=== PATIENT | female | born 1965 | race Caucasian/White ===

== ENCOUNTER → 2017-08-31 12:07 | Outpatient (CLI) | payer MEDICARE, SELFPAY ==
--- NOTE | 2017-08-31 12:10 | HPBI_ITS ---
MAMMOGRAPHY - BILATERAL SCREENING REASON FOR EXAM: Female, 51 years old. Routine annual screening examination. PERTINENT HISTORY: Non-contributory. TECHNIQUE: Digital bilateral breast jean (3D mammographic acquisition) in the CC and MLO projections. 2-D mediolateral oblique (MLO) and craniocaudad (CC) views of both breasts were obtained. CAD: Full Field Digital Mammography with Computer Added Detection was performed. COMPARISON: Comparison is made with prior outside examination dated April 14, 2012. FINDINGS: Breast Composition: There are scattered areas of fibroglandular density. There are no dominant masses or suspicious calcifications. Stable bilateral benign appearing axillary lymph nodes. No other significant abnormalities are identified. There has been no significant change since the prior study. HPBI/SCREENING MAMM (CAD), BILAT IMPRESSION: Stable bilateral screening mammogram. Yearly follow-up mammogram recommended. (A) ASSESSMENT CATEGORY: BIRADS Category 2: Benign. A letter regarding these results will be sent to the patient by the facility within 30 days. Approximately 10% of breast cancers are not detected by mammography. A normal mammogram should not delay biopsy of a clinically suspicious abnormality. [id number] Electronically Signed: Reinaldo Gaspar MD at 8:24 EST Tel [phone], Service support ,
== END ==
DX: Z12.31 Encounter for screening mammogram for malignant neoplasm of breast (principal)
CPT/HCPCS: 77063; 77067

== ENCOUNTER 2018-04-25 14:26 | Emergency (ER) | payer MEDICARE, SELFPAY ==
[2018-04-25 14:29] VITALS: BP 144/88; PULSE 73; RESP 16; TEMP 36.9; O2SAT 97; BMI 36.1
[2018-04-25 16:11] LABS: Bedside Glucose 100 mg/dL (70-110)
--- NOTE | 2018-04-25 16:22 | ED.VISSUMM ---
- ER Visit Summary Date of Service: 04/25/18 Chief Complaint: [Abscess to upper abdomen and right forearm] History of Present Illness: The patient is a 52 F [presents the emergency department complaint of a soft tissue swelling on her left upper abdomen that started about 10 days ago. Patient also has soft tissue swelling and redness to the right forearm that started 3 days ago. Patient believes that these have been triggered by her cat who scratches her accidentally. Patient denies any fevers at home. She denies recent illness. She denies any IV drug use.] Physical Examination: [HEENT-PERRLA, EOMI. Cranial nerves II through XII grossly intact. TMs clear. Mucous membranes moist. No adenopathy. Cardiovascular-regular rate and rhythm without murmur or ectopy Lungs-clear to auscultation, chest wall stable without crepitus or subcu emphysema Abdomen-normoactive bowel sounds, soft. Patient has a soft tissue swelling to the left upper abdomen with the central portion of which is been excoriated and scabbed over. The area of soft tissue swelling measures approximately 4 cm in diameter and is tender to palpation. Some mild fluctuance centrally. Extremities-intact ?4, normal range of motion, normal pulses, atraumatic.] Right forearm-patient has some superficial abrasions noted and she has diffuse erythema about the forearm. There is warmth. Findings consistent with cellulitis. No discrete abscess noted on the forearm. Test Results: [CBC with differential showed a white blood cell count 11.5, hemoglobin 15.7, hematocrit 45, platelets 282. Chemistries were unremarkable.] Emergency Department Course and Treatment: [Patient was offered incision and drainage of her abscess on her upper abdomen and to which she agreed. The incision and drainage was performed by Dr. Herminio Kebede. Patient received Unasyn 3 g IV.] Treatment Plan: [Patient was started on Keflex and Bactrim. I did outline the area of cellulitis on the right forearm with permanent marker. Patient advised to return if the redness should extend more than a centimeter outside of the line of demarcation or she should have lymphogenic streaking or fever.] Wound culture was sent from the I&D site. Disposition: [Discharged home in stable condition] Impression: [Abscess abdomen with incision and drainage Cellulitis right forearm] This note was generated with [employer] software. It may contain incorrect words, spelling, and punctuation that were not noted in review of the chart prior to signing ED Disposition - Plan for ED Patient: Chief Complaint: Abscess Referrals: Luis Felipe Crews,[facility] [Primary Care Provider] -
[2018-04-25 16:51] LABS: Absolute Lymphocyte Count 2.56 X10^3/ul (0.83-4.51); Absolute Neutrophil Count 7.8 X10^3/uL (2.0-7.7); Basophil# 0.02 X10^3/uL; Basophil% 0.2 % (0-1); Eosinophils% 1.7 % (0-5); Hematocrit 45.3 % (37-47); Hemoglobin 15.7 g/dl (12.0-15.0); Lymphocyte # 2.56 X10^3/ul (4.0); Lymphocyte % 22.3 % (19-41); Mean Corp Hgb Conc 34.7 g/gl (32-36); Mean Corpuscular Hgb 30.8 pg (27.0-32.0); Mean Corpuscular Volume 88.8 fL (81-99); Mean Platelet Vol. 8.2 fl (6.2-12.0); Monocyte# 0.88 X10^3/uL; Monocyte% 7.7 % (0-10); Neutrophil % 67.9 % (47-70); POSITIVE COUNT NO; POSITIVE DIFFERENTIAL NO; POSITIVE MORPHOLOGY NO; Platelet Count 282 K/mm3 (150-450); RBC Distribution Width SD 41.9 fl (35.1-43.9); White Blood Count 11.5 K/mm3 (4.4-11.0)
[2018-04-25 17:05] LABS: Anion Gap 7 (5-15); BUN 14 mg/dL (7-18); BUN/Creat Ratio 18.1 RATIO (10-20); Chloride 97 mmol/L (98-107); Creatinine, Serum 0.78 mg/dL (0.55-1.02); EST Glomerular Filtration Rate 83 mL/min (>60); Est Glom Filt Rate - Afr Amer 100 mL/min (>60); Estimated Creatinine Clearance 59.91 ml/min; Glucose 95 mg/dL (74-106); Potassium 3.8 mmol/L (3.5-5.1); Sodium Level 133 mmol/L (136-145)
--- NOTE | 2018-04-25 18:00 | ED.DEP ---
ED Disposition - Plan for ED Patient: Chief Complaint: Abscess Instructions: ED Abscess IandD, ED Infec Skin Cellulitis Prescriptions: Cephalexin [Keflex] 500 mg PO Q6 #40 cap Smz/Tmp Ds [Bactrim Ds] 1 tab PO BID #20 tab Referrals: [facility] [Primary Care Provider] - 3-5 Days
[2018-04-25 18:18] VITALS: BP 138/72; PULSE 74; RESP 18; O2SAT 96
== END 2018-04-25 18:22 | disposition home or self-care (01) ==
LOC: ED 16:44
PROVIDERS: Emergency Provider Emergency Medicine
DX: L03.113 Cellulitis of right upper limb (principal); L02.211 Cutaneous abscess of abdominal wall; E11.9 Type 2 diabetes mellitus without complications; I10 Essential (primary) hypertension; E78.00 Pure hypercholesterolemia, unspecified; E03.9 Hypothyroidism, unspecified; Z72.0 Tobacco use; F32.9 Major depressive disorder, single episode, unspecified; F41.9 Anxiety disorder, unspecified
CPT/HCPCS: 80048; 82962; 85025; 87070; 87077; 87186; 87205; 96365; 99283; J7030; A4216; J0295

== ENCOUNTER 2018-04-26 17:31 | Inpatient (IN) | payer MEDICARE, MEDICAID, SELFPAY ==
[2018-04-26 17:32] VITALS: BP 126/79; PULSE 72; RESP 16; TEMP 36.7; O2SAT 95; BMI 36.1
--- NOTE | 2018-04-26 19:19 | HP.PCM_ITS ---
Problem List (1) Pain and swelling of left upper extremity Status: Acute History of Present Illness Date of Admission: 04/26/18 Chief Complaint: pain and swelling of LUE The patient is a 52 year old Fwith a PMH of diabetes, HTN and nicotine dependence. She presents with a complaint of RUE worsening swelling, pain and redness for the past 3 days. Symptoms started after she was scratched by her cat. She was seen in the ED yesterday and had I&D of a smaller abscess on her abdomen, and the area of cellulitis of her RUE was demarcated, and she was discharged home with Bactrim. However, today area of redness extended past the demarcated area and so she decided to come into the ED. She denied any fever or chills, any chest pain, shortness of breath, abdominal pain, any diarrhea vomiting. 12 point review of systems is otherwise negative. She has been admitted to be managed for cellulitis of the right upper extremity and abdomen. [] Past Medical History Allergies No Known Allergies Allergy (Verified 01/20/17 15:36) Home Medications: Ambulatory Orders Medication Instructions Recorded Levothyroxine [Synthroid] 125 mcg PO DAILY 05/31/13 Amlodipine [Norvasc] 10 mg PO DAILY 01/20/17 Losartan Potassium 50 mg PO DAILY 01/20/17 Meloxicam 15 mg PO DAILY 01/20/17 Pravastatin [Pravachol] 20 mg PO QHS 01/20/17 busPIRone [Buspar] 15 mg PO DAILY 01/20/17 Cephalexin [Keflex] 500 mg PO Q6 #40 cap 04/25/18 Oxcarbazepine [Trileptal] 450 mg PO DAILY 04/25/18 Smz/Tmp Ds [Bactrim Ds] 1 tab PO BID #20 tab 04/25/18 Bupropion HCl [Wellbutrin Xl] 150 mg PO DAILY 04/26/18 Citalopram [Celexa] 40 mg PO QHS 04/26/18 Hydrochlorothiazide [Hctz] 25 mg PO DAILY 04/26/18 Melatonin 20 mg PO QHS 04/26/18 Metformin HCl [Glucophage] 500 mg PO BID 04/26/18 traZODone [Desyrel] 100 - 200 mg PO QHS 04/26/18 Surgical History: no surgical history Psychiatric History: Depression 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 Denies: Shortness of breath at rest, Sputum production Gastrointestinal: Denies: Abdominal Pain, Nausea, Vomiting Genitourinary: Denies: Dysuria Musculoskeletal: Reports: Arm Pain, Joint Pain. Denies: Joint Tenderness, Muscle pain Skin: Denies: Rash, Wounds Neurological: Denies: Numbness, Tingling, Focal weakness Psychiatric: Denies: Anxiety, Depression, Homicidal Ideations, Suicidal Ideations Hematologic/ Lymphatic: Denies: Easy Bruising, Easy Bleeding VTE Information - Inpt Only VTE Present on Admission: No VTE Mechan Device Prophylaxis: None VTE Pharm Prophylaxis ordered?: Yes Patient Problems: Active and Suspected Problems Pain and swelling of left upper extremity (Acute) - Physical Exam General: Alert, Oriented x3, Cooperative, No apparent distress HEENT: Atraumatic, PERRLA, EOMI, Normocephalic Oral: Moist Mucosa Neck: Supple, No JVD, Negative Carotid Bruits Lungs: Clear to auscultation, Normal air movement, No rhonchi, No wheeze, No r ales Cardiovascular: Regular rate, Regular Rhythm, Normal S1, Normal S2, No murmurs Abdomen: Bowel Sounds Present, Soft, Non Tender, Non-Distended, No Hepato- splenomegaly, - - ~ 1x1cm erythematous, ulcerated area with areas of pus, and surrounding erythema Extremities: No clubbing, No cyanosis, No edema Skin: - - redness and swelling and tenderness of RUE elbow area, extending down the back of the forearm. ~ [id number] area of redness tenderness, with ~ [id number] indurated area, with a punctate area. Musculoskeletal: No Tenderness to Palpation of Joints or Extremities, Tenderness Lymphatic: No Cervical, Supraclavicular, or Inguinal Adenopathy Neurological: Cranial nerves II-XII grossly intact Psych/Mental Status: Normal Affect, Appropriate, Alert and oriented to time, place, person, mood and affect Vital Signs Temp Pulse Resp BP Pulse Ox 98.1 F 72 16 126/79 H 95 04/26/18 17:32 04/26/18 17:32 04/26/18 17:32 04/26/18 17:32 04/26/18 17:32 Oxygen Delivery Method Room Air Weight: 185 lb Body Mass Index (BMI) 36.1 Finger Stick Blood Glucose 100 Assessment/Plan All Active Problems Pain and swelling of left upper extremity (Acute) 52-year-old female presenting with cellulitis of the right upper extremity and abdomen. 1. Cellulitis of right upper extremity and abdomen due to cat scratch * Failed outpatient therapy, though she was on Bactrim for only one day. * s/p post I&D of abdominal cellulitis. * Check CBC and BMP. * Admit to MedSurg. * Check A1c. Start IV vancomycin * counselled to be careful with cat to avoid scratches * 2. Nicotine dependence: smokes 11 cigarettes daily. Encouraged to quit. Nicotine patch 14gram daily. INpatient smoking cessation consult 3. Diabetes mellitus: Check A1c. On metformin. Insulin sliding scale. 4. Hyponatremia: Na is 130; this is chronic. Will monitor 5. Depression: On Celexa and wellbutrin 6. Hypothyroidism: on synthroid 125mcg daily 7. Hypertension: on amlodipine and losartan. 5. DVT prophylaxis: Lovenox CODE STATUS: Full code. * Patient counseled about different types of CODE STATUS including DNR CCA, full code and DNR CCA. Patient elects to be full code. Total [id number] time 17 minutes. Code Visit Inpatient E&M: 79645 Init Hosp L3 Procedures: 90443 Advncd Care Plan 30 Min
--- NOTE | 2018-04-26 19:39 | ED.DCSUM_ITS ---
- ER Visit Summary Date of Service: 04/26/18 Chief Complaint: [Redness and swelling to right forearm] History of Present Illness: The patient is a 52 F presents the emergency department with complaint of redness and swelling to the right forearm that initially started about 4 days ago. Patient states that she frequently is scratched by her cat on the forearm and also on her abdomen. Patient was seen in the emergency department yesterday by myself and she had some blood work that showed a slightly elevated white count of 11.5 and patient received Unasyn IV. Patient had a soft tissue abscess on her upper abdomen that was incised and drained yesterday as well. Patient had a cellulitis of the right forearm yesterday. We discussed admitting her yesterday versus outpatient treatment and she chose to attempt outpatient treatment and patient was started on Keflex and Bactrim. Patient comes back today because the erythema has increased beyond the markings that we made yesterday. She denies any fever. She denies chills or sweats.] Physical Examination: [HEENT-PERRLA, EOMI. Cranial nerves II through XII grossly intact. TMs clear. Mucous membranes moist. No adenopathy. Cardiovascular-regular rate and rhythm without murmur or ectopy Lungs-clear to auscultation, chest wall stable without crepitus or subcu emphysema Abdomen-normoactive bowel sounds, soft, nontender, no rebound or rigidity, no peritoneal signs. Extremities-intact ?4, normal range of motion, normal pulses, atraumatic]. Right forearm-there is cellulitis diffusely over the posterior aspect of the forearm no discrete abscess is noted. There is no fluctuance. She is neurovascular intact. Test Results: [CBC with differential and basic metabolic profile were ordered.] Emergency Department Course and Treatment: [Patient was started on Unasyn 1 g IV. A blood culture obtained yesterday did grow out staph from the abdominal wall abscess.] Treatment Plan: [Patient will be admitted for IV antibiotics] Disposition: [Admit] Impression: [Cellulitis right forearm-failed outpatient therapy] This note was generated with [employer] dictation software. It may contain incorrect words, spelling, and punctuation that were not noted in review of the chart prior to signing ED Disposition - Plan for ED Patient: Chief Complaint: Wound Referrals: Katarina Childers [Primary Care Provider] -
[2018-04-26 20:03] VITALS: BMI 36.1
[2018-04-26 20:16] LABS: Absolute Lymphocyte Count 3.32 X10^3/ul (0.83-4.51); Absolute Neutrophil Count 9.5 X10^3/uL (2.0-7.7); Basophil# 0.04 X10^3/uL; Basophil% 0.3 % (0-1); Eosinophil# 0.08 X10^3/uL; Eosinophils% 0.6 % (0-5); Hematocrit 43.7 % (37-47); Hemoglobin 15.4 g/dl (12.0-15.0); Lymphocyte # 3.32 X10^3/ul (4.0); Lymphocyte % 23.9 % (19-41); Mean Corp Hgb Conc 35.2 g/gl (32-36); Mean Corpuscular Hgb 30.6 pg (27.0-32.0); Mean Corpuscular Volume 86.7 fL (81-99); Mean Platelet Vol. 8.4 fl (6.2-12.0); Monocyte# 0.84 X10^3/uL; Monocyte% 6.1 % (0-10); Neutrophil # 9.54 X10^3/uL (2.7-7.7); Neutrophil % 68.7 % (47-70); POSITIVE COUNT NO; POSITIVE DIFFERENTIAL NO; POSITIVE MORPHOLOGY YES; Platelet Count 340 K/mm3 (150-450); RBC Distribution Width CV 12.8 % (11.6-14.6); RBC Distribution Width SD 40.2 fl (35.1-43.9); Red Blood Count 5.04 M/mm3 (4.2-5.4); White Blood Count 13.9 K/mm3 (4.4-11.0)
[2018-04-26 20:17] LABS: Differential Indicated SCAN CRITERIA MET
[2018-04-26 20:25] VITALS: BMI 36.6
[2018-04-26 20:38] LABS: Differential Comment SCANNED
--- NOTE | 2018-04-26 20:45 | PCM.RX.CS ---
Consult Pharmacy has been consulted to manage selected antiobiotic: Vancomycin Type of Consult: New start Suspected Infection: Skin/Soft tissue Labs: Sodium Cancelled 04/26/18 20:02 Potassium Cancelled 04/26/18 20:02 Chloride Cancelled 04/26/18 20:02 Carbon Dioxide Cancelled 04/26/18 20:02 Anion Gap Cancelled 04/26/18 20:02 BUN Cancelled 04/26/18 20:02 Creatinine Cancelled 04/26/18 20:02 Est GFR (MDRD) Af Amer Cancelled 04/26/18 20:02 Est GFR (MDRD) Non-Af Cancelled 04/26/18 20:02 BUN/Creatinine Ratio Cancelled 04/26/18 20:02 Glucose Cancelled 04/26/18 20:02 Weight used for dosin kg Estimated Creatinine Clearance: 60 mL/min Goal Trough: 10-15 mcg/mL Pharmacy Plan for Drug Dosing: Recommend 1250mg IV x1 followed by 750mg IV q12h per nomogram with trough prior to 4th dose. Pharmacy Service will continue to monitor and adjust dosing as required. Follow-Up Labs: Trough Vancomycin - 04/28 @ 0830
[2018-04-26 20:50] VITALS: BP 141/77; PULSE 61; RESP 18; TEMP 37.7; O2SAT 95
[2018-04-26 20:51] LABS: Bedside Glucose 89 mg/dL (70-110)
[2018-04-26 21:18] LABS: Anion Gap 7 (5-15); BUN 10 mg/dL (7-18); BUN/Creat Ratio 14.4 RATIO (10-20); Calcium,Total 8.8 mg/dL (8.5-10.1); Chloride 98 mmol/L (98-107); Creatinine, Serum 0.69 mg/dL (0.55-1.02); EST Glomerular Filtration Rate 94 mL/min (>60); Est Glom Filt Rate - Afr Amer 114 mL/min (>60); Estimated Creatinine Clearance 126.08 ml/min; Glucose 80 mg/dL (74-106); Potassium 3.6 mmol/L (3.5-5.1); Sodium Level 130 mmol/L (136-145)
[2018-04-26 21:35] LABS: Bedside Glucose 134 mg/dL (70-110)
[2018-04-26] MEDS: MELATONIN 10 MG TABLET 20 MG PO (22:15)
[2018-04-26] MEDS: traZODone 100 MG Tablet PO (22:15)
[2018-04-26] MEDS: Citalopram 40 MG TABLET PO (22:15)
[2018-04-26] MEDS: Pravastatin 20 MG Tablet PO (22:16)
[2018-04-26] MEDS: OXcarbazepine 150 MG Tablet 450 MG PO (22:20)
[2018-04-26] MEDS: Nicotine Polacrilex 2 MG GUM PO (23:23)
[2018-04-27 02:50] VITALS: BP 144/98; PULSE 69; RESP 18; TEMP 36.7; O2SAT 97
[2018-04-27] MEDS: Levothyroxine 125 MCG Tablet PO (06:30)
[2018-04-27 07:03] LABS: Absolute Lymphocyte Count 2.65 X10^3/ul (0.83-4.51); Basophil# 0.02 X10^3/uL; Basophil% 0.3 % (0-1); Eosinophil# 0.22 X10^3/uL; Eosinophils% 2.9 % (0-5); Hematocrit 45.3 % (37-47); Hemoglobin 15.7 g/dl (12.0-15.0); Lymphocyte # 2.65 X10^3/ul (4.0); Lymphocyte % 34.5 % (19-41); Mean Corp Hgb Conc 34.7 g/gl (32-36); Mean Corpuscular Hgb 30.6 pg (27.0-32.0); Mean Corpuscular Volume 88.3 fL (81-99); Mean Platelet Vol. 8.2 fl (6.2-12.0); Monocyte# 0.77 X10^3/uL; Neutrophil # 4.01 X10^3/uL (2.7-7.7); Platelet Count 305 K/mm3 (150-450); RBC Distribution Width CV 13.1 % (11.6-14.6); RBC Distribution Width SD 42.4 fl (35.1-43.9); Red Blood Count 5.13 M/mm3 (4.2-5.4); White Blood Count 7.7 K/mm3 (4.4-11.0)
[2018-04-27 07:05] LABS: POSITIVE COUNT NO; POSITIVE DIFFERENTIAL NO
[2018-04-27 07:06] LABS: POSITIVE MORPHOLOGY NO
[2018-04-27 07:26] LABS: Anion Gap 7 (5-15); BUN 12 mg/dL (7-18); BUN/Creat Ratio 15.6 RATIO (10-20); Calcium,Total 8.7 mg/dL (8.5-10.1); Chloride 101 mmol/L (98-107); Creatinine, Serum 0.77 mg/dL (0.55-1.02); EST Glomerular Filtration Rate 84 mL/min (>60); Est Glom Filt Rate - Afr Amer 101 mL/min (>60); Estimated Creatinine Clearance 112.98 ml/min; Glucose 102 mg/dL (74-106); Potassium 4.1 mmol/L (3.5-5.1); Sodium Level 134 mmol/L (136-145)
[2018-04-27] MEDS: Meloxicam 15 MG Tablet PO (08:03)
[2018-04-27 08:18] VITALS: BP 131/83; PULSE 66; RESP 18; TEMP 36.9; O2SAT 98
[2018-04-27 08:26] LABS: Bedside Glucose 216 mg/dL (70-110)
--- NOTE | 2018-04-27 09:22 | CASEMGMT ---
SLIM GARCIA Assessment Intro role of CM to patient in room. PCP: Radha Perez NP @ [facility] Pharmacy: [facility] Prescription coverage: Provisional RUMA coverage which assists with medications. Pt states her meds are all <$5.00 Living Arrangements: Self, in apartment. Stairs into apartment, but pt states no difficulty. DME: none Transportation: drives, however gas for car can be cost prohibitive. Social Work Consult: Pt states she goes to counseling center, and has Trauma Counselor. SLIM GARCIA let pt know we have Track Layer available if pt feels she could use to speak with her. Pt stated she definitely would like to speak with RENA. Referral made to RENA [facility] DC PLAN: Home on dc
[2018-04-27] MEDS: Losartan Potassium 50 MG Tablet PO (10:05)
[2018-04-27] MEDS: hydroCHLOROthiazide 25 MG Tablet PO (10:05)
[2018-04-27] MEDS: amLODIPine 10 MG Tablet PO (10:06)
[2018-04-27] MEDS: buPROPion (XL) 150 MG TABLET.XL PO (10:09)
[2018-04-27] MEDS: busPIRone 15 MG TABLET PO (10:09)
--- NOTE | 2018-04-27 10:57 | NURSING ---
wound photo: left abdomen
[2018-04-27 11:45] LABS: Bedside Glucose 85 mg/dL (70-110)
--- NOTE | 2018-04-27 12:58 | CHAPLAIN ---
Type of Pastoral Visit _x__ Initial Visit ___ Follow-up Visit ___ On-call Visit ___ General Patient Visit ___ Spiritual Assessment ___ Family Conference ___ Bereavement ___ Rapid Response ___ Code Blue ___ Other (describe below) Pastoral Care Referral From _x__ Patient ___ Family _x__ Nurse ___ Physician ___ Stem Cutter ___ Certified Nursing Assistant Instructor ___ Other (describe below) Sacrament/Intervention _x__ Active listening ___ Anointing ___ Confucianism ___ Bereavement ___ Communion _x__ Sabina exploration ___ ___ Life review _x__ Prayer ___ Reconciliation ___ Sacrament of Sick _x__ Supportive presence ___ Wedding ___ Other (describe below) Pastoral Comments patient had some questions and concerns about her personal prayers; pt expresses feelings of overwhelm as she has just moved; pt has a sabina and desires for that to become a better source of ongoing help in her life
--- NOTE | 2018-04-27 14:18 | CASEMGMT ---
SW received referral from that pt would like to speak w/SW. SW met w/pt in room. Pt confirms goes to [facility], sees counselor and has a trauma counselor as well. Pt states her trauma counselor is wonderful. Pt explains that she just moved to [place] and is still trying to unpack, and finds this stressful. Pt explains she would love help but does not have many people she can ask. Pt reports to have some friends and support, but not too many people she can ask to help. She states she does have a boyfriend who helped her rearrange her room, but he is 65, works still, and can't drive at night. SW suggested she pick him up as it sounds like he would be willing to help her. Pt talked about the last time she moved, and she had just been through a trauma so that move was difficult. She states this move was easier. SW offered supportive listening to pt. SW spoke w/pt about the [facility], pt does not think this program would be beneficial to her at this time. SW asked her about case management at [facility]. Pt explains that she has had multiple returned case inspector, they keep quitting. She states she is looking into other options for case management. SW asked pt about her ability to complete ADL'S(as perhaps a waiver application would be appropriate). Pt states that she can complete ADL's, she does not have any physical limitations, they are more mental. Pt states at times getting meals has been difficult, though now where she lives they offer hot lunches every day and she has been going to these hot lunches. We talked about the possibility of pt meeting people at these lunches. Pt states she is wary to let her guard down. Again, support offered to pt. At this time, pt just looking to speak w/SW about nothing specific it seems, just more for support and someone to talk to. SW let pt know that SW remains available today and tomorrow to speak again w/pt if she would find it helpful. Otherwise, no further needs anticipated. HARPAL Madison, UROLOGIC NURSE
[2018-04-27] MEDS: Nicotine Polacrilex 2 MG GUM PO ×3 (14:38→21:21)
--- NOTE | 2018-04-27 14:52 | NURSING ---
resting in bed, hand sanitizing cloths given per pt request. pt discussion regarding leaving to go home and take care of her cat which is indoors. pt educated on risks/ramifications/health promotion/safety and rights regarding AMA. pt states she will keep trying to get a hold of someone to see if someone can feed my cat. cooperative and agrees to inform nursing if she decides to leave AMA as she understands that her iv will need to be removed prior to leaving.
--- NOTE | 2018-04-27 15:53 | PN_ITS ---
Patient Problems: Active and Suspected Problems Pain and swelling of left upper extremity (Acute) Subjective: She was seen and examined today, I also talked with the wound care nurse today as she was in the room examining the patient's wounds, the patient's right forearm wound is not draining any material and has a small eschar over the area, it appears that the delineated reddened area has regressed since when it was marked when the patient was admitted. Patient has a small wound on her left lower abdomen, this is not draining any material and looks reddened. Culture from this abdominal wound area grew out MRSA which was susceptible to many oral antibiotics including Bactrim. - Physical Exam General: Alert, Oriented x3, Cooperative, No apparent distress, Well developed, Well nourished HEENT: Atraumatic, PERRLA, EOMI, Normocephalic Oral: Moist Mucosa Neck: Supple, No Nuchal Rigidity, Trachea Midline, Thyroid Normal Size and Texture Lungs: Clear to auscultation, Normal air movement, No rhonchi, No wheeze, No rales Cardiovascular: Regular rate, Regular Rhythm, Normal S1, Normal S2, No murmurs, No Ectopic Activity, PMI Normal, No rub noted, No Gallop Abdomen: Bowel Sounds Present, Soft, Non Tender, Non-Distended, No hernias noted, - - There is a small wound over the left lower abdomen approximately 3 cm in length with Steri-Strips applied to the area, the area is reddened and slightly tender Extremities: Capillary Refill Less than 3 Seconds, Edema - There is edema noted over the patient's right forearm on the medial aspect of the forearm, there is also a reddened area with a small eschar over it in the center of the area Skin: Rash Present - The right forearm is reddened over its medial aspect with edema noted, there is an eschar over the central area of this redness Neurological: Cranial nerves II-XII grossly intact, Neuro grossly intact, Sensory exam intact to light touch and pain, Coordination normal Psych/Mental Status: Normal Affect, Appropriate, Alert and oriented to time, place, person, mood and affect Vital Signs Temp Pulse Resp BP Pulse Ox 98.4 F 66 18 131/83 H 98 04/27/18 08:18 04/27/18 08:18 04/27/18 08:18 04/27/18 08:18 04/27/18 08:18 Oxygen Delivery Method Room Air Weight: 84.7 kg Body Mass Index (BMI) 36.6 Finger Stick Blood Glucose 100 Intake and Output for Last 24 Hours 04/25/18 04/26/18 04/27/18 23:59 23:59 23:59 Intake Total 387 / 387 1532 / 1532 Balance 387 / 387 1532 / 1532 Laboratory Tests Past 24 Hrs 04/26/18 04/26/18 04/26/18 20:02 20:02 20:50 WBC 13.9 H RBC 5.04 Hgb 15.4 H Hct 43.7 MCV 86.7 MCH 30.6 MCHC 35.2 RDW 12.8 RDW Differential 40.2 Plt Count 340 MPV 8.4 Immature Gran % (Auto) 0.400 Neut % (Auto) 68.7 Lymph % (Auto) 23.9 [place] % (Auto) 6.1 Eos % (Auto) 0.6 Baso % (Auto) 0.3 Absolute Neuts (auto) 9.5 H Absolute Lymphs (auto) 3.32 Total Counted Not Reportable Differential Comment SCANNED Sodium Cancelled 130 L Potassium Cancelled 3.6 Chloride Cancelled 98 Carbon Dioxide Cancelled 25.0 Anion Gap Cancelled 7 BUN Cancelled 10 Creatinine Cancelled 0.69 Estim Creat Clear Calc Cancelled 126.08 Est GFR (MDRD) Af Amer Cancelled 114 Est GFR (MDRD) Non-Af Cancelled 94 BUN/Creatinine Ratio Cancelled 14.4 Glucose Cancelled 80 Calcium Cancelled 8.8 04/27/18 04/27/18 06:55 06:55 WBC 7.7 RBC 5.13 Hgb 15.7 H Hct 45.3 MCV 88.3 MCH 30.6 MCHC 34.7 RDW 13.1 RDW Differential 42.4 Plt Count 305 MPV 8.2 Immature Gran % (Auto) 0.300 Neut % (Auto) 52.0 Lymph % (Auto) 34.5 [place] % (Auto) 10.0 Eos % (Auto) 2.9 Baso % (Auto) 0.3 Absolute Neuts (auto) 4.0 Absolute Lymphs (auto) 2.65 Total Counted Not Reportable Differential Comment Sodium 134 L Potassium 4.1 Chloride 101 Carbon Dioxide 26.0 Anion Gap 7 BUN 12 Creatinine 0.77 Estim Creat Clear Calc 112.98 Est GFR (MDRD) Af Amer 101 Est GFR (MDRD) Non-Af 84 BUN/Creatinine Ratio 15.6 Glucose 102 Calcium 8.7 POC Glucose 04/27/18 04/27/18 04/26/18 11:43 07:52 21:31 POC Glucose 85 216 H 134 H 04/26/18 20:41 POC Glucose 89 Medical Necessity - Tobacco Use Smoking Status: Current every day smoker Tobacco Use: Cigarettes Assessment/Plan All Active Problems Pain and swelling of left upper extremity (Acute) #1 cellulitis of the right forearm and left lower abdomen with MRSA-continue IV vancomycin for now, patient will be reevaluated tomorrow #2 hypertension-continue present medication #3 hyperlipidemia-continue present medication #4 depression-continue present medication #5 type 2 diabetes-continue metformin Code Visit Inpatient E&M: 87320 Subs Hosp L2
[2018-04-27 16:15] LABS: Bedside Glucose 88 mg/dL (70-110)
[2018-04-27 16:16] VITALS: BP 124/84; PULSE 59; RESP 18; TEMP 37.1; O2SAT 98
[2018-04-27 20:36] VITALS: BP 139/85; PULSE 60; RESP 16; TEMP 36.6; O2SAT 96
[2018-04-27] MEDS: MELATONIN 10 MG TABLET 20 MG PO (20:42)
[2018-04-27] MEDS: Pravastatin 20 MG Tablet PO (20:43)
[2018-04-27] MEDS: traZODone 100 MG Tablet PO (20:43)
[2018-04-27 20:56] LABS: Bedside Glucose 94 mg/dL (70-110)
[2018-04-27] MEDS: Citalopram 40 MG TABLET PO (21:19)
[2018-04-27] MEDS: OXcarbazepine 150 MG Tablet 450 MG PO (21:19)
[2018-04-28 02:32] VITALS: BP 150/84; PULSE 60; RESP 16; TEMP 36.6; O2SAT 98
[2018-04-28] MEDS: Levothyroxine 125 MCG Tablet PO (06:39)
[2018-04-28 06:46] LABS: Bedside Glucose 99 mg/dL (70-110)
[2018-04-28 07:29] VITALS: BP 137/85; PULSE 72; RESP 16; TEMP 36.9; O2SAT 97
--- NOTE | 2018-04-28 08:52 | DCINST_ITS ---
- Discharge Diagnoses Current Active Problems: Current Active and Chronic Problems Pain and swelling of left upper extremity (Acute) You will use the following diet at home:: Calorie/Carbohydrate Controlled (specify 1200, 1400, etc) - 1800 EMIL Your food should be the consistency of: Regular Your liquids should be the consistency of: Regular/Thin Discharge Activity: Return to Normal Activity Weight Bearing Status: Full weight bearing Allergies/Adverse Reactions: Allergies No Known Allergies Allergy (Verified 01/20/17 15:36) Medications to take at Discharge Levothyroxine [Synthroid] 125 mcg PO DAILY 05/31/13 Amlodipine [Norvasc] 10 mg PO DAILY 01/20/17 Losartan Potassium 50 mg PO DAILY 01/20/17 Meloxicam 15 mg PO DAILY 01/20/17 Pravastatin [Pravachol] 20 mg PO QHS 01/20/17 busPIRone [Buspar] 15 mg PO DAILY 01/20/17 Oxcarbazepine [Trileptal] 450 mg PO DAILY 04/25/18 Smz/Tmp Ds [Bactrim Ds] 1 tab PO BID #20 tab 04/25/18 Bupropion HCl [Wellbutrin Xl] 150 mg PO DAILY 04/26/18 Citalopram [Celexa] 40 mg PO QHS 04/26/18 Hydrochlorothiazide [Hctz] 25 mg PO DAILY 04/26/18 Melatonin 20 mg PO QHS 04/26/18 Metformin HCl [Glucophage] 500 mg PO BID 04/26/18 traZODone [Desyrel] 100 - 200 mg PO QHS 04/26/18 Levofloxacin [Levaquin] 500 mg PO DAILY #7 tablet 04/28/18 The following prescriptions were given: Levofloxacin [Levaquin] 500 mg PO DAILY #7 tablet Primary Care Physician: [facility] [Primary Care Provider] - Please follow up with your Primary Care Physician in: NEXT WEEK Test Results: Test results from this visit will be discussed in further detail at your follow- up appointment, if applicable.
[2018-04-28] MEDS: Meloxicam 15 MG Tablet PO (08:57)
[2018-04-28] MEDS: Losartan Potassium 50 MG Tablet PO (08:58)
[2018-04-28] MEDS: buPROPion (XL) 150 MG TABLET.XL PO (08:58)
[2018-04-28] MEDS: hydroCHLOROthiazide 25 MG Tablet PO (08:58)
[2018-04-28] MEDS: busPIRone 15 MG TABLET PO (08:58)
[2018-04-28] MEDS: amLODIPine 10 MG Tablet PO (08:58)
[2018-04-28] MEDS: Nicotine Polacrilex 2 MG GUM PO (09:15)
[2018-04-28 09:30] LABS: Vancomycin, Trough Level 4.6 ug/mL (5.0-15.0)
--- NOTE | 2018-04-28 11:12 | PCM.DC.SUM ---
Discharge Date and Diagnosis - Problem List Patient Problems: Active and Suspected Problems Pain and swelling of left upper extremity (Acute) Date of Admission: 04/26/18 Date of Discharge: 04/28/18 - Primary Discharge Diagnosis Active and Suspected Problems #1 cellulitis of the right forearm-secondary to methicillin-resistant staph aureus, failed outpatient antibiotic treatment #2 cellulitis of the left lower abdominal wall secondary to methicillin-resistant staph aureus, failed outpatient treatment #3 bipolar disorder #4 hypertension #5 type 2 diabetes #6 hyperlipidemia Hospital Course and Treatment Consultations 04/27/18 06:31 Consult: Onc/Wound/network operations lead Routine Comment: Reason for Consult:: OPEN WOUND ON ABDOMEN Operations: None Procedures: None Summary of Care Provided: The patient is a 52 year old F who was seen in the emergency room at [facility] with chief complaint of continued redness and swelling in her right forearm as well as an area of redness over her left lower abdominal wall. Patient been seen in the emergency room 24 hours previously and had been placed on antibiotics after being given an IV dose of antibiotics. The reddened area over her left lower abdominal wall was incised at that time and cultures were obtained which were not available to the emergency room physician at her visit. She was sent home at that time on Keflex and Bactrim. Patient related that the areas on her right forearm had continued to cause discomfort and were swollen and reddened. Evaluation in the ER included a CBC revealed an elevated white blood cell count of 13.9, sodium was slightly low at 130. Patient's wound culture had resulted with staph but sensitivities were not available to the emergency room physician and patient was given IV Unasyn and admitted to [place] [id number]. She was placed on IV vancomycin on admission and repeat labs were obtained in the next day which showed a normal white blood cell count and an improved sodium at 134. Sensitivities came back that day and were reviewed by myself, she had methicillin-resistant staph aureus from her abdominal wound and this was felt to also be present in her right forearm although no culture could be obtained from the area. This MRSA was sensitive to multiple oral antibiotics, patient was reevaluated on 04/28/18 and the area of redness and induration of the right forearm was improved at that time and she was felt stable for discharge home. Vital signs: Temp 98.5 oral, pulse 72, blood pressure 137/85, respiratory rate 16, pulse ox on room air 97% Physical Exam General: Alert, Oriented x3, Cooperative, No apparent distress, Well developed, Well nourished HEENT: Atraumatic, PERRLA, EOMI, Normocephalic Oral: Moist Mucosa Neck: Supple, No Nuchal Rigidity, Trachea Midline, Thyroid Normal Size and Texture Lungs: Clear to auscultation, Normal air movement, No rhonchi, No wheeze, No rales Cardiovascular: Regular rate, Regular Rhythm, Normal S1, Normal S2, No murmurs, No Ectopic Activity, PMI Normal, No rub noted, No Gallop Abdomen: Bowel Sounds Present, Soft, Non Tender, Non-Distended, No hernias noted, - - There is a small wound over the left lower abdomen approximately 3 cm in length with Steri-Strips applied to the area, the area is reddened and slightly tender Extremities: Capillary Refill Less than 3 Seconds, Edema - There is edema noted over the patient's right forearm on the medial aspect of the forearm, there is also a reddened area with a small eschar over it in the center of the area Skin: Rash Present - The right forearm is reddened over its medial aspect with edema noted which is improved over my last examination, there is an eschar over the central area of this redness. There is a reddened area over the left lower abdominal wall which is probably 3 cm in diameter, no drainage is noted from the area, it remains slightly tender Neurological: Cranial nerves II-XII grossly intact, Neuro grossly intact, Sensory exam intact to light touch and pain, Coordination normal Psych/Mental Status: Normal Affect, Appropriate, Alert and oriented to time, place, person, mood and affect Patient Problems: Active and Suspected Problems Pain and swelling of left upper extremity (Acute) - Physical Exam Vital Signs Temp Pulse Resp BP Pulse Ox 98.5 F 72 16 137/85 H 97 04/28/18 07:29 04/28/18 07:29 04/28/18 07:29 04/28/18 07:29 04/28/18 07:29 Oxygen Delivery Method Room Air Weight: 84.7 kg Body Mass Index (BMI) 36.6 Finger Stick Blood Glucose 100 Intake and Output for Last 24 Hours 04/26/18 04/27/18 04/28/18 23:59 23:59 23:59 Intake Total 387 / 387 2620 / 2620 906 / 906 Balance 387 / 387 2620 / 2620 906 / 906 Laboratory Tests Past 24 Hrs 04/28/18 08:30 Vancomycin Trough 4.6 L POC Glucose 04/28/18 04/27/18 04/27/18 06:39 20:38 16:07 POC Glucose 99 94 88 04/27/18 11:43 POC Glucose 85 Discharge Activity: Return to Normal Activity Weight Bearing Status: Full weight bearing Home Medications: Medications to take at Discharge Levothyroxine [Synthroid] 125 mcg PO DAILY 05/31/13 Amlodipine [Norvasc] 10 mg PO DAILY 01/20/17 Losartan Potassium 50 mg PO DAILY 01/20/17 Meloxicam 15 mg PO DAILY 01/20/17 Pravastatin [Pravachol] 20 mg PO QHS 01/20/17 busPIRone [Buspar] 15 mg PO DAILY 01/20/17 Oxcarbazepine [Trileptal] 450 mg PO DAILY 04/25/18 Smz/Tmp Ds [Bactrim Ds] 1 tab PO BID #20 tab 04/25/18 Bupropion HCl [Wellbutrin Xl] 150 mg PO DAILY 04/26/18 Citalopram [Celexa] 40 mg PO QHS 04/26/18 Hydrochlorothiazide [Hctz] 25 mg PO DAILY 04/26/18 Melatonin 20 mg PO QHS 04/26/18 Metformin HCl [Glucophage] 500 mg PO BID 04/26/18 traZODone [Desyrel] 100 - 200 mg PO QHS 04/26/18 Levofloxacin [Levaquin] 500 mg PO DAILY #7 tablet 04/28/18 Following Prescrptions Were Given to Patient: Levofloxacin [Levaquin] 500 mg PO DAILY #7 tablet Primary Care Physician: Katarina Childers [Primary Care Provider] - Please follow up with your Primary Care Physician in: NEXT WEEK Disposition: Home Minutes spent on discharge:: 32 Patient Condition:: Stable Medical Necessity - Tobacco Use Smoking Status: Current every day smoker Tobacco Use: Cigarettes Meaningful Use Info Meaningful Use Diagnoses (Choose all that apply): None applicable Code Visit Inpatient E&M: 17986 Disch Hosp
== END 2018-04-28 12:20 | disposition home or self-care (01) | DRG 603 ==
LOC: ED 19:10 → MS2 19:42
PROVIDERS: Admitting Provider Student in an Organized Health Care Education/Training Program; Emergency Provider Emergency Medicine; Visit Provider Internal Medicine
DX: L03.113 Cellulitis of right upper limb (principal); E87.1 Hypo-osmolality and hyponatremia; L03.311 Cellulitis of abdominal wall; A49.02 Methicillin resistant Staphylococcus aureus infection, unspecified site; F17.210 Nicotine dependence, cigarettes, uncomplicated; E11.9 Type 2 diabetes mellitus without complications; E03.9 Hypothyroidism, unspecified; I10 Essential (primary) hypertension; Z66 Do not resuscitate; F31.9 Bipolar disorder, unspecified; E78.5 Hyperlipidemia, unspecified
CPT/HCPCS: 36415; 80048; 80202; 82962; 85025; 87070; 87077; 87186; 87205; 96365; 99283; 99406; J7030; J7050; A4216; J0295

== ENCOUNTER → 2018-05-19 20:03 | Outpatient (CLI) | payer MEDICARE, MEDICAID, SELFPAY | DX: G47.9 Sleep disorder, unspecified (principal) | CPT/HCPCS: 95810 ==

== ENCOUNTER 2018-05-29 15:17 | Emergency (ER) | payer MEDICARE, MEDICAID, SELFPAY ==
[2018-05-29 15:19] VITALS: BP 111/78; PULSE 73; RESP 16; TEMP 36.4; O2SAT 93; BMI 36.1
--- NOTE | 2018-05-29 15:39 | ED.VISSUMM ---
- ER Visit Summary Date of Service: 05/29/18 Chief Complaint: Anxiety History of Present Illness: The patient is a 52 F sent in by crisis along with nursing covering for psychiatrist for evaluation. Has been dealing with anxiety for months. She is following closely as an outpatient. Patient states she feels a nerves inside her body jittering. Today her brain felt dull. States she felt days to date out of control. Last seen was her therapist 5 days ago. She has appointments this week. Does admit to tobacco occasional alcohol and THC use. Last alcohol was last night, last THC was this morning. History of bipolar, anxiety, depression. She is a diabetic. She is on medications with no obvious doses. Denies any suicidal thoughts or plans. No homicidal thoughts. Last admission for psychiatric issues as 2011. Complains increasing nausea with her symptoms. Physical Examination: General: Alert and oriented ?3, no acute distress HEENT: Normocephalic, atraumatic. Moist mucosa membranes Neck: supple, nontender. Cardiovascular: Regular rate and rhythm, no murmurs Respiratory: Normal breath sounds, symmetric, no distress Abdomen: Soft, nontender, nondistended Extremities: Nontender, no edema, pulses intact ?4 Neuro: no focal neurological deficits. Psychiatric: No suicidal homicidal ideations. Flat affect. Test Results: Hemoglobin 15.6. Potassium 3.2. Alcohol negative tox screen positive for THC. Emergency Department Course and Treatment: Patient flat affect. She is requesting help. History of depression and bipolar. Denied any specific suicidal homicidal ideations. She is medically cleared with labs. Potassium slightly low was given oral replacement. Zofran given for nausea however she declined. Able to eat in the ED. Evaluated by [facility], unclear on specifics with patient. She denied any suicidal specific ideations or plan. However she did insinuate if she were not living that it would not matter. With patient volunteering wanting help, admits she was working on placement for the patient. In the interim, patient decided to leave the department. She was not pink slipped. She does have follow-up as an outpatient with her therapist and psychiatrist. Patient eloped the department. Treatment Plan: [] Disposition: Eloped Impression: 1. Depression 2. Bipolar 3. Hypokalemia This note was generated with Packet Designation software. It may contain incorrect words, spelling, and punctuation that were not noted in review of the chart prior to signing ED Disposition - Plan for ED Patient: Disposition: Against Medical Advice Chief Complaint: Anxiety Diagnosis: Depression, Bipolar 1 disorder, depressed, Hypokalemia Referrals: Katarina Childers [Primary Care Provider] -
[2018-05-29 15:58] LABS: Absolute Lymphocyte Count 3.16 X10^3/ul (0.83-4.51); Absolute Neutrophil Count 5.7 X10^3/uL (2.0-7.7); Basophil# 0.02 X10^3/uL; Basophil% 0.2 % (0-1); Eosinophil# 0.14 X10^3/uL; Eosinophils% 1.4 % (0-5); Hematocrit 45.2 % (37-47); Hemoglobin 15.6 g/dl (12.0-15.0); Lymphocyte # 3.16 X10^3/ul (4.0); Lymphocyte % 32.7 % (19-41); Mean Corp Hgb Conc 34.5 g/gl (32-36); Mean Corpuscular Hgb 30.6 pg (27.0-32.0); Mean Corpuscular Volume 88.8 fL (81-99); Mean Platelet Vol. 8.5 fl (6.2-12.0); Monocyte# 0.59 X10^3/uL; Monocyte% 6.1 % (0-10); Neutrophil # 5.74 X10^3/uL (2.7-7.7); Neutrophil % 59.5 % (47-70); Platelet Count 271 K/mm3 (150-450); RBC Distribution Width CV 13.6 % (11.6-14.6); RBC Distribution Width SD 44.3 fl (35.1-43.9); Red Blood Count 5.09 M/mm3 (4.2-5.4); White Blood Count 9.7 K/mm3 (4.4-11.0)
[2018-05-29 15:59] LABS: POSITIVE COUNT NO; POSITIVE DIFFERENTIAL NO; POSITIVE MORPHOLOGY NO
[2018-05-29 16:09] LABS: Anion Gap 9 (5-15); BUN 10 mg/dL (7-18); BUN/Creat Ratio 13.9 RATIO (10-20); Calcium,Total 8.7 mg/dL (8.5-10.1); Chloride 98 mmol/L (98-107); Creatinine, Serum 0.72 mg/dL (0.55-1.02); EST Glomerular Filtration Rate 90 mL/min (>60); Est Glom Filt Rate - Afr Amer 108 mL/min (>60); Estimated Creatinine Clearance 64.91 ml/min; Glucose 85 mg/dL (74-106); Potassium 3.2 mmol/L (3.5-5.1); Sodium Level 134 mmol/L (136-145)
[2018-05-29 16:29] LABS: Amphetamine Urine VISTA NEGATIVE (<1000 ng/mL); Barbiturate Urine VISTA NEGATIVE (< 200 ng/mL); Benzodiazepine Urine VISTA NEGATIVE (< 200 ng/mL); Cocaine Urine VISTA NEGATIVE (< 300 ng/mL); Ecstacy Urine VISTA NEGATIVE (< 500 ng/mL); Methadone Urine VISTA NEGATIVE (< 300 ng/mL); PCP Urine VISTA NEGATIVE (< 25 ng/mL); THC Urine VISTA POSITIVE (< 50 ng/mL); Vista UDS pH Range 7
--- NOTE | 2018-05-29 16:48 | NURSING ---
CALLED CRISIS. TALKED TO CHRISTIE.
[2018-05-29 16:54] LABS: Alcohol, Blood (Medical)-Serum < 3.0 mg/dL
--- NOTE | 2018-05-29 18:18 | NURSING ---
CHRISTIE, CRISIS, HAS CHART
--- NOTE | 2018-05-29 19:25 | ED.RN ---
Addendum entered by Priti Tao 05/29/18 19:33: STAFF REPORTER NOTED OF PATIENT LEAVING ER. STATES THAT HE WAS NOT GOING TO PINK SLIP THE PATIENT. PATIENT REFUSED TO STAY FOR MORE CARE. ELOPEMENT AT 1913. Original Note: PATIENT WALKED OUT OF THE ER AT 1913. DENIES WAITING FOR DISCHARGE. NOTIFIED.
== END 2018-05-29 19:14 | disposition left against medical advice (07) ==
PROVIDERS: Emergency Provider Emergency Medicine
DX: F31.9 Bipolar disorder, unspecified (principal); E87.6 Hypokalemia; E11.9 Type 2 diabetes mellitus without complications; I10 Essential (primary) hypertension; E78.00 Pure hypercholesterolemia, unspecified; Z86.73 Personal history of transient ischemic attack (TIA), and cerebral infarction without residual deficits; Z72.0 Tobacco use; F12.90 Cannabis use, unspecified, uncomplicated; Z79.899 Other long term (current) drug therapy
CPT/HCPCS: 80048; 80307; 80320; 85025; 99281; G0480

== ENCOUNTER 2018-05-31 20:18 | Emergency (ER) | payer MEDICARE, MEDICAID, SELFPAY ==
[2018-05-31 20:21] VITALS: BP 112/77; PULSE 61; RESP 18; TEMP 36.6; O2SAT 95; BMI 30.2
--- NOTE | 2018-05-31 20:31 | ED.RN ---
SUICIDE PRECAUTIONS INITIATED UPON ARRIVAL, THIS RN WITH PT UNTIL 1:1 SITTER IN ROOM. PT REMAINS COOPERATIVE AT THIS TIME, STATES I WANT TO CHECK IN SOME PLACE TO GET HELP.
--- NOTE | 2018-05-31 20:40 | EKG12_ITS ---
Test Reason : MENTAL HEALTH Blood Pressure : / mmHG Vent. Rate : 060 BPM Atrial Rate : 060 BPM P-R Int : 186 ms QRS Dur : 104 ms QT Int : 476 ms P-R-T Axes : 056 -20 -53 degrees QTc Int : 476 ms Normal sinus rhythm T wave abnormality, consider inferior ischemia T wave abnormality, consider anterolateral ischemia Prolonged QT Abnormal ECG Confirmed by DM HERRON, TERRY ([id number]), staff editor ARNULFO SCHROEDER ([id number]) on 06/02/2018 3:44:45 PM Referred By: DR PHELAN Confirmed By:TERRY CHAIDEZ MD
[2018-05-31 21:06] LABS: Bacteria 0 SEEN /hpf (None Seen); Red Blood Cells-Urine 0 SEEN /hpf (0-5); White Blood Cells 0 SEEN /hpf (0-5)
[2018-05-31 21:07] LABS: Absolute Lymphocyte Count 3.78 X10^3/ul (0.83-4.51); Absolute Neutrophil Count 4.4 X10^3/uL (2.0-7.7); Basophil# 0.04 X10^3/uL; Basophil% 0.4 % (0-1); Eosinophil# 0.16 X10^3/uL; Eosinophils% 1.8 % (0-5); Hematocrit 45.3 % (37-47); Hemoglobin 15.7 g/dl (12.0-15.0); Lymphocyte # 3.78 X10^3/ul (4.0); Lymphocyte % 42.3 % (19-41); Mean Corp Hgb Conc 34.7 g/gl (32-36); Mean Corpuscular Hgb 30.4 pg (27.0-32.0); Mean Corpuscular Volume 87.8 fL (81-99); Mean Platelet Vol. 8.6 fl (6.2-12.0); Monocyte% 5.6 % (0-10); Neutrophil # 4.42 X10^3/uL (2.7-7.7); Neutrophil % 49.6 % (47-70); Platelet Count 329 K/mm3 (150-450); RBC Distribution Width CV 13.8 % (11.6-14.6); Red Blood Count 5.16 M/mm3 (4.2-5.4); White Blood Count 8.9 K/mm3 (4.4-11.0)
[2018-05-31 21:08] LABS: POSITIVE COUNT NO; POSITIVE DIFFERENTIAL NO; POSITIVE MORPHOLOGY NO
[2018-05-31 21:25] LABS: Color, Urine Yellow (Yellow); Glucose, Dipstick Normal (Normal); Ketone-Dipstick Negative (Negative); Leukocyte Esterase-Dipstick 25 /ul (Negative); Nitrite-Dipstick Negative (Negative); Occult Blood-Urine 10 /ul (Negative); Protein-Dipstick Negative (Negative); Urine Bilirubin Dipstick Negative (Negative); Urine Clarity Clear (Clear); Urine Urobilinogen 1 mg/dl (Normal)
[2018-05-31 21:25] LABS: Pregnancy, Serum, hCG Quali. NEGATIVE Negative (0-9 Nonpreg)
[2018-05-31 21:32] LABS: AST(SGOT) 12 U/L (15-37); Alanine Aminotransfer ALT/SGPT 28 U/L (13-56); Albumin, Serum 3.8 g/dL (3.2-5.0); Alkaline Phosphatase 69 U/L (45-117); Anion Gap 12 (5-15); BUN 10 mg/dL (7-18); BUN/Creat Ratio 14.1 RATIO (10-20); Calcium,Total 8.6 mg/dL (8.5-10.1); Chloride 103 mmol/L (98-107); Creatinine, Serum 0.71 mg/dL (0.55-1.02); EST Glomerular Filtration Rate 92 mL/min (>60); Est Glom Filt Rate - Afr Amer 111 mL/min (>60); Estimated Creatinine Clearance 98.42 ml/min; Globulin 3.7 g/dL (2.2-4.2); Glucose 83 mg/dL (74-106); Protein, Total 7.5 g/dL (6.4-8.2); Sodium Level 139 mmol/L (136-145); Thyroid Stim Hormone (TSH) 7.15 uIU/mL (0.358-3.74)
[2018-05-31 21:33] LABS: Mucous, Urine RARE /hpf (<or=2+); Squamous Epithelial Cells - UA 0-5 SEEN /hpf (5-10)
[2018-05-31 21:34] LABS: Amphetamine Urine VISTA NEGATIVE (<1000 ng/mL); Barbiturate Urine VISTA NEGATIVE (< 200 ng/mL); Benzodiazepine Urine VISTA NEGATIVE (< 200 ng/mL); Cocaine Urine VISTA NEGATIVE (< 300 ng/mL); Ecstacy Urine VISTA POSITIVE (< 500 ng/mL); Methadone Urine VISTA NEGATIVE (< 300 ng/mL); PCP Urine VISTA NEGATIVE (< 25 ng/mL); THC Urine VISTA POSITIVE (< 50 ng/mL); Vista UDS pH Range 5
[2018-05-31 22:00] VITALS: RESP 16
--- NOTE | 2018-05-31 22:22 | ED.RN ---
all lab work has resulted and we called crisis to see ptCheryl Fernando from crisis is on her way.
--- NOTE | 2018-05-31 22:28 | ED.RN ---
RENETTA FROM CRISIS CALLED AND STATED SHE WILL BE HERE SOON.
--- NOTE | 2018-05-31 22:48 | ED.RN ---
RENETTA FROM CRISIS IS HERE TO SEE PT.
[2018-05-31 23:00] VITALS: PULSE 61; RESP 18; O2SAT 99
--- NOTE | 2018-06-01 00:37 | ED.VISSUMM ---
- ER Visit Summary Date of Service: 06/01/18 Chief Complaint: Suicidal ideation History of Present Illness: The patient is a 52 F presenting secondary to suicidal ideation patient states that she is having issues with her anxiety and she is angry at the counseling center for not helping her with her anxieties and now she plans to stab herself with her knives at home because she does not have enough pills to kill herself. She also endorses some auditory hallucinations associated with this. Physical Examination: Vital signs are within normal limits, patient is afebrile. General: Patient is well-nourished well-developed and in no acute distress. Head: Normocephalic, atraumatic Eyes: Pupils equal round and reactive bilaterally, extra occular motion intact bialterally ENT: Moist mucous membranes Neck: Supple, no lymphadenopathy, no JVD, no meningismus CVS: Heart regular rate and rhythm, no murmurs, rubs or gallops, radial pulses 2+ bilaterally Resp: Respirations nondistressed, lung sounds clear bilaterally Abdomen: Soft, nontender, nondistended, no palpable masses, normal bowel sounds Back: Nontender Extremities: Nontender, atraumatic, active full range of motion, no peripheral edema Skin: warm, no rashes, no petechia Neuro: Alert and oriented x 4, CN 2-12 intact, no lateralizing neurological defecits Psyc: Blunted affect with endorsement of suicidal ideation and hallucinations Test Results: EKG shows nonspecific T wave changes. CBC chemistry troponin toxicology ethanol screen were essentially unremarkable. Emergency Department Course and Treatment: Patient presented with suicidal ideation. She does seem like she potentially would benefit from psychiatric stabilization and crisis is in agreement. Patient will be placed at our earliest availability. Disposition: Transfer Impression: 1. Suicidal ideation This note was generated with Chargeback dictation software. It may contain incorrect words, spelling, and punctuation that were not noted in review of the chart prior to signing ED Disposition - Plan for ED Patient: Chief Complaint: Suicidal Referrals: Katarina Childers [Primary Care Provider] -
[2018-06-01 03:35] VITALS: BP 132/97; PULSE 75; RESP 12; O2SAT 96
--- NOTE | 2018-06-01 05:38 | ED.RN ---
called report to Karen SMALLS at [facility]. K+ 3.0, notified and will order replacement in ED.
[2018-06-01 06:48] VITALS: BP 130/87; PULSE 62; RESP 16; TEMP 36.6; O2SAT 96
== END 2018-06-01 08:31 ==
LOC: ED 21:10
PROVIDERS: Emergency Provider Emergency Medicine
DX: R45.851 Suicidal ideations (principal); F41.9 Anxiety disorder, unspecified; F32.9 Major depressive disorder, single episode, unspecified
CPT/HCPCS: 80053; 80307; 80320; 81001; 84443; 84484; 84703; 85025; 93005; 99285; G0480

== ENCOUNTER 2018-06-17 12:51 | Emergency (ER) | payer MEDICARE, MEDICAID, SELFPAY ==
[2018-06-17] VITALS (9 sets, daily range): BP systolic 118–127; BP diastolic 84–98; PULSE 75–76; RESP 14–18; TEMP 35.9; O2SAT 96–98; BMI 37.8
[2018-06-17 13:24] LABS: Absolute Lymphocyte Count 2.76 X10^3/ul (0.83-4.51); Absolute Neutrophil Count 5.5 X10^3/uL (2.0-7.7); Basophil# 0.03 X10^3/uL; Basophil% 0.3 % (0-1); Eosinophil# 0.16 X10^3/uL; Eosinophils% 1.8 % (0-5); Hematocrit 44.4 % (37-47); Hemoglobin 15.3 g/dl (12.0-15.0); Lymphocyte # 2.76 X10^3/ul (4.0); Lymphocyte % 30.5 % (19-41); Mean Corp Hgb Conc 34.5 g/gl (32-36); Mean Corpuscular Hgb 30.5 pg (27.0-32.0); Mean Corpuscular Volume 88.6 fL (81-99); Mean Platelet Vol. 8.7 fl (6.2-12.0); Monocyte# 0.54 X10^3/uL; Neutrophil # 5.53 X10^3/uL (2.7-7.7); Neutrophil % 61.2 % (47-70); POSITIVE COUNT NO; POSITIVE DIFFERENTIAL NO; POSITIVE MORPHOLOGY NO; Platelet Count 326 K/mm3 (150-450); RBC Distribution Width CV 13.4 % (11.6-14.6); RBC Distribution Width SD 43.6 fl (35.1-43.9); Red Blood Count 5.01 M/mm3 (4.2-5.4)
[2018-06-17 13:33] LABS: Anion Gap 8 (5-15); BUN 10 mg/dL (7-18); BUN/Creat Ratio 13.4 RATIO (10-20); Chloride 104 mmol/L (98-107); Creatinine, Serum 0.74 mg/dL (0.55-1.02); EST Glomerular Filtration Rate 87 mL/min (>60); Est Glom Filt Rate - Afr Amer 105 mL/min (>60); Estimated Creatinine Clearance 63.15 ml/min; Glucose 94 mg/dL (74-106); Potassium 3.8 mmol/L (3.5-5.1); Sodium Level 137 mmol/L (136-145)
--- NOTE | 2018-06-17 13:38 | ED.DCSUM_ITS ---
- ER Visit Summary Date of Service: 06/17/18 Chief Complaint: Suicidal thoughts History of Present Illness: The patient is a 52 F with suicidal thoughts. She has had long-standing anxiety which has been bad for several months and then it became worse over the past 3 weeks. She feels overwhelmed. Nothing seemed to bring this on or make it worse. Today she is feeling that she wants to stab herself. Patient has a history of depression, anxiety, and bipolar disorder. She does use alcohol, tobacco, and marijuana. Physical Examination: Afebrile and vital signs unremarkable. Alert and oriented. Depressed mood and flat affect. HEENT exam unremarkable. Heart regular. Lungs clear. Extremities nontender with no edema. Skin appears normal. Cranial nerves grossly intact. Normal strength sensation, symmetrical. Test Results: Laboratory studies, drug screen, and alcohol testing pending. Emergency Department Course and Treatment: Patient had suicide precautions and a sitter. Hgb 15.3 and labs otherwise unremarkable. Tox screen positive for THC. Crisis was paged for evaluation. Treatment Plan: As above Disposition: Transfer pending crisis evaluation Impression: 1. Suicidal ideation This note was generated with [employer]ent dictation software. It may contain incorrect words, spelling, and punctuation that were not noted in review of the chart prior to signing ED Disposition - Plan for ED Patient: Chief Complaint: Suicidal Referrals: Katarina Childers [NON-STAFF] -
[2018-06-17 13:46] LABS: Amphetamine Urine VISTA NEGATIVE (<1000 ng/mL); Barbiturate Urine VISTA NEGATIVE (< 200 ng/mL); Benzodiazepine Urine VISTA NEGATIVE (< 200 ng/mL); Cocaine Urine VISTA NEGATIVE (< 300 ng/mL); Ecstacy Urine VISTA NEGATIVE (< 500 ng/mL); Methadone Urine VISTA NEGATIVE (< 300 ng/mL); PCP Urine VISTA NEGATIVE (< 25 ng/mL); THC Urine VISTA POSITIVE (< 50 ng/mL); Vista UDS pH Range 6
[2018-06-17 13:50] LABS: Pregnancy, Serum, hCG Quali. NEGATIVE Negative (0-9 Nonpreg)
--- NOTE | 2018-06-17 14:33 | ED.RN ---
CRISIS NOTIFIED; SPOKE WITH SONIA; IS AT [facility] RIGHT NOW; PABLO WILL COME IN AFTER 430 TO SEE PT
[2018-06-17] MEDS: Gabapentin 600 MG Tablet 300 MG PO (19:13)
--- NOTE | 2018-06-17 19:57 | EKG12_ITS ---
Test Reason : [facility] Blood Pressure : / mmHG Vent. Rate : 058 BPM Atrial Rate : 058 BPM P-R Int : 192 ms QRS Dur : 100 ms QT Int : 452 ms P-R-T Axes : 051 -09 -11 degrees QTc Int : 443 ms Sinus bradycardia Otherwise normal ECG Confirmed by PARMJIT HERRON, ASHLEY ([id number]), fan mail editor ARNULFO SCHROEDER ([id number]) on 06/20/2018 2:53:18 PM Referred By: ROSELINE Confirmed By:ASHLEY PARNELL MD
[2018-06-17 20:11] LABS: Bacteria 0 SEEN /hpf (None Seen); Mucous, Urine 0 SEEN /hpf (<or=2+); Red Blood Cells-Urine 0 SEEN /hpf (0-5); Squamous Epithelial Cells - UA 0 SEEN /hpf (5-10); White Blood Cells 0 SEEN /hpf (0-5)
[2018-06-17 20:18] LABS: Color, Urine Straw (Yellow); Glucose, Dipstick Normal (Normal); Ketone-Dipstick Negative (Negative); Leukocyte Esterase-Dipstick Negative /ul (Negative); Nitrite-Dipstick Negative (Negative); Occult Blood-Urine Negative /ul (Negative); Protein-Dipstick Negative (Negative); Urine Bilirubin Dipstick Negative (Negative); Urine Clarity Clear (Clear); Urine Urobilinogen Normal (Normal); Urine pH 6.5 (5.0 - 8.0)
--- NOTE | 2018-06-17 20:40 | NURSING ---
ACCEPTED AT [place] [id number] REPORT
--- NOTE | 2018-06-17 20:48 | ED.RN ---
pt took nicorette gum from home with verbal permission of dr. valencia. 2mg nicorette gum taken orally. see mar.
--- OUTSIDE RECORDS SUMMARY | 2018-08-11 20:11 | XMS RPT_ITS ---
:1965 Author Organization OHIP Support Name Relationship Address Phone D Unavailable Unavailable Unavailable KAYLEEN CASTANEDA Unavailable Unavailable + [place] [address] D Unavailable Unavailable Unavailable MARTHA CASTANEDAI Unavailable Unavailable + [place] [address] D Unavailable Unavailable Unavailable KAYLEEN CASTANEDA Unavailable Unavailable + [place] [address] MARTHA CASTANEDAI Unavailable Unavailable + [place] [address] UE Unavailable Unavailable Unavailable KAYLEEN CASTANEDA Unavailable Unavailable + [place] [address] UE Unavailable Unavailable Unavailable D Unavailable Unavailable Unavailable KAYLEEN CASTANEDA Unavailable Unavailable + [place] [address] D Unavailable Unavailable Unavailable KAYLEEN CASTANEDA Unavailable Unavailable + [place] [address] D Unavailable Unavailable Unavailable MARTHA CASTANEDAI Unavailable Unavailable + [place] [address] MARTHA CASTANEDAI Unavailable Unavailable + [place] [address] UE Unavailable Unavailable Unavailable KARRIE SMALLWOOD Unavailable . + [place] [address] UE Unavailable Unavailable Unavailable Care Team Providers Name Role Phone POLLY, SALLY KNAPP Attending Unavailable Shayna Ramsey Attending Unavailable XANDER CRAWFORD Primary Care Unavailable Koram, Gayle Odette Admitting Unavailable Matt Torres Attending Unavailable SALLY MATIAS Primary Care Unavailable Koram, Gayle Odette Admitting Unavailable Koram, Gayle Odette Attending Unavailable Yancy Steele Primary Care Unavailable Koram, Gayle Odette Consulting Unavailable Koram, Gayle Odette Admitting Unavailable Tereletsky, Matt Attending Unavailable [facility] Unavailable Tereletsky, Matt Consulting Unavailable Koram, Gayle Odette Admitting Unavailable Tereletsky, Matt Attending Unavailable [facility] Primary Care Unavailable Tereletsky, Matt Consulting Unavailable [facility] Attending Unavailable [facility] Primary Care Unavailable [facility] Primary Care Unavailable Jayson Brown Attending Unavailable [facility] Primary Care Unavailable Karrie Garcia Attending Unavailable Adriana, Andrew Attending Unavailable Yancy Steele Primary Care Unavailable PROBLEMS PROBLEMS DATE TYPE CONDITION / CODE ATTENDING STATUS SOURCE 05/22/2018 Unknown G47.33 - [facility] Active Angela Obstructive sleep [facility] ap[facility] (adult) [facility] (pediatric) / Repository G47.33(ICD-10) 05/08/2018 Unknown M79.89 - Other Tereletsky, Active Alexander specified soft [facility] tissue disorders [facility] / M79.89(ICD-10) Repository PROCEDURES PROCEDURES No Procedure Records FoundRESULTS RESULTS 12 LEAD ELECTROCARDIOGRAM Observed: 06/20/2018 Status: F Source: [place] 2:53 PM [facility] REPOSITORY [facility] Cardiovascular Services [address] [place] [address] 12 Lead EKG 06/17/182005 MR#: [id number] Acct: [id number] Name: BHARATI SMALLWOOD Rep #: [id number] : 1965 52 From: Hermniio Parnell MD Attending Dr: Status: DEP ER Ordering Dr: Ann Marie Tracy MD Date: 06/17/18 Location: ED Sex: F C Admitted: Test Reason : MHC Blood Pressure : / mmHG Vent. Rate : 058 BPM Atrial Rate : 058 BPM P-R Int : 192 ms QRS Dur : 100 ms QT Int : 452 ms P-R-T Axes : 051 -09 -11 degrees QTc Int : 443 ms Sinus bradycardia Otherwise normal ECG Confirmed by PARMJIT HERRON, HERMINIO ([id number]), news videotape editor ARNULFO SCHROEDER ([id number]) on 06/20/2018 2:53:18 PM Referred By: ROSELINE Confirmed By:HERMINIO PARNELL MD 06/20/18 0475 Date Herminio Parnell MD CC: Andrew Wright MD; Ann Marie Tracy MD; Yancy WILKINS Signed EMERGENCY DEPARTMENT Observed: 06/17/2018 Status: C Source: [place] SUMMARY 8:50 PM [facility] REPOSITORY [facility] Medical Records Department [address] [place] [address] Emergency Department Summary 06/17/18 1336 MR#: [id number] Acct: [id number] Name: BHARATI SMALLWOOD Rep #: [id number] : 1965 52 From: Andrew Wright MD PCP: Yancy Steele Status: REG ER ADDENDUM by AnnM arie Tracy MD on 06/17/18 at 2050 Patient was signed out to ia pending evaluation by crisis. Patient will require transfer and has been accepted at [facility]. Date Ann Marie Tracy MD cc: Yancy WILKINS * Addendum - ER Visit Summary Date of Service: 06/17/18 Chief Complaint: Suicidal thoughts History of Present Illness: The patient is a 52 F with suicidal thoughts. She has had long-standing anxiety which has been bad for several months and then it became worse over the past 3 weeks. She feels overwhelmed. Nothing seemed to bring this on or make it worse. Today she is feeling that she wants to stab herself. Patient has a history of depression, anxiety, and bipolar disorder. She does use alcohol, tobacco, and marijuana. Physical Examination: Afebrile and vital signs unremarkable. Alert and oriented. Depressed mood and flat affect. HEENT exam unremarkable. Heart regular. Lungs clear. Extremities nontender with no edema. Skin appears normal. Cranial nerves grossly intact. Normal strength sensation, symmetrical. Test Results: Laboratory studies, drug screen, and alcohol testing pending. Emergency Department Course and Treatment: Patient had suicide precautions and a sitter. Hgb 15.3 and labs otherwise unremarkable. Tox screen positive for THC. Crisis was paged for evaluation. Treatment Plan: As above Disposition: Transfer pending crisis evaluation Impression: 1. Suicidal ideation This note was generated with SmartHub dictation software. It may contain incorrect words, spelling, and punctuation that were not noted in review of the chart prior to signing ED Disposition - Plan for ED Patient: Chief Complaint: Suicidal Referrals: Luis Felipe Matias,Sally Banuelos [NON-STAFF] - What to do if you have Problems For any increased pain, shortness of breath, bleeding, nausea or vomiting, chest pain, or any unexpected problems, contact your Primary Care Provider. Call [facility] ([phone]) or report to the closest Emergency Room. Call 911 if necessary. 06/17/18 1615 <Electronically signed by Andrew Wright MD> Date Andrew Wright MD Cosigner Signature (If Indicated): Date CC: Yancy WILKINS CBC W/DIFF, AUTOMATED Collected: 06/17/2018 Status: F Source: [place] 1:11 PM [facility] REPOSITORY TYPE CODE TESTS RESULT OUT OF RANGE REFERENCE UNITS LAB L100.1000 4.4-11.0 K/mm3 Normal WBC 9.0 LAB L100.1200 4.2-5.4 M/mm3 Normal RBC 5.01 LAB L100.1300 12.0-15.0 g/dl High HGB 15.3 LAB L100.1400 37-47 % Normal HCT 44.4 LAB L100.1500 81-99 fL Normal MCV 88.6 LAB L100.1600 27.0-32.0 pg Normal MCH 30.5 LAB L100.1700 32-36 g/gl Normal MCHC 34.5 LAB L100.1810 11.6-14.6 % Normal RDW CV 13.4 LAB L100.1820 35.1-43.9 fl Normal RDW SD 43.6 LAB L100.1900 150-450 K/mm3 Normal PLT 326 LAB L100.2000 6.2-12.0 fl Normal MPV 8.7 LAB L100.2100 47-70 % Normal NEUT% 61.2 LAB L100.2200 19-41 % Normal LY% 30.5 LAB L100.2300 0-10 % Normal MONO% 6.0 LAB L100.2400 0-5 % Normal EO% 1.8 LAB L100.2500 0-1 % Normal BASO% 0.3 LAB L100.2550 0.0-0.9 % Normal IM GRAN % 0.200 Result Comment: IG% - Immature Granulocytes (promyelocytes, myelocytes and metamyelocytes) > 1% indicates that a LEFT SHIFT is Present. LAB L100.2620 2.0-7.7 X10 3/uL Normal Absolute Neut 5.5 LAB L100.2720 0.83-4.51 X10 3/ul Normal Absolute Lymph 2.76 Performed By: #### L100.0100 #### [facility] [address] [place], [address] BASIC METABOLIC Collected: 06/17/2018 Status: F Source: [place] PROFILE ([facility]) 1:11 PM [facility] REPOSITORY TYPE CODE TESTS RESULT OUT OF RANGE REFERENCE UNITS LAB L501.0100 74-106 mg/dL Normal GLU 94 Result Comment: Please note revised GLUCOSE reference range effective 2017. LAB L501.1000 7-18 mg/dL Normal BUN 10 LAB L501.1100 0.55-1.02 mg/dL Normal CREAT,SERUM 0.74 Result Comment: The validity of the calculated GFR AND GFRAA in patients over 70 years has not been determined. Clinical correlation is essential. LAB L501.1110 >60 mL/min Normal EST GFR 87 Result Comment: Non- GFR Calc LAB L501.1115 >60 mL/min Normal EST GFR - AA 105 Result Comment: GFR Calc LAB L501.1255 ml/min Normal Estimated CRCL 63.15 LAB L501.1300 10-20 RATIO Normal BUN/CRE 13.4 LAB L501.2200 8.5-10 mg/dL Normal .1 CA 9.0 LAB L501.5300 136-14 mmol/L Normal 5 NA 137 LAB L501.5600 3.5-5. mmol/L Normal 1 K 3.8 LAB L501.5900 98-107 mmol/L Normal CL 104 LAB L501.6100 21.0-3 mmol/L Normal 2.0 CO2 25.0 LAB L501.6200 5-15 Normal GAP 8 Performed By: #### L500.2500 #### [facility] [address] [facility] [address] [address] [place], [place], [address] ,SERUM,HCG QUALI. Collected: Status: F Source: [place] 06/17/2018 1:11 PM [facility] REPOSITORY TYPE CODE TESTS RESULT OUT OF REFERENCE UNITS RANGE LAB L700.7000 0-9 Nonpreg Negative Normal HCGSQUAL NEGATIVE LAB L700.6700 =>Qualitative mIU/mL Normal HCG Qual 2 triggr Performed By: #### L700.6800 #### [facility] [address] [facility] [address] [place], [place], [address] ALCOHOL, BLOOD Collected: 06/17/2018 Status: F Source: [place] (MEDICAL)-SERUM 1:11 PM [facility] REPOSITORY TYPE CODE TESTS RESULT OUT OF RANGE REFERENCE UNITS LAB L501.9100 mg/dL Normal SERUM 4.0 ETOH Result Comment: The serum:whole blood ethanol ratio is approximately 1.14 and varies slightly with hematocrit. Medical Alcohol reference interval and critical value in non-tolerant individuals; 50 - 100 Impairment 100 Intoxication 100 - 250 Severe Poisoning 250 - 400 Deep/possible fatal coma Performed By: #### L501.9100 #### [facility] [address] [facility] [address] [place], [place], [address] URINE DRUG SCREEN Collected: 06/17/2018 Status: F Source: [place] (VISTA) 1:05 PM [facility] REPOSITORY TYPE CODE TESTS RESULT OUT OF RANGE REFERENCE UNITS LAB L505.0075 TO BE Normal CONFIRMED Result Comment: CONFIRMATORY TESTING FOR ALL POSITIVE URINE DRUG SCREEN RESULTS WILL ONLY BE SENT OUT UPON PHYSICIAN ORDER. VISTA Urine Drug Screen methods provide only preliminary analytical test results. A more specific alternate chemical method must be used in order to obtain a confirmed analytical result. Gas chromatography/mass spectrometery (GC/MS) is the preferred confirmatory method. Clinical consideration and professional judgement should be applied to any drug of abuse test result, particularly when preliminary positive results are used. URINE TCA TESTING MUST BE ORDERED SEPARATELY. USE TEST MNEMONIC: [facility] LAB L505.5005 VISTA UDS PH 6 Normal LAB L505.5015 <1000 ng/mL AMPHETAMINES Normal NEGATIVE LAB L505.5025 < 200 ng/mL BARBITIURATES Normal NEGATIVE LAB L505.5035 < 200 ng/mL BENZODIAZIPINE Normal NEGATIVE LAB L505.5045 < 300 ng/mL COCAINE Normal NEGATIVE LAB L505.5055 < 500 ng/mL ECSTACY Normal NEGATIVE LAB L505.5065 < 300 ng/mL METHADONE Normal NEGATIVE LAB L505.5075 < 300 ng/mL OPIATES Normal NEGATIVE LAB L505.5085 < 25 ng/mL PCP Normal NEGATIVE LAB L505.5095 < 50 High ng/mL THC POSITIVE Performed By: #### L505.5000 #### [facility] [address] [place], [address] URINALYSIS, COMPLETE Collected: 06/17/2018 Status: F Source: [place] 1:05 PM [facility] REPOSITORY Order Comment: Order Date: 06/17/18 How was Urine Obtained? DIRECTOR QUALITY ASSURANCE TO SPECIFY TYPE CODE TESTS RESULT OUT OF RANGE REFERENCE UNITS LAB L400.3000 Yellow COLOR Normal Straw LAB L400.3050 Clear Normal CLARITY Clear LAB L400.3200 Normal mg/dl Normal GLUCOSE, UR Normal LAB L400.3300 Negative mg/dL Normal BILIRUBIN URINE Negative LAB L400.3400 Negative mg/dl Normal KETONE UR Negative LAB L400.3465 1.002-1.030 Normal SP.GR. DIPSTX 1.010 LAB L400.3550 5.0 - 8.0 pH UR Normal 6.5 LAB L400.3600 Negative mg/dl PROT Normal DIPSTX Negative LAB L400.3700 Normal mg/dl Normal UROBILI Normal LAB L400.3750 Negative Normal NITRITE UR Negative LAB L400.3780 Negative /ul Normal OCCULT BLOOD-UR Negative LAB L400.3800 Negative /ul LEUK Normal ESTERASE Negative LAB L400.4050 0-5 /hpf WBC 0 Normal SEEN LAB L400.4100 0-5 /hpf 0 Normal RBC-UA SEEN LAB L400.4150 5-10 /hpf SQUAM 0 Normal EPI SEEN LAB L400.4300 None Seen /hpf 0 Normal BACTERIA SEEN LAB L400.4350 <or=2+ /hpf 0 Normal MUCUS, URINE SEEN Performed By: #### L400.0001 #### [facility] [address] [place], [address] 12 LEAD ELECTROCARDIOGRAM Observed: 06/16/2018 Status: F Source: [place] 9:08 AM [facility] REPOSITORY [facility] Cardiovascular Services [address] [place] [address] 12 Lead EKG 05/31/182058 MR#: [id number] Acct: [id number] Name: BHARATI SMALLWOOD Rep #: [id number] : 1965 52 From: Hemant Armendariz MD Attending Dr: Status: DEP ER Ordering Dr: Karrie Garcia MD Date: 05/31/18 Location: ED Sex: F C Admitted: Test Reason : MENTAL HEALTH Blood Pressure : / mmHG Vent. Rate : 060 BPM Atrial Rate : 060 BPM P-R Int : 186 ms QRS Dur : 104 ms QT Int : 476 ms P-R-T Axes : 056 -20 -53 degrees QTc Int : 476 ms Normal sinus rhythm T wave abnormality, consider inferior ischemia T wave abnormality, consider anterolateral ischemia Prolonged QT Abnormal ECG Confirmed by HEMANT ARMENDARIZ MD ([id number]), news videotape editor ARNULFO SCHROEDER (56) on 06/02/2018 3:44:45 PM Referred By: DR GARCIA Confirmed By:HEMANT ARMENDARIZ MD 06/02/18 1544 Date Hemant Armendariz MD CC: Karrie Garcia; SALLY BANUELOS [facility] Signed BASIC METABOLIC PANEL Collected: 06/02/2018 Status: F Source: [facility] 5:30 AM [facility] REPOSITORY TYPE CODE TESTS RESULT OUT OF REFERENCE UNITS RANGE LAB NA 132-144 mEq/L Sodium High alert 145 LAB K 3.5-5.1 mEq/L Potassium 4.7 LAB CL 98-107 mEq/L Chloride 107 LAB CO2 22-29 mEq/L CO2 28 LAB AGAP 7-13 mEq/L Anion Gap 10 LAB GLU 74-109 mg/dL Glucose 90 LAB BUN 6-20 mg/dL BUN 14 LAB CREA 0.50-0.90 mg/dL Creatinine 0.74 LAB GFR >60 GFR >60.0 Result Comment: >60 mL/min/1.73m2 EGFR, calc. for ages 18 and older using the MDRD formula (not corrected for weight), is valid for stable renal function. LAB GFRAA >60 eGFR >60.0 Result Comment: >60 mL/min/1.73m2 EGFR, calc. for ages 18 and older using the MDRD formula (not corrected for weight), is valid for stable renal function. LAB CA 8.6-10.2 mg/dL Calcium 9.7 LIPID PANEL Collected: 06/02/2018 Status: F Source: [facility] 5:30 AM [facility] REPOSITORY TYPE CODE TESTS RESULT OUT OF REFERENCE UNITS RANGE LAB CHOL 0-199 mg/dL Cholesterol High alert 203 Result Comment: ATP III Cholesterol Classification is Borderline High. LAB TRIG 0-200 mg/dL High Triglycerides alert 266 Result Comment: ATP III Triglycerides Classification is High. LAB HDL 40-59 mg/dL HDL Cholesterol 59 Result Comment: ATP III HDL Cholesterol Classification is Desirable. Expected Values: Males: >55 = No Risk 35-55 = Moderate Risk <35 = High Risk Females: >65 = No Risk 45-65 = Moderate Risk <45 = High Risk NCEP Guidelines: Third Report November 2000 >59 = negative risk factor for CHD <40 = major risk factor for CHD LAB LDLC 0-129 mg/dL LDL Cholesterol (Calculated) 91 Result Comment: ATP III LDL Classification is Optimal. TSH W/OUT REFLEX Collected: 06/02/2018 Status: F Source: [facility] 5:30 AM [facility] REPOSITORY TYPE CODE TESTS RESULT OUT OF REFERENCE UNITS RANGE LAB TSH 0.270-4.20 uIU/mL High alert TSH w/out 5.820 Reflex VITAMIN D Collected: 06/02/2018 Status: F Source: [facility] 5:30 AM [facility] REPOSITORY TYPE CODE TESTS RESULT OUT OF REFERENCE UNITS RANGE LAB VITD 30.0-100.0 ng/mL VITAMIN D 32.0 Result Comment: (30-100 ng/mL) Optimum Level This assay accurately quantifies the sum of vitamin D3, 25- Hydroxy and vitamin D2, 25-Hyroxy. HEMOGLOBIN A1C Collected: 06/02/2018 Status: F Source: [facility] 5:30 AM [facility] REPOSITORY TYPE CODE TESTS RESULT OUT OF REFERENCE UNITS RANGE LAB HA1C 4.8-5.9 % Hemoglobin A1C 5.7 EMERGENCY DEPARTMENT Observed: 06/01/2018 Status: F Source: [place] SUMMARY 12:43 AM [facility] REPOSITORY [facility] Medical Records Department [address] [place] [address] Emergency Department Summary 06/01/18 0037 MR#: [id number] Acct: [id number] Name: BHARATI SMALLWOOD Rep #: [id number] : 1965 52 From: Karrie Garcia MD PCP: SALLY BANUELOS [facility] Status: REG ER - ER Visit Summary Date of Service: 06/01/18 Chief Complaint: Suicidal ideation History of Present Illness: The patient is a 52 F presenting secondary to suicidal ideation patient states that she is having issues with her anxiety and she is angry at the counseling center for not helping her with her anxieties and now she plans to stab herself with her knives at home because she does not have enough pills to kill herself. She also endorses some auditory hallucinations associated with this. Physical Examination: Vital signs are within normal limits, patient is afebrile. General: Patient is well-nourished well-developed and in no acute distress. Head: Normocephalic, atraumatic Eyes: Pupils equal round and reactive bilaterally, extra occular motion intact bialterally ENT: Moist mucous membranes Neck: Supple, no lymphadenopathy, no JVD, no meningismus CVS: Heart regular rate and rhythm, no murmurs, rubs or gallops, radial pulses 2+ bilaterally Resp: Respirations nondistressed, lung sounds clear bilaterally Abdomen: Soft, nontender, nondistended, no palpable masses, normal bowel sounds Back: Nontender Extremities: Nontender, atraumatic, active full range of motion, no peripheral edema Skin: warm, no rashes, no petechia Neuro: Alert and oriented x 4, CN 2-12 intact, no lateralizing neurological defecits Psyc: Blunted affect with endorsement of suicidal ideation and hallucinations Test Results: EKG shows nonspecific T wave changes. CBC chemistry troponin toxicology ethanol screen were essentially unremarkable. Emergency Department Course and Treatment: Patient presented with suicidal ideation. She does seem like she potentially would benefit from psychiatric stabilization and crisis is in agreement. Patient will be placed at our earliest availability. Disposition: Transfer Impression: 1. Suicidal ideation This note was generated with SmartHub dictation software. It may contain incorrect words, spelling, and punctuation that were not noted in review of the chart prior to signing ED Disposition - Plan for ED Patient: Chief Complaint: Suicidal Referrals: [facility] Polly,Sally Banuelos [Primary Care Provider] - What to do if you have Problems For any increased pain, shortness of breath, bleeding, nausea or vomiting, chest pain, or any unexpected problems, contact your Primary Care Provider. Call [facility] ([phone]) or report to the closest Emergency Room. Call 911 if necessary. 06/01/18 0043 <Electronically signed by Karrie Garcia MD> Date Karrie Garcia MD Cosigner Signature (If Indicated): Date CC: SALLY BANUELOS [facility] URINE DRUG SCREEN Collected: 05/31/2018 Status: F Source: [place] ([place]) 8:55 PM [facility] REPOSITORY TYPE CODE TESTS RESULT OUT OF RANGE REFERENCE UNITS LAB L505.0075 TO BE Normal CONFIRMED Result Comment: CONFIRMATORY TESTING FOR ALL POSITIVE URINE DRUG SCREEN RESULTS WILL ONLY BE SENT OUT UPON PHYSICIAN ORDER. VISTA Urine Drug Screen methods provide only preliminary analytical test results. A more specific alternate chemical method must be used in order to obtain a confirmed analytical result. Gas chromatography/mass spectrometery (GC/MS) is the preferred confirmatory method. Clinical consideration and professional judgement should be applied to any drug of abuse test result, particularly when preliminary positive results are used. URINE TCA TESTING MUST BE ORDERED SEPARATELY. USE TEST MNEMONIC: [facility] LAB L505.5005 VISTA UDS PH 5 Normal LAB L505.5015 <1000 ng/mL AMPHETAMINES Normal NEGATIVE LAB L505.5025 < 200 ng/mL BARBITIURATES Normal NEGATIVE LAB L505.5035 < 200 ng/mL BENZODIAZIPINE Normal NEGATIVE LAB L505.5045 < 300 ng/mL COCAINE Normal NEGATIVE LAB L505.5055 < 500 High ng/mL ECSTACY POSITIVE LAB L505.5065 < 300 ng/mL METHADONE Normal NEGATIVE LAB L505.5075 < 300 ng/mL OPIATES Normal NEGATIVE LAB L505.5085 < 25 ng/mL PCP Normal NEGATIVE LAB L505.5095 < 50 High ng/mL THC POSITIVE Performed By: #### L505.5000 #### [facility] [address] [place], [place], [address] URINALYSIS, COMPLETE Collected: 05/31/2018 Status: F Source: [place] 8:55 PM [facility] REPOSITORY Order Comment: How was Urine Obtained? CLEAN CATCH TYPE CODE TESTS RESULT OUT OF RANGE REFERENCE UNITS LAB L400.3000 Yellow COLOR Normal Yellow LAB L400.3050 Clear Normal CLARITY Clear LAB L400.3200 Normal mg/dl Normal GLUCOSE, UR Normal LAB L400.3300 Negative mg/dL Normal BILIRUBIN URINE Negative LAB L400.3400 Negative mg/dl Normal KETONE UR Negative LAB L400.3465 1.002-1.030 Normal SP.GR. DIPSTX 1.020 LAB L400.3550 5.0 - 8.0 pH UR Normal 6.0 LAB L400.3600 Negative mg/dl PROT Normal DIPSTX Negative LAB L400.3700 Normal mg/dl High 1 UROBILI LAB L400.3750 Negative Normal NITRITE UR Negative LAB L400.3780 Negative /ul High 10 OCCULT BLOOD-UR LAB L400.3800 Negative /ul High LEUK 25 ESTERASE LAB L400.4050 0-5 /hpf WBC 0 Normal SEEN LAB L400.4100 0-5 /hpf 0 Normal RBC-UA SEEN LAB L400.4150 5-10 /hpf SQUAM Normal EPI 0-5 SEEN LAB L400.4300 None Seen /hpf 0 Normal BACTERIA SEEN LAB L400.4350 <or=2+ /hpf Normal MUCUS, URINE RARE Performed By: #### L400.0001 #### [facility] [address] [facility] [address] [place], [place], [address] CBC W/DIFF, AUTOMATED Collected: 05/31/2018 Status: F Source: [place] 8:28 PM [facility] REPOSITORY TYPE CODE TESTS RESULT OUT OF RANGE REFERENCE UNITS LAB L100.1000 4.4-11.0 K/mm3 Normal WBC 8.9 LAB L100.1200 4.2-5.4 M/mm3 Normal RBC 5.16 LAB L100.1300 12.0-15.0 g/dl High HGB 15.7 LAB L100.1400 37-47 % Normal HCT 45.3 LAB L100.1500 81-99 fL Normal MCV 87.8 LAB L100.1600 27.0-32.0 pg Normal MCH 30.4 LAB L100.1700 32-36 g/gl Normal MCHC 34.7 LAB L100.1810 11.6-14.6 % Normal RDW CV 13.8 LAB L100.1820 35.1-43.9 fl High RDW SD 44.0 LAB L100.1900 150-450 K/mm3 Normal PLT 329 LAB L100.2000 6.2-12.0 fl Normal MPV 8.6 LAB L100.2100 47-70 % Normal NEUT% 49.6 LAB L100.2200 19-41 % High LY% 42.3 LAB L100.2300 0-10 % Normal MONO% 5.6 LAB L100.2400 0-5 % Normal EO% 1.8 LAB L100.2500 0-1 % Normal BASO% 0.4 LAB L100.2550 0.0-0.9 % Normal IM GRAN % 0.300 Result Comment: IG% - Immature Granulocytes (promyelocytes, myelocytes and metamyelocytes) > 1% indicates that a LEFT SHIFT is Present. LAB L100.2620 2.0-7.7 X10 3/uL Normal Absolute Neut 4.4 LAB L100.2720 0.83-4.51 X10 3/ul Normal Absolute Lymph 3.78 Performed By: #### L100.0100 #### [facility] [address] [facility] [place], [address] ALCOHOL, BLOOD Collected: 05/31/2018 Status: F Source: [place] (MEDICAL)-SERUM 8:28 PM [facility] REPOSITORY TYPE CODE TESTS RESULT OUT OF RANGE REFERENCE UNITS LAB L501.9100 mg/dL Normal SERUM 27.0 ETOH Result Comment: The serum:whole blood ethanol ratio is approximately 1.14 and varies slightly with hematocrit. Medical Alcohol reference interval and critical value in non-tolerant individuals; 50 - 100 Impairment 100 Intoxication 100 - 250 Severe Poisoning 250 - 400 Deep/possible fatal coma Performed By: #### L501.9100 #### [facility] [address] [facility] [place], [address] ,SERUM,HCG QUALI. Collected: Status: F Source: ANGELA 05/31/2018 8:28 PM [facility] REPOSITORY TYPE CODE TESTS RESULT OUT OF REFERENCE UNITS RANGE LAB L700.7000 0-9 Nonpreg Negative Normal HCGSQUAL NEGATIVE LAB L700.6700 =>Qualitative mIU/mL Normal HCG Qual 3 triggr Performed By: #### L700.6800 #### [facility] [address] [facility]. [place], [place], [address] COMPREHENSIVE METABOLIC Collected: 05/31/2018 Status: F Source: ANGELA PROFIL 8:28 PM [facility] REPOSITORY TYPE CODE TESTS RESULT OUT OF RANGE REFERENCE UNITS LAB L501.0100 74-106 mg/dL Normal GLU 83 Result Comment: Please note revised GLUCOSE reference range effective 2017. LAB L501.1000 7-18 mg/dL Normal BUN 10 LAB L501.1100 0.55-1.02 mg/dL Normal CREAT,SERUM 0.71 Result Comment: The validity of the calculated GFR AND GFRAA in patients over 70 years has not been determined. Clinical correlation is essential. LAB L501.1110 >60 mL/min Normal EST GFR 92 Result Comment: Non- GFR Calc LAB L501.1115 >60 mL/min Normal EST GFR - AA 111 Result Comment: GFR Calc LAB L501.1255 ml/min Normal Estimated CRCL 98.42 LAB L501.1300 10-20 RATIO Normal BUN/CRE 14.1 LAB L501.1500 6.4-8. g/dL Normal 2 T PROT 7.5 LAB L501.1800 3.2-5. g/dL Normal 0 ALB 3.8 LAB L501.1950 2.2-4. g/dL Normal 2 GLOB 3.7 LAB L501.2000 0.9-2. RATIO Normal 4 A/G 1.0 LAB L501.2200 8.5-10 mg/dL Normal .1 CA 8.6 LAB L501.4100 15-37 U/L Low AST 12 LAB L501.4305 45-117 U/L Normal ALK P 69 LAB L501.4405 13-56 U/L Normal ALT 28 LAB L501.4600 0.20-1 mg/dL Normal .00 T BILI 0.30 LAB L501.5300 136-14 mmol/L Normal 5 NA 139 LAB L501.5600 3.5-5. mmol/L Low 1 K 3.0 LAB L501.5900 98-107 mmol/L Normal CL 103 LAB L501.6100 21.0-3 mmol/L Normal 2.0 CO2 24.0 LAB L501.6200 5-15 Normal GAP 12 Performed By: #### L500.4050, L501.9520 #### [facility] [address] [place], [place], [id number] THYROID STIM HORMONE Collected: 05/31/2018 Status: F Source: TUR[place] (TSH) 8:28 PM [facility] REPOSITORY TYPE CODE TESTS RESULT OUT OF RANGE REFERENCE UNITS LAB L501.9520 0.358-3.74 uIU/mL High TSH 7.15 Performed By: #### L500.4050, L501.9520 #### [facility] [address] [place], [place], [address] TROPONIN-I Collected: 05/31/2018 Status: F Source: [place] 8:28 PM [facility] REPOSITORY TYPE CODE TESTS RESULT OUT OF RANGE REFERENCE UNITS LAB L501.4010 <0.045 ng/mL Normal < 0.015 TROPONIN-I Result Comment: TROPONIN-I EXPECTED VALUES <0.045 Negative 0.045 - 0.590 Consistent with Cardiac Damage > OR = 0.600 Critical Value Not every elevated troponin is indicative of DE. These values should be used with clinical judgement in examining the patient's clinical picture for diagnosis. To establish a diagnosis of DE versus myocardial injury, there must be a demonstrated rise and/or fall in the troponin values, in addition to ischemic symptoms, EKG changes, new regional wall motion abnormality, and/or angiographical evidence. PLEASE NOTE: REFERENCE RANGES EDITED 17 Performed By: #### L501.4010 #### [facility] [address] [place], [address] EMERGENCY DEPARTMENT Observed: 05/29/2018 Status: F Source: [place] SUMMARY 7:43 PM [facility] REPOSITORY [facility] Medical Records Department [address] [place] [address] Emergency Department Summary 05/29/18 1539 MR#: [id number] Acct: [id number] Name: BHARATI SMALLWOOD Rep #: [id number] : 1965 52 From: Jayson Soler PCP: S[facility] Status: DEP ER - ER Visit Summary Date of Service: 05/29/18 Chief Complaint: Anxiety History of Present Illness: The patient is a 52 F sent in by crisis along with nursing covering for psychiatrist for evaluation. Has been dealing with anxiety for months. She is following closely as an outpatient. Patient states she feels a nerves inside her body jittering. Today her brain felt dull. States she felt days to date out of control. Last seen was her therapist 5 days ago. She has appointments this week. Does admit to tobacco occasional alcohol and THC use. Last alcohol was last night, last THC was this morning. History of bipolar, anxiety, depression. She is a diabetic. She is on medications with no obvious doses. Denies any suicidal thoughts or plans. No homicidal thoughts. Last admission for psychiatric issues as 2011. Complains increasing nausea with her symptoms. Physical Examination: General: Alert and oriented 3, no acute distress HEENT: Normocephalic, atraumatic. Moist mucosa membranes Neck: supple, nontender. Cardiovascular: Regular rate and rhythm, no murmurs Respiratory: Normal breath sounds, symmetric, no distress Abdomen: Soft, nontender, nondistended Extremities: Nontender, no edema, pulses intact 4 Neuro: no focal neurological deficits. Psychiatric: No suicidal homicidal ideations. Flat affect. Test Results: Hemoglobin 15.6. Potassium 3.2. Alcohol negative tox screen positive for THC. Emergency Department Course and Treatment: Patient flat affect. She is requesting help. History of depression and bipolar. Denied any specific suicidal homicidal ideations. She is medically cleared with labs. Potassium slightly low was given oral replacement. Zofran given for nausea however she declined. Able to eat in the ED. Evaluated by [facility], unclear on specifics with patient. She denied any suicidal specific ideations or plan. However she did insinuate if she were not living that it would not matter. With patient volunteering wanting help, admits she was working on placement for the patient. In the interim, patient decided to leave the department. She was not pink slipped. She does have follow-up as an outpatient with her therapist and psychiatrist. Patient eloped the department. Treatment Plan: [] Disposition: Eloped Impression: 1. Depression 2. Bipolar 3. Hypokalemia This note was generated with SmartHub dictation software. It may contain incorrect words, spelling, and punctuation that were not noted in review of the chart prior to signing ED Disposition - Plan for ED Patient: Disposition: Against Medical Advice Chief Complaint: Anxiety Diagnosis: Depression, Bipolar 1 disorder, depressed, Hypokalemia Referrals: Luis Felipe Matias,Sally Banuelos [Primary Care Provider] - What to do if you have Problems For any increased pain, shortness of breath, bleeding, nausea or vomiting, chest pain, or any unexpected problems, contact your Primary Care Provider. Call [facility] ([phone]) or report to the closest Emergency Room. Call 911 if necessary. 05/29/181942 <Electronically signed by Jayson Soler> Date Jayson Soler Cosigner Signature (If Indicated): Date CC: SALLY BANUELOS [facility] URINE DRUG SCREEN Collected: 05/29/2018 Status: F Source: ANGELA BARR) 3:55 PM [facility] REPOSITORY TYPE CODE TESTS RESULT OUT OF RANGE REFERENCE UNITS LAB L505.0075 TO BE Normal CONFIRMED Result Comment: CONFIRMATORY TESTING FOR ALL POSITIVE URINE DRUG SCREEN RESULTS WILL ONLY BE SENT OUT UPON PHYSICIAN ORDER. VISTA Urine Drug Screen methods provide only preliminary analytical test results. A more specific alternate chemical method must be used in order to obtain a confirmed analytical result. Gas chromatography/mass spectrometery (GC/MS) is the preferred confirmatory method. Clinical consideration and professional judgement should be applied to any drug of abuse test result, particularly when preliminary positive results are used. URINE TCA TESTING MUST BE ORDERED SEPARATELY. USE TEST MNEMONIC: [facility] LAB L505.5005 VISTA UDS PH 7 Normal LAB L505.5015 <1000 ng/mL AMPHETAMINES Normal NEGATIVE LAB L505.5025 < 200 ng/mL BARBITIURATES Normal NEGATIVE LAB L505.5035 < 200 ng/mL BENZODIAZIPINE Normal NEGATIVE LAB L505.5045 < 300 ng/mL COCAINE Normal NEGATIVE LAB L505.5055 < 500 ng/mL ECSTACY Normal NEGATIVE LAB L505.5065 < 300 ng/mL METHADONE Normal NEGATIVE LAB L505.5075 < 300 ng/mL OPIATES Normal NEGATIVE LAB L505.5085 < 25 ng/mL PCP Normal NEGATIVE LAB L505.5095 < 50 High ng/mL THC POSITIVE Performed By: #### L505.5000 #### [facility] [address] [place], [address] CBC W/DIFF, AUTOMATED Collected: 05/29/2018 Status: F Source: [place] 3:50 PM [facility] REPOSITORY TYPE CODE TESTS RESULT OUT OF RANGE REFERENCE UNITS LAB L100.1000 4.4-11.0 K/mm3 Normal WBC 9.7 LAB L100.1200 4.2-5.4 M/mm3 Normal RBC 5.09 LAB L100.1300 12.0-15.0 g/dl High HGB 15.6 LAB L100.1400 37-47 % Normal HCT 45.2 LAB L100.1500 81-99 fL Normal MCV 88.8 LAB L100.1600 27.0-32.0 pg Normal MCH 30.6 LAB L100.1700 32-36 g/gl Normal MCHC 34.5 LAB L100.1810 11.6-14.6 % Normal RDW CV 13.6 LAB L100.1820 35.1-43.9 fl High RDW SD 44.3 LAB L100.1900 150-450 K/mm3 Normal PLT 271 LAB L100.2000 6.2-12.0 fl Normal MPV 8.5 LAB L100.2100 47-70 % Normal NEUT% 59.5 LAB L100.2200 19-41 % Normal LY% 32.7 LAB L100.2300 0-10 % Normal MONO% 6.1 LAB L100.2400 0-5 % Normal EO% 1.4 LAB L100.2500 0-1 % Normal BASO% 0.2 LAB L100.2550 0.0-0.9 % Normal IM GRAN % 0.100 Result Comment: IG% - Immature Granulocytes (promyelocytes, myelocytes and metamyelocytes) > 1% indicates that a LEFT SHIFT is Present. LAB L100.2620 2.0-7.7 X10 3/uL Normal Absolute Neut 5.7 LAB L100.2720 0.83-4.51 X10 3/ul Normal Absolute Lymph 3.16 Performed By: #### L100.0100 #### [facility] [address] [place], [address] BASIC METABOLIC Collected: 05/29/2018 Status: F Source: [place] PROFILE ([facility]) 3:50 PM [facility] REPOSITORY TYPE CODE TESTS RESULT OUT OF RANGE REFERENCE UNITS LAB L501.0100 74-106 mg/dL Normal GLU 85 Result Comment: Please note revised GLUCOSE reference range effective 2017. LAB L501.1000 7-18 mg/dL Normal BUN 10 LAB L501.1100 0.55-1.02 mg/dL Normal CREAT,SERUM 0.72 Result Comment: The validity of the calculated GFR AND GFRAA in patients over 70 years has not been determined. Clinical correlation is essential. LAB L501.1110 >60 mL/min Normal EST GFR 90 Result Comment: Non- GFR Calc LAB L501.1115 >60 mL/min Normal EST GFR - AA 108 Result Comment: GFR Calc LAB L501.1255 ml/min Normal Estimated CRCL 64.91 LAB L501.1300 10-20 RATIO Normal BUN/CRE 13.9 LAB L501.2200 8.5-10 mg/dL Normal .1 CA 8.7 LAB L501.5300 136-14 mmol/L Low 5 NA 134 LAB L501.5600 3.5-5. mmol/L Low 1 K 3.2 LAB L501.5900 98-107 mmol/L Normal CL 98 LAB L501.6100 21.0-3 mmol/L Normal 2.0 CO2 27.0 LAB L501.6200 5-15 Normal GAP 9 Performed By: #### L500.2500 #### [facility] [address] [place], [address] ALCOHOL, BLOOD Collected: 05/29/2018 Status: F Source: [place] (MEDICAL)-SERUM 3:50 PM [facility] REPOSITORY TYPE CODE TESTS RESULT OUT OF RANGE REFERENCE UNITS LAB L501.9100 mg/dL Normal SERUM < 3.0 ETOH Result Comment: The serum:whole blood ethanol ratio is approximately 1.14 and varies slightly with hematocrit. Medical Alcohol reference interval and critical value in non-tolerant individuals; 50 - 100 Impairment 100 Intoxication 100 - 250 Severe Poisoning 250 - 400 Deep/possible fatal coma Performed By: #### L501.9100 #### [facility] [address] [facility] [address] [place], [place], [address] DISCHARGE SUMMARY Observed: 04/28/2018 Status: F Source: ANGELA 11:23 AM [facility] REPOSITORY [facility] Medical Records Department [address] [place] [address] Discharge Summary 04/28/18 1112 MR#: [id number] Acct: [id number] Name: BHARATI SMALLWOOD Rep #: [id number] : 1965 52 From: Matt Torres DO PCP: SALLY BANUELOS [facility] Status: ADM IN Y Location: MS2 TW498-3 ADDENDUM by Matt Torres DO on 04/28/18 at 1123 Code Visit Additional primary diagnosis: #7 hyponatremia 04/28/18 1123 <Electronically signed by Matt Torres DO> Date Matt Torres DO cc: Matt Torres DO; SALLY [facility] * Signed Discharge Date and Diagnosis - Problem List Patient Problems: Active and Suspected Problems Pain and swelling of left upper extremity (Acute) Date of Admission: 04/26/18 Date of Discharge: 04/28/18 - Primary Discharge Diagnosis Active and Suspected Problems #1 cellulitis of the right forearm-secondary to methicillin- resistant staph aureus, failed outpatient antibiotic treatment #2 cellulitis of the left lower abdominal wall secondary to methicillin-resistant staph aureus, failed outpatient treatment #3 bipolar disorder #4 hypertension #5 type 2 diabetes #6 hyperlipidemia Hospital Course and Treatment Consultations 04/27/18 06:31 Consult: Onc/Wound/marketing operations manager Routine Comment: Reason for Consult:: OPEN WOUND ON ABDOMEN Operations: None Procedures: None Summary of Care Provided: The patient is a 52 year old F who was seen in the emergency room at [facility] with chief complaint of continued redness and swelling in her right forearm as well as an area of redness over her left lower abdominal wall. Patient been seen in the emergency room 24 hours previously and had been placed on antibiotics after being given an IV dose of antibiotics. The reddened area over her left lower abdominal wall was incised at that time and cultures were obtained which were not available to the emergency room physician at her visit. She was sent home at that time on Keflex and Bactrim. Patient related that the areas on her right forearm had continued to cause discomfort and were swollen and reddened. Evaluation in the ER included a CBC revealed an elevated white blood cell count of 13.9, sodium was slightly low at 130. Patient's wound culture had resulted with staph but sensitivities were not available to the emergency room physician and patient was given IV Unasyn and admitted to [place] [address]. She was placed on IV vancomycin on admission and repeat labs were obtained in the next day which showed a normal white blood cell count and an improved sodium at 134. Sensitivities came back that day and were reviewed by myself, she had methicillin-resistant staph aureus from her abdominal wound and this was felt to also be present in her right forearm although no culture could be obtained from the area. This MRSA was sensitive to multiple oral antibiotics, patient was reevaluated on 04/28/18 and the area of redness and induration of the right forearm was improved at that time and she was felt stable for discharge home. Vital signs: Temp 98.5 oral, pulse 72, blood pressure 137/85, respiratory rate 16, pulse ox on room air 97% Physical Exam General: Alert, Oriented x3, Cooperative, No apparent distress, Well developed, Well nourished HEENT: Atraumatic, PERRLA, EOMI, Normocephalic Oral: Moist Mucosa Neck: Supple, No Nuchal Rigidity, Trachea Midline, Thyroid Normal Size and Texture Lungs: Clear to auscultation, Normal air movement, No rhonchi, No wheeze, No rales Cardiovascular: Regular rate, Regular Rhythm, Normal S1, Normal S2, No murmurs, No Ectopic Activity, PMI Normal, No rub noted, No Gallop Abdomen: Bowel Sounds Present, Soft, Non Tender, Non-Distended, No hernias noted, - - There is a small wound over the left lower abdomen approximately 3 cm in length with Steri-Strips applied to the area, the area is reddened and slightly tender Extremities: Capillary Refill Less than 3 Seconds, Edema - There is edema noted over the patient's right forearm on the medial aspect of the forearm, there is also a reddened area with a small eschar over it in the center of the area Skin: Rash Present - The right forearm is reddened over its medial aspect with edema noted which is improved over my last examination, there is an eschar over the central area of this redness. There is a reddened area over the left lower abdominal wall which is probably 3 cm in diameter, no drainage is noted from the area, it remains slightly tender Neurological: Cranial nerves II-XII grossly intact, Neuro grossly intact, Sensory exam intact to light touch and pain, Coordination normal Psych/Mental Status: Normal Affect, Appropriate, Alert and oriented to time, place, person, mood and affect Patient Problems: Active and Suspected Problems Pain and swelling of left upper extremity (Acute) - Physical Exam Vital Signs Temp Pulse Resp BP Pulse Ox 98.5 F 72 16 137/85 H 97 18 07:29 1018 07:29 04/28/18 07:29 04/28/18 07:29 04/28/18 07:29 Oxygen Delivery Method Room Air Weight: 84.7 kg Body Mass Index (BMI) 36.6 Finger Stick Blood Glucose 100 Intake and Output for Last 24 Hours Intake Total 387 / 387 2620 / 2620 906 / 906 Balance 387 / 387 2620 / 2620 906 / 906 Laboratory Tests Past 24 Hrs Vancomycin Trough 4.6 L POC Glucose POC Glucose 99 94 88 POC Glucose 85 Discharge Activity: Return to Normal Activity Weight Bearing Status: Full weight bearing Home Medications: Medications to take at Discharge Levothyroxine [Synthroid] 125 mcg PO DAILY 05/31/13 Amlodipine [Norvasc] 10 mg PO DAILY 01/20/17 Losartan Potassium 50 mg PO DAILY 01/20/17 Meloxicam 15 mg PO DAILY 01/20/17 Pravastatin [Pravachol] 20 mg PO QHS 01/20/17 busPIRone [Buspar] 15 mg PO DAILY 01/20/17 Oxcarbazepine [Trileptal] 450 mg PO DAILY 04/25/18 Smz/Tmp Ds [Bactrim Ds] 1 tab PO BID #20 tab 04/25/18 Bupropion HCl [Wellbutrin Xl] 150 mg PO DAILY 04/26/18 Citalopram [Celexa] 40 mg PO QHS 04/26/18 Hydrochlorothiazide [Hctz] 25 mg PO DAILY 04/26/18 Melatonin 20 mg PO QHS 04/26/18 Metformin HCl [Glucophage] 500 mg PO BID 04/26/18 traZODone [Desyrel] 100 - 200 mg PO QHS 04/26/18 Levofloxacin [Levaquin] 500 mg PO DAILY #7 tablet 04/28/18 Following Prescrptions Were Given to Patient: Levofloxacin [Levaquin] 500 mg PO DAILY #7 tablet Primary Care Physician: Sally Childers [Primary Care Provider] - Please follow up with your Primary Care Physician in: NEXT WEEK Disposition: Home Minutes spent on discharge:: 32 Patient Condition:: Stable Medical Necessity - Tobacco Use Smoking Status: Current every day smoker Tobacco Use: Cigarettes Meaningful Use Info Meaningful Use Diagnoses (Choose all that apply): None applicable Code Visit Inpatient E AND M: 22386 Disch Hosp 04/28/18 1122 <Electronically signed by Matt Torres DO> Date Matt Torres DO Cosigner Signature (if applicable): Date CC: Matt Torres DO; SALLY KNAPP [facility] Signed DISCHARGE INSTRUCTION Observed: 04/28/2018 Status: F Source: [place] 8:52 AM [facility] REPOSITORY [facility] Medical Records Department [address] [place] [address] Instructions for Home/Discharge Instructions 04/28/18 0850 MR#: [id number] Acct: [id number] Name: BHARATI SMALLWOOD Mariel Rep #: [id number] : 1965 52 From: Matt Torres DO PCP: SALLY BANUELOS [facility] Status: ADM IN - Discharge Diagnoses Current Active Problems: Current Active and Chronic Problems Pain and swelling of left upper extremity (Acute) You will use the following diet at home:: Calorie/Carbohydrate Controlled (specify 1200, 1400, etc) - 1800 EMIL Your food should be the consistency of: Regular Your liquids should be the consistency of: Regular/Thin Discharge Activity: Return to Normal Activity Weight Bearing Status: Full weight bearing Allergies/Adverse Reactions: Allergies No Known Allergies Allergy (Verified 01/20/17 15:36) Medications to take at Discharge Levothyroxine [Synthroid] 125 mcg PO DAILY 05/31/13 Amlodipine [Norvasc] 10 mg PO DAILY 01/20/17 Losartan Potassium 50 mg PO DAILY 01/20/17 Meloxicam 15 mg PO DAILY 01/20/17 Pravastatin [Pravachol] 20 mg PO QHS 01/20/17 busPIRone [Buspar] 15 mg PO DAILY 01/20/17 Oxcarbazepine [Trileptal] 450 mg PO DAILY 04/25/18 Smz/Tmp Ds [Bactrim Ds] 1 tab PO BID #20 tab 04/25/18 Bupropion HCl [Wellbutrin Xl] 150 mg PO DAILY 04/26/18 Citalopram [Celexa] 40 mg PO QHS 04/26/18 Hydrochlorothiazide [Hctz] 25 mg PO DAILY 04/26/18 Melatonin 20 mg PO QHS 04/26/18 Metformin HCl [Glucophage] 500 mg PO BID 04/26/18 traZODone [Desyrel] 100 - 200 mg PO QHS 04/26/18 Levofloxacin [Levaquin] 500 mg PO DAILY #7 tablet 04/28/18 The following prescriptions were given: Levofloxacin [Levaquin] 500 mg PO DAILY #7 tablet Primary Care Physician: [facility] Polly,Sally Banuelos [Primary Care Provider] - Please follow up with your Primary Care Physician in: NEXT WEEK Test Results: Test results from this visit will be discussed in further detail at your follow-up appointment, if applicable. 04/28/18 0852 <Electronically signed by Matt Torres DO> Date Matt Torres DO CC: SALLY BANUELOS [facility] VANCOMYCIN, TROUGH Collected: 04/28/2018 Status: F Source: ANGELA LEVEL 8:30 AM [facility] REPOSITORY Order Comment: Comments: Please draw 04/28 @ 0830 Time Medication is to be Given? 0900 TYPE CODE TESTS RESULT OUT OF REFERENCE UNITS RANGE LAB L501.8820 5.0-15.0 ug/mL Low VANCO, TROUGH 4.6 Result Comment: VANCOMYCIN STANDARED DRUG THERAPY TROUGH LEVEL: 5.0 - 15.0 mg/L VANCOMYCIN HIGH INTENSITY THERAPY TROUGH LEVEL: 15.0 - 20.0 mg/L High Intensity therapy recommended for serious life threatening infections include: - Meningitis -Endocarditis -Pneumonia (Ventilator/Healtcare Associated) -Sepsis PLEASE CONTACT PHARMACY SERVICES (#[id number]) FOR INTERPRETATION OF RESULTS. Performed By: #### L501.8820 #### [facility] [address] [place], [address] BEDSIDE GLUCOSE Collected: 04/28/2018 Status: F Source: ANGELA 6:39 AM [facility] REPOSITORY TYPE CODE TESTS RESULT OUT OF RANGE REFERENCE UNITS LAB L501.080 70-110 mg/dL Normal BEDSIDE GLU 99 Result Comment: MANAGEMENT OF PATIENT CARE PER NURSING PROTOCOL Performed By: #### L501.080 #### [facility] Point of Care [address] [place] [address] BEDSIDE GLUCOSE Collected: 04/27/2018 Status: F Source: ANGELA 8:38 PM [facility] REPOSITORY TYPE CODE TESTS RESULT OUT OF RANGE REFERENCE UNITS LAB L501.080 70-110 mg/dL Normal BEDSIDE GLU 94 Result Comment: MANAGEMENT OF PATIENT CARE PER NURSING PROTOCOL Performed By: #### L501.080 #### [facility] Point of Care [address] [place] [address] BEDSIDE GLUCOSE Collected: 04/27/2018 Status: F Source: ANGELA 4:07 PM [facility] REPOSITORY TYPE CODE TESTS RESULT OUT OF RANGE REFERENCE UNITS LAB L501.080 70-110 mg/dL Normal BEDSIDE GLU 88 Result Comment: MANAGEMENT OF PATIENT CARE PER NURSING PROTOCOL Performed By: #### L501.080 #### [facility] Point of Care [address] [place] [address] BEDSIDE GLUCOSE Collected: 04/27/2018 Status: F Source: ANGELA 11:43 AM [facility] REPOSITORY TYPE CODE TESTS RESULT OUT OF RANGE REFERENCE UNITS LAB L501.080 70-110 mg/dL Normal BEDSIDE GLU 85 Result Comment: MANAGEMENT OF PATIENT CARE PER NURSING PROTOCOL Performed By: #### L501.080 #### [facility] Point of Care [address] [place] [address] BEDSIDE GLUCOSE Collected: 04/27/2018 Status: F Source: ANGELA 7:52 AM [facility] REPOSITORY TYPE CODE TESTS RESULT OUT OF REFERENCE UNITS RANGE LAB L501.080 70-110 mg/dL High BEDSIDE GLU 216 Result Comment: MANAGEMENT OF PATIENT CARE PER NURSING PROTOCOL Performed By: #### L501.080 #### [facility] Point of Care [address] [place] [address] CBC W/DIFF, AUTOMATED Collected: 04/27/2018 Status: F Source: ANGELA 6:55 AM [facility] REPOSITORY TYPE CODE TESTS RESULT OUT OF RANGE REFERENCE UNITS LAB L100.1000 4.4-11.0 K/mm3 Normal WBC 7.7 LAB L100.1200 4.2-5.4 M/mm3 Normal RBC 5.13 LAB L100.1300 12.0-15.0 g/dl High HGB 15.7 LAB L100.1400 37-47 % Normal HCT 45.3 LAB L100.1500 81-99 fL Normal MCV 88.3 LAB L100.1600 27.0-32.0 pg Normal MCH 30.6 LAB L100.1700 32-36 g/gl Normal MCHC 34.7 LAB L100.1810 11.6-14.6 % Normal RDW CV 13.1 LAB L100.1820 35.1-43.9 fl Normal RDW SD 42.4 LAB L100.1900 150-450 K/mm3 Normal PLT 305 LAB L100.2000 6.2-12.0 fl Normal MPV 8.2 LAB L100.2100 47-70 % Normal NEUT% 52.0 LAB L100.2200 19-41 % Normal LY% 34.5 LAB L100.2300 0-10 % Normal MONO% 10.0 LAB L100.2400 0-5 % Normal EO% 2.9 LAB L100.2500 0-1 % Normal BASO% 0.3 LAB L100.2550 0.0-0.9 % Normal IM GRAN % 0.300 Result Comment: IG% - Immature Granulocytes (promyelocytes, myelocytes and metamyelocytes) > 1% indicates that a LEFT SHIFT is Present. LAB L100.2620 2.0-7.7 X10 3/uL Normal Absolute Neut 4.0 LAB L100.2720 0.83-4.51 X10 3/ul Normal Absolute Lymph 2.65 Performed By: #### L100.0100 #### [facility] [address] [place], [address] BASIC METABOLIC Collected: 04/27/2018 Status: F Source: [place] PROFILE ([facility]) 6:55 AM [facility] REPOSITORY TYPE CODE TESTS RESULT OUT OF RANGE REFERENCE UNITS LAB L501.0100 74-106 mg/dL Normal GLU 102 Result Comment: Fasting Glucose result from 100 to 125 mg/dL suggests IMPAIRED HOMEOSTASIS per A.D.A. criteria. Please note revised GLUCOSE reference range effective 2017. LAB L501.1000 7-18 mg/dL Normal BUN 12 LAB L501.1100 0.55-1.02 mg/dL Normal CREAT,SERUM 0.77 Result Comment: The validity of the calculated GFR AND GFRAA in patients over 70 years has not been determined. Clinical correlation is essential. LAB L501.1110 >60 mL/min Normal EST GFR 84 Result Comment: Non- GFR Calc LAB L501.1115 >60 mL/min Normal EST GFR - AA 101 Result Comment: GFR Calc LAB L501.1255 ml/min Normal Estimated CRCL 112.98 LAB L501.1300 10-20 RATIO BUN/CRE Normal 15.6 LAB L501.2200 8.5-10 mg/dL .1 CA Normal 8.7 LAB L501.5300 136-14 mmol/L Low 5 NA 134 LAB L501.5600 3.5-5. mmol/L 1 K Normal 4.1 LAB L501.5900 98-107 mmol/L CL Normal 101 LAB L501.6100 21.0-3 mmol/L 2.0 CO2 Normal 26.0 LAB L501.6200 5-15 GAP Normal 7 Performed By: #### L500.2500 #### [facility] [address] [facility] [place], [address] HISTORY AND PHYSICAL Observed: 04/27/2018 Status: F Source: TURKEY EXAM 3:31 AM [facility] REPOSITORY [facility] Medical Records Department [address] [place] [address] History and Physical 04/26/181918 MR#: [id number] Acct: [id number] Name: BHARATI SMALLWOOD Mariel Rep #: [id number] : 1965 52 From: Gayle Carlson MD PCP: SALLY BANUELOS [facility] Status: ADM IN Y Location: MS2 BU054-3 Problem List (1) Pain and swelling of left upper extremity Status: Acute History of Present Illness Date of Admission: 04/26/18 Chief Complaint: pain and swelling of LUE The patient is a 52 year old Fwith a PMH of diabetes, HTN and nicotine dependence. She presents with a complaint of RUE worsening swelling, pain and redness for the past 3 days. Symptoms started after she was scratched by her cat. She was seen in the ED yesterday and had I AND D of a smaller abscess on her abdomen, and the area of cellulitis of her RUE was demarcated, and she was discharged home with Bactrim. However, today area of redness extended past the demarcated area and so she decided to come into the ED. She denied any fever or chills, any chest pain, shortness of breath, abdominal pain, any diarrhea vomiting. 12 point review of systems is otherwise negative. She has been admitted to be managed for cellulitis of the right upper extremity and abdomen. [] Past Medical History Allergies No Known Allergies Allergy (Verified 01/20/17 15:36) Home Medications: Ambulatory Orders Medication Instructions Recorded Levothyroxine [Synthroid] 125 mcg PO DAILY 05/31/13 Amlodipine [Norvasc] 10 mg PO DAILY 01/20/17 Losartan Potassium 50 mg PO DAILY 01/20/17 Surgical History: no surgical history Psychiatric History: Depression INVISIBLE BRACES ORTHODONTIST History: No pertinent INVISIBLE BRACES ORTHODONTIST history Lives: Alone Smoking Status: Current every day smoker Tobacco Use: Cigarettes Alcohol: None - *Family History Maternal History Items: Heart Disease, Hypertension Review of Systems Constitutional: Denies: Chills, Fever, Malaise, Weight Change Eyes: Denies: Blurred vision HEENT: Denies: Head Aches, Sinus Congestion, Sinus Drainage Cardiovascular: Denies: Chest Pain, Chest Tightness, Heaviness, Palpitations Respiratory: Reports: Cough - dry chronic cough from smoking. Denies: Shortness of breath at rest, Sputum production Gastrointestinal: Denies: Abdominal Pain, Nausea, Vomiting Genitourinary: Denies: Dysuria Musculoskeletal: Reports: Arm Pain, Joint Pain. Denies: Joint Tenderness, Muscle pain Skin: Denies: Rash, Wounds Neurological: Denies: Numbness, Tingling, Focal weakness Psychiatric: Denies: Anxiety, Depression, Homicidal Ideations, Suicidal Ideations Hematologic/ Lymphatic: Denies: Easy Bruising, Easy Bleeding VTE Information - Inpt Only VTE Present on Admission: No VTE Mechan Device Prophylaxis: None VTE Pharm Prophylaxis ordered?: Yes Patient Problems: Active and Suspected Problems Pain and swelling of left upper extremity (Acute) - Physical Exam General: Alert, Oriented x3, Cooperative, No apparent distress HEENT: Atraumatic, PERRLA, EOMI, Normocephalic Oral: Moist Mucosa Neck: Supple, No JVD, Negative Carotid Bruits Lungs: Clear to auscultation, Normal air movement, No rhonchi, No wheeze, No rales Cardiovascular: Regular rate, Regular Rhythm, Normal S1, Normal S2, No murmurs Abdomen: Bowel Sounds Present, Soft, Non Tender, Non-Distended, No Hepato-splenomegaly, - - 1x1cm erythematous, ulcerated area with areas of pus, and surrounding erythema Extremities: No clubbing, No cyanosis, No edema Skin: - - redness and swelling and tenderness of RUE elbow area, extending down the back of the forearm. [id number] area of redness tenderness, with [id number] indurated area, with a punctate area. Musculoskeletal: No Tenderness to Palpation of Joints or Extremities, Tenderness Lymphatic: No Cervical, Supraclavicular, or Inguinal Adenopathy Neurological: Cranial nerves II-XII grossly intact Psych/Mental Status: Normal Affect, Appropriate, Alert and oriented to time, place, person, mood and affect Vital Signs Temp Pulse Resp BP Pulse Ox 98.1 F 72 16 126/79 H 95 04/26/18 17:32 04/26/18 17:32 04/26/18 17:32 04/26/18 17:32 04/26/18 17:32 Oxygen Delivery Method Room Air Weight: 185 lb Body Mass Index (BMI) 36.1 Finger Stick Blood Glucose 100 Assessment/Plan All Active Problems Pain and swelling of left upper extremity (Acute) 52-year-old female presenting with cellulitis of the right upper extremity and abdomen. 1. Cellulitis of right upper extremity and abdomen due to cat scratch * Failed outpatient therapy, though she was on Bactrim for only one day. * s/p post I AND D of abdominal cellulitis. * Check CBC and BMP. * Admit to MedSurg. * Check A1c. Start IV vancomycin * counselled to be careful with cat to avoid scratches * 2. Nicotine dependence: smokes 11 cigarettes daily. Encouraged to quit. Nicotine patch 14gram daily. INpatient smoking cessation consult 3. Diabetes mellitus: Check A1c. On metformin. Insulin sliding scale. 4. Hyponatremia: Na is 130; this is chronic. Will monitor 5. Depression: On Celexa and wellbutrin 6. Hypothyroidism: on synthroid 125mcg daily 7. Hypertension: on amlodipine and losartan. 5. DVT prophylaxis: Lovenox CODE STATUS: Full code. * Patient counseled about different types of CODE STATUS including DNR CCA, full code and DNR CCA. Patient elects to be full code. Total [id number] time 17 minutes. Code Visit Inpatient E AND M: 98641 Init Hosp L3 Procedures: 44668 Advncd Care Plan 30 Min 04/27/18 0331 <Electronically signed by Gayle Carlson MD> Date Gayle Carlson MD Cosigner Signature: Date (if applicable) CC: Yancy WILKINS; Gayle Carlson MD; SALLY BANUELOS [facility]; Sally Banuelos Signed BEDSIDE GLUCOSE Collected: 04/26/2018 Status: F Source: [place] 9:31 PM [facility] REPOSITORY TYPE CODE TESTS RESULT OUT OF REFERENCE UNITS RANGE LAB L501.080 70-110 mg/dL High BEDSIDE GLU 134 Result Comment: MANAGEMENT OF PATIENT CARE PER NURSING PROTOCOL Performed By: #### L501.080 #### [facility] Point of Care [facility] [place] [address] [place] [address] BASIC METABOLIC Collected: 04/26/2018 Status: F Source: [place] PROFILE ([facility]) 8:50 PM [facility] REPOSITORY Order Comment: PREVIOUS SPECIMEN HEMOLYZED, ER AND MS2 NOTIFIED TYPE CODE TESTS RESULT OUT OF RANGE REFERENCE UNITS LAB L501.0100 74-106 mg/dL Normal GLU 80 Result Comment: Please note revised GLUCOSE reference range effective 2017. LAB L501.1000 7-18 mg/dL Normal BUN 10 LAB L501.1100 0.55-1.02 mg/dL Normal CREAT,SERUM 0.69 Result Comment: The validity of the calculated GFR AND GFRAA in patients over 70 years has not been determined. Clinical correlation is essential. LAB L501.1110 >60 mL/min Normal EST GFR 94 Result Comment: Non- GFR Calc LAB L501.1115 >60 mL/min Normal EST GFR - AA 114 Result Comment: GFR Calc LAB L501.1255 ml/min Normal Estimated CRCL 126.08 LAB L501.1300 10-20 RATIO BUN/CRE Normal 14.4 LAB L501.2200 8.5-10 mg/dL .1 CA Normal 8.8 LAB L501.5300 136-14 mmol/L Low 5 NA 130 LAB L501.5600 3.5-5. mmol/L 1 K Normal 3.6 LAB L501.5900 98-107 mmol/L CL Normal 98 LAB L501.6100 21.0-3 mmol/L 2.0 CO2 Normal 25.0 LAB L501.6200 5-15 GAP Normal 7 Performed By: #### L500.2500 #### [facility] [address] [place], [place], [address] BEDSIDE GLUCOSE Collected: 04/26/2018 Status: F Source: [place] 8:41 PM [facility] REPOSITORY TYPE CODE TESTS RESULT OUT OF RANGE REFERENCE UNITS LAB L501.080 70-110 mg/dL Normal BEDSIDE GLU 89 Result Comment: MANAGEMENT OF PATIENT CARE PER NURSING PROTOCOL Performed By: #### L501.080 #### [facility] Point of Care [address] [place], [place] [address] CBC W/DIFF, AUTOMATED Collected: 04/26/2018 Status: F Source: [place] 8:02 PM [facility] REPOSITORY TYPE CODE TESTS RESULT OUT OF RANGE REFERENCE UNITS LAB L100.1000 4.4-11.0 K/mm3 High WBC 13.9 LAB L100.1200 4.2-5.4 M/mm3 Normal RBC 5.04 LAB L100.1300 12.0-15.0 g/dl High HGB 15.4 LAB L100.1400 37-47 % Normal HCT 43.7 LAB L100.1500 81-99 fL Normal MCV 86.7 LAB L100.1600 27.0-32.0 pg Normal MCH 30.6 LAB L100.1700 32-36 g/gl Normal MCHC 35.2 LAB L100.1810 11.6-14.6 % Normal RDW CV 12.8 LAB L100.1820 35.1-43.9 fl Normal RDW SD 40.2 LAB L100.1900 150-450 K/mm3 Normal PLT 340 LAB L100.2000 6.2-12.0 fl Normal MPV 8.4 LAB L100.2100 47-70 % Normal NEUT% 68.7 LAB L100.2200 19-41 % Normal LY% 23.9 LAB L100.2300 0-10 % Normal MONO% 6.1 LAB L100.2400 0-5 % Normal EO% 0.6 LAB L100.2500 0-1 % Normal BASO% 0.3 LAB L100.2550 0.0-0.9 % Normal IM GRAN % 0.400 Result Comment: IG% - Immature Granulocytes (promyelocytes, myelocytes and metamyelocytes) > 1% indicates that a LEFT SHIFT is Present. LAB L100.2620 2.0-7.7 X10 3/uL High Absolute Neut 9.5 LAB L100.2720 0.83-4.51 X10 3/ul Normal Absolute Lymph 3.32 LAB L100.4500 Normal SMEAR COMMENT SCANNED Performed By: #### L100.0100 #### [facility] [address] [facility] [place], [address] EMERGENCY DEPARTMENT Observed: 04/26/2018 Status: F Source: [place] SUMMARY 7:39 PM [facility] REPOSITORY [facility] Medical Records Department [address] [place] [address] Emergency Department Summary 04/26/18 1937 MR#: [id number] Acct: [id number] Name: BHARATI SMALLWOOD Rep #: [id number] : 1965 52 From: Shayna Ramsey DO PCP: SALLY BANUELOS [facility] Status: REG ER - ER Visit Summary Date of Service: 04/26/18 Chief Complaint: [Redness and swelling to right forearm] History of Present Illness: The patient is a 52 F presents the emergency department with complaint of redness and swelling to the right forearm that initially started about 4 days ago. Patient states that she frequently is scratched by her cat on the forearm and also on her abdomen. Patient was seen in the emergency department yesterday by myself and she had some blood work that showed a slightly elevated white count of 11.5 and patient received Unasyn IV. Patient had a soft tissue abscess on her upper abdomen that was incised and drained yesterday as well. Patient had a cellulitis of the right forearm yesterday. We discussed admitting her yesterday versus outpatient treatment and she chose to attempt outpatient treatment and patient was started on Keflex and Bactrim. Patient comes back today because the erythema has increased beyond the markings that we made yesterday. She denies any fever. She denies chills or sweats.] Physical Examination: [HEENT-PERRLA, EOMI. Cranial nerves II through XII grossly intact. TMs clear. Mucous membranes moist. No adenopathy. Cardiovascular-regular rate and rhythm without murmur or ectopy Lungs-clear to auscultation, chest wall stable without crepitus or subcu emphysema Abdomen-normoactive bowel sounds, soft, nontender, no rebound or rigidity, no peritoneal signs. Extremities-intact 4, normal range of motion, normal pulses, atraumatic]. Right forearm-there is cellulitis diffusely over the posterior aspect of the forearm no discrete abscess is noted. There is no fluctuance. She is neurovascular intact. Test Results: [CBC with differential and basic metabolic profile were ordered.] Emergency Department Course and Treatment: [Patient was started on Unasyn 1 g IV. A blood culture obtained yesterday did grow out staph from the abdominal wall abscess.] Treatment Plan: [Patient will be admitted for IV antibiotics] Disposition: [Admit] Impression: [Cellulitis right forearm-failed outpatient therapy] This note was generated with SmartHub dictation software. It may contain incorrect words, spelling, and punctuation that were not noted in review of the chart prior to signing ED Disposition - Plan for ED Patient: Chief Complaint: Wound Referrals: Luis Felipe Matias,Sally Banuelos [Primary Care Provider] - What to do if you have Problems For any increased pain, shortness of breath, bleeding, nausea or vomiting, chest pain, or any unexpected problems, contact your Primary Care Provider. Call [facility] ([phone]) or report to the closest Emergency Room. Call 911 if necessary. 04/26/181938 <Electronically signed by Shayna Ramsey DO> Date Shayna Fuller Signature (If Indicated): Date CC: OUT OF TOWN DOCTOR; SALLY MATIAS EMERGENCY DEPARTMENT Observed: 04/26/2018 Status: F Source: [place] SUMMARY 12:27 AM [facility] REPOSITORY [facility] Medical Records Department [address] [place] [address] Emergency Department Summary 04/25/18 1622 MR#: [id number] Acct: [id number] Name: BHARATI SMALLWOOD Rep #: [id number] : 1965 52 From: Shayna Ramsey DO PCP: SALLY MATIAS Status: DEP ER - ER Visit Summary Date of Service: 04/25/18 Chief Complaint: [Abscess to upper abdomen and right forearm] History of Present Illness: The patient is a 52 F [presents the emergency department complaint of a soft tissue swelling on her left upper abdomen that started about 10 days ago. Patient also has soft tissue swelling and redness to the right forearm that started 3 days ago. Patient believes that these have been triggered by her cat who scratches her accidentally. Patient denies any fevers at home. She denies recent illness. She denies any IV drug use.] Physical Examination: [HEENT-PERRLA, EOMI. Cranial nerves II through XII grossly intact. TMs clear. Mucous membranes moist. No adenopathy. Cardiovascular-regular rate and rhythm without murmur or ectopy Lungs-clear to auscultation, chest wall stable without crepitus or subcu emphysema Abdomen-normoactive bowel sounds, soft. Patient has a soft tissue swelling to the left upper abdomen with the central portion of which is been excoriated and scabbed over. The area of soft tissue swelling measures approximately 4 cm in diameter and is tender to palpation. Some mild fluctuance centrally. Extremities-intact 4, normal range of motion, normal pulses, atraumatic.] Right forearm-patient has some superficial abrasions noted and she has diffuse erythema about the forearm. There is warmth. Findings consistent with cellulitis. No discrete abscess noted on the forearm. Test Results: [CBC with differential showed a white blood cell count 11.5, hemoglobin 15.7, hematocrit 45, platelets 282. Chemistries were unremarkable.] Emergency Department Course and Treatment: [Patient was offered incision and drainage of her abscess on her upper abdomen and to which she agreed. The incision and drainage was performed by Dr. Herminio Kebede. Patient received Unasyn 3 g IV.] Treatment Plan: [Patient was started on Keflex and Bactrim. I did outline the area of cellulitis on the right forearm with permanent marker. Patient advised to return if the redness should extend more than a centimeter outside of the line of demarcation or she should have lymphogenic streaking or fever.] Wound culture was sent from the I AND D site. Disposition: [Discharged home in stable condition] Impression: [Abscess abdomen with incision and drainage Cellulitis right forearm] This note was generated with SmartHub dictation software. It may contain incorrect words, spelling, and punctuation that were not noted in review of the chart prior to signing ED Disposition - Plan for ED Patient: Chief Complaint: Abscess Referrals: Luis Felipe Matias,Sally Banuelos [Primary Care Provider] - What to do if you have Problems For any increased pain, shortness of breath, bleeding, nausea or vomiting, chest pain, or any unexpected problems, contact your Primary Care Provider. Call [facility] ([phone]) or report to the closest Emergency Room. Call 911 if necessary. 04/26/18 0027 <Electronically signed by Shayna Ramsey DO> Date Shayna Ramsey DO Cosigner Signature (If Indicated): Date CC: OUT OF TOWN DOCTOR; SALLY BANUELOS [facility] Observed: 04/25/2018 Status: F Source: [place]A CULTURE, WOUND 6:13 PM [facility] REPOSITORY Has pt arrived? Y Gram Stain Gram Stain 4+ Red Blood Cells Rare White Blood Cells 1+ Gram positive cocci Wound Culture RESULTS CALLEDFAXED TO ED/MU 04/27/18 0803 Milagro Dexter. Copy of report sent to Infection Control Printer [id number] 04/27/18 08 ANNIKA. ORGANISM 1: Meth. resistant Staph. aureus Amount Growth 3+ Meth. resistant Staph. aureus: REACTION Benzylpenicillin NF >=0.5 R Cefoxitin *NF + Clindamycin $$ <=0.25 S Inducable Clindamycin Resistan - Erythromycin $ >=8 R Gentamicin $ <=0.5 S Levofloxacin $ 0.25 S Linezolid $$$$ 2 S Oxacillin NF >=4 R Tigecycline $$$$ <=0.12 S Rifampin $$ <=0.5 S Tetracycline NF <=1 S Trimethoprim/Sulfametho $ <=10 S Vancomycin $ 1 S (NF) indicates non-formulary drug at [facility]. Approval by Infectious Disease Specialist required before non-formulary drugs may be ordered and/or dispensed. * CLSI guidelines does not recommend testing of cephalosporins. This interpretation is deduced from Beta-lactam/penicillin results. Performed By: #### M100.1400 #### [facility] [address] [facility] [place], [address] DISCHARGE INSTRUCTION Observed: 04/25/2018 Status: F Source: [place] 6:01 PM [facility] REPOSITORY [facility] Medical Records Department [address] [place] [address] Discharge Instruction 04/25/18 1800 MR#: [id number] Acct: [id number] Name: BHARATI SMALLWOOD Mariel Rep #: [id number] : 1965 52 From: Shayna Ramsey DO PCP: SALLY MATIAS Status: REG ER ED Disposition - Plan for ED Patient: Chief Complaint: Abscess Instructions: ED Abscess IandD, ED Infec Skin Cellulitis Prescriptions: Cephalexin [Keflex] 500 mg PO Q6 #40 cap Smz/Tmp Ds [Bactrim Ds] 1 tab PO BID #20 tab Referrals: Sally Childers [Primary Care Provider] - 3-5 Days What to do if you have Problems For any increased pain, shortness of breath, bleeding, nausea or vomiting, chest pain, or any unexpected problems, contact your Primary Care Provider. Call [facility] ([phone]) or report to the closest Emergency Room. Call 911 if necessary. 04/25/18 1801 <Electronically signed by Shayna Ramsey DO> Date Remus Ramsey DO Cosigner Signature (If Indicated): Date CC: OUT OF TOWN DOCTOR; SALLY BANUELOS [facility] CBC W/DIFF, AUTOMATED Collected: 04/25/2018 Status: F Source: [place] 4:45 PM [facility] REPOSITORY TYPE CODE TESTS RESULT OUT OF RANGE REFERENCE UNITS LAB L100.1000 4.4-11.0 K/mm3 High WBC 11.5 LAB L100.1200 4.2-5.4 M/mm3 Normal RBC 5.10 LAB L100.1300 12.0-15.0 g/dl High HGB 15.7 LAB L100.1400 37-47 % Normal HCT 45.3 LAB L100.1500 81-99 fL Normal MCV 88.8 LAB L100.1600 27.0-32.0 pg Normal MCH 30.8 LAB L100.1700 32-36 g/gl Normal MCHC 34.7 LAB L100.1810 11.6-14.6 % Normal RDW CV 13.0 LAB L100.1820 35.1-43.9 fl Normal RDW SD 41.9 LAB L100.1900 150-450 K/mm3 Normal PLT 282 LAB L100.2000 6.2-12.0 fl Normal MPV 8.2 LAB L100.2100 47-70 % Normal NEUT% 67.9 LAB L100.2200 19-41 % Normal LY% 22.3 LAB L100.2300 0-10 % Normal MONO% 7.7 LAB L100.2400 0-5 % Normal EO% 1.7 LAB L100.2500 0-1 % Normal BASO% 0.2 LAB L100.2550 0.0-0.9 % Normal IM GRAN % 0.200 Result Comment: IG% - Immature Granulocytes (promyelocytes, myelocytes and metamyelocytes) > 1% indicates that a LEFT SHIFT is Present. LAB L100.2620 2.0-7.7 X10 3/uL High Absolute Neut 7.8 LAB L100.2720 0.83-4.51 X10 3/ul Normal Absolute Lymph 2.56 Performed By: #### L100.0100 #### [facility] [address] [place], [place], [address] BASIC METABOLIC Collected: 04/25/2018 Status: F Source: [place] PROFILE (BMP) 4:45 PM [facility] REPOSITORY TYPE CODE TESTS RESULT OUT OF RANGE REFERENCE UNITS LAB L501.0100 74-106 mg/dL Normal GLU 95 Result Comment: Please note revised GLUCOSE reference range effective 2017. LAB L501.1000 7-18 mg/dL Normal BUN 14 LAB L501.1100 0.55-1.02 mg/dL Normal CREAT,SERUM 0.78 Result Comment: The validity of the calculated GFR AND GFRAA in patients over 70 years has not been determined. Clinical correlation is essential. LAB L501.1110 >60 mL/min Normal EST GFR 83 Result Comment: Non- GFR Calc LAB L501.1115 >60 mL/min Normal EST GFR - AA 100 Result Comment: GFR Calc LAB L501.1255 ml/min Normal Estimated CRCL 59.91 LAB L501.1300 10-20 RATIO Normal BUN/CRE 18.1 LAB L501.2200 8.5-10 mg/dL Normal .1 CA 9.0 LAB L501.5300 136-14 mmol/L Low 5 NA 133 LAB L501.5600 3.5-5. mmol/L Normal 1 K 3.8 LAB L501.5900 98-107 mmol/L Low CL 97 LAB L501.6100 21.0-3 mmol/L Normal 2.0 CO2 29.0 LAB L501.6200 5-15 Normal GAP 7 Performed By: #### L500.2500 #### [facility] [address] [place], [place], [address] BEDSIDE GLUCOSE Collected: 04/25/2018 Status: F Source: [place] 4:06 PM [facility] REPOSITORY TYPE CODE TESTS RESULT OUT OF RANGE REFERENCE UNITS LAB L501.080 70-110 mg/dL Normal BEDSIDE GLU 100 Result Comment: MANAGEMENT OF PATIENT CARE PER NURSING PROTOCOL Performed By: #### L501.080 #### [facility] Point of Care [address] [place] [address] CBC AND DIFFERENTIAL Collected: 03/28/2018 Status: F Source: [place] 8:49 AM CLINIC REFERENCE REPOSITORY TYPE CODE TESTS RESULT OUT OF REFERENCE UNITS RANGE LAB WBC(LOINC) 3.70-11.00 k/uL WBC 7.56 LAB RBC(LOINC) 3.90-5.20 m/uL RBC 4.96 LAB HGB(LOINC) 11.5-15.5 g/dL Hemoglobin 14.8 LAB HCT(LOINC) 36.0-46.0 % Hematocrit 45.6 LAB MCV(LOINC) 80.0-100.0 fL MCV 91.9 LAB MCH(LOINC) 26.0-34.0 pG MCH 29.8 LAB MCHC(LOINC 30.5-36.0 g/dL ) MCHC 32.5 LAB RDWCV(LOIN 11.5-15.0 % C) RDW-CV 13.3 LAB PLTCT(LOIN 150-400 k/uL C) Platelet Count 338 LAB MPV(LOINC) 9.0-12.7 fL Low MPV 8.9 LAB ANEUT(LOIN % C) Neut% 45.0 LAB AANEUT(MARIA A 1.45-7.50 k/uL NC) Abs Neut 3.38 LAB ALYMP(LOIN % C) Lymph% 44.0 LAB AALYMP(MARIA A 1.00-4.00 k/uL NC) Abs Lymph 3.33 LAB AMONO(LOIN % C) [place]% 6.9 LAB AAMONO(MARIA A <0.87 k/uL NC) Abs [place] 0.52 LAB AEOS(LOINC % ) Eosin% 3.4 LAB AAEOS(LOIN <0.46 k/uL C) Abs Eosin 0.26 LAB ABASO(LOIN % C) Baso% 0.7 LAB AABASO(MARIA A <0.11 k/uL NC) Abs Baso 0.05 LAB AUNRBC(MARIA A 0 /100 WBC NC) NRBCs 0.0 LAB ABNRBC(MARIA A <0.01 k/uL NC) Absolute nRBC <0.01 LAB DTYP(LOINC ) DTYPE ADIFF COMP METABOLIC PANEL Collected: 03/28/2018 Status: F Source: [place] 8:49 AM CLINIC REFERENCE REPOSITORY TYPE CODE TESTS RESULT OUT OF REFERENCE UNITS RANGE LAB TP(LOINC) 6.3-8.0 g/dL Protein, Total 7.1 LAB ALB(LOINC) 3.9-4.9 g/dL Albumin 4.4 LAB CA(LOINC) 8.5-10.2 mg/dL Calcium, Total 8.9 LAB TBIL(LOINC 0.2-1.3 mg/dL ) Bilirubin, Total 0.4 LAB ALKP(LOINC 32-117 U/L ) Alkaline Phosphatase 50 LAB AST(LOINC) 13-35 U/L AST 16 LAB GLU(LOINC) 74-99 mg/dL Glucose 87 LAB BUN(LOINC) 7-21 mg/dL BUN 15 LAB CRET(LOINC 0.58-0.96 mg/dL ) Creatinine 0.83 LAB NA(LOINC) 136-144 mmol/L Low Sodium 132 LAB K(LOINC) 3.7-5.1 mmol/L Potassium 3.7 LAB CL(LOINC) 97-105 mmol/L Low Chloride 95 LAB CO2(LOINC) 22-30 mmol/L CO2 27 LAB AGAP(LOINC 9-18 mmol/L ) Anion Gap 10 LAB ALT(LOINC) 7-38 U/L ALT 21 LAB GFRAA(LOIN C) eGFR- >60 Amer. LAB GFRNAA(MARIA A . NC) eGFR-All Other Races >60 LIPID PANEL, BASIC Collected: 03/28/2018 Status: F Source: [place] 8:49 AM CLINIC REFERENCE REPOSITORY TYPE CODE TESTS RESULT OUT OF REFERENCE UNITS RANGE LAB CHOL(LOINC <200 mg/dL ) Cholesterol 173 LAB TRIGLY(MARIA A <150 mg/dL NC) Triglyceride High 235 LAB HDL(LOINC) >39 mg/dL HDL-Cholesterol 50 LAB LDL(LOINC) <100 mg/dL LDL-Cholesterol 76 LAB NONHDL(MARIA A <130 mg/dL NC) Non HDL Cholesterol 123 LAB FT(LOINC) hrs Fasting Time 12 LAB VLDL(LOINC <30 mg/dL ) VLDL High Cholesterol 47 LAB TCHDL(LOIN <5.10 C) TC:HDL Ratio 3.46 LAB LDLHDL(MARIA A <2.54 NC) LDL:HDL Ratio 1.52 TSH Collected: 03/28/2018 Status: F Source: [place] 8:49 AM CLINIC REFERENCE REPOSITORY TYPE CODE TESTS RESULT OUT OF RANGE REFERENCE UNITS LAB TSH(LOINC) 0.400-5.500 uU/mL TSH 1.490 FREE T4 Collected: 03/28/2018 Status: F Source: [place] 8:49 AM CLINIC REFERENCE REPOSITORY TYPE CODE TESTS RESULT OUT OF RANGE REFERENCE UNITS LAB FT4(LOINC) 0.9-1.7 ng/dL Free T4 1.3 HEMOGLOBIN A1C Collected: 03/28/2018 Status: F Source: [place] 8:49 AM CLINIC REFERENCE REPOSITORY TYPE CODE TESTS RESULT OUT OF REFERENCE UNITS RANGE LAB HGBA1C(MARIA A 4.3-5.6 % NC) Hemoglobin A1c 5.3 LAB HBA0(LOINC mg/dL ) Est. Average Glucose 105 VITAMIN D 25 HYDROXY Collected: 03/28/2018 Status: F Source: [place] 8:49 AM CLINIC REFERENCE REPOSITORY TYPE CODE TESTS RESULT OUT OF REFERENCE UNITS RANGE LAB VITD(LOINC) 31.0-80.0 ng/mL Vitamin D 25 35.6 Hydroxy GC/CHLAMYDIA AMPLIF Collected: 03/07/2018 Status: C Source: [place] 2:43 PM CLINIC REFERENCE REPOSITORY TYPE CODE TESTS RESULT OUT OF REFERENCE UNITS RANGE LAB GCCTSR(MARIA A NC) GC/Chlam Amp Source Cervix LAB GCAMPL(MARIA A NC) GC Amplification NGNEG LAB CLAMPL(MARIA A NC) Chlamydia Amplif CLNEG TRICH VAGINALIS AMPL Collected: 03/07/2018 Status: C Source: [place] 2:43 PM CLINIC REFERENCE REPOSITORY TYPE CODE TESTS RESULT OUT OF REFERENCE UNITS RANGE LAB TRVSRC(MARIA A NC) Trich vag Amp Source Cervix LAB TVAMPL(MARIA A NC) T vag Amplification TVNEG Observed: 03/07/2018 Status: F Source: [place] [facility] 2:07 PM CLINIC REFERENCE REPOSITORY ADDITIONAL PROCEDURES PRESENT Specimen #: [id number] Submitting Physician: CHADD SALINAS SPECIMEN SUBMITTED A: CERVICAL, SCREENING, FLUID FINAL DIAGNOSIS A. CERVICAL, SCREENING, FLUID Satisfactory for interpretation. No endocervical component. Negative for intraepithelial lesion or malignancy. This specimen has been analyzed by the ThinPrep Imaging System, an automated imaging and review system, which assists the laboratory in evaluating cells on ThinPrep Pap tests. Following automated imaging, selected garg from every slide are reviewed by a loom setter. HOLLY Flowers(ASCP) (Electronic Signature) ADDITIONAL PROCEDURE(S) HUMAN PAPILLOMA VIRUS Date Ordered: 03/08/2018 Date Reported: 03/09/2018 Procedure Results and Interpretation Negative for HPV DNA high risk type 16 by PCR. Negative for HPV DNA high risk type 18 by PCR. Negative for HPV DNA high risk types: 31,33,35,39,45,51,52,56,58,59,66,68 by PCR. This test was developed and its performance characteristics determined by [facility] [place] ([facility]). It has not been cleared or approved by the FDA. [facility] is regulated under CLIA as qualified to perform high-complexity testing. This test is used for clinical purposes. It should not be regarded as investigational or for research. CLINICAL DATA Previous PAP date: 2015 HPV Testing: Automatic HPV typing (HPV) Date of Last Menstrual Period: 2014 Clinical History: ROUTINE STAINS A: CERVICAL, SCREENING, FLUID THIN PREP INVISIBLE BRACES ORTHODONTIST Ann Marie Don M.D., Industrial Relations Counselor Date of Report: 03/10/2018 Date of Procedure: 03/07/2018 Date of Receipt: 03/08/2018 Submitted by: CHADD SALINAS Location: Diagnostic interpretation performed at [facility], [address] [place] [address]. The Pap Smear is a screening test for cervical cancer. False negative results occur with all screening tests, emphasizing the need for rescreening at recommended intervals, and clinical correlation. Performed By: #### C #### See report for performing lab information. HPV W/GENOTYPE Collected: 03/07/2018 Status: F Source: [place] 2:32 AM CLINIC REFERENCE REPOSITORY TYPE CODE TESTS RESULT OUT OF REFERENCE UNITS RANGE LAB HPVT16(LOIN C) HPV HighRisk NHPV16 Type 16 LAB HPVT18(LOIN C) HPV HighRisk NHPV18 Type 18 LAB HPVHRO(LOIN C) HPV HighRisk PCR. Other HEPATITIS C AB IA Collected: 02/21/2018 Status: F Source: [place] 3:42 PM CLINIC REFERENCE REPOSITORY TYPE CODE TESTS RESULT OUT OF REFERENCE UNITS RANGE LAB AHCV(LOINC Negative ) Hepatitis C Ab NEGAT IA RPR Collected: 02/21/2018 Status: F Source: [place] 3:42 PM CLINIC REFERENCE REPOSITORY TYPE CODE TESTS RESULT OUT OF RANGE REFERENCE UNITS LAB RPR(LOINC) Non Reactive RPR NR CBC AND DIFFERENTIAL Collected: 02/17/2018 Status: F Source: [place] 8:07 AM CLINIC REFERENCE REPOSITORY TYPE CODE TESTS RESULT OUT OF REFERENCE UNITS RANGE LAB WBC(LOINC) 3.70-11.00 k/uL WBC 9.71 LAB RBC(LOINC) 3.90-5.20 m/uL RBC High 5.39 LAB HGB(LOINC) 11.5-15.5 g/dL High Hemoglobin 16.3 LAB HCT(LOINC) 36.0-46.0 % High Hematocrit 49.3 LAB MCV(LOINC) 80.0-100.0 fL MCV 91.5 LAB MCH(LOINC) 26.0-34.0 pG MCH 30.2 LAB MCHC(LOINC 30.5-36.0 g/dL ) MCHC 33.1 LAB RDWCV(LOIN 11.5-15.0 % C) RDW-CV 13.2 LAB PLTCT(LOIN 150-400 k/uL C) Platelet Count 335 LAB MPV(LOINC) 9.0-12.7 fL MPV 9.4 LAB ANEUT(LOIN % C) Neut% 48.2 LAB AANEUT(MARIA A 1.45-7.50 k/uL NC) Abs Neut 4.68 LAB ALYMP(LOIN % C) Lymph% 40.9 LAB AALYMP(MARIA A 1.00-4.00 k/uL NC) Abs Lymph 3.97 LAB AMONO(LOIN % C) [place]% 7.3 LAB AAMONO(MARIA A <0.87 k/uL NC) Abs [place] 0.71 LAB AEOS(LOINC % ) Eosin% 3.0 LAB AAEOS(LOIN <0.46 k/uL C) Abs Eosin 0.29 LAB ABASO(LOIN % C) Baso% 0.6 LAB AABASO(MARIA A <0.11 k/uL NC) Abs Baso 0.06 LAB AUNRBC(MARIA A 0 /100 WBC NC) NRBCs 0.0 LAB ABNRBC(MARIA A <0.01 k/uL NC) Absolute nRBC <0.01 LAB DTYP(LOINC ) DTYPE ADIFF COMP METABOLIC PANEL Collected: 02/17/2018 Status: F Source: [place] 8:07 AM CLINIC REFERENCE REPOSITORY TYPE CODE TESTS RESULT OUT OF REFERENCE UNITS RANGE LAB TP(LOINC) 6.3-8.0 g/dL Protein, Total 7.7 LAB ALB(LOINC) 3.9-4.9 g/dL Albumin 4.6 LAB CA(LOINC) 8.5-10.2 mg/dL Calcium, Total 9.6 LAB TBIL(LOINC 0.2-1.3 mg/dL ) Bilirubin, Total 0.4 LAB ALKP(LOINC 32-117 U/L ) Alkaline Phosphatase 59 LAB AST(LOINC) 13-35 U/L AST 20 LAB GLU(LOINC) 74-99 mg/dL Glucose 89 LAB BUN(LOINC) 7-21 mg/dL BUN 16 LAB CRET(LOINC 0.58-0.96 mg/dL ) Creatinine 0.85 LAB NA(LOINC) 136-144 mmol/L Low Sodium 135 LAB K(LOINC) 3.7-5.1 mmol/L Potassium 3.9 LAB CL(LOINC) 97-105 mmol/L Low Chloride 93 LAB CO2(LOINC) 22-30 mmol/L CO2 26 LAB AGAP(LOINC 9-18 mmol/L ) Anion Gap 16 LAB ALT(LOINC) 7-38 U/L ALT 19 LAB GFRAA(LOIN C) eGFR- >60 Amer. LAB GFRNAA(MARIA A . NC) eGFR-All Other Races >60 LIPID PANEL, BASIC Collected: 02/17/2018 Status: C Source: [place] 8:07 AM CLINIC REFERENCE REPOSITORY TYPE CODE TESTS RESULT OUT OF REFERENCE UNITS RANGE LAB CHOL(LOINC <200 mg/dL ) Cholesterol 185 LAB TRIGLY(MARIA A <150 mg/dL NC) Triglyceride High 270 LAB HDL(LOINC) >39 mg/dL HDL-Cholesterol 49 LAB LDL(LOINC) <100 mg/dL LDL-Cholesterol 82 LAB NONHDL(MARIA A <130 mg/dL NC) Non HDL High Cholesterol 136 LAB FT(LOINC) hrs Fasting Time 8 LAB VLDL(LOINC <30 mg/dL ) VLDL High Cholesterol 54 LAB TCHDL(LOIN <5.10 C) TC:HDL Ratio 3.78 LAB LDLHDL(MARIA A <2.54 NC) LDL:HDL Ratio 1.67 TSH Collected: 02/17/2018 Status: F Source: [place] 8:07 AM CLINIC REFERENCE REPOSITORY TYPE CODE TESTS RESULT OUT OF RANGE REFERENCE UNITS LAB TSH(LOINC) 0.400-5.500 uU/mL High TSH 7.080 FREE T4 Collected: 02/17/2018 Status: F Source: [place] 8:07 AM CLINIC REFERENCE REPOSITORY TYPE CODE TESTS RESULT OUT OF RANGE REFERENCE UNITS LAB FT4(LOINC) 0.9-1.7 ng/dL Free T4 1.3 HEMOGLOBIN A1C Collected: 02/17/2018 Status: F Source: [place] 8:07 AM CLINIC REFERENCE REPOSITORY TYPE CODE TESTS RESULT OUT OF REFERENCE UNITS RANGE LAB HGBA1C(MARIA A 4.3-5.6 % NC) Hemoglobin A1c 5.4 LAB HBA0(LOINC mg/dL ) Est. Average Glucose 108 VITAMIN D 25 HYDROXY Collected: 02/17/2018 Status: F Source: [place] 8:07 AM [facility] REFERENCE REPOSITORY TYPE CODE TESTS RESULT OUT OF REFERENCE UNITS RANGE LAB VITD(LOINC) 31.0-80.0 ng/mL Vitamin D 25 33.7 Hydroxy POTASSIUM Collected: 12/06/2017 Status: F Source: [place] 8:28 AM [facility] REFERENCE REPOSITORY TYPE CODE TESTS RESULT OUT OF REFERENCE UNITS RANGE LAB K(LOINC) 3.7-5.1 mmol/L Potassium 4.0 Performed By: #### TSH, K1 #### [facility] Routine Lab [address], [place] [id number] TSH Collected: 12/06/2017 Status: F Source: [place] 8:28 AM [facility] REFERENCE REPOSITORY TYPE CODE TESTS RESULT OUT OF RANGE REFERENCE UNITS LAB TSH(LOINC) 0.400-5.500 uU/mL TSH 4.250 Performed By: #### TSH, K1 #### [facility] Routine Lab [address] [place], [place] [address] CBC AND DIFFERENTIAL Collected: 11/11/2017 Status: F Source: [place] 9:26 AM [facility] REFERENCE REPOSITORY TYPE CODE TESTS RESULT OUT OF REFERENCE UNITS RANGE LAB WBC(LOINC) 3.70-11.00 k/uL WBC 9.72 LAB RBC(LOINC) 3.90-5.20 m/uL RBC High 5.61 LAB HGB(LOINC) 11.5-15.5 g/dL High Hemoglobin 17.1 LAB HCT(LOINC) 36.0-46.0 % High Hematocrit 51.2 LAB MCV(LOINC) 80.0-100.0 fL MCV 91.3 LAB MCH(LOINC) 26.0-34.0 pG MCH 30.5 LAB MCHC(LOINC 30.5-36.0 g/dL ) MCHC 33.4 LAB RDWCV(LOIN 11.5-15.0 % C) RDW-CV 13.9 LAB PLTCT(LOIN 150-400 k/uL C) Platelet Count 353 LAB MPV(LOINC) 9.0-12.7 fL MPV 9.7 LAB ANEUT(LOIN % C) Neut% 58.9 LAB AANEUT(MARIA A 1.45-7.50 k/uL NC) Abs Neut 5.73 LAB ALYMP(LOIN % C) Lymph% 31.6 LAB AALYMP(MARIA A 1.00-4.00 k/uL NC) Abs Lymph 3.07 LAB AMONO(LOIN % C) [place]% 6.4 LAB AAMONO(MARIA A <0.87 k/uL NC) Abs [place] 0.62 LAB AEOS(LOINC % ) Eosin% 2.6 LAB AAEOS(LOIN <0.46 k/uL C) Abs Eosin 0.25 LAB ABASO(LOIN % C) Baso% 0.5 LAB AABASO(MARIA A <0.11 k/uL NC) Abs Baso 0.05 LAB AUNRBC(MARIA A 0 /100 WBC NC) NRBCs 0.0 LAB ABNRBC(MARIA A <0.01 k/uL NC) Absolute nRBC <0.01 LAB DTYP(LOINC ) DTYPE ADIFF COMP METABOLIC PANEL Collected: 11/11/2017 Status: F Source: [place] 9:26 AM CLINIC REFERENCE REPOSITORY TYPE CODE TESTS RESULT OUT OF REFERENCE UNITS RANGE LAB TP(LOINC) 6.3-8.0 g/dL Protein, High Total 8.2 LAB ALB(LOINC) 3.9-4.9 g/dL Albumin 4.8 LAB CA(LOINC) 8.5-10.2 mg/dL Calcium, Total 9.5 LAB TBIL(LOINC 0.2-1.3 mg/dL ) Bilirubin, Total 0.7 LAB ALKP(LOINC 32-117 U/L ) Alkaline Phosphatase 57 LAB AST(LOINC) 13-35 U/L AST 22 LAB GLU(LOINC) 74-99 mg/dL Glucose High 123 LAB BUN(LOINC) 7-21 mg/dL BUN 18 LAB CRET(LOINC 0.58-0.96 mg/dL ) Creatinine 0.92 LAB NA(LOINC) 136-144 mmol/L Sodium 139 LAB K(LOINC) 3.7-5.1 mmol/L Low Potassium 3.6 LAB CL(LOINC) 97-105 mmol/L Chloride 99 LAB CO2(LOINC) 22-30 mmol/L CO2 23 LAB AGAP(LOINC 9-18 mmol/L ) Anion Gap 17 LAB ALT(LOINC) 7-38 U/L ALT 23 LAB GFRAA(LOIN C) eGFR- >60 Amer. LAB GFRNAA(MARIA A . NC) eGFR-All Other Races >60 LIPID PANEL, BASIC Collected: 11/11/2017 Status: F Source: [place] 9:26 AM CLINIC REFERENCE REPOSITORY TYPE CODE TESTS RESULT OUT OF REFERENCE UNITS RANGE LAB CHOL(LOINC <200 mg/dL ) Cholesterol 178 LAB TRIGLY(MARIA A <150 mg/dL NC) Triglyceride High 195 LAB HDL(LOINC) >39 mg/dL HDL-Cholesterol 48 LAB LDL(LOINC) <100 mg/dL LDL-Cholesterol 91 LAB NONHDL(MARIA A <130 mg/dL NC) Non HDL High Cholesterol 130 LAB FT(LOINC) hrs Fasting Time 16 LAB VLDL(LOINC <30 mg/dL ) VLDL High Cholesterol 39 LAB TCHDL(LOIN <5.10 C) TC:HDL Ratio 3.71 LAB LDLHDL(MARIA A <2.54 NC) LDL:HDL Ratio 1.90 FREE T4 Collected: 11/11/2017 Status: F Source: [place] 9:26 AM CLINIC REFERENCE REPOSITORY TYPE CODE TESTS RESULT OUT OF RANGE REFERENCE UNITS LAB FT4(LOINC) 0.9-1.7 ng/dL Free T4 1.3 TSH Collected: 11/11/2017 Status: F Source: [place] 9:26 AM CLINIC REFERENCE REPOSITORY TYPE CODE TESTS RESULT OUT OF RANGE REFERENCE UNITS LAB TSH(LOINC) 0.400-5.500 uU/mL High TSH 6.230 HEMOGLOBIN A1C Collected: 11/11/2017 Status: F Source: [place] 9:26 AM CLINIC REFERENCE REPOSITORY TYPE CODE TESTS RESULT OUT OF REFERENCE UNITS RANGE LAB HGBA1C(MARIA A 4.3-5.6 % NC) High Hemoglobin A1c 5.7 LAB HBA0(LOINC mg/dL ) Est. Average Glucose 117 VITAMIN D 25 HYDROXY Collected: 11/11/2017 Status: F Source: [place] 9:26 AM CLINIC REFERENCE REPOSITORY TYPE CODE TESTS RESULT OUT OF REFERENCE UNITS RANGE LAB VITD(LOINC) 31.0-80.0 ng/mL Vitamin D 25 33.1 Hydroxy SCREENING MAMM (CAD), Observed: 08/31/2017 Status: F Source: [place] 12:10 PM [facility] REPOSITORY [facility] Imaging Services [address] [address] SCREENING MAMM (CAD), BILAT MR#: [id number] Acct: [id number] Name: BHARATI SMALLWOOD Rep #: [id number] : 1965 F 51 From: Reinaldo Gaspar MD PCP: Status: REG CLI Study: SCREENING MAMM (CAD), BILAT Date of Exam: 08/31/17 Exam# [id number] Ordering Dr: Sally Childers MAMMOGRAPHY - BILATERAL SCREENING REASON FOR EXAM: Female, 51 years old. Routine annual screening examination. PERTINENT HISTORY: Non-contributory. TECHNIQUE: Digital bilateral breast jean (3D mammographic acquisition) in the CC and MLO projections. 2-D mediolateral oblique (MLO) and craniocaudad (CC) views of both breasts were obtained. CAD: Full Field Digital Mammography with Computer Added Detection was performed. COMPARISON: Comparison is made with prior outside examination dated April 14, 2012. FINDINGS: Breast Composition: There are scattered areas of fibroglandular density. There are no dominant masses or suspicious calcifications. Stable bilateral benign appearing axillary lymph nodes. No other significant abnormalities are identified. There has been no significant change since the prior study. HPBI/SCREENING MAMM (CAD), BILAT IMPRESSION: Stable bilateral screening mammogram. Yearly follow-up mammogram recommended. (A) ASSESSMENT CATEGORY: BIRADS Category 2: Benign. A letter regarding these results will be sent to the patient by the facility within 30 days. Approximately 10% of breast cancers are not detected by mammography. A normal mammogram should not delay biopsy of a clinically suspicious abnormality. [id number] Electronically Signed: Reinaldo Gaspar MD at 8:24 EST Tel [phone], Service support , CC: SALLY BANUELOS [facility] Medical Scribe: Signed COMP METABOLIC PANEL Collected: 07/22/2017 Status: F Source: [place] 8:34 AM CLINIC REFERENCE REPOSITORY TYPE CODE TESTS RESULT OUT OF REFERENCE UNITS RANGE LAB TP(LOINC) 6.3-8.0 g/dL Protein, Total 6.8 LAB ALB(LOINC) 3.9-4.9 g/dL Albumin 4.0 LAB CA(LOINC) 8.5-10.2 mg/dL Calcium, Total 8.6 LAB TBIL(LOINC 0.2-1.3 mg/dL ) Bilirubin, Total 0.2 LAB ALKP(LOINC 32-117 U/L ) Alkaline Phosphatase 57 LAB AST(LOINC) 13-35 U/L AST 18 LAB GLU(LOINC) 74-99 mg/dL Glucose High 116 LAB BUN(LOINC) 7-21 mg/dL BUN 9 LAB CRET(LOINC 0.58-0.96 mg/dL ) Creatinine 0.76 LAB NA(LOINC) 136-144 mmol/L Sodium 143 LAB K(LOINC) 3.7-5.1 mmol/L Potassium 4.0 LAB CL(LOINC) 97-105 mmol/L Chloride High 106 LAB CO2(LOINC) 22-30 mmol/L CO2 25 LAB AGAP(LOINC 9-18 mmol/L ) Anion Gap 12 LAB ALT(LOINC) 7-38 U/L ALT 25 LAB GFRAA(LOIN C) eGFR- >60 Amer. LAB GFRNAA(MARIA A . NC) eGFR-All Other Races >60 LIPID PANEL, BASIC Collected: 07/22/2017 Status: F Source: [place] 8:34 AM CLINIC REFERENCE REPOSITORY TYPE CODE TESTS RESULT OUT OF REFERENCE UNITS RANGE LAB TRIGLY(MARIA A 30-149 mg/dL NC) Triglyceride High 192 LAB CHOL(LOINC 100-199 mg/dL ) Cholesterol 157 LAB HDL(LOINC) >55 mg/dL Low HDL-Cholesterol 43 LAB VLDL(LOINC 6-40 mg/dL ) VLDL Cholesterol 38 LAB LDL(LOINC) 60-129 mg/dL LDL-Cholesterol 76 LAB FT(LOINC) hrs Fasting Time 10 LAB TCHDL(LOIN 1.00-5.00 C) TC:HDL Ratio 3.65 LAB LDLHDL(MARIA A 0.50-3.55 NC) LDL:HDL Ratio 1.77 LAB NONHDL(MARIA A 90-159 mg/dL NC) Non HDL Cholesterol 114 CBC AND DIFFERENTIAL Collected: 07/22/2017 Status: F Source: [place] 8:34 AM CLINIC REFERENCE REPOSITORY TYPE CODE TESTS RESULT OUT OF REFERENCE UNITS RANGE LAB WBC(LOINC) 3.70-11.00 k/uL WBC 7.21 LAB RBC(LOINC) 3.90-5.20 m/uL RBC 5.09 LAB HGB(LOINC) 11.5-15.5 g/dL Hemoglobin 14.9 LAB HCT(LOINC) 36.0-46.0 % High Hematocrit 46.7 LAB MCV(LOINC) 80.0-100.0 fL MCV 91.7 LAB MCH(LOINC) 26.0-34.0 pG MCH 29.3 LAB MCHC(LOINC 30.5-36.0 g/dL ) MCHC 31.9 LAB RDWCV(LOIN 11.5-15.0 % C) RDW-CV 13.6 LAB PLTCT(LOIN 150-400 k/uL C) Platelet Count 265 LAB MPV(LOINC) 9.0-12.7 fL MPV 10.0 LAB ANEUT(LOIN % C) Neut% 48.8 LAB AANEUT(MARIA A 1.45-7.50 k/uL NC) Abs Neut 3.52 LAB ALYMP(LOIN % C) Lymph% 39.5 LAB AALYMP(MARIA A 1.00-4.00 k/uL NC) Abs Lymph 2.85 LAB AMONO(LOIN % C) [place]% 6.8 LAB AAMONO(MARIA A <0.87 k/uL NC) Abs [place] 0.49 LAB AEOS(LOINC % ) Eosin% 4.2 LAB AAEOS(LOIN <0.46 k/uL C) Abs Eosin 0.30 LAB ABASO(LOIN % C) Baso% 0.7 LAB AABASO(MARIA A <0.11 k/uL NC) Abs Baso 0.05 LAB AUNRBC(MARIA A 0 /100 WBC NC) NRBCs 0.0 LAB ABNRBC(MARIA A <0.01 k/uL NC) Absolute nRBC <0.01 LAB DTYP(LOINC ) DTYPE ADIFF TSH Collected: 07/22/2017 Status: F Source: [place] 8:34 AM CLINIC REFERENCE REPOSITORY TYPE CODE TESTS RESULT OUT OF RANGE REFERENCE UNITS LAB TSH(LOINC) 0.400-5.500 uU/mL TSH 4.260 FREE T4 Collected: 07/22/2017 Status: F Source: [place] 8:34 AM CLINIC REFERENCE REPOSITORY TYPE CODE TESTS RESULT OUT OF RANGE REFERENCE UNITS LAB FT4(LOINC) 0.9-1.7 ng/dL Low Free T4 0.8 HEMOGLOBIN A1C Collected: 07/22/2017 Status: F Source: [place] 8:34 AM CLINIC REFERENCE REPOSITORY TYPE CODE TESTS RESULT OUT OF REFERENCE UNITS RANGE LAB HGBA1C(MARIA A 4.3-5.6 % NC) High Hemoglobin A1c 5.9 LAB HBA0(LOINC mg/dL ) Est. Average Glucose 123 VITAMIN D 25 HYDROXY Collected: 07/22/2017 Status: F Source: [place] 8:34 AM CLINIC REFERENCE REPOSITORY TYPE CODE TESTS RESULT OUT OF REFERENCE UNITS RANGE LAB VITD(LOINC) 31.0-80.0 ng/mL Vitamin D 25 31.3 Hydroxy CBC AND DIFFERENTIAL Collected: 04/28/2017 Status: F Source: [place] 12:10 PM CLINIC REFERENCE REPOSITORY TYPE CODE TESTS RESULT OUT OF REFERENCE UNITS RANGE LAB WBC(LOINC) 3.70-11.00 k/uL WBC 7.43 LAB RBC(LOINC) 3.90-5.20 m/uL RBC High 5.46 LAB HGB(LOINC) 11.5-15.5 g/dL High Hemoglobin 15.9 LAB HCT(LOINC) 36.0-46.0 % High Hematocrit 47.8 LAB MCV(LOINC) 80.0-100.0 fL MCV 87.5 LAB MCH(LOINC) 26.0-34.0 pG MCH 29.1 LAB MCHC(LOINC 30.5-36.0 g/dL ) MCHC 33.3 LAB RDWCV(LOIN 11.5-15.0 % C) RDW-CV 12.9 LAB PLTCT(LOIN 150-400 k/uL C) Platelet Count 278 LAB MPV(LOINC) 9.0-12.7 fL MPV 10.4 LAB ANEUT(LOIN % C) Neut% 53.4 LAB AANEUT(MARI AA 1.45-7.50 k/uL NC) Abs Neut 3.97 LAB ALYMP(LOIN % C) Lymph% 34.5 LAB AALYMP(MARIA A 1.00-4.00 k/uL NC) Abs Lymph 2.56 LAB AMONO(LOIN % C) [place]% 7.1 LAB AAMONO(MARIA A <0.87 k/uL NC) Abs [place] 0.53 LAB AEOS(LOINC % ) Eosin% 4.3 LAB AAEOS(LOIN <0.46 k/uL C) Abs Eosin 0.32 LAB ABASO(LOIN % C) Baso% 0.7 LAB AABASO(MARIA A <0.11 k/uL NC) Abs Baso 0.05 LAB AUNRBC(MARIA A 0 /100 WBC NC) NRBCs 0.0 LAB ABNRBC(MARIA A <0.01 k/uL NC) Absolute nRBC 0.00 LAB DTYP(LOINC ) DTYPE ADIFF COMP METABOLIC PANEL Collected: 04/28/2017 Status: F Source: [place] 12:10 PM CLINIC REFERENCE REPOSITORY TYPE CODE TESTS RESULT OUT OF REFERENCE UNITS RANGE LAB TP(LOINC) 6.3-8.0 g/dL Protein, Total 7.6 LAB ALB(LOINC) 3.9-4.9 g/dL Albumin 4.4 LAB CA(LOINC) 8.5-10.2 mg/dL Calcium, Total 8.5 LAB TBIL(LOINC 0.2-1.3 mg/dL ) Bilirubin, Total 0.2 LAB ALKP(LOINC 32-117 U/L ) Alkaline Phosphatase 78 LAB AST(LOINC) 13-35 U/L AST 19 LAB GLU(LOINC) 74-99 mg/dL Glucose High 135 LAB BUN(LOINC) 7-21 mg/dL BUN 16 LAB CRET(LOINC 0.58-0.96 mg/dL ) Creatinine 0.66 LAB NA(LOINC) 136-144 mmol/L Sodium 139 LAB K(LOINC) 3.7-5.1 mmol/L Low Potassium 3.6 LAB CL(LOINC) 97-105 mmol/L Chloride 101 LAB CO2(LOINC) 22-30 mmol/L CO2 25 LAB AGAP(LOINC 9-18 mmol/L ) Anion Gap 13 LAB ALT(LOINC) 7-38 U/L ALT High 39 LAB GFRAA(LOIN C) eGFR- >60 Amer. LAB GFRNAA(MARIA A . NC) eGFR-All Other Races >60 LIPID PANEL, BASIC Collected: 04/28/2017 Status: F Source: [place] 12:10 PM CLINIC REFERENCE REPOSITORY TYPE CODE TESTS RESULT OUT OF REFERENCE UNITS RANGE LAB TRIGLY(MARIA A 30-149 mg/dL NC) Triglyceride High 332 LAB CHOL(LOINC 100-199 mg/dL ) Cholesterol 158 LAB HDL(LOINC) >55 mg/dL Low HDL-Cholesterol 41 LAB VLDL(LOINC 6-40 mg/dL ) VLDL High Cholesterol 66 LAB LDL(LOINC) 60-129 mg/dL Low LDL-Cholesterol 51 LAB FT(LOINC) hrs Fasting Time 12 LAB TCHDL(LOIN 1.00-5.00 C) TC:HDL Ratio 3.85 LAB LDLHDL(MARIA A 0.50-3.55 NC) LDL:HDL Ratio 1.24 LAB NONHDL(MARIA A 90-159 mg/dL NC) Non HDL Cholesterol 117 FREE T4 Collected: 04/28/2017 Status: F Source: [place] 12:10 PM CLINIC REFERENCE REPOSITORY TYPE CODE TESTS RESULT OUT OF RANGE REFERENCE UNITS LAB FT4(LOINC) 0.9-1.7 ng/dL Free T4 1.1 TSH Collected: 04/28/2017 Status: F Source: [place] 12:10 PM [facility] REFERENCE REPOSITORY TYPE CODE TESTS RESULT OUT OF RANGE REFERENCE UNITS LAB TSH(LOINC) 0.400-5.500 uU/mL TSH 2.390 HEMOGLOBIN A1C Collected: 04/28/2017 Status: F Source: [place] 12:10 PM CLINIC REFERENCE REPOSITORY TYPE CODE TESTS RESULT OUT OF REFERENCE UNITS RANGE LAB HGBA1C(MARIA A 4.3-5.6 % NC) High Hemoglobin A1c 6.7 LAB HBA0(LOINC mg/dL ) Est. Average Glucose 146 VITAMIN D 25 HYDROXY Collected: 04/28/2017 Status: F Source: [place] 12:10 PM CLINIC REFERENCE REPOSITORY TYPE CODE TESTS RESULT OUT OF REFERENCE UNITS RANGE LAB VITD(LOINC) 31.0-80.0 ng/mL Low Vitamin D 25 24.0 Hydroxy ALT Collected: 02/01/2017 Status: F Source: [place] 8:58 AM CLINIC REFERENCE REPOSITORY TYPE CODE TESTS RESULT OUT OF RANGE REFERENCE UNITS LAB ALT(LOINC) 7-38 U/L High ALT 48 Performed By: #### HBA1C, ALT, AST #### [facility] Routine Lab [address] [place], [place] [address] AST Collected: 02/01/2017 Status: F Source: [place] 8:58 AM CLINIC REFERENCE REPOSITORY TYPE CODE TESTS RESULT OUT OF RANGE REFERENCE UNITS LAB AST(LOINC) 13-35 U/L AST 31 Performed By: #### HBA1C, ALT, AST #### [facility] Routine Lab [address] [place], [place] [address] HEMOGLOBIN A1C Collected: 02/01/2017 Status: F Source: [place] 8:58 AM CLINIC REFERENCE REPOSITORY TYPE CODE TESTS RESULT OUT OF REFERENCE UNITS RANGE LAB HGBA1C(MARIA A 4.3-5.6 % NC) High Hemoglobin A1c 6.6 LAB HBA0(LOINC mg/dL ) Est. Average Glucose 143 Performed By: #### HBA1C, ALT, AST #### [facility]ine [facility] [address] [place], [place] [address] ALLERGIES ALLERGIES DATE TYPE / CODE NAME / CODE REACTION SEVERITY SOURCE 06/17/2018 Drug No Known Unknown [facility] Allergy/4160 Allergies/F00 [facility] [id number](SNOMED [id number](RXNOR Repository CT) M) ENCOUNTERS ENCOUNTERS ADMIT/DISCHARGE ACCOUNT ADMITTING ENCOUNTER LOCATION SOURCE NUMBER CLASS 06/17/2018/ [id number] Emergency Alexander Alexander 8 0 [facility] ing:ED Repository 05/31/2018/ [id number] Emergency Alexander Angela 8 9 [facility] ing:ED Repository 05/29/2018/ [id number] Emergency Angela Angela 8 0 [facility] ing:ED Repository 05/19/2018 [id number] Ambulatory Alexander Nagela 8 [facility] ing:SL Repository 04/26/2018/ [id number] Gayle Carlson Inpatient Angela Angela 8 5 [place] Encounter [facility] ing:[id number]: Repository [id number]: 1 04/26/2018 [id number] Gayle Carlson Ambulatory BMSBuilding:B Alexander 2 [place] Repository 04/26/2018 [id number] Gayle Carlson Ambulatory BMSBuilding:B Angela 8 [place] Repository 04/26/2018 [id number] Gayle Carlson Ambulatory BMSBuilding:B Alexander 6 [place] Repository 04/25/2018/ [id number] Emergency Angela Alexander 8 9 [facility] ing:ED Repository 08/31/2017 [id number] Ambulatory Angela Alexander 6 [facility] ing:BI Repository PAYERS PAYERS ENCOUNTER GUARANTOR PAYER SUBSCRIBER SOURCE 06/17/2018 BHARATI Floyd Primary BHARATI Floyd Alexander [id number] E Insurance:MEDICARE BILLUPSDOB: [facility] PART A [facility] [id number] [place] Number: Repository [id number]: 330 [id number] [phone] () Date:2018-06-17 06/17/2018 Secondary BHARATI Floyd Alexander Insurance:MEDICAIDPol BILLUPSDOB: [facility] ic Number: [id number] [facility] [id number] Repository Date:2018-06-17 06/17/2018 Tertiary NOT GIVENUNK Angela Insurance:SELF PAY [facility] Number: Effective Repository Date:2018-06-17 05/31/2018 BHARATI Floyd Primary BHARATI Floyd Angela [id number] E Insurance:MEDICARE BILLUPSDOB: [facility] PART A [facility] [id number] Number: Repository [id number]: 330 [id number] [phone] () Date:2018-05-31 05/31/2018 Secondary BHARATI Floyd Angela Insurance:MEDICAIDPol BILLUPSDOB: [facility] icy Number: [id number] [facility] [id number] Repository Date:2018-05-31 05/31/2018 Tertiary NOT GIVENUNK Angela Insurance:SELF PAY [facility] Effective Repository Date:2018-05-31 05/29/2018 BHARATI Floyd Primary BHARATI Floyd Alexander [id number] E Insurance:MEDICARE BILLUPSDOB: Community [place] PART A olic [id number], [place] Number: Repository [address]Svk: 330 [id number] [phone] () Date:2018-05-29 05/29/2018 Secondary BHARATI Flody Angela Insurance:MEDICAIDPol BILLUPSDOB: Community icy Number: [id number] [facility] [id number] Repository Date:2018-05-29 05/29/2018 Tertiary NOT GIVENUNK Angela Insurance:SELF PAY [facility] Number: Effective Repository Date:2018-05-29 05/19/2018 BHARATI Floyd Primary BHARATI Floyd Angela [id number] E Insurance:MEDICARE BILLUPSDOB: Community [place] PART [facility] [id number], [place] Number: Repository [id number]: 330 [id number] [phone] () Date:2018-05-11 05/19/2018 Secondary BHARATI Floyd Alexander Insurance:MEDICAIDPol BILLUPSDOB: Community icy Number: [id number] Hospital [id number] Repository Date:2018-05-11 05/19/2018 Tertiary NOT GIVENUNK Angela Insurance:SELF PAY [facility] Number: Effective Repository Date:2018-05-11 04/26/2018 BHARATI Floyd Primary BHARATI Floyd Alexander [id number] E Insurance:MEDICARE BILLUPSDOB: Community [place] PART A olic [id number], [place] Number: Repository [address]Nqt: 330 [id number] [phone] () Date:2018-04-26 04/26/2018 Secondary BHARATI Floyd Alexander Insurance:MEDICAIDPol BILLUPSDOB: Community icy Number: [id number] Hospital [id number] Repository Date:2018-04-26 04/26/2018 Tertiary NOT GIVENUNK Angela Insurance:SELF PAY [facility]: Effective Repository Date:2018-04-26 04/26/2018 BHARATI Floyd Primary BHARATI Floyd Alexander [id number] E Insurance:MEDICARE BILLUPSDOB: Community [place] [address] PART [facility] [id number], [place] Number: Repository [address]Vpc: 330 [id number] [phone] () Date:2018-04-26 04/26/2018 Secondary BHARATI Floyd Alexander Insurance:MEDICAIDPol BILLUPSDOB: [facility] icy Number: [id number] Hospital [id number] Repository Date:2018-04-26 04/26/2018 Tertiary NOT GIVENUNK Alexander Insurance:SELF PAY [facility] Number: Effective Repository Date:2018-04-26 04/26/2018 BHARATI Floyd Primary BHARATI Floyd Alexander [id number] [address] Insurance:MEDICARE BILLUPSDOB: [facility] [place] [facility] [id number], [place] Number: Repository [id number]: 330 [id number] [phone] () Date:2018-04-26 04/26/2018 Secondary BHARATI Floyd Alexander Insurance:MEDICAIDPol BILLUPSDOB: [facility] icy Number: [id number] Hospital [id number] Repository Date:2018-04-26 04/26/2018 Tertiary NOT GIVENUNK Angela Insurance:SELF PAY [facility] Number: Effective Repository Date:2018-04-26 04/26/2018 BHARATI Floyd Primary BHARATI Floyd Angela [id number] E Insurance:MEDICARE BILLUPSDOB: [facility] [place] [facility] [id number], [place] Number: Repository [id number]: 330 [id number] [phone] () Date:2018-04-26 04/26/2018 Secondary BHARATI Floyd Angela Insurance:MEDICAIDPol BILLUPSDOB: [facility] icy Number: [id number] Hospital [id number] Repository Date:2018-04-26 04/26/2018 Tertiary NOT GIVENUNK Angela Insurance:SELF PAY [facility] Number: Effective Repository Date:2018-04-26 04/25/2018 BHARATI Floyd Primary BHARATI C Angela [id number] E Insurance:MEDICARE BILLUPSDOB: Community [address] PART [facility] [id number] Number: Repository [id number]: [phone] [id number] [phone] () Date:2018-04-25 04/25/2018 Secondary NOT GIVENUNK Angela Insurance:SELF PAY [facility] Number: Effective Repository Date:2018-04-25 08/31/2017 Bharati [id number] Primary Bharati Miller [facility] Insurance:MEDICARE BillupsDOB: [facility] PART [facility] [id number] Number: Repository [address]Owr: (126) [id number] [phone] () Date:2017-08-05 08/31/2017 Secondary NOT GIVENUNK Angela Insurance:SELF PAY [facility] Number: Effective Repository Date:2017-08-05
== END 2018-06-17 21:12 ==
PROVIDERS: Emergency Medicine; Emergency Provider Emergency Medicine; Family Provider Nurse Practitioner Family; PCP Nurse Practitioner Family
DX: R45.851 Suicidal ideations (principal); F41.9 Anxiety disorder, unspecified; F31.9 Bipolar disorder, unspecified; E11.9 Type 2 diabetes mellitus without complications; I10 Essential (primary) hypertension; E78.00 Pure hypercholesterolemia, unspecified; E03.9 Hypothyroidism, unspecified; Z72.0 Tobacco use
CPT/HCPCS: 80048; 80307; 80320; 81001; 84703; 85025; 93005; 99285; G0480

== ENCOUNTER 2018-07-24 19:48 | Emergency (ER) | payer MEDICARE, MEDICAID, SELFPAY ==
[2018-06-17 12:53] VITALS: BMI 37.8
[2018-07-24 19:54] VITALS: BP 137/91; PULSE 82; RESP 16; TEMP 36.9; O2SAT 96; BMI 37.2
--- NOTE | 2018-07-24 22:43 | ED.DCSUM_ITS ---
- ER Visit Summary Date of Service: 07/24/18 Chief Complaint: Rash on breast, lump on abdomen History of Present Illness: The patient is a 52 F who presents to the emergency department multiple complaints. Patient states that she was scratched by her cat on her right breast a few days ago. Since then, the area has gotten red. She denies any fevers or chills. It has not been draining. She denies other injury. Patient denies any history of diabetes. She has not taken anything for it. She states that she also a lump in her right lateral abdomen which is good today. When she lays down, it goes away. She has no history of prior abdominal surgery. She denies any nausea or vomiting. She is otherwise been in her normal state of health. Physical Examination: Vital signs reviewed General: Well-nourished, well-developed Head: Normocephalic, atraumatic Eyes: Pupils equal and reactive, extraocular muscles intact Neck, supple, no lymphadenopathy Heart: Regular rate and rhythm Respiratory: No distress, clear bilaterally Abdomen: Soft, nontender, nondistended, no peritoneal signs Back: Nontender Extremities: Nontender, no edema, no cords Skin: Normal color small 1 cm abscess at the 10 o'clock position on the upper outer quadrant of the right breast with 3 cm of cellulitis. No central fluctuance. No drainage. No crepitus. Neuro: Alert and oriented, no focal or lateralizing deficits Test Results: [] Emergency Department Course and Treatment: The patient has no palpable hernia when she lays flat. However, when she stands up, she does have a palpable hernia in the right lateral abdominal wall. When she lays down, it reduces without issue. It is not tender. There is no evidence of incarceration. I did clinical mental health counselor her on the concerning symptoms of hernia and reasons to return. She will be given outpatient surgical follow-up. As far breast abscess goes, I do not feel that this requires drainage at this time. However, she was scratched by her cat so I am going to cover her with azithromycin and Bactrim. She is given her first dose here. She will continue warm compresses. I do want her wound reevaluated in 48 hours if she cannot get into see her primary care, she should return here. Treatment Plan: [] Disposition: Discharge Impression: 1. Right breast cellulitis 2. Reducible hernia This note was generated with Insightera dictation software. It may contain incorrect words, spelling, and punctuation that were not noted in review of the chart prior to signing ED Disposition - Plan for ED Patient: Chief Complaint: General Illness Instructions: ED Breast Infec Prescriptions: Azithromycin [Zithromax] 250 mg PO DAILY #4 tab Smz/Tmp Ds [Bactrim Ds] 1 tab PO BID #14 tab Referrals: Yancy Perez, [employer]RA[employer] WORK[employer] [Primary Care Provider] -
[2018-07-24] MEDS: Smz/Tmp Ds Tablet 1 TABLET PO (22:49)
[2018-07-24] MEDS: Azithromycin 250 MG Tablet 500 MG PO (22:49)
== END 2018-07-24 22:52 | disposition home or self-care (01) ==
PROVIDERS: Emergency Provider Emergency Medicine; Family Provider Nurse Practitioner Family; PCP Nurse Practitioner Family
DX: N61.0 Mastitis without abscess (principal); K46.9 Unspecified abdominal hernia without obstruction or gangrene; I10 Essential (primary) hypertension; E78.00 Pure hypercholesterolemia, unspecified; Z72.0 Tobacco use
CPT/HCPCS: 99284

== ENCOUNTER 2018-08-02 09:00 | Outpatient (RCR) | payer MEDICARE, MEDICAID, SELFPAY ==
--- NOTE | 2018-08-02 09:05 | BH.SGPN.GN ---
Error in selecting client for participation in this group. Client was not in group long enough to meet the billable time limit. Client was not billed for this service. Behaviors/Verbalizations/Mental Status: [] Client Response/Progress/Benefit: [] Narrative Note: []
--- NOTE | 2018-08-02 10:15 | BH.SGPN.GN ---
Behaviors/Verbalizations/Mental Status: [] Eye contact is good. Motor activity is appropriate. Appearance is casual. Speech is Appropriate. Mood is irritable. Affect is full. Thoughts are linear and logical. No evidence of psychosis. Client Response/Progress/Benefit: [] Pt was an active participant in group discussion and activity. Worked with peers to define resilience. According to group discussion resilience is; having strength, coming back from something tough, and recovering from an negative event. Group discussed the role of resilience in mental health and the factors that build resilience. Group was mainly psycho-educational and the group reviewed the 10 steps to resilience handout. Pt was attentive and engaged offering feedback when appropriate. Benefited by increasing insight and awareness of resilience and its role in mental health. Will continue in IOP to prevent decompensation, maintain safety, and stabilize mood. Narrative Note: []
--- NOTE | 2018-08-02 11:19 | BH.SGPN.GN ---
Behaviors/Verbalizations/Mental Status: [Client eye contact good, casually and appropriately dressed, motor activity appropriate, speech normal rate and tone at times appearing drawn out or slow to respond, mood euthymic, congruent affect, thoughts linear and logical, no evidence of delusions or hallucinations.] Client Response/Progress/Benefit: [Client active participant throughout AEB engaging in group discussion andasking questions for clarification throughout. When processing the various benefits of each resilience factor, client identified that ?moving towards goals? can help build confidence and keep us motivated. Client benefited from discussion focused on strategies to implement the various factors of resilience in daily life. Client did well in working with her small group to identify what resilience factor she can would like to begin strengthening. Client shared wanting to focus on ?Making connections? and shared that continuing to come to group and work on applying information she has learned as a small step she can take in doing so. Client to continue IOP level of care to maintain stability, promote healthy communication, and prevent decompensation.] Narrative Note: []
--- NOTE | 2018-08-02 14:05 | BH.COMM ---
Communication Note - Communication with Client Communication Note: Therapist met with client to follow up on her first day in [facility]. Client reported she enjoyed the day. Therapist introduced self as client's therapist and explored client's treatment goals. Client shared she would like to work on improving her communication and interactions with others, increase education on her diagnoses, and continue to learn triggers and warning signs to best manage symptoms and promote mood stability. Client receptive to this therapist providing homework. Client to meet with therapist for session later this week.
--- NOTE | 2018-08-02 14:30 | BH.COMM_ITS ---
Communication Note - Communication with Client Communication Note: Therapist met with client to follow up on her first day in [facility]. Client reported she enjoyed the day. Therapist introduced self as client's therapist and explored client's treatment goals. Client shared she would like to work on improving her communication and interactions with others, increase education on her diagnoses, and continue to learn triggers and warning signs to best manage symptoms and promote mood stability. Client receptive to this thera pist providing homework. Client to meet with therapist for session later this week.
--- NOTE | 2018-08-03 09:10 | BH.SGPN.GN ---
Behaviors/Verbalizations/Mental Status: [] Eye contact is good. Motor activity is appropriate. Appearance is neat. Speech is Appropriate. Mood is depressed. Affect is flat. Thoughts are linear and logical. No evidence of psychosis. Reviewed daily check in sheet and no reports of suicidal ideations or intent. Client Response/Progress/Benefit: [] Pt was an active participant in group discussion. Emotion for today is Depressed and Calm. Shared that she woke up this AM feeling depressed. Mainly related to poor body image stating I just don't like the way I look. Insight into how cognitive distortions exacerbated these thoughts. Shared that she used some thought-stopping and reframing skills which was beneficial. She discussion her first day in IOP yesterday and stated that she feels excited about getting some consistent help. Verbalized frustrations with mental health treatment in the past. More future-oriented. Discussed some other stressors which are impacting her MH as well. Progress noted per pt reported. Benefited from group support, encouragement, and feedback. Will continue in IOP to prevent decompensation. Pt has had 2 psychiatric admissions since 05/2018. Narrative Note: []
--- NOTE | 2018-08-03 10:10 | BH.SGPN.GN ---
Behaviors/Verbalizations/Mental Status: [Client alert and oriented, neatly dressed and groomed. Eye contact fair. Motor activity appropriate. Speech within normal limits. Affect constricted, mood euthymic. Thoughts linear, logical, no signs of hallucinations or delusions.] Client Response/Progress/Benefit: [Pt was engaged in group discussion AEB maintaining eye contact, asking some questions, and taking notes throughout. She worked with the group to discuss coping mechanisms and indicated connecting with discussion on how negative coping skills can increase MH symptoms. Shared examples of unhealthy skills as; avoidance and not asking for help. Taking notes and appeared to remain engaged during group discussion on barriers or obstacles that can maintain unhealthy coping behaviors. Intently listening during discussion regarding internal vs. external coping skills and able to make some personal connections with skills identified. Pt participated in experiential activity and processed the activity with the group. Pt able to make connections with how strategies used in activity such as communication, willingness to take others ideas into account, and taking breaks could be beneficial for daily coping outside tx environment. Benefited from group through identification of unhealthy coping skills, barriers to overcoming unhealthy coping skills, psycho-education on external vs internal coping skills, and coping strategies. Progress noted in pt ability to engae in activity and participate in discussions throughout. Will continue in IOP to promote change behaviors, continue to improve emotion regulation, and reduce distorted thinking patterns.] Narrative Note: []
--- NOTE | 2018-08-03 11:18 | BH.SGPN.GN ---
Behaviors/Verbalizations/Mental Status: []Client alert and oriented, neatly dressed and groomed. Eye contact fair. Motor activity appropriate. Speech within normal limits. Affect constricted, mood euthymic. Thoughts linear, logical, no signs of hallucinations or delusions. Client Response/Progress/Benefit: []Client responded well to session, engaged and contributing to discussion. Client reported she has been using more internal coping strategies, but she recognizes having a lack of external support. Client helped the group discuss and identify the different categories of coping skills and the pros and cons of each. Client shared it is beneficial to have a mixture of coping skills from each category and that healthy coping skills require a lot of time and effort. Client created a coping skills menu including distraction, emotional release, grounding, self-love, and thought challenging techniques. Client?s menu included: painting, helping others, breathing, monitoring wins, and asking herself ?would I say this to others.? Client reported willingness to practice these coping skills throughout the week. Client appeared to benefit from creating a list of healthy coping skills client can use to regulate emotions and mange symptoms. Limited progress due to recent admission. Client to continue IOP to prevent decompensation and increase mood stability.
--- NOTE | 2018-08-03 14:31 | BH.MTP ---
Master Treatment Plan - Patient Information Program Physician:: Leland Valenzuela Primary Therapist:: Kerry Baker - Psychiatric Diagnoses Psychiatric Diagnoses:: Persistent Depressive Disorder Diagnosis Code(s):: F 34.1 - Estimated LOS Estimated LOS (in weeks):: 6 Problem/Goal #1 - Problem/Goal #1 Stated Goal:: Client will decrease depressive symptoms, isolation, and agitation due to Persistent Depressive Disorder through Intensive Outpatient Program. Description of Barriers: Client lacks social supports and states difficulty with interpersonal relationships. Client shared she gets angry when she feels like she is being misheard and has limited awareness of triggers and causation. Client does not currently have a cell phone and there are barriers of transportation. Client acknowledges self-criticism and cognitive distortions. Functional Impact: At time of intake, client described her anxiety as unmanageable and reported symptoms of restlessness, irritability, ruminations, and panic attacks. Client also endorsed avoidant and isolative behaviors. Client reported feeling like she needed daily care to stay stable. Client stated because of her overwhelming anxiety she told the ER workers at [facility] she was suicidal to get the help she needed. Client admits to lying at the ER about being suicidal. Client had originally come in for an intake on 06/26/18 but did not start the program until 08/02/18 due to transportation issues. At admission, client reported reduced symptoms of anxiety due to use of coping skills and a strong voodoo experience. However, client acknowledged ongoing anxiety, irritability, and depression of reduced intensity. Client also identified feeling angry about being misheard or misquoted as an ongoing issue that client would like to learn more about. Client reports she can continue to work on her mental health to improve social functioning and improve quality of life. Goal Relevant Strengths/Supports: Client reports since having a strong voodoo experience on July 21, her anxiety has decreased which is a positive. Client shared having a good therapeutic relationship with her outpatient counselor, Vivienne, and that she has been able to apply the coping skills learned through their sessions. Client has wrap-around care at [facility], [facility] and [facility] which is a protective factor for treatment. Additionally, client presents as eager to learn and intelligent. - Objectives Objective #1 Stated Objective: Client will increase social engagement and supports by increasing at least one additional activity weekly to increase mood as shown by reduced DSM-5 scores for depression. Interventions: Therapist will assist client in identifying social activities of interest for client to become involved in. Therapist will provide psychoeducation on maintenance cycles and depression. Therapist will teach client strategies to improve communication with supports. Discharge Criteria: Client will have achieved this objective when she has attended a social activity at least once a week and has reduced DSM-5 scores for depression. Target Date: 09/13/18 Review Date: 09/01/18 Status: open Objective #2 Stated Objective: Client will identify and replace 2-3 negative thinking patterns that mediate depressive symptoms and impair functioning. Interventions: Through groups and individual therapy, client will be provided with education on cognitive distortions, mistaken beliefs, and identifying and combating negative self-talk. Therapist will help client explore connection between thoughts, feelings, and actions. Discharge Criteria: Client will be able to identify 2-3 negative thinking patterns and be able to effectively stop, challenge, or cope with those negative thoughts. Target Date: 09/13/18 Review Date: 09/01/18 Status: open Problem/Goal #2 - Problem/Goal #2 Stated Goal:: Client will improve emotional regulation skills. Description of Barriers: Client lacks social supports and states difficulty with interpersonal relationships. Client shared she gets angry when she feels like she is being misheard and has limited awareness of triggers and causation. Client does not currently have a cell phone and there are barriers of transportation. Client acknowledges self-criticism and cognitive distortions. Functional Impact: At time of intake, client described her anxiety as unmanageable and reported symptoms of restlessness, irritability, ruminations, and panic attacks. Client also endorsed avoidant and isolative behaviors. Client reported feeling like she needed daily care to stay stable. Client stated because of her overwhelming anxiety she told the ER workers at [facility] she was suicidal to get the help she needed. Client admits to lying at the ER about being suicidal. Client had originally come in for an intake on 06/26/18 but did not start the program until 08/02/18 due to transportation issues. At admission, client reported reduced symptoms of anxiety due to use of coping skills and a strong voodoo experience. However, client acknowledged ongoing anxiety, irritability, and depression of reduced intensity. Client also identified feeling angry about being misheard or misquoted as an ongoing issue that client would like to learn more about. Client reports she can continue to work on her mental health to improve social functioning and improve quality of life. Goal Relevant Strengths/Supports: Client reports since having a strong voodoo experience on July 21, her anxiety has decreased which is a positive. Client shared having a good therapeutic relationship with her outpatient counselor, Vivienne, and that she has been able to apply the coping skills learned through their sessions. Client has wrap-around care at [facility], [facility], and [facility] which is a protective factor for treatment. Additionally, client presents as eager to learn and intelligent. - Objectives Objective #1 Stated Objective: Identify and replace 3-4 negative self-talk messages that reinforce self-criticism. Interventions: Therapist will help client identify distorted, negative beliefs about self and world and replace those messages with positive, affirmative messages. Therapist will also provide psychoeducation on trauma and how it impacts the brain development and how one functions. Discharge Criteria: Client will have accomplished this goal when she can identify and replace at least 3 negative self-talk statements. Target Date: 09/13/18 Review Date: 09/01/18 Status: open Objective #2 Stated Objective: Client will identify 2-3 anxiety and irritability triggers and 2 coping skills to use to more effectively manage these symptoms and emotions. Interventions: Therapist will encourage client to use self-awareness strategies and assist client in developing coping strategies to manage triggers. Therapist will teach client DBT and CBT techniques to help client increase emotional regulation. Discharge Criteria: Client will have accomplished this goal when she can identify at least 2 triggers and 2 coping skills to manage her symptoms. Target Date: 09/13/18 Review Date: 09/01/18 Status: open
--- NOTE | 2018-08-03 14:31 | BH.MDN ---
Multi-Disciplinary Note - Note 60-min Individual Time Started:: 13:00 Date: 08/03/18 Purpose of session/treatment goals addressed:: The purpose of this session was to explore current stressors, symptoms, and treatment goals. Another goal was to address mood shift, practicing coping skills, and establish a goal for today. Eye Contact:: Poor - often facing away from therapist. Motor Activity:: Slowed Appearance:: Casual Speech:: Tangential, Other - slowed Mood:: Irritable, Dysthymic Affect:: Labile - Several times throughout the session client would be smiling and laughing and then tearful. Thoughts:: Other - appeared to struggle formulating thoughts. Reported feeling confused and tired today., No evidence of hallucinations/delusions noted Staff Interventions:: Therapist used active listening and open-ended questions to explore client's current stressors, symptoms, and treatment goals. Therapist addressed client's mood shift and helped client identify possible triggers. Therapist led client in a guided imagery activity to help client regulate emotions. Therapist provided psychoeducation and reviewed maintenance cycles. Therapist helped client set a goal for today and gave client homework to practice deep breathing. Client Response:: Client entered session alert and oriented, then client's affect and mood shifted. Client became tearful and reported fatigue and difficulty thinking. Client unable to identify a trigger at first, but after exploration, client recognized group discussion made client remember her lack of social supports. Therapist and client processed emotions, warning signs, and triggers. Client engaged in guided imagery activity which she reported was a positive distraction. Client's mood and affect continued to change throughout session. Client reported wanting to go home due to fatigue and difficulty concentrating. Therapist and client discussed maintenance cycles and client was encouraged to engage in a healthy coping skill that would break current maintenance cycle and improve mood. Client receptive to setting a goal and agreed to go to the library to get new videos. Client shared this will be beneficial because it requires little energy and will provide client with socialization and enjoyment. Client and therapist also practiced breathing techniques and discussed the importance of identifying daily mental health accomplishments. Risks/Concerns:: Client denies active suicidal ideation, plan, and intent as of 08/03/18. Future oriented, reports plan to go to the library and also meet with her therapist tomorrow after group. Progress Toward Goals/Plan:: Client started IOP yesterday, limited progress at this time. Client demonstrates regression in symptoms AEB reports of waking up depressed this morning, tearfulness throughout session, and reports of feeling tired and confused. Client notes possible trigger of acknowledging her lack of social supports. Client agreeable with plan to go to the library today. Client appeared more hopeful by the end of session as she was no longer crying and shared feeling good about today's goal. Client to continue IOP to prevent decompensation, increase social supports, and better manage mental health symptoms. Time Stopped:: 14:15
--- NOTE | 2018-08-03 14:51 | BH.COMM ---
Communication Note - Communication with Client Communication Note: Therapist attempted to call client's outpatient provider, Vivienne Reynoso, at [facility]. Therapist unable to reach Vivienne and left a message.
--- NOTE | 2018-08-04 09:03 | BH.SGPN.GN ---
Behaviors/Verbalizations/Mental Status: [Eye contact is good. Motor activity WNL. Appearance casual and comfortable. Speech Appropriate rate and tone. Mood euthymic. Affect is congruent. Thoughts linear and logical. No evidence of delusions or hallucinations. Reviewed daily check in sheet and no reports of suicidal ideations or intent] Client Response/Progress/Benefit: [Client receptive of session, providing input to the group. Indicated current mood as ?calm? which client reflected as being a positive for her as the last few days she has not waned to come to group due to waking up in a bad mood. Client shared that positive self-talk and prayer has helped her and she was receptive of suggestions provided by fellow participants. Client reflected upon what she needs for the weekend to maintain a positive demeanor, client shared that watching the snow fall and setting up warm lights in her house would be a positive. Client recommended continued IOP tx to maintain stability and prevent decompensation. ] Narrative Note: []
--- NOTE | 2018-08-04 10:15 | BH.COMM ---
Communication Note - Communication with Client Communication Note: Director was called back to from meeting at the hospital due to an issue with pt. Upon entering pt was in the lobby. She reported that she had in her possession the psychiatrist's hand written notes as well as the psychiatrist's personal notebook. She refused to return these to the psychiatrist. Pt was visibly upset. Director asked pt to step back to an office to discuss her concerns in more detail. Pt refused. Director pointed out that pt's behaviors were disturbing the treatment mileu as she was outside of the group room where patients were in the middle of a group session. Pt refused stating I'm not moving I'm fine here. Pt repeatedly stating that she wanted copies of the psychiatrist's hand-written notes stating that it was part of her medical record. Stated if we refused she would take the notes and make copies herself outside of . Director informed her that there is a process which goes through medical records in which she could request all of her medical records as well as request to amend any information which she feels is incorrect. She acknowledged this however continued to refuse to return psychiatrist's personal possessions. She could not identify anything that triggered her concern and refused to discuss this matter anymore. She stated on numerous occasions that the only resolution would be to follow her demands. I refused as she was not following through with formal process for requesting medical records and blatantly stole the psychiatrist's personal notebook. At this point she got up and left the office. Should be noted that pt was given at admission to [facility] a binder with her patient rights and responsibilities, patient advocate contact, and process to request, inspect, and amend her medical records. It should be noted that pt was disruptive the to treatment mileu and committed theft as she walked out of with the psychiatrist's personal belongings without his persmission. Plan is to meet with treatment team to discuss pt's appropriateness to continue in [facility] due to above noted behaviors.
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
--- NOTE | 2018-08-04 15:01 | BH.COMM ---
Communication Note - Communication with Client Communication Note: Client met with the [facility] psychiatrist today and became upset from the interaction. This therapist and another [facility] therapist attempted to help deescalate the situation. Client became upset and left. Security was notified as client left with psychiatrist property. At no point did client verbalize suicidal ideation, plan, or intent. Did not appear as a risk for self or others. See psychiatrist note for additional information on what happened during session.
--- NOTE | 2018-08-04 15:06 | BH.COMM_ITS ---
Communication Note - Communication with Client Communication Note: Client met with the [facility] psychiatrist today and became upset from the interaction. This therapist and another [facility] therapist attempted to help deescalate the situation. Client became upset and left. Security was notified as client left with psychiatrist property. At no point did client verbalize suicidal ideation, plan, or intent. Did not appear as a risk for self or others. See psychiatrist note for additional information on what happened during sessi on.
--- NOTE | 2018-08-04 16:13 | BH.COMM ---
Communication Note - Communication with Client Communication Note: Client returned to [facility] shortly after leaving and returned psychiatrist note that she had taken. Client admits to coping psychiatrist?s note. Client unwilling to stay for the remainder of group, but she was willing to sit down with two IOP therapists. Client able to deescalate and reported ability to maintain safety and shared this is not a suicidal thing. Client agreeable to [facility] treatment team discussing situation to determine appropriate plan of care.
--- NOTE | 2018-08-04 16:16 | BH.COMM_ITS ---
Communication Note - Communication with Client Communication Note: Client returned to [facility] shortly after leaving and returned psychiatrist note that she had taken. Client admits to coping psychiatrist?s note. Client unwilling to stay for the remainder of group, but she was willing to sit down with two IOP therapists. Client able to deescalate and reported ability to maintain safety and shared this is not a suicidal thing. Client agreeable to [facility] treatment team discussing situation to determine appropriate plan of care.
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
--- NOTE | 2018-08-07 09:17 | BH.COMM ---
Communication Note - Communication with Client Communication Note: After meeting with treatment team Tuesday it was decided that due to being distruptive to treatment mileu, theft, and refusal to meet with psychiatrist during the rest of the program (which is a Medicare requirement) pt would be not be appropriate to continue in IOP. Director spoke with pt over the phone this AM and discussed the treatment team's decision. Reviewed the fromal process to request medical records. Director offered to give patient referral information to other IOPs in the area including [facility], [facility], and [facility]. Pt was appropriate and cooperative. She declined referrals and closed the conversation with Thank you, Damaso. She will be discharged
--- NOTE | 2018-08-07 09:35 | BH.COMM_ITS ---
Communication Note - Communication with Client Communication Note: After meeting with treatment team Tuesday it was decided that due to being distruptive to treatment mileu, theft, and refusal to meet with psychiatrist during the rest of the program (which is a Medicare requirement) pt would be not be appropriate to continue in IOP. Director spoke with pt over the phone this AM and discussed the treatment team's decision. Reviewed the fromal process to request medical records. Director offered to give patient referral information to other IOPs in the area including [facility], [facility], and [facility]. Pt was appropriate and cooperative. She declined referrals and closed the conversation with Thank you, Damaso. She will be discharged
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
--- OUTSIDE RECORDS SUMMARY | 2018-10-07 02:30 | XMS RPT_ITS ---
:1965 Author Organization OHIP Support Name Relationship Address Phone D Unavailable Unavailable Unavailable KAYLEEN CASTANEDA Unavailable Unavailable + D Unavailable Unavailable Unavailable KAYLEEN CASTANEDA Unavailable Unavailable + D Unavailable Unavailable Unavailable KAYLEEN CASTANEDA Unavailable Unavailable + D Unavailable Unavailable Unavailable KAYLEEN CASTANEDA Unavailable Unavailable + [place] [address] D Unavailable Unavailable Unavailable KAYLEEN CASTANEDA Unavailable Unavailable + [place] [address] D Unavailable Unavailable Unavailable KAYLEEN CASTANEDA Unavailable Unavailable + [place] [address] KAYLEEN CASTANEDA Unavailable Unavailable + [place] [address] UE Unavailable Unavailable Unavailable D Unavailable Unavailable Unavailable KAYLEEN CASTANEDA Unavailable Unavailable + [place] [address] D Unavailable Unavailable Unavailable KAYLEEN CASTANEDA Unavailable Unavailable + [place] [address] KAYLEEN CASTANEDA Unavailable Unavailable + [place] [address] UE Unavailable Unavailable Unavailable D Unavailable Unavailable Unavailable KAYLEEN CASTANEDA Unavailable Unavailable + [place] [address] MARTHA CASTANEDAI Unavailable Unavailable + [place] [address] UE Unavailable Unavailable Unavailable SELIN KARRIE Unavailable . + [place] [address] UE Unavailable Unavailable Unavailable Care Team Providers Name Role Phone Adriana Andrew Attending Unavailable Yancy Steele Primary Care Unavailable [facility]IN[facility], [facility] Primary Care Unavailable Karrie Garcia Attending Unavailable [facility], [facility] Primary Care Unavailable Jayson Brown Attending Unavailable [facility] Attending Unavailable [facility] Primary Care Unavailable [place]GELONCONE, SIDRA Attending Unavailable TRENTON, SIDRA Referring Unavailable Ana WILKINS, Yancy Primary Care Unavailable Swijamilt CLAUDETTE, Yancy Primary Care Unavailable Karrie Garvin Attending Unavailable Koram, Gayle Odette Admitting Unavailable Tereletsky, Matt Attending Unavailable [facility] Primary Care Unavailable Tereletsky, Matt Consulting Unavailable Koram, Gayle Odette Admitting Unavailable Koram, Gayle Odette Attending Unavailable Ana WILKINS, Yancy Primary Care Unavailable Koram, Gayle Odette Consulting Unavailable Koram, Gayle Odette Admitting Unavailable Tereletsky, Matt Attending Unavailable [facility] Primary Care Unavailable Shayna Ramsey Attending Unavailable XANDER CRAWFORD Primary Care Unavailable [facility], [facility] Attending Unavailable [facility] Attending Unavailable Ana WILKINS, Yancy Referring Unavailable Ana WILKINS, Yancy Primary Care Unavailable Koram, Gayle Odette Admitting Unavailable Tereletsky, Matt Attending Unavailable [facility], [facility] Primary Care Unavailable Tereletsky, Matt Consulting Unavailable PROBLEMS PROBLEMS DATE TYPE CONDITION / CODE ATTENDING STATUS SOURCE 05/22/2018 Unknown G47.33 - CLINIC[facility] Rep[facility] G47.33(ICD-10) 05/08/2018 Unknown M79.89 - Other Brian Active Angela specified soft [facility] tissue disorders [facility] / M79.89(ICD-10) Repository PROCEDURES PROCEDURES No Procedure Records FoundRESULTS RESULTS EMERGENCY DEPARTMENT Observed: 07/25/2018 Status: F Source: [place] 1:26 AM [facility] REPOSITORY [facility] Medical Records Department [address] [place] [address] Emergency Department Summary 07/24/18 2241 MR#: [id number] Acct: [id number] Name: BHARATI SMALLWOOD Rep #: [id number] : 1965 52 From: Karrie Garvin MD PCP: Yancy Steele Status: DEP ER - ER Visit Summary Date of Service: 07/24/18 Chief Complaint: Rash on breast, lump on abdomen History of Present Illness: The patient is a 52 F who presents to the emergency department multiple complaints. Patient states that she was scratched by her cat on her right breast a few days ago. Since then, the area has gotten red. She denies any fevers or chills. It has not been draining. She denies other injury. Patient denies any history of diabetes. She has not taken anything for it. She states that she also a lump in her right lateral abdomen which is good today. When she lays down, it goes away. She has no history of prior abdominal surgery. She denies any nausea or vomiting. She is otherwise been in her normal state of health. Physical Examination: Vital signs reviewed General: Well-nourished, well-developed Head: Normocephalic, atraumatic Eyes: Pupils equal and reactive, extraocular muscles intact Neck, supple, no lymphadenopathy Heart: Regular rate and rhythm Respiratory: No distress, clear bilaterally Abdomen: Soft, nontender, nondistended, no peritoneal signs Back: Nontender Extremities: Nontender, no edema, no cords Skin: Normal color small 1 cm abscess at the 10 o'clock position on the upper outer quadrant of the right breast with 3 cm of cellulitis. No central fluctuance. No drainage. No crepitus. Neuro: Alert and oriented, no focal or lateralizing deficits Test Results: [] Emergency Department Course and Treatment: The patient has no palpable hernia when she lays flat. However, when she stands up, she does have a palpable hernia in the right lateral abdominal wall. When she lays down, it reduces without issue. It is not tender. There is no evidence of incarceration. I did counselor supervisor her on the concerning symptoms of hernia and reasons to return. She will be given outpatient surgical follow-up. As far breast abscess goes, I do not feel that this requires drainage at this time. However, she was scratched by her cat so I am going to cover her with azithromycin and Bactrim. She is given her first dose here. She will continue warm compresses. I do want her wound reevaluated in 48 hours if she cannot get into see her primary care, she should return here. Treatment Plan: [] Disposition: Discharge Impression: 1. Right breast cellulitis 2. Reducible hernia This note was generated with Dragon dictation software. It may contain incorrect words, spelling, and punctuation that were not noted in review of the chart prior to signing ED Disposition - Plan for ED Patient: Chief Complaint: General Illness Instructions: ED Breast Infec Prescriptions: Azithromycin [Zithromax] 250 mg PO DAILY #4 tab Smz/Tmp Ds [Bactrim Ds] 1 tab PO BID #14 tab Referrals: Yancy Perez, SECONDARY EDUCATION PROFESSOR-C [Primary Care Provider] - What to do if you have Problems For any increased pain, shortness of breath, bleeding, nausea or vomiting, chest pain, or any unexpected problems, contact your Primary Care Provider. Call [facility] ([phone]) or report to the closest Emergency Room. Call 911 if necessary. 07/25/18 0126 <Electronically signed by Karrie Garvin MD> Date Karrie Garvin MD Cosigner Signature (If Indicated): Date CC: Yancy WILKINS COMP METABOLIC PANEL Collected: 07/14/2018 Status: F Source: [place] 8:16 AM CLINIC REFERENCE REPOSITORY TYPE CODE TESTS RESULT OUT OF REFERENCE UNITS RANGE LAB TP(LOINC) 6.3-8.0 g/dL Protein, Total 7.4 LAB ALB(LOINC) 3.9-4.9 g/dL Albumin 4.4 LAB CA(LOINC) 8.5-10.2 mg/dL Calcium, Total 9.5 LAB TBIL(LOINC 0.2-1.3 mg/dL ) Bilirubin, Total 0.5 LAB ALKP(LOINC 34-123 U/L ) Alkaline Phosphatase 58 LAB AST(LOINC) 13-35 U/L AST 23 LAB GLU(LOINC) 74-99 mg/dL Glucose 99 LAB BUN(LOINC) 7-21 mg/dL BUN 21 LAB CRET(LOINC 0.58-0.96 mg/dL ) Creatinine 0.82 LAB NA(LOINC) 136-144 mmol/L Sodium 138 LAB K(LOINC) 3.7-5.1 mmol/L Potassium 4.0 LAB CL(LOINC) 97-105 mmol/L Chloride 98 LAB CO2(LOINC) 22-30 mmol/L CO2 26 LAB AGAP(LOINC 9-18 mmol/L ) Anion Gap 14 LAB ALT(LOINC) 7-38 U/L ALT 21 LAB GFRAA(LOIN C) eGFR- >60 Amer. LAB GFRNAA(MAR[place] A . NC) eGFR-All Other Races >60 Performed By: #### CMP, LIPB, CBCDIF, TSH, FT4, HBA1C, VITD #### [facility] Routine Lab [address] [place], [place] [address] LIPID PANEL, BASIC Collected: 07/14/2018 Status: F Source: [place] 8:16 AM [facility] REFERENCE REPOSITORY TYPE CODE TESTS RESULT OUT OF REFERENCE UNITS RANGE LAB CHOL(LOINC <200 mg/dL ) Cholesterol 180 LAB TRIGLY([place] A <150 mg/dL NC) Triglyceride High 176 LAB HDL(LOINC) >39 mg/dL HDL-Cholesterol 50 LAB LDL(LOINC) <100 mg/dL LDL-Cholesterol 95 LAB NONHDL([place] A <130 mg/dL NC) Non HDL High Cholesterol 130 LAB FT(LOINC) hrs Fasting Time 12 LAB VLDL(LOINC <30 mg/dL ) VLDL High Cholesterol 35 LAB TCHDL(LOIN <5.10 C) TC:HDL Ratio 3.60 LAB LDLHDL(MARIA A <2.54 NC) LDL:HDL Ratio 1.90 Performed By: #### CMP, LIPB, CBCDIF, TSH, FT4, HBA1C, VITD #### [facility] Routine Lab [address] [place], [place] [address] CBC AND DIFFERENTIAL Collected: 07/14/2018 Status: F Source: [place] 8:16 AM [facility] REFERENCE REPOSITORY TYPE CODE TESTS RESULT OUT OF REFERENCE UNITS RANGE LAB WBC(LOINC) 3.70-11.00 k/uL WBC 6.56 LAB RBC(LOINC) 3.90-5.20 m/uL RBC 5.07 LAB HGB(LOINC) 11.5-15.5 g/dL Hemoglobin 15.3 LAB HCT(LOINC) 36.0-46.0 % High Hematocrit 46.9 LAB MCV(LOINC) 80.0-100.0 fL MCV 92.5 LAB MCH(LOINC) 26.0-34.0 pG MCH 30.2 LAB MCHC(LOINC 30.5-36.0 g/dL ) MCHC 32.6 LAB RDWCV(LOIN 11.5-15.0 % C) RDW-CV 13.6 LAB PLTCT(LOIN 150-400 k/uL C) Platelet Count 323 LAB MPV(LOINC) 9.0-12.7 fL MPV 9.5 LAB ANEUT(LOIN % C) Neut% 52.6 LAB AANEUT(MAR[place] A 1.45-7.50 k/uL NC) Abs Neut 3.44 LAB ALYMP(LOIN % C) Lymph% 35.8 LAB AALYMP(MARIA A 1.00-4.00 k/uL NC) Abs Lymph 2.35 LAB AMONO(LOIN % C) Dare% 8.1 LAB AAMONO(MARIA A <0.87 k/uL NC) Abs Dare 0.53 LAB AEOS(LOINC % ) Eosin% 3.0 LAB AAEOS(LOIN <0.46 k/uL C) Abs Eosin 0.20 LAB ABASO(LOIN % C) Baso% 0.5 LAB AABASO(MARIA A <0.11 k/uL NC) Abs Baso 0.03 LAB AUNRBC(MARIA A 0 /100 WBC NC) NRBCs 0.0 LAB ABNRBC(MAR[place] A <0.01 k/uL NC) Absolute nRBC <0.01 LAB DTYP(LOINC ) DTYPE ADIFF Performed By: #### CMP, LIPB, CBCDIF, TSH, FT4, HBA1C, VITD #### [facility] Routine Lab [address] [place], [place] [address] TSH Collected: 07/14/2018 Status: F Source: [place] 8:16 AM [facility] REFERENCE REPOSITORY TYPE CODE TESTS RESULT OUT OF RANGE REFERENCE UNITS LAB TSH(LOINC) 0.400-5.500 uU/mL TSH 4.270 Performed By: #### CMP, LIPB, CBCDIF, TSH, FT4, HBA1C, VITD #### [facility] Routine Lab [address] [place], [place] [address] FREE T4 Collected: 07/14/2018 Status: F Source: [place] 8:16 AM [facility] REFERENCE REPOSITORY TYPE CODE TESTS RESULT OUT OF RANGE REFERENCE UNITS LAB FT4(LOINC) 0.9-1.7 ng/dL Free T4 1.2 Performed By: #### CMP, LIPB, CBCDIF, TSH, FT4, HBA1C, VITD #### [facility] Routine Lab [address] [place], [place] [address] HEMOGLOBIN A1C Collected: 07/14/2018 Status: F Source: [place] 8:16 AM [facility] REFERENCE REPOSITORY TYPE CODE TESTS RESULT OUT OF REFERENCE UNITS RANGE LAB HGBA1C(MARIA A 4.3-5.6 % NC) Hemoglobin A1c 5.6 LAB HBA0(LOINC mg/dL ) Est. Average Glucose 114 Performed By: #### CMP, LIPB, CBCDIF, TSH, FT4, HBA1C, VITD #### [facility] Routine Lab [address] [place] [id number] VITAMIN D 25 HYDROXY Collected: 07/14/2018 Status: F Source: [place] 8:16 AM [facility] REFERENCE REPOSITORY TYPE CODE TESTS RESULT OUT OF REFERENCE UNITS RANGE LAB VITD(LOINC) 31.0-80.0 ng/mL Vitamin D 25 34.9 Hydroxy Performed By: #### CMP, LIPB, CBCDIF, TSH, FT4, HBA1C, VITD #### [facility] Routine Lab [address] [place] [id number] 12 LEAD ELECTROCARDIOGRAM Observed: 06/20/2018 Status: F Source: [place] 2:53 PM [facility] REPOSITORY [facility] Cardiovascular Services [address] [place] [address] 12 Lead EKG 06/17/182005 MR#: [id number] Acct: [id number] Name: BHARATI SMALLWOOD Rep #: [id number] : 1965 52 From: Herminio Parnell MD Attending Dr: Status: DEP ER [...] normal ECG Confirmed by PARMJIT HERRON, HERMINIO ([id number]), science editor ARNULFO SCHROEDER ([id number]) on 06/20/2018 2:53:18 PM Referred By: ROSELINE Confirmed By:HERMINIO PARNELL MD 06/20/18 1453 Date Herminio Parnell MD CC: Andrew Wright MD; Ann Marie Tracy MD; Yancy WILKINS Signed EMERGENCY DEPARTMENT Observed: 06/17/2018 Status: C Source: [place] 8:50 PM [facility] REPOSITORY [facility] Medical Records Department [address] [place] [address] Emergency Department Summary 06/17/18 1336 MR#: [id number] Acct: [id number] Name: BHARATI SMALLWOOD Rep #: [id number] : 1965 52 From: Andrew Wright MD PCP: Yancy Steele Status: REG ER ADDENDUM by Ann Marie Tracy MD on 06/17/18 at 2050 Patient was signed out to me pending evaluation by crisis. Patient will require transfer and has been accepted at [facility]. Date Ann Marie Tracy MD cc: Yancy [...] Suicidal ideation This note was generated with Xsigo dictation software. It may contain incorrect words, spelling, and punctuation that were not noted in review of the chart prior to signing ED Disposition - Plan for ED Patient: Chief Complaint: Suicidal Referrals: Sally Childers [NON-STAFF] - What to do if you have Problems For any increased pain, shortness of breath, bleeding, nausea or vomiting, chest pain, or any unexpected problems, contact your Primary Care Provider. Call [facility] ([phone]) or report to the closest Emergency Room. Call 911 if necessary. 06/17/18 2132 <Electronically signed by Andrew Wright MD> Date Andrew Wright MD Cosigner Signature (If Indicated): Date CC: Yancy WILKINS CBC W/DIFF, AUTOMATED Collected: 06/17/2018 Status: F Source: [place] 1:11 PM [facility] REPOSITORY TYPE CODE TESTS RESULT [...] Lymph 2.76 Performed By: #### L100.0100 #### [facility] [address] [place], [place], [address] BASIC METABOLIC Collected: 06/17/2018 Status: F Source: [place] PROFILE ([facility]) 1:11 PM [facility] REPOSITORY TYPE CODE TESTS RESULT [...] GAP 8 Performed By: #### L500.2500 #### [facility] [address] [facility] [place], [place], [address] ,SERUM,HCG QUALI. Collected: Status: F Source: [place] 06/17/2018 1:11 PM [facility] REPOSITORY TYPE CODE TESTS RESULT OUT OF REFERENCE UNITS RANGE LAB L700.7000 0-9 Nonpreg Negative Normal HCGSQUAL NEGATIVE LAB L700.6700 =>Qualitative mIU/mL Normal HCG Qual 2 triggr Performed By: #### L700.6800 #### [facility] [address] [place], [address] ALCOHOL, BLOOD Collected: 06/17/2018 Status: F Source: [place] (MEDICAL)-SERUM 1:11 PM [facility] REPOSITORY TYPE CODE TESTS RESULT [...] fatal coma Performed By: #### L501.9100 #### [facility] [address] [place], [address] URINE DRUG SCREEN Collected: 06/17/2018 Status: F Source: [place] ([place]JIND[place]) 1:05 PM [facility] REPOSITORY TYPE CODE TESTS RESULT [...] THC POSITIVE Performed By: #### L505.5000 #### [facility] [address] [place], [address] URINALYSIS, COMPLETE Collected: 06/17/2018 Status: F Source: [place] 1:05 PM [facility] REPOSITORY Order Comment: Order Date: 06/17/18 How was Urine Obtained? CARDIAC NURSE SPECIALIST TO SPECIFY TYPE CODE TESTS RESULT OUT [...] URINE SEEN Performed By: #### L400.0001 #### [facility] [address] [place], [address] 12 LEAD ELECTROCARDIOGRAM Observed: 06/16/2018 Status: F Source: [place] 9:08 AM [facility] REPOSITORY [facility] Cardiovascular Services [address] [place] [address] 12 Lead EKG 05/31/182058 MR#: [id number] Acct: [id number] Name: BHARATI SMALLWOOD Rep #: [id number] : 1965 52 From: Hemant Armendariz MD [...] ischemia Prolonged QT Abnormal ECG Confirmed by DM HERRON, HEMANT ([id number]), science editor ARNULFO SCHROEDER (56) on 06/02/2018 3:44:45 PM Referred By: DR GARCIA Confirmed By:HEMANT ARMENDARIZ MD 06/02/18 1544 Date Hemant Armendariz MD CC: Karrie Garcia; AJITMana BANUELOS [facility] Signed BASIC METABOLIC PANEL Collected: 06/02/2018 Status: F Source: [facility] 5:30 AM [facility] REPOSITORY TYPE CODE TESTS RESULT [...] LIPID PANEL Collected: 06/02/2018 Status: F Source: [facility] 5:30 AM [facility] REPOSITORY TYPE CODE TESTS RESULT [...] W/OUT REFLEX Collected: 06/02/2018 Status: F Source: [facility] 5:30 AM [facility] REPOSITORY TYPE CODE TESTS RESULT OUT OF REFERENCE UNITS RANGE LAB TSH 0.270-4.20 uIU/mL High alert TSH w/out 5.820 Reflex VITAMIN D Collected: 06/02/2018 Status: F Source: [facility] 5:30 AM [facility] REPOSITORY TYPE CODE TESTS RESULT OUT OF REFERENCE UNITS RANGE LAB VITD 30.0-100.0 ng/mL VITAMIN D 32.0 Result Comment: (30-100 ng/mL) Optimum Level This assay accurately quantifies the sum of vitamin D3, 25- Hydroxy and vitamin D2, 25-Hyroxy. HEMOGLOBIN A1C Collected: 06/02/2018 Status: F Source: [facility] 5:30 AM [facility] REPOSITORY TYPE CODE TESTS RESULT OUT OF REFERENCE UNITS RANGE LAB HA1C 4.8-5.9 % Hemoglobin A1C 5.7 EMERGENCY DEPARTMENT Observed: 06/01/2018 Status: F Source: [place] 12:43 AM [facility] REPOSITORY [facility] Medical Records Department [address] [place] [address] Emergency Department Summary 06/01/18 0037 MR#: [id number] Acct: [id number] Name: BHARATI SMALLWOOD Rep #: [id number] : 1965 52 From: Karrie Garcia MD PCP: SALLY BANUELOS [facility] Status: REG ER - ER Visit [...] Suicidal ideation This note was generated with Xsigo dictation software. It may contain incorrect words, spelling, and punctuation that were not noted in review of the chart prior to signing ED Disposition - Plan for ED Patient: Chief Complaint: Suicidal Referrals: [facility] Sally Matias [Primary Care Provider] - What to do if you have Problems For any increased pain, shortness of breath, bleeding, nausea or vomiting, chest pain, or any unexpected problems, contact your Primary Care Provider. Call [facility] ([phone]) or report to the closest Emergency Room. Call 911 if necessary. 06/01/18 0043 <Electronically signed by Karrie Garcia MD> Date Karrie Garcia MD Cosigner Signature (If Indicated): Date CC: SALLY BANUELOS [facility] URINE DRUG SCREEN Collected: 05/31/2018 Status: F Source: [place] ([facility]) [facility] PM [facility] TYPE CODE TESTS RESULT OUT [...] THC POSITIVE Performed By: #### L505.5000 #### [facility] [address] [place], [address] URINALYSIS, COMPLETE Collected: 05/31/2018 Status: F Source: [place] 8:55 PM [facility] REPOSITORY Order Comment: How was Urine Obtained? [...] URINE RARE Performed By: #### L400.0001 #### [facility] [address] [place], [place], [id number] CBC W/DIFF, AUTOMATED Collected: 05/31/2018 Status: F Source: [place] 8:28 PM [facility] REPOSITORY TYPE CODE TESTS RESULT [...] Lymph 3.78 Performed By: #### L100.0100 #### [facility] [address] [facility] [place], [place], [address] ALCOHOL, BLOOD Collected: 05/31/2018 Status: F Source: [place] (MEDICAL)-SERUM 8:28 PM [facility] REPOSITORY TYPE CODE TESTS RESULT [...] fatal coma Performed By: #### L501.9100 #### [facility] [address] [facility] [place], [place], [address] ,SERUM,HCG QUALI. Collected: Status: F Source: [place] 05/31/2018 8:28 PM [facility] REPOSITORY TYPE CODE TESTS RESULT OUT OF REFERENCE UNITS RANGE LAB L700.7000 0-9 Nonpreg Negative Normal HCGSQUAL NEGATIVE LAB L700.6700 =>Qualitative mIU/mL Normal HCG Qual 3 triggr Performed By: #### L700.6800 #### [facility] [address] [facility] [place], [place], [address] COMPREHENSIVE METABOLIC Collected: 05/31/2018 Status: F Source: [place] PROFIL 8:28 PM [facility] REPOSITORY TYPE CODE TESTS RESULT [...] 12 Performed By: #### L500.4050, L501.9520 #### [facility] [address] [place], [place], [id number] THYROID STIM HORMONE Collected: 05/31/2018 Status: F Source: [place] (TSH) 8:28 PM [facility] REPOSITORY TYPE CODE TESTS RESULT OUT OF RANGE REFERENCE UNITS LAB L501.9520 0.358-3.74 uIU/mL High TSH 7.15 Performed By: #### L500.4050, L501.9520 #### [facility] [address] [place], [address] TROPONIN-I Collected: 05/31/2018 Status: F Source: [place] 8:28 PM [facility] REPOSITORY TYPE CODE TESTS RESULT OUT OF RANGE REFERENCE UNITS LAB L501.4010 <0.045 ng/mL Normal < 0.015 TROPONIN-I Result Comment: TROPONIN-I EXPECTED VALUES <0.045 Negative 0.045 - 0.590 Consistent with Cardiac Damage > OR = 0.600 Critical Value Not every elevated troponin is indicative of IN. These values should be used with clinical judgement in examining the patient's clinical picture for diagnosis. To establish a diagnosis of IN versus myocardial injury, there must be a demonstrated rise and/or fall in the troponin values, in addition to ischemic symptoms, EKG changes, new regional wall motion abnormality, and/or angiographical evidence. PLEASE NOTE: REFERENCE RANGES EDITED 17 Performed By: #### L501.4010 #### [facility] [address] [place], [address] EMERGENCY DEPARTMENT Observed: 05/29/2018 Status: F Source: [place] 7:43 PM [facility] REPOSITORY [facility] Medical Records Department [address] [place] [address] Emergency Department Summary 05/29/18 1539 MR#: [id number] Acct: [id number] Name: BHARATI SMALLWOOD Rep #: [id number] : 1965 52 From: Jayson Soler PCP: [facility] Status: DEP ER - ER Visit [...] to eat in the ED. [place] [facility] [place] specifics with [place]. She denied [...] 3. Hypokalemia This note was generated with Xsigo dictation software. It may contain incorrect words, [...] your Primary Care Provider. Call [facility] ([phone]) or report to the closest Emergency Room. Call 911 if necessary. 05/29/181942 <Electronically signed by Jayson Soler> Date Jayson Laird Signature (If Indicated): Date CC: SALLY [facility]RY [facility] URINE DRUG SCREEN Collected: 05/29/2018 Status: F Source: [place] ([place]ISTA) 3:55 PM [facility] REPOSITORY TYPE CODE TESTS RESULT [...] THC POSITIVE Performed By: #### L505.5000 #### [facility] [address] [place], [address] CBC W/DIFF, AUTOMATED Collected: 05/29/2018 Status: F Source: [place] 3:50 PM [facility] REPOSITORY TYPE CODE TESTS RESULT [...] Lymph 3.16 Performed By: #### L100.0100 #### [facility] [address] [facility] [place], [place], [id number] BASIC METABOLIC Collected: 05/29/2018 Status: F Source: [place] PROFILE (BMP) 3:50 PM [facility] REPOSITORY TYPE CODE TESTS RESULT [...] GAP 9 Performed By: #### L500.2500 #### [facility] [address] [place], [address] ALCOHOL, BLOOD Collected: 05/29/2018 Status: F Source: [place] ([facility])-SERUM 3:50 PM [facility] REPOSITORY TYPE CODE TESTS RESULT [...] fatal coma Performed By: #### L501.9100 #### [facility] [address] [facility] [place], [place], [address] DISCHARGE SUMMARY Observed: 04/28/2018 Status: F Source: [place] 11:23 AM [facility] REPOSIT[facility] Medical Records Department [address] [place] [address] Discharge Summary 04/28/18 1112 MR#: [id number] Acct: [id number] Name: BHARATI SMALLWOOD Rep #: [id number] : 1965 52 From: Matt Torres DO PCP: SALLY BANUELOS [facility] Status: ADM IN Y Location: MS2 RH000-1 ADDENDUM by Matt Torres DO on 04/28/18 at 1123 Code Visit Additional primary diagnosis: #7 hyponatremia 04/28/18 1123 <Electronically signed by Matt Torres DO> Date Matt Torres DO cc: Matt Torres DO; SALLY BANUELOS [facility] * Signed Discharge Date and Diagnosis - [...] Course and Treatment Consultations 04/27/18 06:31 Consult: Onc/Wound/die drawing checker Routine Comment: Reason for Consult:: OPEN WOUND ON ABDOMEN Operations: None Procedures: None Summary of Care Provided: The patient is a 52 year old F who was seen in the emergency room at [facility] with chief complaint of continued redness [...] was given IV Unasyn and admitted to [place] [address]. She was placed on IV vancomycin on [...] 98.5 F 72 16 137/85 H 97 04/28/18 07:29 04/28/18 07:29 04/28/18 07:29 04/28/18 07:29 04/28/18 07:29 [...] applicable Code Visit Inpatient E AND M: 64978 Disch Hosp 04/28/18 1122 <Electronically signed by Matt Torres DO> Date Matt Torres DO Cosigner Signature (if applicable): Date CC: Matt Torres DO; SALLY MATIAS Signed DISCHARGE INSTRUCTION Observed: 04/28/2018 Status: F Source: [place] 8:52 AM [facility] REPOSITORY [facility] Medical Records Department [address] [place] [address] Instructions for Home/Discharge Instructions 04/28/18 0850 MR#: [id number] Acct: [id number] Name: BHARATI SMALLWOOD Rep #: [id number] : 1965 52 From: Matt Torres DO PCP: SALLY MATIAS Status: ADM IN - Discharge Diagnoses Current [...] Date Matt Torres DO CC: SALLY BANUELOS [facility] VANCOMYCIN, TROUGH Collected: 04/28/2018 Status: F Source: [place] LEVEL 8:30 AM [facility] REPOSITORY Order Comment: Comments: Please draw 04/28 [...] (Ventilator/Healtcare Associated) -Sepsis PLEASE CONTACT PHARMACY SERVICES (#[id number]) FOR INTERPRETATION OF RESULTS. Performed By: #### L501.8820 #### [facility] [address] [place], [address] BEDSIDE GLUCOSE Collected: 04/28/2018 Status: F Source: [place] 6:39 AM [facility] REPOSITORY TYPE CODE TESTS RESULT OUT OF RANGE REFERENCE UNITS LAB L501.080 70-110 mg/dL Normal BEDSIDE GLU 99 Result Comment: MANAGEMENT OF PATIENT CARE PER NURSING PROTOCOL Performed By: #### L501.080 #### [facility] Point of Care [address] [place] [address] BEDSIDE GLUCOSE Collected: 04/27/2018 Status: F Source: [place] 8:38 PM [facility] REPOSITORY TYPE CODE TESTS RESULT OUT OF RANGE REFERENCE UNITS LAB L501.080 70-110 mg/dL Normal BEDSIDE GLU 94 Result Comment: MANAGEMENT OF PATIENT CARE PER NURSING PROTOCOL Performed By: #### L501.080 #### [facility] Point of Care [address] [place] [address] BEDSIDE GLUCOSE Collected: 04/27/2018 Status: F Source: [place] 4:07 PM [facility] REPOSITORY TYPE CODE TESTS RESULT OUT OF RANGE REFERENCE UNITS LAB L501.080 70-110 mg/dL Normal BEDSIDE GLU 88 Result Comment: MANAGEMENT OF PATIENT CARE PER NURSING PROTOCOL Performed By: #### L501.080 #### [facility] Point of Care [address] [place] [address] BEDSIDE GLUCOSE Collected: 04/27/2018 Status: F Source: [place] 11:43 AM [facility] REPOSITORY TYPE CODE TESTS RESULT OUT OF RANGE REFERENCE UNITS LAB L501.080 70-110 mg/dL Normal BEDSIDE GLU 85 Result Comment: MANAGEMENT OF PATIENT CARE PER NURSING PROTOCOL Performed By: #### L501.080 #### [facility] Point of Care [address] [place] [address] BEDSIDE GLUCOSE Collected: 04/27/2018 Status: F Source: [place] 7:52 AM [facility] REPOSITORY TYPE CODE TESTS RESULT OUT OF REFERENCE UNITS RANGE LAB L501.080 70-110 mg/dL High BEDSIDE GLU 216 Result Comment: MANAGEMENT OF PATIENT CARE PER NURSING PROTOCOL Performed By: #### L501.080 #### [facility] Point of Care [address] [place], [place] [address] CBC W/DIFF, AUTOMATED Collected: 04/27/2018 Status: F Source: [place] 6:55 AM [facility] REPOSITORY TYPE CODE TESTS RESULT [...] Lymph 2.65 Performed By: #### L100.0100 #### [facility] [address] [place], [address] BASIC METABOLIC Collected: 04/27/2018 Status: F Source: [place]A PROFILE (BMP) 6:55 AM [facility] REPOSITORY TYPE CODE TESTS RESULT [...] Normal 7 Performed By: #### L500.2500 #### [facility] [address] 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 [id number] area of redness tenderness, with [id number] indurated area, with a punctate area. Musculoskeletal: [...] Patient elects to be full code. Total xwvr-sh-uulw time 17 minutes. Code Visit Inpatient E AND M: 05210 Init Hosp L3 Procedures: 62534 Advncd Care Plan 30 Min 04/27/18 0331 <Electronically signed by Gayle Carlson MD> Date Gayle Carlson MD Cosigner Signature: Date (if applicable) CC: Yancy WILKINS; Gayle Carlson MD; SALLY BANUELOS [facility]; Sally Banuelos Signed BEDSIDE GLUCOSE Collected: 04/26/2018 Status: F Source: [place]A 9:31 PM [facility] REPOSITORY TYPE CODE TESTS RESULT OUT OF REFERENCE UNITS RANGE LAB L501.080 70-110 mg/dL High BEDSIDE GLU 134 Result Comment: MANAGEMENT OF PATIENT CARE PER NURSING PROTOCOL Performed By: #### L501.080 #### [facility] Point of Care [address] [place] [address] BASIC METABOLIC Collected: 04/26/2018 Status: F Source: [place]A PROFILE (BMP) 8:50 PM [facility] REPOSITORY Order Comment: PREVIOUS SPECIMEN HEMOLYZED, ER [...] Normal 7 Performed By: #### L500.2500 #### [facility] [address] [facility] [place], [place], [address] BEDSIDE GLUCOSE Collected: 04/26/2018 Status: F Source: [place] 8:41 PM [facility] REPOSITORY TYPE CODE TESTS RESULT OUT OF RANGE REFERENCE UNITS LAB L501.080 70-110 mg/dL Normal BEDSIDE GLU 89 Result Comment: MANAGEMENT OF PATIENT CARE PER NURSING PROTOCOL Performed By: #### L501.080 #### [facility] Point of Care [address] [facility] [place], [place] [address] CBC W/DIFF, AUTOMATED Collected: 04/26/2018 Status: F Source: [place] 8:02 PM [facility] REPOSITORY TYPE CODE TESTS RESULT [...] COMMENT SCANNED Performed By: #### L100.0100 #### [facility] [address] [facility] [place], [place], [address] EMERGENCY DEPARTMENT Observed: 04/26/2018 Status: F Source: [place] SUMMARY 7:39 PM [facility] REPOSITORY [facility] Medical Records Department [address] [place] [address] Emergency Department Summary 04/26/18 1937 MR#: [id number] Acct: [id number] Name: BHARATI SMALLWOOD Rep #: [id number] : 1965 52 From: Shayna Ramsey DO PCP: [facility] Status: REG ER - ER Visit [...] outpatient therapy] This note was generated with Joyhoundation software. It may contain incorrect words, spelling, and punctuation that were not noted in review of the chart prior to signing ED Disposition - Plan for ED Patient: Chief Complaint: Wound Referrals: Sally Childers [Primary Care Provider] - What to do if you have Problems For any increased pain, shortness of breath, bleeding, nausea or vomiting, chest pain, or any unexpected problems, contact your Primary Care Provider. Call [facility] ([phone]) or report to the closest Emergency Room. Call 911 if necessary. 04/26/181938 <Electronically signed by Shayna Ramsey DO> Date Shayna Ramsey DO Cosigner Signature (If Indicated): Date CC: OUT OF TOWN DOCTOR; SALLY MATIAS EMERGENCY DEPARTMENT Observed: 04/26/2018 Status: F Source: [place] SUMMARY 12:27 AM [facility] REPOSITORY [facility] Medical Records Department [address] [place] [address] Emergency Department Summary 04/25/18 1622 MR#: [id number] Acct: [id number] Name: BHARATI SMALLWOOD Rep #: [id number] : 1965 52 From: Shayna Ramsey DO [...] right forearm] This note was generated with Xsigo dictation software. It may contain incorrect words, spelling, and punctuation that were not noted in review of the chart prior to signing ED Disposition - Plan for ED Patient: Chief Complaint: Abscess Referrals: Sally Childers [Primary Care Provider] - What to do if you have Problems For any increased pain, shortness of breath, bleeding, nausea or vomiting, chest pain, or any unexpected problems, contact your Primary Care Provider. Call [facility] ([phone]) or report to the closest Emergency Room. Call 911 if necessary. 04/26/18 0027 <Electronically signed by Shayna Ramsey DO> Date Shayna Ramsey DO Baltaer Signature (If Indicated): Date CC: OUT OF TOWN DOCTOR; SALLY BANUELOS [facility] Observed: 04/25/2018 Status: F Source: [place]A CULTURE, WOUND 6:13 PM [facility] REPOSITORY Has pt arrived? Y Gram Stain Gram Stain 4+ Red Blood Cells Rare White Blood Cells 1+ Gram positive cocci Wound Culture RESULTS CALLEDFAXED TO ED/PEPPER 04/27/18 0803 Milagro Dexter. Copy of report sent to Infection Control Printer [id number] 04/27/18802 ANNIKA. ORGANISM 1: Meth. resistant Staph. aureus [...] 1 S (NF) indicates non-formulary drug at [facility]. Approval by Infectious Disease Specialist required before non-formulary drugs may be ordered and/or dispensed. * CLSI guidelines does not recommend testing of cephalosporins. This interpretation is deduced from Beta-lactam/penicillin results. Performed By: #### M100.1400 #### [facility] [address] [place], [address] DISCHARGE INSTRUCTION Observed: 04/25/2018 Status: F Source: [place] 6:01 PM [facility] REPOSITORY [facility] Medical Records Department [address] [place] [address] Discharge Instruction 04/25/18 1800 MR#: [id number] Acct: [id number] Name: BHARATI SMALLWOOD Rep #: [id number] : 1965 52 From: Shayna Ramsey DO PCP: SALLY MATIAS Status: REG ER ED Disposition - Plan for ED Patient: Chief Complaint: Abscess Instructions: ED Abscess IandD, ED Infec Skin Cellulitis Prescriptions: Cephalexin [Keflex] 500 mg PO Q6 #40 cap Smz/Tmp Ds [Bactrim Ds] 1 tab PO BID #20 tab Referrals: Luis Felipe Matias,Sally Banuelos [Primary Care Provider] - 3-5 Days What to do if you have Problems For any increased pain, shortness of breath, bleeding, nausea or vomiting, chest pain, or any unexpected problems, contact your Primary Care Provider. Call [facility] ([phone]) or report to the closest Emergency Room. Call 911 if necessary. 04/25/18 1801 <Electronically signed by Shayna Ramsey DO> Date Shayna Ramsey DO Cosigner Signature (If Indicated): Date CC: OUT OF TOWN DOCTOR; SALLY BANUELOS [facility] CBC W/DIFF, AUTOMATED Collected: 04/25/2018 Status: F Source: [place] 4:45 PM [facility] REPOSITORY TYPE CODE TESTS RESULT [...] Lymph 2.56 Performed By: #### L100.0100 #### [facility] [address] [place], [place], [address] BASIC METABOLIC Collected: 04/25/2018 Status: F Source: [place] PROFILE ([facility]) 4:45 PM [facility] REPOSITORY TYPE CODE TESTS RESULT [...] GAP 7 Performed By: #### L500.2500 #### [facility] [address] [facility] [place], [place], [address] BEDSIDE GLUCOSE Collected: 04/25/2018 Status: F Source: [place] 4:06 PM [facility] REPOSITORY TYPE CODE TESTS RESULT OUT OF RANGE REFERENCE UNITS LAB L501.080 70-110 mg/dL Normal BEDSIDE GLU 100 Result Comment: MANAGEMENT OF PATIENT CARE PER NURSING PROTOCOL Performed By: #### L501.080 #### [facility] Point of Care [address] [facility] [place], [place] [address] CBC AND DIFFERENTIAL Collected: 03/28/2018 Status: F Source: [place] 8:49 AM CLINIC REFERENCE REPOSITORY TYPE CODE [...] Abs Lymph 3.33 LAB AMONO(LOIN % C) Dare% 6.9 LAB AAMONO(MARIA A <0.87 k/uL NC) Abs Dare 0.52 LAB AEOS(LOINC % ) Eosin% 3.4 LAB AAEOS(LOIN <0.46 k/uL C) Abs Eosin 0.26 LAB ABASO(LOIN % C) Baso% 0.7 LAB AABASO(MARIA A <0.11 k/uL NC) Abs Baso 0.05 LAB AUNRBC(MARIA A 0 /100 WBC NC) NRBCs 0.0 LAB ABNRBC(MARIA A <0.01 k/uL NC) Absolute nRBC <0.01 LAB DTYP(LOINC ) DTYPE ADIFF COMP METABOLIC PANEL Collected: 03/28/2018 Status: F Source: [place] 8:49 AM CLINIC REFERENCE REPOSITORY TYPE CODE [...] PANEL, BASIC Collected: 03/28/2018 Status: F Source: [place] 8:49 AM CLINIC REFERENCE REPOSITORY TYPE CODE [...] 1.52 TSH Collected: 03/28/2018 Status: F Source: [place] 8:49 AM CLINIC REFERENCE REPOSITORY TYPE CODE TESTS RESULT OUT OF RANGE REFERENCE UNITS LAB TSH(LOINC) 0.400-5.500 uU/mL TSH 1.490 FREE T4 Collected: 03/28/2018 Status: F Source: [place] 8:49 AM CLINIC REFERENCE REPOSITORY TYPE CODE TESTS RESULT OUT OF RANGE REFERENCE UNITS LAB FT4(LOINC) 0.9-1.7 ng/dL Free T4 1.3 HEMOGLOBIN A1C Collected: 03/28/2018 Status: F Source: [place] 8:49 AM CLINIC REFERENCE REPOSITORY TYPE CODE TESTS RESULT OUT OF REFERENCE UNITS RANGE LAB HGBA1C(MARIA A 4.3-5.6 % NC) Hemoglobin A1c 5.3 LAB HBA0(LOINC mg/dL ) Est. Average Glucose 105 VITAMIN D 25 HYDROXY Collected: 03/28/2018 Status: F Source: [place] 8:49 AM CLINIC REFERENCE REPOSITORY TYPE CODE TESTS RESULT OUT OF REFERENCE UNITS RANGE LAB VITD(LOINC) 31.0-80.0 ng/mL Vitamin D 25 35.6 Hydroxy GC/CHLAMYDIA AMPLIF Collected: 03/07/2018 Status: C Source: [place] 2:43 PM CLINIC REFERENCE REPOSITORY TYPE CODE TESTS RESULT OUT OF REFERENCE UNITS RANGE LAB GCCTSR(MARIA A NC) GC/Chlam Amp Source Cervix LAB GCAMPL(MARIA A NC) GC Amplification NGNEG LAB CLAMPL(MARIA A NC) Chlamydia Amplif CLNEG TRICH VAGINALIS AMPL Collected: 03/07/2018 Status: C Source: [place] 2:43 PM CLINIC REFERENCE REPOSITORY TYPE CODE TESTS RESULT OUT OF REFERENCE UNITS RANGE LAB TRVSRC(MARIA A NC) Trich vag Amp Source Cervix LAB TVAMPL(MARIA A NC) T vag Amplification TVNEG Observed: 03/07/2018 Status: F Source: [place] CYTOLOGY 2:07 PM CLINIC REFERENCE REPOSITORY ADDITIONAL PROCEDURES PRESENT Specimen #: [id number] Submitting Physician: CHADD SALINAS SPECIMEN SUBMITTED A: [...] from every slide are reviewed by a steffen house supervisor. HOLLY Flowers(ASCP) (Electronic Signature) ADDITIONAL PROCEDURE(S) HUMAN PAPILLOMA VIRUS Date Ordered: 03/08/2018 Date Reported: 03/09/2018 Procedure Results and Interpretation Negative for HPV DNA high risk type 16 by PCR. Negative for HPV DNA high risk type 18 by PCR. Negative for HPV DNA high risk types: 31,33,35,39,45,51,52,56,58,59,66,68 by PCR. This test was developed and its performance characteristics determined by [facility] Path[facility] and Laboratory Medicine [place] ([facility]). It has not been cleared or approved by the FDA. [facility] is regulated under CLIA as qualified to perform high-complexity testing. This test is used for clinical purposes. It should not be regarded as investigational or for research. 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 The Pap Smear is a screening test for cervical cancer. False negative results occur with all screening tests, emphasizing the need for rescreening at recommended intervals, and clinical correlation. Performed By: #### C #### See report for performing lab information. HPV W/GENOTYPE Collected: 03/07/2018 Status: F Source: [place] 2:32 AM CLINIC REFERENCE REPOSITORY TYPE CODE TESTS RESULT OUT OF REFERENCE UNITS RANGE LAB HPVT16(LOIN C) HPV HighRisk NHPV16 Type 16 LAB HPVT18(LOIN C) HPV HighRisk NHPV18 Type 18 LAB HPVHRO(LOIN C) HPV HighRisk PCR. Other HEPATITIS C AB IA Collected: 02/21/2018 Status: F Source: [place] 3:42 PM CLINIC REFERENCE REPOSITORY TYPE CODE TESTS RESULT OUT OF REFERENCE UNITS RANGE LAB AHCV(LOINC Negative ) Hepatitis C Ab NEGAT IA RPR Collected: 02/21/2018 Status: F Source: [place] 3:42 PM CLINIC REFERENCE REPOSITORY TYPE CODE TESTS RESULT OUT OF RANGE REFERENCE UNITS LAB RPR(LOINC) Non Reactive RPR NR CBC AND DIFFERENTIAL Collected: 02/17/2018 Status: F Source: [place] 8:07 AM CLINIC REFERENCE REPOSITORY TYPE CODE [...] Abs Lymph 3.97 LAB AMONO(LOIN % C) Dare% 7.3 LAB AAMONO(MARIA A <0.87 k/uL NC) Abs Dare 0.71 LAB AEOS(LOINC % ) Eosin% 3.0 LAB AAEOS(LOIN <0.46 k/uL C) Abs Eosin 0.29 LAB ABASO(LOIN % C) Baso% 0.6 LAB AABASO(MARIA A <0.11 k/uL NC) Abs Baso 0.06 LAB AUNRBC(MARIA A 0 /100 WBC NC) NRBCs 0.0 LAB ABNRBC(MARIA A <0.01 k/uL NC) Absolute nRBC <0.01 LAB DTYP(LOINC ) DTYPE ADIFF COMP METABOLIC PANEL Collected: 02/17/2018 Status: F Source: [place] 8:07 AM CLINIC REFERENCE REPOSITORY TYPE CODE [...] PANEL, BASIC Collected: 02/17/2018 Status: C Source: [place] 8:07 AM CLINIC REFERENCE REPOSITORY TYPE CODE [...] 1.67 TSH Collected: 02/17/2018 Status: F Source: [place] 8:07 AM [facility] REFERENCE REPOSITORY TYPE CODE TESTS RESULT OUT OF RANGE REFERENCE UNITS LAB TSH(LOINC) 0.400-5.500 uU/mL High TSH 7.080 FREE T4 Collected: 02/17/2018 Status: F Source: [place] 8:07 AM [facility] REFERENCE REPOSITORY TYPE CODE TESTS RESULT OUT OF RANGE REFERENCE UNITS LAB FT4(LOINC) 0.9-1.7 ng/dL Free T4 1.3 HEMOGLOBIN A1C Collected: 02/17/2018 Status: F Source: [place] 8:07 AM [facility] REFERENCE REPOSITORY TYPE CODE TESTS RESULT OUT OF REFERENCE UNITS RANGE LAB HGBA1C(MARIA A 4.3-5.6 % NC) Hemoglobin A1c 5.4 LAB HBA0(LOINC mg/dL ) Est. Average Glucose 108 VITAMIN D 25 HYDROXY Collected: 02/17/2018 Status: F Source: [place] 8:07 AM [facility] REFERENCE REPOSITORY TYPE CODE TESTS RESULT OUT OF REFERENCE UNITS RANGE LAB VITD(LOINC) 31.0-80.0 ng/mL Vitamin D 25 33.7 Hydroxy POTASSIUM Collected: 12/06/2017 Status: F Source: [place] 8:28 AM [facility] REFERENCE REPOSITORY TYPE CODE TESTS RESULT OUT OF REFERENCE UNITS RANGE LAB K(LOINC) 3.7-5.1 mmol/L Potassium 4.0 Performed By: #### K1, TSH #### [facility] Routine Lab [address] [place], [place] [address] TSH Collected: 12/06/2017 Status: F Source: [place] 8:28 AM [facility] REFERENCE REPOSITORY TYPE CODE TESTS RESULT OUT OF RANGE REFERENCE UNITS LAB TSH(LOINC) 0.400-5.500 uU/mL TSH 4.250 Performed By: #### K1, TSH #### [facility] Routine Lab [address] [place], [place] [address] CBC AND DIFFERENTIAL Collected: 11/11/2017 Status: F Source: [place] 9:26 AM [facility] REFERENCE REPOSITORY TYPE CODE TESTS RESULT OUT [...] Abs Lymph 3.07 LAB AMONO(LOIN % C) Dare% 6.4 LAB AAMONO(MARIA A <0.87 k/uL NC) Abs Dare 0.62 LAB AEOS(LOINC % ) Eosin% 2.6 LAB AAEOS(LOIN <0.46 k/uL C) Abs Eosin 0.25 LAB ABASO(LOIN % C) Baso% 0.5 LAB AABASO(MARIA A <0.11 k/uL NC) Abs Baso 0.05 LAB AUNRBC(MARIA A 0 /100 WBC NC) NRBCs 0.0 LAB ABNRBC(MARIA A <0.01 k/uL NC) Absolute nRBC <0.01 LAB DTYP(LOINC ) DTYPE ADIFF COMP METABOLIC PANEL Collected: 11/11/2017 Status: F Source: [place] 9:26 AM CLINIC REFERENCE REPOSITORY TYPE CODE [...] PANEL, BASIC Collected: 11/11/2017 Status: F Source: [place] 9:26 AM CLINIC REFERENCE REPOSITORY TYPE CODE [...] FREE T4 Collected: 11/11/2017 Status: F Source: [place] 9:26 AM CLINIC REFERENCE REPOSITORY TYPE CODE TESTS RESULT OUT OF RANGE REFERENCE UNITS LAB FT4(LOINC) 0.9-1.7 ng/dL Free T4 1.3 TSH Collected: 11/11/2017 Status: F Source: [place] 9:26 AM CLINIC REFERENCE REPOSITORY TYPE CODE TESTS RESULT OUT OF RANGE REFERENCE UNITS LAB TSH(LOINC) 0.400-5.500 uU/mL High TSH 6.230 HEMOGLOBIN A1C Collected: 11/11/2017 Status: F Source: [place] 9:26 AM CLINIC REFERENCE REPOSITORY TYPE CODE TESTS RESULT OUT OF REFERENCE UNITS RANGE LAB HGBA1C(MARIA A 4.3-5.6 % NC) High Hemoglobin A1c 5.7 LAB HBA0(LOINC mg/dL ) Est. Average Glucose 117 VITAMIN D 25 HYDROXY Collected: 11/11/2017 Status: F Source: [place] 9:26 AM CLINIC REFERENCE REPOSITORY TYPE CODE TESTS RESULT OUT OF REFERENCE UNITS RANGE LAB VITD(LOINC) 31.0-80.0 ng/mL Vitamin D 25 33.1 Hydroxy SCREENING MAMM (CAD), Observed: 08/31/2017 Status: F Source: [place]IL[place] 12:10 PM [facility] REPOSITORY [facility] Imaging Services [address] [place] [address] SCREENING MAMM (CAD), BILAT MR#: [id number] Acct: [id number] Name: BHARATI SMALLWOOD Rep #: [id number] : 1965 F 51 From: Reinaldo Gaspar MD PCP: Status: [facility] Study: SCREENING MAMM (CAD), BILAT Date of Exam: 08/31/17 Exam# [id number] Ordering Dr: Sally Childers MAMMOGRAPHY - BILATERAL [...] delay biopsy of a clinically suspicious abnormality. [id number] Electronically Signed: Reinaldo Gaspar MD at 8:24 EST Tel [phone], Service support , CC: SALLY BANUELOS [facility] Avionics Engineer: Signed COMP METABOLIC PANEL Collected: 07/22/2017 Status: F Source: [place] 8:34 AM CLINIC REFERENCE REPOSITORY TYPE CODE [...] PANEL, BASIC Collected: 07/22/2017 Status: F Source: [place] 8:34 AM CLINIC REFERENCE REPOSITORY TYPE CODE [...] AND DIFFERENTIAL Collected: 07/22/2017 Status: F Source: [place] 8:34 AM [facility] REFERENCE REPOSITORY TYPE CODE TESTS RESULT OUT [...] Abs Lymph 2.85 LAB AMONO(LOIN % C) Dare% 6.8 LAB AAMONO(MARIA A <0.87 k/uL NC) Abs Dare 0.49 LAB AEOS(LOINC % ) Eosin% 4.2 LAB AAEOS(LOIN <0.46 k/uL C) Abs Eosin 0.30 LAB ABASO(LOIN % C) Baso% 0.7 LAB AABASO(MARIA A <0.11 k/uL NC) Abs Baso 0.05 LAB AUNRBC(MARIA A 0 /100 WBC NC) NRBCs 0.0 LAB ABNRBC(MARIA A <0.01 k/uL NC) Absolute nRBC <0.01 LAB DTYP(LOINC ) DTYPE ADIFF TSH Collected: 07/22/2017 Status: F Source: [place] 8:34 AM CLINIC REFERENCE REPOSITORY TYPE CODE TESTS RESULT OUT OF RANGE REFERENCE UNITS LAB TSH(LOINC) 0.400-5.500 uU/mL TSH 4.260 FREE T4 Collected: 07/22/2017 Status: F Source: [place] 8:34 AM CLINIC REFERENCE REPOSITORY TYPE CODE TESTS RESULT OUT OF RANGE REFERENCE UNITS LAB FT4(LOINC) 0.9-1.7 ng/dL Low Free T4 0.8 HEMOGLOBIN A1C Collected: 07/22/2017 Status: F Source: [place] 8:34 AM CLINIC REFERENCE REPOSITORY TYPE CODE TESTS RESULT OUT OF REFERENCE UNITS RANGE LAB HGBA1C(MARIA A 4.3-5.6 % NC) High Hemoglobin A1c 5.9 LAB HBA0(LOINC mg/dL ) Est. Average Glucose 123 VITAMIN D 25 HYDROXY Collected: 07/22/2017 Status: F Source: [place] 8:34 AM CLINIC REFERENCE REPOSITORY TYPE CODE TESTS RESULT OUT OF REFERENCE UNITS RANGE LAB VITD(LOINC) 31.0-80.0 ng/mL Vitamin D 25 31.3 Hydroxy CBC AND DIFFERENTIAL Collected: 04/28/2017 Status: F Source: [place] 12:10 PM CLINIC REFERENCE REPOSITORY TYPE CODE [...] LAB ANEUT(LOIN % C) Neut% 53.4 LAB AANEUT(MARIA A 1.45-7.50 k/uL NC) Abs Neut 3.97 LAB ALYMP(LOIN % C) Lymph% 34.5 LAB AALYMP(MARIA A 1.00-4.00 k/uL NC) Abs Lymph 2.56 LAB AMONO(LOIN % C) Dare% 7.1 LAB AAMONO(MARIA A <0.87 k/uL NC) Abs Dare 0.53 LAB AEOS(LOINC % ) Eosin% 4.3 LAB AAEOS(LOIN <0.46 k/uL C) Abs Eosin 0.32 LAB ABASO(LOIN % C) Baso% 0.7 LAB AABASO(MARIA A <0.11 k/uL NC) Abs Baso 0.05 LAB AUNRBC(MARIA A 0 /100 WBC NC) NRBCs 0.0 LAB ABNRBC(MARIA A <0.01 k/uL NC) Absolute nRBC 0.00 LAB DTYP(LOINC ) DTYPE ADIFF COMP METABOLIC PANEL Collected: 04/28/2017 Status: F Source: [place] 12:10 PM CLINIC REFERENCE REPOSITORY TYPE CODE [...] PANEL, BASIC Collected: 04/28/2017 Status: F Source: [place] 12:10 PM CLINIC REFERENCE REPOSITORY TYPE CODE [...] FREE T4 Collected: 04/28/2017 Status: F Source: [place] 12:10 PM CLINIC REFERENCE REPOSITORY TYPE CODE TESTS RESULT OUT OF RANGE REFERENCE UNITS LAB FT4(LOINC) 0.9-1.7 ng/dL Free T4 1.1 TSH Collected: 04/28/2017 Status: F Source: [place] 12:10 PM CLINIC REFERENCE REPOSITORY TYPE CODE TESTS RESULT OUT OF RANGE REFERENCE UNITS LAB TSH(LOINC) 0.400-5.500 uU/mL TSH 2.390 HEMOGLOBIN A1C Collected: 04/28/2017 Status: F Source: [place] 12:10 PM CLINIC REFERENCE REPOSITORY TYPE CODE TESTS RESULT OUT OF REFERENCE UNITS RANGE LAB HGBA1C(MARIA A 4.3-5.6 % NC) High Hemoglobin A1c 6.7 LAB HBA0(LOINC mg/dL ) Est. Average Glucose 146 VITAMIN D 25 HYDROXY Collected: 04/28/2017 Status: F Source: [place] 12:10 PM CLINIC REFERENCE REPOSITORY TYPE CODE TESTS RESULT OUT OF REFERENCE UNITS RANGE LAB VITD(LOINC) 31.0-80.0 ng/mL Low Vitamin D 25 24.0 Hydroxy ALT Collected: 02/01/2017 Status: F Source: [place] 8:58 AM [facility] REFERENCE REPOSITORY TYPE CODE TESTS RESULT OUT OF RANGE REFERENCE UNITS LAB ALT(LOINC) 7-38 U/L High ALT 48 Performed By: #### ALT, AST, HBA1C #### [facility] Routine Lab [address] [address] AST Collected: 02/01/2017 Status: F Source: [place] 8:58 AM [facility] REFERENCE REPOSITORY TYPE CODE TESTS RESULT OUT OF RANGE REFERENCE UNITS LAB AST(LOINC) 13-35 U/L AST 31 Performed By: #### ALT, AST, HBA1C #### [facility] Routine Lab [address] [address] HEMOGLOBIN A1C Collected: 02/01/2017 Status: F Source: [place] 8:58 AM [facility] REFERENCE REPOSITORY TYPE CODE TESTS RESULT OUT OF REFERENCE UNITS RANGE LAB HGBA1C(MARIA A 4.3-5.6 % NC) High Hemoglobin A1c 6.6 LAB HBA0(LOINC mg/dL ) Est. Average Glucose 143 Performed By: #### ALT, AST, HBA1C #### [facility] Routine Lab [address] [address] ALLERGIES ALLERGIES DATE TYPE / CODE NAME / CODE REACTION SEVERITY SOURCE 07/24/2018 Drug No Known Unknown [facility] Allergy/4160 Allergies/F00 Hospital 25972(SNOMED [id number](RXNOR Repository CT) M) ENCOUNTERS ENCOUNTERS ADMIT/DISCHARGE ACCOUNT ADMITTING ENCOUNTER LOCATION SOURCE NUMBER CLASS 08/09/2018 [id number] Ambulatory [place] 7 [facility] ing:SL Repository 08/02/2018 [id number] Ambulatory Angela Angela 2 [facility] ing:BHIOP Repository 07/24/2018/ [id number] Emergency Angela [place] 9 6 [facility] ing:ED Repository 06/17/2018/ [id number] Emergency Angela Angela 8 0 [facility] ing:ED Repository 05/31/2018/ [id number] Emergency [place] 8 9 [facility] ing:ED Repository 05/29/2018/ [id number] Emergency Angela [place] 8 0 [facility] ing:ED Repository 05/19/2018 [id number] Ambulatory [place] Angela 8 [facility] ing:SL Repository 04/26/2018 [id number] Gayle Carlson Ambulatory BMSBuilding:B [place] 8 [place] Repository 04/26/2018 [id number] Gayle Carlson Ambulatory BMSBuilding:B [place] 2 [place] [facility] Repository 04/26/2018/ [id number] Gayle Carlson Inpatient [place] Angela 8 5 [place] Encounter [facility] ing:DI5Yept: Repository [id number]: 1 04/26/2018 [id number] Gayle Carlson Ambulatory BMSBuilding:B [place] 6 [place] [facility] Repository 04/25/2018/ [id number] Emergency [place] 8 9 [facility] ing:ED Repository 08/31/2017 [id number] Ambulatory Angela [place] 6 [facility] ing:BI Repository PAYERS PAYERS ENCOUNTER GUARANTOR PAYER SUBSCRIBER SOURCE 08/09/2018 BHARATI Floyd Primary BHARATI Arreguinoster [id number] Insurance:MEDICARE BILLUPSDOB: [facility] PART A [facility] [id number] Number: Repository [address]Pkz: ([phone] [id number] [phone] () Date:2018-06-16 08/09/2018 Secondary BHARATI Floyd Angela Insurance:MEDICAIDPol BILLUPSDOB: [facility] icy Number: [id number] Hospital [id number] Repository Date:2018-06-16 08/09/2018 Tertiary NOT GIVENUNK [place] Insurance:SELF PAY [facility] Effective Repository Date:2018-06-16 08/02/2018 BHARATI Floyd Primary BHARATI Floyd [place] [id number] Insurance:MEDICARE BILLUPSDOB: Community [place] [address] PART A [facility] [id number], [place] Number: Repository [id number]: 330 [id number] [phone] () Date:2018-07-31 08/02/2018 Secondary BHARATI Floyd Angela Insurance:MEDICAIDPol BILLUPSDOB: [facility] icy Number: [id number] Hospital [id number] Repository Date:2018-07-31 08/02/2018 Tertiary NOT GIVENUNK [place] Insurance:SELF PAY [facility] Number: Effective Repository Date:2018-07-31 07/24/2018 BHARATI Floyd Primary BHARATI Floyd Angela [id number] Insurance:MEDICARE BILLUPSDOB: Community [address] PART A olic [id number], [place] Number: Repository [id number]: 330 [id number] [phone] () Date:2018-07-24 07/24/2018 Secondary BHARATI Floyd Angela Insurance:MEDICAIDPol BILLUPSDOB: [facility] icy Number: [id number] Hospital [id number] Repository Date:2018-07-24 07/24/2018 Tertiary NOT GIVENUNK [place] Insurance:SELF PAY [facility] Number: Effective Repository Date:2018-07-24 06/17/2018 BHARATI Floyd Primary BHARATI Floyd Angela [id number] Insurance:MEDICARE BILLUPSDOB: [facility] [place] PART A [facility] [id number], [place] Number: Repository [id number]: 330 [id number] [phone] () Date:2018-06-17 06/17/2018 Secondary BHARATI Floyd Angela Insurance:MEDICAIDPol BILLUPSDOB: [facility] icy Number: [id number] Hospital [id number] Repository Date:2018-06-17 06/17/2018 Tertiary NOT GIVENUNK [place] Insurance:SELF PAY [facility] Number: Effective Repository Date:2018-06-17 05/31/2018 BHARATI Floyd Primary BHARATI Floyd [place] [id number] Insurance:MEDICARE BILLUPSDOB: [facility] [address] PART A olic [id number], [place] Number: Repository [id number]: 330 [id number] [phone] () Date:2018-05-31 05/31/2018 Secondary BHARATI Floyd [place] Insurance:MEDICAIDPol BILLUPSDOB: [facility] icy Number: [id number] Hospital [id number] Repository Date:2018-05-31 05/31/2018 Tertiary NOT GIVENUNK [place] Insurance:SELF PAY [facility] Number: Effective Repository Date:2018-05-31 05/29/2018 BHARATI Floyd Primary BHARATI Floyd [place] [id number] Insurance:MEDICARE BILLUPSDOB: [facility] [address] PART A olic [id number], [place] Number: Repository [address]Eep: 330 [id number] [phone] () Date:2018-05-29 05/29/2018 Secondary BHARATI Floyd Angela Insurance:MEDICAIDPol BILLUPSDOB: [facility] icy Number: [id number] Hospital [id number] Repository Date:2018-05-29 05/29/2018 Tertiary NOT GIVENUNK [place] Insurance:SELF PAY [facility] Number: Effective Repository Date:2018-05-29 05/19/2018 BHARATI Floyd Primary BHARATI Floyd Angela [id number] Insurance:MEDICARE BILLUPSDOB: [facility] [address] PART A olic [id number], [place] Number: Repository [address]Vdo: 330 [id number] [phone] () Date:2018-05-11 05/19/2018 Secondary BHARATI Floyd [place] Insurance:MEDICAIDPol BILLUPSDOB: [facility] icy Number: [id number] Hospital [id number] Repository Date:2018-05-11 05/19/2018 Tertiary NOT GIVENUNK Angela Insurance:SELF PAY [facility] Number: Effective Repository Date:2018-05-11 04/26/2018 BHARATI Floyd Primary BHARATI Floyd [place] [id number] [address] Insurance:MEDICARE BILLUPSDOB: [facility] [address] PART A olic [id number], [place] Number: Repository [address]Lad: 330 [id number] [phone] () Date:2018-04-26 04/26/2018 Secondary BHARATI Floyd Angela Insurance:MEDICAIDPol BILLUPSDOB: [facility] ic Number: [id number] Hospital [id number] Repository Date:2018-04-26 04/26/2018 Tertiary NOT GIVENUNK [place] Insurance:SELF PAY [facility] Number: Effective Repository Date:2018-04-26 04/26/2018 BHARATI Floyd Primary BHARATI Floyd Angela [id number] Insurance:MEDICARE BILLUPSDOB: Community [address] PART A [facility] [id number], [place] Number: Repository [address]Olm: 330 [id number] [phone] () Date:2018-04-26 04/26/2018 Secondary BHARATI Floyd Angela Insurance:MEDICAIDPol BILLUPSDOB: [facility] icy Number: [id number] Hospital [id number] Repository Date:2018-04-26 04/26/2018 Tertiary NOT GIVENUNK Angela Insurance:SELF PAY [facility] Number: Effective Repository Date:2018-04-26 04/26/2018 BHARATI Floyd Primary BHARATI Floyd Angela [id number] E Insurance:MEDICARE BILLUPSDOB: Community [address] PART A [facility] [id number] Number: Repository [address]Mmd: 330 [id number] [phone] () Date:2018-04-26 04/26/2018 Secondary BHARATI C [place] Insurance:MEDICAIDPol BILLUPSDOB: [facility] icy Number: [id number] Hospital [id number] Repository Date:2018-04-26 04/26/2018 Tertiary NOT GIVENUNK [place] Insurance:SELF PAY [facility] Number: Effective Repository Date:2018-04-26 04/26/2018 BHARATI Floyd Primary BHARATI Floyd Angela [id number] Insurance:MEDICARE BILLUPSDOB: [facility] [address] PART A olic [id number], [place] Number: Repository [address]Mbv: 330 [id number] [phone] () Date:2018-04-26 04/26/2018 Secondary BHARATI Floyd Angela Insurance:MEDICAIDPol BILLUPSDOB: [facility] icy Number: [id number] Hospital [id number] Repository Date:2018-04-26 04/26/2018 Tertiary NOT GIVENUNK [place] Insurance:SELF PAY [facility] Number: Effective Repository Date:2018-04-26 04/25/2018 BHARATI Folyd Primary BHARATI Floyd [place] [id number] Insurance:MEDICARE BILLUPSDOB: [facility] [address] PART A olic [id number], [place] Number: Repository [address]Tpp: 330 [id number] [phone] () Date:2018-04-25 04/25/2018 Secondary NOT GIVENUNK [place] Insurance:SELF PAY [facility] Number: Effective Repository Date:2018-04-25 08/31/2017 Bharati [id number] Primary Bharati Miller [facility] Insurance:MEDICARE BillupsDOB: [facility] [place] PART A olic [id number] [place] Number[facility] Repository [address]Xwh: 330 [id number] [phone] () Date:2017-08-05 08/31/2017 Secondary NOT GIVENUNK Angela Insurance:SELF PAY [facility] Number: Effective Repository Date:2017-08-05
== END 2018-08-17 23:59 ==
LOC: BHIOP 09:00
PROVIDERS: Family Provider Nurse Practitioner Family; PCP Nurse Practitioner Family; Referring Provider Psychiatry & Neurology Psychiatry; Visit Provider Psychiatry & Neurology Psychiatry
DX: F34.1 Dysthymic disorder (principal)
CPT/HCPCS: H0035; 90837; 90853

== ENCOUNTER → 2018-08-09 20:09 | Outpatient (CLI) | payer MEDICARE, MEDICAID, SELFPAY | PROVIDERS: Family Provider Nurse Practitioner Family; PCP Nurse Practitioner Family; Referring Provider Nurse Practitioner Family | DX: G47.33 Obstructive sleep apnea (adult) (pediatric) (principal) | CPT/HCPCS: 95811 ==

== ENCOUNTER → 2018-09-29 09:35 | Outpatient (CLI) | payer MEDICARE, MEDICAID, SELFPAY ==
[2018-09-06 15:36] VITALS: BMI 37.2
--- NOTE | 2018-09-29 09:45 | RAD_ITS ---
STUDY: X-RAY - LUMBAR SPINE REASON FOR EXAM: Female, 53 years old. Pain TECHNIQUE: 3 view(s) of the lumbar spine were obtained. COMPARISON: None FINDINGS: Normal lumbar lordosis. There is no substantial scoliosis. There is anterolisthesis at L4-L5. There is facet arthropathy. There is mild multilevel spondylosis. There is disc space narrowing L4-L5. Is atherosclerotic disease of the aorta. RAD/Lumbar Spine 2 or 3 Views IMPRESSION: Degenerative change especially L4-L5, with grade 1 anterolisthesis. There is facet arthropathy. Electronically Signed: Cynthia Escobar MD at 18:25 EDT Tel , Service support ,
--- NOTE | 2018-09-29 09:45 | RAD_ITS ---
STUDY: X-RAY - SACRUM/COCCYX REASON FOR EXAM: Female, 53 years old. Pain TECHNIQUE: 3 view(s) of the sacrum and coccyx were obtained. The sacrococcygeal junction portions of the sacrum are obscured on the AP view due to overlying bowel gas. COMPARISON: None. FINDINGS: Normal bilateral sacroiliac joints. Normal visualized sacral ala and fused sacral bodies. Normal sacrococcygeal junction with a normal angulation. Normal coccygeal segments. There is visualized degenerative change facet arthropathy in the lower lumbar spine. The presacral soft tissue structures are unremarkable. There phleboliths in the pelvis. RAD/Sacrum-Coccyx min 2 Views IMPRESSION: Normal x-rays of the sacrum and coccyx. Electronically Signed: Cynthia Escobar MD at 9:03 EDT Tel , Service support ,
--- NOTE | 2018-09-29 09:45 | RAD_ITS ---
STUDY: X-RAY - BILATERAL HIPS WITH PELVIS REASON FOR EXAM: Female, 53 years old. Pain TECHNIQUE: 2 views of the right hip, and 2 views of the left hip were obtained. With AP pelvis COMPARISON: None. FINDINGS: There is mild degenerative change of the SI joints. There are phleboliths in the pelvis. Right Hip: Normal right femoral head, neck, intertrochanteric region and visualized proximal femur. Normal right acetabulum. Normal right hip joint. Left Hip: Normal left femoral head, neck, intertrochanteric region and visualized proximal femur. Normal left acetabulum. Normal left hip joint. Normal bilateral superior and inferior pubic rami , ischial tuberosities and pubic symphysis. RAD/Hips B/L min 2 views w/ Pelvis IMPRESSION: Mild degenerative changes of the SI joints, otherwise Normal x-ray examination of the right hip. Normal x-ray examination of the left hip. Electronically Signed: Cynthia Escobar MD at 18:23 EDT Tel , Service support ,
== END ==
PROVIDERS: Family Provider Nurse Practitioner Family; PCP Nurse Practitioner Family; Referring Provider Nurse Practitioner Family; Visit Provider Nurse Practitioner Family
DX: M54.5 Low back pain (principal); M25.551 Pain in right hip
CPT/HCPCS: 72100; 72220; 73521

== ENCOUNTER 2018-12-20 22:11 | Emergency (ER) | payer MEDICARE, MEDICAID, SELFPAY ==
[2018-09-06 15:36] VITALS: BMI 37.2
[2018-12-20 22:12] VITALS: BP 155/84; PULSE 69; RESP 18; TEMP 36.5; O2SAT 97; BMI 37.0
--- NOTE | 2018-12-20 22:52 | RAD_ITS ---
STUDY: X-RAY CHEST REASON FOR EXAM: Female, 53 years old. Cough. Headache. TECHNIQUE: PA and lateral views of the chest. COMPARISON: None. FINDINGS: The lungs are well expanded. There is minimal linear atelectasis at the left lung base. There is no acute mass or infiltrate There is no demonstrated pleural abnormality. Normal size heart. Normal mediastinum and christian. Normal visualized pulmonary arteries. Normal visualized aortic arch and descending thoracic aorta. There are diffuse degenerative changes of the visualized thoracic spine. Normal visualized ribs, clavicles, and shoulders. There is no demonstrated abnormality of the visualized soft tissue structures of the upper abdomen. RAD/Chest PA and Lateral IMPRESSION: Minimal right basilar atelectasis. There is no acute cardiopulmonary disease. Electronically Signed: Christian Harvey DO at 23:39 EDT Tel [phone], Service support ,
--- NOTE | 2018-12-20 22:53 | ED.VIS.GEN ---
History of Present Illness Chief Complaint: Cough Informant: Patient Onset: - - about a year; worse x 2 weeks Context: Gradual Onset Timing: Continuous Quality: occasionally productive clear sputum Location: chest Current Severity: Moderate Maximum Severity: Moderate Worsened by: coughing Relieved by: nothing Associated Symptoms: headache earlier during a coughing fit, gone now Narrative: Patient has been a longtime smoker and has had a cough for about a year. No hemoptysis. Her cough is worse in the past 2 weeks. She denies any dyspnea but does note that it is hard to breathe during a coughing fit, which she had tonight and got a sudden onset sharp headache from it without loss of consciousness or nausea/vomiting, or neurologic symptom. That headache is now gone and she is breathing comfortably. She has never had a chest x-ray for this cough. - Past Medical History (1) HTN (hypertension) Status: Chronic (2) Type 2 diabetes mellitus Status: Chronic (3) Hyperlipidemia Status: Chronic Past Medical History - Allergies and Home Meds Allergies/Adverse Reactions: Allergies No Known Allergies Allergy (Verified 12/20/18 22:13) Primary Care Physician: Yancy Perez NP-C [Primary Care Provider] - Surgical History: no surgical history Lives: Alone Smoking Status: Current every day smoker - Family History Maternal Family History: Family History (Last Updated 09/06/18 @ 15:34 by Vannessa Wadsworth) Mother Diabetes Father Heart disease Hypertension Sister Cancer Grandfather Hypertension Cancer Brother Diabetes Family History: Reports: Heart Disease, Hypertension Review of Systems General: Denies: Chills, Fever, Sweats Eyes: Denies: Visual changes - bilaterally, Diplopia ENT: Denies: Rhinorrhea, Sore throat Cardiovascular: Denies: Chest pain, Palpitations Respiratory: Reports: Cough, Sputum. Denies: Dyspnea, Dyspnea on exertion Gastrointestinal: Denies: Abdominal pain, Nausea, Vomiting, Diarrhea, Melena, Hematochezia Genitourinary: Denies: Dysuria, Hematuria, Frequency Musculoskeletal: Denies: Back pain, Extremity Pain Skin: Denies: Rash, Wounds Neurological: Reports: Headache. Denies: Weakness, Numbness Physical Exam Vital Signs/Narrative: Vital Signs Temp Pulse Resp BP Pulse Ox 12/20/18 22:12 97.7 F L 69 18 155/84 H 97 Inital Vital Signs reviewed: Yes General: Well nourished, Well developed, No Acute Distress Head: Normocephalic, Atraumatic Eyes: Perrl, EOMI ENT: Moist mucous membranes, No rhinorrhea, TM's clear Neck: Supple, Nontender, No lymphadenopathy, No JVD Cardiovascular: Regular rate, Regular rhythm, No murmurs, Normal S1, Normal S2 Respiratory: No distress, CTA bilaterally, Chest nontender Extremities: Nontender, No edema. Negative for: Edema, Calf Tenderness Skin: Normal color, No rash, No Trauma Neurological: Alert, Oriented x3, Cranial nerves II-XII grossly intact, Normal Strength, Normal Sensation, Normal Gait Psychological: Normal affect, Normal Mood Diagnostic/Tx/Re-eval Clinical Impression(s) from Imaging Studies Chest X-Ray 12/20/18 22:52 IMPRESSION: Minimal right basilar atelectasis. There is no acute cardiopulmonary disease. Electronically Signed: Christian Harvey DO at 23:39 EDT Tel [phone], Service support , - Medical Decision Making Chest x-ray showed no acute infiltrates and no nodules or masses. I think it reasonable to treat her with broad-spectrum antibiotics for the persistence of the symptoms. Advised to follow-up. She may need pulmonary function testing. ED Disposition - Plan for ED Patient: Disposition: Home or Assisted Living Diagnosis: Acute bronchitis, Chronic cough Instructions: ED Upper Resp Infec Abx Tx Prescriptions: Azithromycin 250 mg PO DAILY #6 tablet Referrals: Yancy Perez NP-C [Primary Care Provider] - 1-2 Weeks
[2018-12-21 00:13] VITALS: BP 148/60; PULSE 77; RESP 16; O2SAT 95
== END 2018-12-21 00:17 | disposition home or self-care (01) ==
PROVIDERS: Emergency Provider Emergency Medicine; Family Provider Nurse Practitioner Family; PCP Nurse Practitioner Family
DX: J20.9 Acute bronchitis, unspecified (principal); R05 Cough; F17.200 Nicotine dependence, unspecified, uncomplicated; I10 Essential (primary) hypertension; E11.9 Type 2 diabetes mellitus without complications; E78.5 Hyperlipidemia, unspecified
CPT/HCPCS: 71046; 99282

== ENCOUNTER 2019-03-24 16:09 | Emergency (ER) | payer MEDICARE, MEDICAID, SELFPAY ==
[2019-03-24 16:11] VITALS: BP 166/118; PULSE 85; RESP 16; TEMP 36.3; O2SAT 98; BMI 36.0
[2019-03-24 16:27] VITALS: BP 182/108; PULSE 76; RESP 18; O2SAT 96
--- NOTE | 2019-03-24 16:56 | RAD_ITS ---
STUDY: X-RAY CHEST REASON FOR EXAM: Female, 53 years old. Hypertension, headache TECHNIQUE: PA and lateral views of the chest. COMPARISON: 12/20/2018 FINDINGS: EKG leads project over the chest. The lungs are clear and expanded. There is no demonstrated pleural abnormality. Normal size heart. Normal mediastinum and christian. Normal visualized pulmonary arteries. There is atherosclerotic tortuosity of the aortic arch and descending thoracic aorta. Normal visualized thoracic spine. Normal visualized ribs, clavicles, and shoulders. There is no demonstrated abnormality of the visualized soft tissue structures of the upper abdomen. RAD/Chest PA and Lateral IMPRESSION: No acute cardiopulmonary process. Electronically Signed: Stef Heredia MD (Brooks) at 17:59 EDT , Service support ,
[2019-03-24] MEDS: cloNIDine HCl 0.1 MG Tablet PO (17:05)
[2019-03-24 17:19] LABS: Absolute Lymphocyte Count 3.36 X10^3/uL (0.83-4.51); Absolute Neutrophil Count 5.2 X10^3/uL (2.0-7.7); Basophil# 0.06 X10^3/uL; Basophil% 0.6 % (0-1); Eosinophil# 0.09 X10^3/uL; Eosinophils% 0.9 % (0-5); Hematocrit 47.5 % (37-47); Hemoglobin 17.1 g/dL (12.0-15.0); Lymphocyte # 3.36 X10^3/ul (4.0); Lymphocyte % 35.4 % (19-41); Mean Corpuscular Volume 86.2 fL (81-99); Mean Platelet Vol. 8.3 fl (6.2-12.0); Monocyte% 7.4 % (0-10); NRBC Flagged by Analyzer 0 % (0-5); Neutrophil # 5.24 X10^3/uL (2.7-7.7); Neutrophil % 55.3 % (47-70); Platelet Count 372 K/mm3 (150-450); RBC Distribution Width CV 12.6 % (11.6-14.6); RBC Distribution Width SD 39.6 fl (35.1-43.9); Red Blood Count 5.51 M/mm3 (4.2-5.4); White Blood Count 9.5 K/mm3 (4.4-11.0)
[2019-03-24 17:27] VITALS: BP 167/120; PULSE 74; RESP 18
[2019-03-24 17:45] LABS: Anion Gap 8 (5-15); BUN 9 mg/dL (7-18); BUN/Creat Ratio 13.2 RATIO (10-20); Calcium,Total 9.1 mg/dL (8.5-10.1); Chloride 102 mmol/L (98-107); Creatinine, Serum 0.68 mg/dL (0.55-1.02); EST Glomerular Filtration Rate 95 mL/min (>60); Est Glom Filt Rate - Afr Amer 115 mL/min (>60); Estimated Creatinine Clearance 67.93 ml/min; Glucose 85 mg/dL (74-106); Potassium 3.5 mmol/L (3.5-5.1); Sodium Level 134 mmol/L (136-145)
--- NOTE | 2019-03-24 18:53 | ED.VISSUMM ---
- ER Visit Summary Date of Service: 03/24/19 Chief Complaint: Hypertension History of Present Illness: The patient is a 53 F who presents with elevated blood pressure that is been getting worse over the past 3 days. Patient states I feel hot. Patient states she also feels anxious. Patient states she has a history of anxiety which causes her blood pressure to be increased. Patient states she was recently started on a antihistamine for her anxiety. Patient states she does not feel this is helping with her anxiety. Patient does have a history of hypertension, anxiety, bipolar disorder, PTSD, diabetes, and stroke. Patient states that in the past she went to the emergency department for an elevated blood pressure and had a normal CT scan done at that time. Patient states 1 week later she had a stroke. Patient is concerned that she may have a stroke because of this. Physical Examination: Vital signs are stable except for an elevated blood pressure 166/118. Patient is afebrile. Patient is in no acute distress. Oral mucosa is pink and moist. Neck is supple. Trachea is midline. There is no JVD noted. Heart was regular rate and rhythm. Lungs are clear and equal bilaterally. Abdomen is soft. Bowel sounds are normal. There is no tenderness. Cranial nerves II through XII are intact. There are no focal motor or sensory deficits noted. Test Results: CBC and basic metabolic profile were within normal limits. PA and lateral chest x-ray was obtained. There is no acute cardiopulmonary process. This was interpreted by the radiologist and myself. Emergency Department Course and Treatment: Patient was given a dose of clonidine here. Patient's blood pressure did improve with this. Patient was still anxious on reevaluation. Patient was reassured that she is not having a stroke at this time. However, the patient is concerned that she may have a stroke in the future because of her blood pressure. I discussed with the patient that there is no way for us to determine whether or not she will have another stroke in the future. Patient was instructed to keep a log of her blood pressures and to follow-up with her primary care physician in 2 to 3 days. Patient was advised that her primary care physician will be the one who manages her blood pressure on a regular basis. Patient understood and was agreeable with the plan. All questions were answered. Disposition: Discharge home Impression: 1. Hypertension 2. Anxiety This note was generated with [employer] software. It may contain incorrect words, spelling, and punctuation that were not noted in review of the chart prior to signing ED Disposition - Plan for ED Patient: Disposition: Home or Assisted Living Diagnosis: Hypertension, Anxiety Instructions: HYPERTENSION, Established Referrals: Yancy Perez NP-C [Primary Care Provider] - 3-5 Days Additional Instructions: Keep track of your blood pressures daily until you follow-up with your primary care physician.
[2019-03-24 19:00] VITALS: BP 157/119
[2019-03-24] MEDS: Acetaminophen 500 MG Tablet 1000 MG PO (19:36)
--- NOTE | 2019-03-24 19:37 | ED.RN ---
SW IN W/PT
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
--- NOTE | 2019-03-24 20:47 | NURSING ---
PT INITIALLAY REFUSED DC D/T TOO MUCH ANXIETY. RENA DUBON VISISTED W/PT AND REDUCED HER STRESS. WHEN THIS RN WENT BACK IN ROOM TO DC PT SHE WAS UPSET AND CRYING STATING THAT HER BP WAS JUST HIGH TI WAS WHEN SHE ARRIVED (IT WAS 148/121) AND SHE DIDN'T THINK IT WOULD BE SAFE FOR HER TO LEAVE. DR ALBA MADE AWARE AND ADVISED THAT SHE COULD TAKE ANTI-ANXIETY MEDICATIONS WHEN SHE GOT HOME THIS RN RECHECKED PT'S BP MANUALLY BILATERALLY AND RESULTS WERE IMPROVED. 146/102 AND 144/96 PT WAS INITIALLY UPSET, BUT AFTER REASSURANCE SHE WAS COMFORTABLE BEING DC'D
[2019-03-24 20:50] VITALS: BP 141/96; RESP 22
== END 2019-03-24 20:45 | disposition home or self-care (01) ==
PROVIDERS: Emergency Provider Emergency Medicine; Family Provider Nurse Practitioner Family; PCP Nurse Practitioner Family
DX: I10 Essential (primary) hypertension (principal); F41.9 Anxiety disorder, unspecified; F31.9 Bipolar disorder, unspecified; E11.9 Type 2 diabetes mellitus without complications; F43.10 Post-traumatic stress disorder, unspecified; Z86.73 Personal history of transient ischemic attack (TIA), and cerebral infarction without residual deficits
CPT/HCPCS: 71046; 80048; 85025; 99285

== ENCOUNTER 2019-12-28 14:40 | Emergency (ER) | payer MEDICARE, MEDICAID, SELFPAY ==
[2019-12-28 14:40] VITALS: BP 130/90; PULSE 70; RESP 13; TEMP 36.5; O2SAT 96; BMI 38.8
--- NOTE | 2019-12-28 15:23 | EKG12_ITS ---
Test Reason : WEAKNESS Blood Pressure : / mmHG Vent. Rate : 061 BPM Atrial Rate : 061 BPM P-R Int : 204 ms QRS Dur : 102 ms QT Int : 444 ms P-R-T Axes : 051 -27 -20 degrees QTc Int : 446 ms Normal sinus rhythm Nonspecific T wave abnormality Poor R wave progression Abnormal ECG Confirmed by PARMJIT HERRON, ASHLEY ([id number]), proposal editor VICKY BOWEN ([id number]) on 01/02/2020 1:01:06 PM Referred By: LACI Confirmed By:ASHLEY PARNELL MD
--- NOTE | 2019-12-28 15:27 | ED.DCSUM_ITS ---
History of Present Illness Onset: Yesterday Context: Gradual Onset Timing: Continuous Quality: lightheaded Location: head Current Severity: Moderate Maximum Severity: Moderate Worsened by: nothing Relieved by: nothing Associated Symptoms: headache Prior similar symptoms: Yes Recent Illness/Hospitalization: No <Mehrdad Castro - Last Filed: 12/28/19 17:38> <Ruddy Lee - Last Filed: 12/28/19 19:04> Chief Complaint: Weakness Past Medical History Prior records reviewed: Yes Past Medical History: - - T2DM, HTN, bipolar Surgical History: no surgical history Lives: With Family Smoking Status: Current every day smoker Alcohol: None Drugs: None - Family History Maternal Family History: Family History (Last Updated 09/06/18 @ 15:34 by Vannessa Wadsworth) Mother Diabetes Father Heart disease Hypertension Sister Cancer Grandfather Hypertension Cancer Brother Diabetes Family History: Reports: Heart Disease, Hypertension <Mehrdad Castro - Last Filed: 12/28/19 17:38> - Family History Maternal Family History: Family History (Last Updated 09/06/18 @ 15:34 by Vannessa Wadsworth) Mother Diabetes Father Heart disease Hypertension Sister Cancer Grandfather Hypertension Cancer Brother Diabetes <Ruddy Lee - Last Filed: 12/28/19 19:04> - Allergies and Home Meds Allergies/Adverse Reactions: Allergies No Known Allergies Allergy (Verified 12/28/19 14:45) Primary Care Physician: Yancy Perez NP-C [Primary Care Provider] - As soon as possible Review of Systems All systems negative except as indicated General: Denies: Chills, Fever, Malaise, Subjective, Sweats Eyes: Denies: Visual changes - left, Visual changes - right, Visual changes - bilaterally, Blurred vision - left, Blurred vision - right, Blurred Vision - bilaterally, Diplopia ENT: Denies: Bilateral ear pain, Rhinorrhea, Sore throat Cardiovascular: Denies: Chest pain, Palpitations Respiratory: Denies: Dyspnea, Cough, Sputum, Dyspnea on exertion Gastrointestinal: Denies: Abdominal pain, Nausea, Vomiting, Diarrhea, Melena, Hematochezia Genitourinary: Denies: Dysuria, Hematuria, Frequency Musculoskeletal: Denies: Myalgias, Arthralgias, Neck pain, Back pain, Swelling, Extremity Pain Skin: Denies: Rash, Abscess, Abrasions, Wounds Neurological: Reports: Headache. Denies: Weakness, Numbness <Mehrdad Castro - Last Filed: 12/28/19 17:38> Physical Exam Vital Signs/Narrative: Vital Signs Temp Pulse Resp BP Pulse Ox 12/28/19 14:40 97.7 F L 70 13 130/90 H 96 Inital Vital Signs reviewed: Yes General: Well nourished, Well developed, No Acute Distress Head: Normocephalic, Atraumatic Eyes: Perrl, EOMI ENT: Moist mucous membranes, No rhinorrhea Neck: Supple, Nontender Cardiovascular: Regular rate, Regular rhythm, No murmurs Respiratory: No distress, CTA bilaterally, Chest nontender Abdomen: Soft, Nontender, Nondistended, Normal bowel sounds Back: Nontender, Normal Inspection Extremities: Nontender, No edema Skin: Normal color, No rash Neurological: Alert, Oriented x3, Cranial nerves II-XII grossly intact, Normal Strength, Normal Sensation, Normal Gait. Negative for: Confused, Disoriented Psychological: Normal affect, Normal Mood <Mehrdad Castro - Last Filed: 12/28/19 17:38> Vital Signs/Narrative: Vital Signs Temp Pulse Resp BP Pulse Ox 12/28/19 14:40 97.7 F L 70 13 130/90 H 96 <Ruddy Lee - Last Filed: 12/28/19 19:04> Diagnostic/Tx/Re-eval - Medical Decision Making EKG was sinus rhythm without ST segment or T wave changes. On arrival the patient's vital signs were stable. Laboratory work-up including CBC BMP was remarkable for a sodium level of 129. Previous value was 134. Urinalysis shows no leukocyte esterase but micro analysis is pending. Patient will be discharged home. Patient was advised that she needs to follow- up with her doctor symptoms could be due to the recent increase of her Tegretol and losartan. She was agreeable with plan of care. She was given return precautions. <Mehrdad Castro - Last Filed: 12/28/19 17:38> - Medical Decision Making Evaluating patient with our physician research assistant. Patient complaining of generalized weakness. Has a history of bipolar disorder. States recently she had her losartan dose increased and also her antidepressant. She denies any melena, fever, dysuria or chest pain. Physical exam: Vital signs stable afebrile. HEENT exam unremarkable. Lungs are clear. Heart is regular rhythm no murmur. Abdomen soft nontender. Patient is moving all 4 extremities. Neurovascular intact. No edema. Nontender. Normal range of motion. Normal motor strength. NIH score is 0. Exam unremarkable. Screening labs being obtained. Abs are unremarkable. UA was normal. Tegretol level was within the normal range at 7.3. Repeat exam at 1900 p.m. patient doing well be discharged home. We will evaluate the patient's labs her and most likely she will be able to be discharged to home. <Ruddy Lee - Last Filed: 12/28/19 19:04> ED Disposition <Mehrdad Castro - Last Filed: 12/28/19 17:38> <Ruddy Lee - Last Filed: 12/28/19 19:04> - Plan for ED Patient: Disposition: Home or Assisted Living Diagnosis: HTN (hypertension), Hyperlipidemia, Type 2 diabetes mellitus, Bipolar disorder, Lightheadedness Instructions: ED Dizziness [facility]O Referrals: Yancy Perez NP-C [Primary Care Provider] - As soon as possible
[2019-12-28 15:54] LABS: Absolute Lymphocyte Count 2.44 X10^3/uL (0.83-4.51); Absolute Neutrophil Count 4.8 X10^3/uL (2.0-7.7); Basophil# 0.04 X10^3/uL; Basophil% 0.5 % (0-1); Eosinophil# 0.07 X10^3/uL; Eosinophils% 0.9 % (0-5); Hematocrit 40.6 % (37-47); Lymphocyte # 2.44 X10^3/ul (4.0); Lymphocyte % 30.7 % (19-41); Mean Corp Hgb Conc 34.5 g/dL (32-36); Mean Corpuscular Hgb 30.4 pg (27.0-32.0); Mean Corpuscular Volume 88.1 fL (81-99); Mean Platelet Vol. 8.3 fl (6.2-12.0); Monocyte# 0.55 X10^3/uL; Monocyte% 6.9 % (0-10); NRBC Flagged by Analyzer 0 % (0-5); Neutrophil # 4.81 X10^3/uL (2.7-7.7); Neutrophil % 60.6 % (47-70); Platelet Count 279 K/mm3 (150-450); RBC Distribution Width CV 12.9 % (11.6-14.6); RBC Distribution Width SD 41.7 fl (35.1-43.9); Red Blood Count 4.61 M/mm3 (4.2-5.4); White Blood Count 7.9 K/mm3 (4.4-11.0)
[2019-12-28 16:02] LABS: Anion Gap 5 (5-15); BUN 12 mg/dL (7-18); BUN/Creat Ratio 20.1 RATIO (10-20); Calcium,Total 8.4 mg/dL (8.5-10.1); Chloride 95 mmol/L (98-107); EST Glomerular Filtration Rate 111 mL/min (>60); Est Glom Filt Rate - Afr Amer 134 mL/min (>60); Glucose 116 mg/dL (74-106); Potassium 3.5 mmol/L (3.5-5.1); Sodium Level 129 mmol/L (136-145)
[2019-12-28 16:45] LABS: Bacteria 0 SEEN /hpf (None Seen); Mucous, Urine 0 SEEN /hpf (<or=2+); Red Blood Cells-Urine 0 SEEN /hpf (0-5); White Blood Cells 0 SEEN /hpf (0-5)
[2019-12-28 17:02] VITALS: BP 116/73; PULSE 62; RESP 13; O2SAT 96
[2019-12-28 17:05] LABS: Color, Urine Yellow (Yellow); Glucose, Dipstick Normal (Normal); Ketone-Dipstick Negative (Negative); Leukocyte Esterase-Dipstick Negative /ul (Negative); Nitrite-Dipstick Negative (Negative); Occult Blood-Urine 10 /ul (Negative); Protein-Dipstick Negative (Negative); Urine Bilirubin Dipstick Negative (Negative); Urine Clarity Clear (Clear); Urine Urobilinogen Normal (Normal)
[2019-12-28 17:58] LABS: Squamous Epithelial Cells - UA 0-5 SEEN /hpf (5-10)
[2019-12-28 18:33] LABS: Carbamazepine (Tegretol) 7.3 ug/mL (4.0-12.0)
[2019-12-28 19:10] VITALS: BP 139/87; PULSE 69; RESP 15; O2SAT 99
== END 2019-12-28 19:21 | disposition home or self-care (01) ==
PROVIDERS: Emergency Provider Physician Assistant Medical; PCP Nurse Practitioner Family
DX: R42 Dizziness and giddiness (principal); I10 Essential (primary) hypertension; E78.5 Hyperlipidemia, unspecified; E11.9 Type 2 diabetes mellitus without complications; F31.9 Bipolar disorder, unspecified; F17.200 Nicotine dependence, unspecified, uncomplicated; Z82.49 Family history of ischemic heart disease and other diseases of the circulatory system
CPT/HCPCS: 80048; 80156; 81001; 85025; 93005; 99285; A4216

== ENCOUNTER 2020-01-09 16:47 | Emergency (ER) | payer MEDICARE, MEDICAID, SELFPAY ==
[2020-01-09 16:48] VITALS: BP 154/125; PULSE 77; RESP 18; TEMP 36.4; O2SAT 98; BMI 36.1
--- NOTE | 2020-01-09 17:04 | ED.VIS.GEN ---
History of Present Illness Chief Complaint: Abd Pain Informant: Patient Onset: Weeks Context: Gradual Onset Timing: Continuous Quality: Pain Location: Right side Current Severity: Mild Maximum Severity: Moderate Worsened by: Nothing Relieved by: Nothing Associated Symptoms: No associated symptoms Narrative: Is a middle-age woman who presents with left abdominal pain started 1 week ago. She denies any precipitating, alleviating or exacerbating factors. She denies intolerance to greasy or fried foods. She has no known history of biliary disease. She thinks there may be a family history of gallbladder disease. She denies dysuria, frequency, urgency or hematuria. She denies history of renal ureterolithiasis. She denies fever, chills or night sweats. She denies cough, pleuritic pain or shortness of breath. There is no history of trauma. She has not noted a rash. She has no other complaints. She has taken nothing for the discomfort. She denies nausea, vomiting or diarrhea. She denies constipation. She denies hematemesis, melena hematochezia. Prior similar symptoms: No Recent Illness/Hospitalization: No - Past Medical History (1) HTN (hypertension) Status: Chronic (2) Hyperlipidemia Status: Chronic (3) Type 2 diabetes mellitus Status: Chronic Past Medical History - Allergies and Home Meds Allergies/Adverse Reactions: Allergies No Known Allergies Allergy (Verified 01/09/20 16:52) Primary Care Physician: Yancy Perez NP-C [Primary Care Provider] - Surgical History: no surgical history, - - Ablation uterine Lives: Alone Smoking Status: Current every day smoker Alcohol: Rare Drugs: None - Family History Maternal Family History: Family History (Last Updated 09/06/18 @ 15:34 by Vannessa Wadsworth) Mother Diabetes Father Heart disease Hypertension Sister Cancer Grandfather Hypertension Cancer Brother Diabetes Family History: Reports: Heart Disease, Hypertension Review of Systems General: Denies: Chills, Fever, Malaise, Sweats, Weight loss Eyes: Denies: Visual changes - bilaterally, Blurred Vision - bilaterally ENT: Denies: Rhinorrhea, Sore throat Cardiovascular: Denies: Chest pain, Palpitations Respiratory: Denies: Dyspnea, Cough, Dyspnea on exertion Gastrointestinal: Reports: Abdominal pain. Denies: Nausea, Vomiting, Diarrhea, Constipation, Melena, Hematochezia, -, - Genitourinary: Denies: Dysuria, Hematuria, Frequency Musculoskeletal: Denies: Myalgias, Arthralgias, Neck pain, Back pain, Swelling, Extremity Pain, -, - Skin: Denies: Rash, Wounds Neurological: Denies: Headache, Weakness, Numbness Hematologic: Denies: Easy bruising, Easy bleeding Physical Exam Vital Signs/Narrative: Vital Signs Temp Pulse Resp BP Pulse Ox 01/09/20 16:48 97.5 F L 77 18 154/125 H 98 Inital Vital Signs reviewed: Yes General: Well nourished, Well developed, No Acute Distress, - - Patient moves freely in the room without discomfort or hesitation. Head: Normocephalic, Atraumatic Eyes: Perrl, EOMI ENT: Moist mucous membranes, No rhinorrhea Neck: Supple, Nontender Cardiovascular: Regular rate, Regular rhythm, No murmurs Respiratory: No distress, CTA bilaterally, Chest nontender Abdomen: Soft, Nontender, Nondistended, Normal bowel sounds, No masses, Umbilical hernia, Hernia reducible. Negative for: Hyperactive bowel sounds, Hypoactive bowel sounds, Hepatomegaly, Splenomegaly, Mass, Pulsatile mass, Ventral hernia, Inguinal hernia Rectal: Deferred Back: Nontender, Normal Inspection Extremities: Nontender, No edema Skin: Normal color, No rash Neurological: Alert, Oriented x3, Cranial nerves II-XII grossly intact, Normal Strength, Normal Sensation Psychological: Normal affect, Normal Mood Diagnostic/Tx/Re-eval Laboratory Results 01/09/20 01/09/20 01/09/20 17:17 17:17 17:40 WBC 7.4 RBC 5.24 Hgb 15.8 H Hct 47.3 H MCV 90.3 MCH 30.2 MCHC 33.4 RDW Std Deviation 43.0 RDW Coeff of Machelle 13.1 Plt Count 325 MPV 8.6 Immature Gran % (Auto) 0.300 Neut % (Auto) 55.5 Lymph % (Auto) 32.7 [place] % (Auto) 7.7 Eos % (Auto) 3.1 Baso % (Auto) 0.7 Absolute Neuts (auto) 4.1 Absolute Lymphs (auto) 2.42 Nucleated RBC % 0 Sodium 140 Potassium 3.6 Chloride 105 Carbon Dioxide 30.0 Anion Gap 5 BUN 19 H Creatinine 0.64 Estim Creat Clear Calc 71.34 Est GFR (MDRD) Af Amer 123 Est GFR (MDRD) Non-Af 102 BUN/Creatinine Ratio 29.5 H Glucose 91 Calcium 9.0 Total Bilirubin 0.30 AST 22 ALT 55 Alkaline Phosphatase 92 Total Protein 8.3 H Albumin 4.3 Globulin 4.0 Albumin/Globulin Ratio 1.1 Urine Color Straw Urine Clarity Clear Urine pH 7.0 Ur Specific [place] 1.010 Urine Protein Negative Urine Glucose (UA) Normal Urine Ketones Negative Urine Occult Blood 25 H Urine Nitrite Negative Urine Bilirubin Negative Urine Urobilinogen Normal Ur Leukocyte Esterase 100 H Urine RBC 0-5 SEEN Urine WBC 0-5 SEEN Ur Squamous Epith Cells 0-5 SEEN Urine Bacteria RARE Urine Mucus 0 SEEN Urinalysis is unremarkable. Her work-up is unremarkable. Patient was informed the cause of her pain is unknown. - Medical Decision Making Patient complains of pain in right side will obtain appropriate blood work and UA to assess for biliary disease, liver disease, urinary tract infection and possible obstructing ureterolithiasis. Since she is in no obvious discomfort and has a benign exam she was not given any analgesia. ED Disposition - Plan for ED Patient: Disposition: Home or Assisted Living Diagnosis: Right-sided abdominal pain of unknown cause Instructions: ED Abdominal Pain Unkn Cause Fem Referrals: Yancy Perez, DECORATING KILN OPERATOR-C [Primary Care Provider] - 3-5 Days if not improving
[2020-01-09 17:35] LABS: Absolute Lymphocyte Count 2.42 X10^3/uL (0.83-4.51); Absolute Neutrophil Count 4.1 X10^3/uL (2.0-7.7); Basophil# 0.05 X10^3/uL; Basophil% 0.7 % (0-1); Eosinophil# 0.23 X10^3/uL; Eosinophils% 3.1 % (0-5); Hematocrit 47.3 % (37-47); Hemoglobin 15.8 g/dL (12.0-15.0); Lymphocyte # 2.42 X10^3/ul (4.0); Lymphocyte % 32.7 % (19-41); Mean Corp Hgb Conc 33.4 g/dL (32-36); Mean Corpuscular Hgb 30.2 pg (27.0-32.0); Mean Corpuscular Volume 90.3 fL (81-99); Mean Platelet Vol. 8.6 fl (6.2-12.0); Monocyte# 0.57 X10^3/uL; Monocyte% 7.7 % (0-10); NRBC Flagged by Analyzer 0 % (0-5); Neutrophil % 55.5 % (47-70); Platelet Count 325 K/mm3 (150-450); RBC Distribution Width CV 13.1 % (11.6-14.6); Red Blood Count 5.24 M/mm3 (4.2-5.4); White Blood Count 7.4 K/mm3 (4.4-11.0)
[2020-01-09 17:47] LABS: Mucous, Urine 0 SEEN /hpf (<or=2+)
[2020-01-09 17:49] LABS: Color, Urine Straw (Yellow); Glucose, Dipstick Normal (Normal); Ketone-Dipstick Negative (Negative); Leukocyte Esterase-Dipstick 100 /ul (Negative); Nitrite-Dipstick Negative (Negative); Occult Blood-Urine 25 /ul (Negative); Protein-Dipstick Negative (Negative); Urine Bilirubin Dipstick Negative (Negative); Urine Clarity Clear (Clear); Urine Urobilinogen Normal (Normal)
[2020-01-09 17:57] LABS: ALB/GLOB Ratio 1.1 RATIO (0.9-2.4); AST(SGOT) 22 U/L (15-37); Alanine Aminotransfer ALT/SGPT 55 U/L (13-56); Albumin, Serum 4.3 g/dL (3.2-5.0); Alkaline Phosphatase 92 U/L (45-117); Anion Gap 5 (5-15); BUN 19 mg/dL (7-18); BUN/Creat Ratio 29.5 RATIO (10-20); Chloride 105 mmol/L (98-107); Creatinine, Serum 0.64 mg/dL (0.55-1.02); EST Glomerular Filtration Rate 102 mL/min (>60); Est Glom Filt Rate - Afr Amer 123 mL/min (>60); Estimated Creatinine Clearance 71.34 ml/min; Glucose 91 mg/dL (74-106); Potassium 3.6 mmol/L (3.5-5.1); Protein, Total 8.3 g/dL (6.4-8.2); Sodium Level 140 mmol/L (136-145)
[2020-01-09 18:37] LABS: Bacteria RARE /hpf (None Seen); Red Blood Cells-Urine 0-5 SEEN /hpf (0-5); White Blood Cells 0-5 SEEN /hpf (0-5)
[2020-01-09 18:39] LABS: Squamous Epithelial Cells - UA 0-5 SEEN /hpf (5-10)
[2020-01-09 19:12] VITALS: BP 166/110
== END 2020-01-09 19:12 | disposition home or self-care (01) ==
PROVIDERS: Emergency Provider Emergency Medicine; PCP Nurse Practitioner Family
DX: R10.9 Unspecified abdominal pain (principal); I10 Essential (primary) hypertension; E11.9 Type 2 diabetes mellitus without complications; E78.5 Hyperlipidemia, unspecified; Z79.84 Long term (current) use of oral hypoglycemic drugs; Z79.899 Other long term (current) drug therapy; F17.200 Nicotine dependence, unspecified, uncomplicated
CPT/HCPCS: 80053; 81001; 85025; 99283; A4216

== ENCOUNTER → 2020-02-05 12:43 | Outpatient (CLI) | payer MEDICARE, MEDICAID, SELFPAY ==
[2020-01-09 16:48] VITALS: BMI 36.1
--- NOTE | 2020-02-05 12:48 | BI_ITS ---
MAMMOGRAPHY - BILATERAL SCREENING 3-D TOMOSYNTHESIS REASON FOR EXAM: Female, 54 years old. Routine screening PERTINENT HISTORY: NO FAM HX - NO PREV GIL G''S - CURRENT HRT CREAM X 6 MONTHS. TECHNIQUE: 2-D mammograms and 3-D Tomosynthesis of the breast (s) were performed. CAD was performed. COMPARISON: 08/31/2017 FINDINGS: The breast composition is composed of scattered fibroglandular density. Scattered benign calcifications are seen. No dense spiculated masses or suspicious microcalcifications are identified. No architectural distortion is identified. There is no skin thickening or retraction. There has been no significant change since the prior study. BI/SCREEN MAMM (CAD) W/EDSON BILAT IMPRESSION: No mammographic signs of malignancy. Routine yearly mammograms recommended. ASSESSMENT CATEGORY: BIRADS Category 1: Negative. A letter regarding these results will be sent to the patient by the facility within 30 days. FOLLOW UP RECOMMENDATION: Yearly follow up mammogram recommended. (A) Approximately 10% of breast cancers are not detected by mammography. A normal mammogram should not delay biopsy of a clinically suspicious abnormality. Electronically Signed: Ricki Perry MD at 13:45 EDT , Service support ,
== END ==
PROVIDERS: PCP Nurse Practitioner Family
DX: Z12.31 Encounter for screening mammogram for malignant neoplasm of breast (principal)
CPT/HCPCS: 77063; 77067

== ENCOUNTER 2022-02-26 12:47 | Emergency (ER) | payer MEDICARE, SELFPAY ==
[2022-02-26 12:48] VITALS: BP 127/112; PULSE 55; RESP 17; TEMP 35.9; O2SAT 94; BMI 38.5
--- NOTE | 2022-02-26 13:11 | EDS_ITS ---
HPI HPI - GI History of Present Illness Chief Complaint: Abd Pain Informant: patient Abdominal Pain/Flank Pain Onset: Days (3) Context: Gradual Onset Timing: Continuous Quality: Dull and Sharp Location: RUQ, RLQ and Right Flank Worsened by: Movement Relieved by: - (Laying on left side) Nausea/Vomiting/Emesis GI Symptom: Negative for Nausea or Vomiting Diarrhea/Melena/Hematochezia GI Symptom: Negative for Diarrhea, Melena or Hematochezia Associated Symptoms Associated Symptoms: Negative for Dysuria, Frequency or Hematuria Narrative Narrative: Patient presents with right-sided abdominal pain that has been gradually getting worse over the last 3 days. Patient states her abdomen feels swollen. Patient describes her pain as sharp at times and dull at times. Patient states her pain is constant. Patient states her pain is worse with movement. Patient states it is better whenever she lays on her left side. Patient denies any nausea or vomiting. Patient denies any diarrhea, melena, or hematochezia. Patient denies any dysuria, frequency, or hematuria. Patient states her pain does radiate into her right flank and back area. PFSH PFS Medical History Anxiety Arthritis Depression Diabetes Hyperlipidemia Hypertension Mixed incontinence Stroke Thyroid disorder Home Medications levothyroxine 125 mcg tablet 150 mcg PO DAILY 05/31/13 [History Last Taken 05/29/18] amlodipine 10 mg tablet 10 mg PO DAILY 01/20/17 [History Last Taken 05/29/18] losartan 50 mg tablet 100 mg PO DAILY 01/20/17 [History Last Taken 05/29/18] meloxicam 15 mg tablet 15 mg PO DAILY 01/20/17 [History Last Taken 05/22/18] hydrochlorothiazide 25 mg tablet 25 mg PO DAILY 04/26/18 [History Last Taken 05/29/18] metformin 500 mg tablet 500 mg PO BID 04/26/18 [History Last Taken 05/29/18] gabapentin 300 mg capsule 600 mg PO BID 06/17/18 [History Last Taken Unknown] trazodone 100 mg tablet 200 mg PO QHS 06/17/18 [History Last Taken Unknown] oxcarbazepine 150 mg tablet 150 mg PO DAILY 08/04/18 [History Last Taken Unknown] atorvastatin 20 mg tablet (Lipitor) 20 mg PO DAILY 09/06/18 [History Last Taken Unknown] carbamazepine 200 mg capsule,extended release [id number] 600 mg PO QHS 12/28/19 [History Last Taken Unknown] cholecalciferol (vitamin D3) 25 mcg (1,000 unit) tablet 5,000 unit PO DAILY 12/28/19 [History Last Taken Unknown] Allergy/AdvReac Type Severity Reaction Status Date / Time No Known Allergies Allergy Verified 02/26/22 12:50 Family History (Updated 09/06/18 @ 15:34 by Vannessa Wadsworth) Mother Diabetes Father Heart disease Hypertension Sister Cancer endometrial Grandfather Hypertension Cancer prostate Brother Diabetes Surgical History History of endometrial ablation History of tonsillectomy Hx of cardiac catheterization Social History Smoking Status: Current every day smoker tobacco type: cigarettes alcohol intake: current details: social substance use type: marijuana caffeine: Yes what type of physical activity do you participate in: none seatbelt use: always do you feel safe at home: Yes additional social history: - Unemployed ROS ROS ED Constitutional Constitutional ED: Denies chills or fever(s) Eyes Eyes: Denies blurry vision or change in vision ENT ENT ED: Denies rhinorrhea or sore throat Cardiovascular Cardiovascular: Denies chest pain or palpitations Respiratory/Chest Respiratory/Chest: Denies cough or dyspnea Gastrointestinal Gastrointestinal: Reports abdominal pain; Denies nausea or vomiting Genitourinary Genitourinary ED: Denies dysuria or hematuria Musculoskeletal Musculoskeletal: Reports back pain; Denies neck pain Integumentary Denies abscess or rash Neurologic Neurologic: Denies headache(s) or weakness Allergic/Immunologic Allergic/Immunologic ED: Denies mouth swelling or urticaria EXAM Physical Exam Const Vital Signs: 02/26/22 12:48 Temperature 96.6 F L Temperature Source Temporal Pulse Rate 55 L Respiratory Rate 17 Blood Pressure 127/112 H Blood Pressure Mean 117 Pulse Ox 94 Oxygen Delivery Method Room Air Positive well nourished, well developed and obese General Appearance ED: well developed and NAD Nutritional Appearance: obese HEENT Reports moist mucous membranes Neck supple and no JVD Resp normal respiratory effort and clear to auscultation bilaterally Cardio regular rate, regular rhythm and no murmurs GI normal to inspection, nondistended, normoactive bowel sounds Palpation: soft and tender RUQ; Negative for guarding or rebound tenderness present Extremity normal to inspection General Extremety ED: Negative for edema or tenderness General Extremity: Negative for edema Neuro oriented x3, CN's II-XII intact bilaterally and no sensory deficits noted Sensorium / Orientation: alert Motor Exam: strength 5/5 throughout Psych mental status grossly normal Skin no rashes or lesions noted MDM MDM MDM Narrative Medical decision making narrative: Patient was given IV fluids, morphine, and Zofran. CBC was within normal limits. Comprehensive metabolic profile was within normal limits. Lipase was normal. Urinalysis does not show any evidence of hematuria or urinary tract infection. CT scan of the abdomen and pelvis was obtained. There is no acute intra-abdominal process noted. There are no ureteral or renal calculi noted. There is no evidence of cholelithiasis. This was interpreted by the radiologist and reviewed by myself. Patient is feeling better on reevaluation. Patient was advised of her findings. Patient was instructed to eat a bland diet. Patient was instructed to follow-up with her primary care physician in 5 to 7 days. Patient understood and was agreeable with the plan. All questions were answered. Lab Data Attestation: I reviewed the patient's lab results. Labs: Laboratory Results - last 24 hr 02/26/22 02/26/22 02/26/22 13:35 13:35 13:40 WBC 8.2 RBC 4.93 Hgb 15.0 Hct 43.4 MCV 88.0 MCH 30.4 MCHC 34.6 RDW Std Deviation 42.7 RDW Coeff of Machelle 13.2 Plt Count 278 MPV 8.6 Immature Gran % (Auto) 0.200 Neut % (Auto) 57.0 Lymph % (Auto) 32.9 [place] % (Auto) 6.7 Eos % (Auto) 2.7 Baso % (Auto) 0.5 Absolute Neuts (auto) 4.7 Absolute Lymphs (auto) 2.70 Nucleated RBC % 0 Sodium 137 Potassium 4.0 Chloride 106 Carbon Dioxide 25.0 Anion Gap 6 BUN 12 Creatinine 0.78 Estim Creat Clear Calc 57.16 Est GFR (MDRD) Af Amer 98 Est GFR (MDRD) Non-Af 81 BUN/Creatinine Ratio 15.4 Glucose 106 Calcium 8.9 Total Bilirubin 0.50 AST 19 ALT 37 Alkaline Phosphatase 67 Total Protein 7.2 Albumin 3.5 Globulin 3.7 Albumin/Globulin Ratio 0.9 Lipase 148 Urine Color Yellow Urine Clarity Clear Urine pH 6.0 Ur Specific [place] 1.015 Urine Protein Negative Urine Glucose (UA) Normal Urine Ketones Negative Urine Occult Blood 10 H Urine Nitrite Negative Urine Bilirubin Negative Urine Urobilinogen Normal Ur Leukocyte Esterase 25 H Urine RBC 0-5 SEEN Urine WBC 0-5 SEEN Ur Squamous Epith Cells 0-5 SEEN Urine Bacteria 0 SEEN Urine Mucus 0 SEEN Radiography Diagnostic Testing: Clinical Impression(s) from Imaging Studies Abdomen/Pelvis CT 02/26/22 13:15 IMPRESSION: Atherosclerosis. Colonic diverticulosis. Grade 1 anterior spondylolisthesis of L4 on L5. Electronically Signed: Leta Mercedes MD at 14:29 EDT , Discharge Plan Triage Chief Complaint: Abd Pain ED Provider: Cristhian Chung Dx/Rx/DC Orders Clinical Impression: Abdominal pain, Type 2 diabetes mellitus, HTN (hypertension) Instructions: ED Abdominal Pain Unkn Cause Fem Prescriptions: No Action atorvastatin [Lipitor] 20 mg tablet 20 mg PO DAILY levothyroxine 125 MCG tablet 150 mcg PO DAILY losartan 50 MG tablet 100 mg PO DAILY meloxicam 15 MG tablet 15 mg PO DAILY amlodipine 10 MG tablet 10 mg PO DAILY metformin 500 tablet 500 mg PO BID hydrochlorothiazide 25 tablet 25 mg PO DAILY Rx Instructions: DC until tue trazodone 100 MG tablet 200 mg PO QHS gabapentin 300 MG capsule 600 mg PO BID oxcarbazepine 150 MG tablet 150 mg PO DAILY carbamazepine 200 MG capsule, ER multiphase 12 hr 600 mg PO QHS cholecalciferol (vitamin D3) 1,000 UNIT tablet 5,000 unit PO DAILY Primary Care Provider: Raymundo Singleton Referrals: Raymundo Singleton MD [Primary Care Provider] - 5-7 Days Disposition Disposition: Home, Self Care
--- NOTE | 2022-02-26 13:15 | CT_ITS ---
STUDY: CT ABDOMEN AND PELVIS WITHOUT CONTRAST REASON FOR EXAM: Female, 56 years old. RIGHT SIDED AB PAIN RADIATION DOSAGE (If Supplied By Facility): CTDIvol = ( 14.31 ) mGy, DLP = ( 722.13 ) mGycm TECHNIQUE: Transaxial images were obtained from the dome of the diaphragm to the symphysis pubis without oral contrast, and without intravenous contrast. Sagittal and coronal images were reconstructed. Individualized dose optimization techniques were used for this CT. COMPARISON: None. FINDINGS: There is minimal atelectasis and/or scarring within the right middle lobe and lingula. There are coronary artery calcifications. The lack of intravenous contrast limits evaluation of solid visceral organs. Normal liver. Normal gallbladder and extrahepatic biliary system. Normal spleen. Normal pancreas. Normal bilateral adrenal glands. Normal right kidney. Normal left kidney. Normal visualized stomach. Normal small intestine. There are scattered diverticula arising from the colon. The appendix is visualized and appears normal. There are scattered atherosclerotic calcifications of the abdominal aorta, without a demonstrated aneurysm. Normal inferior vena cava. Normal retroperitoneum. There is a pessary in place. Normal urinary bladder. Normal abdominal wall. There is a grade 1 anterior spondylolisthesis of L4 on L5. CT/Abdomen/Pelvis without Cont IMPRESSION: Atherosclerosis. Colonic diverticulosis. Grade 1 anterior spondylolisthesis of L4 on L5. Electronically Signed: Leta Mercedes MD at 14:29 EDT ,
[2022-02-26] MEDS: 0.9% Normal Saline 1,000 ML 1000 ML IV (13:44)
[2022-02-26] MEDS: Morphine 4 MG/ML Syringe IV (13:44)
[2022-02-26] MEDS: Ondansetron 4 MG/2 ML Vial IV (13:44)
[2022-02-26 13:56] LABS: Bacteria 0 SEEN /hpf (None Seen); Mucous, Urine 0 SEEN /hpf (<or=2+)
[2022-02-26 13:57] LABS: Absolute Neutrophil Count 4.7 X10^3/uL (2.0-7.7); Basophil# 0.04 X10^3/uL; Basophil% 0.5 % (0-1); Eosinophil# 0.22 X10^3/uL; Eosinophils% 2.7 % (0-5); Hematocrit 43.4 % (37-47); Lymphocyte % 32.9 % (19-41); Mean Corp Hgb Conc 34.6 g/dL (32-36); Mean Corpuscular Hgb 30.4 pg (27.0-32.0); Mean Platelet Vol. 8.6 fl (6.2-12.0); Monocyte# 0.55 X10^3/uL; Monocyte% 6.7 % (0-10); NRBC Flagged by Analyzer 0 % (0-5); Neutrophil # 4.68 X10^3/uL (2.7-7.7); Platelet Count 278 K/mm3 (150-450); RBC Distribution Width CV 13.2 % (11.6-14.6); RBC Distribution Width SD 42.7 fl (35.1-43.9); Red Blood Count 4.93 M/mm3 (4.2-5.4); White Blood Count 8.2 K/mm3 (4.4-11.0)
[2022-02-26 13:58] LABS: Color, Urine Yellow (Yellow); Glucose, Dipstick Normal (Normal); Ketone-Dipstick Negative (Negative); Leukocyte Esterase-Dipstick 25 /ul (Negative); Nitrite-Dipstick Negative (Negative); Occult Blood-Urine 10 /ul (Negative); Protein-Dipstick Negative (Negative); Specific Gravity, Urine 1.015 (1.002-1.030); Urine Bilirubin Dipstick Negative (Negative); Urine Clarity Clear (Clear); Urine Urobilinogen Normal (Normal)
[2022-02-26 14:13] LABS: Squamous Epithelial Cells - UA 0-5 SEEN /hpf (5-10)
[2022-02-26 14:15] LABS: ALB/GLOB Ratio 0.9 RATIO (0.9-2.4); AST(SGOT) 19 U/L (15-37); Alanine Aminotransfer ALT/SGPT 37 U/L (13-56); Albumin, Serum 3.5 g/dL (3.2-5.0); Alkaline Phosphatase 67 U/L (45-117); Anion Gap 6 (5-15); BUN 12 mg/dL (7-18); BUN/Creat Ratio 15.4 RATIO (10-20); Calcium,Total 8.9 mg/dL (8.5-10.1); Chloride 106 mmol/L (98-107); Creatinine, Serum 0.78 mg/dL (0.55-1.02); EST Glomerular Filtration Rate 81 mL/min (>60); Est Glom Filt Rate - Afr Amer 98 mL/min (>60); Estimated Creatinine Clearance 57.16 ml/min; Globulin 3.7 g/dL (2.2-4.2); Glucose 106 mg/dL (74-106); Lipase 148 U/L (73-393); Protein, Total 7.2 g/dL (6.4-8.2); Sodium Level 137 mmol/L (136-145)
[2022-02-26 14:15] LABS: Red Blood Cells-Urine 0-5 SEEN /hpf (0-5); White Blood Cells 0-5 SEEN /hpf (0-5)
[2022-02-26 15:17] VITALS: BP 129/70; PULSE 84; RESP 16; O2SAT 98
== END 2022-02-26 15:19 | disposition home or self-care (01) ==
PROVIDERS: Emergency Provider Emergency Medicine; PCP Family Medicine; Visit Provider Emergency Medicine
DX: R10.9 Unspecified abdominal pain (principal); E11.9 Type 2 diabetes mellitus without complications; R19.7 Diarrhea, unspecified; R11.2 Nausea with vomiting, unspecified; F17.210 Nicotine dependence, cigarettes, uncomplicated; I10 Essential (primary) hypertension; E78.5 Hyperlipidemia, unspecified; F12.90 Cannabis use, unspecified, uncomplicated
CPT/HCPCS: 74176; 80053; 81001; 83690; 85025; 99283; J7030; A4216; J2405

== ENCOUNTER 2022-10-14 09:21 | Day surgery (SDC) | payer MEDICARE, MEDICAID, SELFPAY ==
--- NOTE | 2022-10-13 12:37 | EKG12_ITS ---
Test Reason : PREOP Blood Pressure : / mmHG Vent. Rate : 048 BPM Atrial Rate : 048 BPM P-R Int : 196 ms QRS Dur : 098 ms QT Int : 494 ms P-R-T Axes : 024 -25 -32 degrees QTc Int : [address] & T wave abnormality, consider anterolateral ischemia Abnormal ECG Confirmed by DM HERRON, TERRY ([id number]), video editor VICKY BOWEN ([id number]) on 10/14/2022 9:18:53 AM Referred By: Aline Brown Confirmed By:TERRY CHAIDEZ MD
[2022-10-13 13:37] LABS: Hematocrit 43.6 % (37-47); Hemoglobin 14.3 g/dL (12.0-15.0); Mean Corp Hgb Conc 32.8 g/dL (32-36); Mean Corpuscular Hgb 28.5 pg (27.0-32.0); Mean Platelet Vol. 8.7 fl (6.2-12.0); Platelet Count 303 K/mm3 (150-450); RBC Distribution Width CV 12.7 % (11.6-14.6); RBC Distribution Width SD 39.9 fl (35.1-43.9); Red Blood Count 5.01 M/mm3 (4.2-5.4); White Blood Count 8.7 K/mm3 (4.4-11.0)
[2022-10-13 14:30] LABS: Anion Gap 4 (5-15); BUN 12 mg/dL (7-18); Chloride 104 mmol/L (98-107); EST Glomerular Filtration Rate 78 mL/min (>60); Est Glom Filt Rate - Afr Amer 95 mL/min (>60); Glucose 103 mg/dL (74-106); Potassium 3.7 mmol/L (3.5-5.1); Sodium Level 138 mmol/L (136-145); Thyroid Stim Hormone (TSH) 0.36 uIU/mL (0.358-3.74)
[2022-10-14 10:18] VITALS: BP 132/74; PULSE 52; RESP 18; TEMP 36.5; O2SAT 98; BMI 35.9
[2022-10-14] MEDS: Lactated Ringers 1,000 ML 15 ML IV (10:38)
[2022-10-14 11:06] LABS: Bedside Glucose 110 mg/dL (74-106)
--- NOTE | 2022-10-14 11:58 | DCINST_ITS ---
Discharge Instructions Diet Discharge Diet: No restrictions Activity Discharge Activity: May Shower (No tub bathing, no swimming, no hot tubs) May resume sexual activity in: 4 weeks Lifting Restrictions: No lifting over 5 pounds, no strenuous activity, no exercise for 4 weeks Dressing / Incision Call your doctor if your incision/area has: Continuous Slow Oozing, Sudden Increased Bleeding, Increased Pain/ Swelling, Foul Smelling Discharge and Swelling at the incision site Call your doctor if you observe: Fever of 101 or Higher, Inability to urinate an d Inability to have a bowel movement Follow Up Care Please Follow Up With: Aline Brown MD When: Call office for appointment Test Results: Test results from this visit will be discussed in further detail at your follow- up appointment, if applicable. Discharge Plan Admission Attending Provider: Aline Brown Primary Care Provider: Raymundo Singleton Consulting Providers: Cristhian Beckham Discharge Orders/Prescriptions Prescriptions: New oxycodone-acetaminophen [Percocet] 5-325 mg tablet 1 tab PO Q8H PRN (Reason: pain) 3 Days Qty: 10 0RF cephalexin [cephalexin] 500 mg capsule 500 mg PO Q12 3 Days Qty: 6 0RF Continued atorvastatin [Lipitor] 20 mg tablet 20 mg PO DAILY levothyroxine 125 MCG tablet 137 mcg PO DAILY losartan 50 MG tablet 100 mg PO DAILY amlodipine 10 MG tablet 10 mg PO DAILY metformin 500 tablet 500 mg PO BID trazodone 100 MG tablet 200 mg PO QHS gabapentin 300 MG capsule 300 mg PO TID cholecalciferol (vitamin D3) 1,000 UNIT tablet 5,000 unit PO DAILY aspirin 81 mg Tablet,Delayed Release (Dr/Ec) 81 mg PO DAILY metoprolol succinate 25 mg Tablet Extended Release 24 Hr 25 mg PO DAILY sertraline [Zoloft] 50 mg Tablet 50 mg PO BID bupropion HCl [Wellbutrin XL] 150 mg Tablet Extended Release 24 Hr 150 mg PO DAILY omeprazole 20 mg Tablet,Delayed Release (Dr/Ec) 20 mg PO DAILY Referrals / Follow Up: Raymundo Singleton MD [Primary Care Provider] - Disposition Disposition (needs filled in before D/C Order can be placed): Home, Self Care
--- NOTE | 2022-10-14 12:01 | PCM.OPRPT ---
Report of Operation Date of Procedure: 10/14/22 Pre-Operative Diagnosis: Stress urinary incontinence Post-Operative Diagnosis: Same Surgery/Procedure Performed:: Mid urethral sling insertion, cystoscopy Surgeon: Aline Brown Type of Anesthesia: General Estimated Blood Loss (mL): 15 cc Description of Procedure: The patient is a 57-year-old female with longstanding stress urinary incontinence who now presents for surgical intervention. Informed consent was obtained. She was taken to the operating room and placed on the operating room table. Anesthesia monitored the head, neck, airway, IV access and vital signs throughout the case. Once anesthesia was appropriately administered, she was placed into the exaggerated dorsal lithotomy in Trendelenburg position and was prepped and draped in usual sterile fashion. A Alonso catheter was inserted to straight drain and the balloon was filled with 10 cc of saline. The mid urethra was isolated and injected submucosally with 1% lidocaine with epinephrine. A midline vertical incision approximately 1.5 cm in length was then made and sharp and blunt dissection was performed on either side of the urethra with care being taken to avoid entrance into the urethra. At this time using the trocars provided, the mid urethral sling was inserted with the tines into the transobturator complexes bilaterally. The sling was positioned against the urethra and was flat. It was positioned using the tensioning suture which was then cut. The incision was closed using running interlocking 2-0 Vicryl. The Alonso catheter was removed and the cystoscope was inserted under direct visualization into the urinary bladder. The entire bladder was visualized and found to be without evidence of injury or foreign body, and no mass was seen. The cystoscope was then removed and the urethra also showed no abnormality. The patient was then awakened and taken to the recovery room in good condition. There were no complications during this procedure. Please note that the pessary was cleaned and sent with the patient. Grafts/Implants Used: Altis mid urethral sling Complications None Admit VTE Documentation VTE Present on Admission: Yes VTE Mechan Device Prophylaxis: SCD's VTE Pharm Prophylaxis ordered?: No Reason prophylaxis not ordered:: Treatment Not Indicated
[2022-10-14] MEDS: Cefazolin 2 GM in 0.9% Normal Saline 100 ML IV (12:10)
[2022-10-14] MEDS: Lidocaine 1% /Epi 1:100 (50ml) 50 ML VIAL (12:28)
[2022-10-14 13:00] VITALS: BP 132/74; BP 143/88; PULSE 60; RESP 16; TEMP 36.3; O2SAT 97
[2022-10-14 13:15] VITALS: BP 132/74; BP 166/95; PULSE 59; RESP 16; TEMP 36.2; O2SAT 95
[2022-10-14 14:12] VITALS: BP 132/74; BP 136/72; PULSE 59; RESP 16; TEMP 36.5; O2SAT 93
== END 2022-10-14 14:41 | disposition home or self-care (01) ==
LOC: SDC 09:23 → AC 09:23
PROVIDERS: Anesthesiology; PCP Family Medicine; Referring Provider Urology; Visit Provider Urology
PROC: 0TJB8ZZ Inspection of Bladder, Via Natural or Artificial Opening Endoscopic (ICD-10-PCS; CPT 57288; principal; 2022-10-14 11:40)
DX: N39.3 Stress incontinence (female) (male) (principal); E11.9 Type 2 diabetes mellitus without complications; F41.9 Anxiety disorder, unspecified; I25.10 Atherosclerotic heart disease of native coronary artery without angina pectoris; F32.9 Major depressive disorder, single episode, unspecified; K21.9 Gastro-esophageal reflux disease without esophagitis; E78.5 Hyperlipidemia, unspecified; Z86.73 Personal history of transient ischemic attack (TIA), and cerebral infarction without residual deficits; Z79.899 Other long term (current) drug therapy; Z79.82 Long term (current) use of aspirin; Z79.84 Long term (current) use of oral hypoglycemic drugs
CPT/HCPCS: 57288; 00860; 36415; 80048; 82962; 83036; 84443; 85027; 93005; J7120; J2405

== ENCOUNTER 2023-01-15 10:16 | Emergency (ER) | payer MEDICARE, MEDICAID, SELFPAY ==
[2023-01-15 10:18] VITALS: BP 138/82; PULSE 67; RESP 18; TEMP 36.4; O2SAT 97; BMI 37.7
--- NOTE | 2023-01-15 10:27 | EKG12_ITS ---
Test Reason : CP Blood Pressure : / mmHG Vent. Rate : 069 BPM Atrial Rate : 054 BPM P-R Int : 186 ms QRS Dur : 096 ms QT Int : 444 ms P-R-T Axes : 037 -20 -28 degrees QTc Int : 475 ms Sinus bradycardia with frequent Premature ventricular complexes Minimal voltage criteria for LVH, may be normal variant ( Elmo product ) ST & T wave abnormality, consider anterolateral ischemia Prolonged QT Abnormal ECG Confirmed by DM HERRON, TERRY ([id number]), movie editor VICKY BOWEN ([id number]) on 01/17/2023 12:40:27 PM Referred By: Confirmed By:TERRY CHAIDEZ MD
--- NOTE | 2023-01-15 10:27 | RAD_ITS ---
INDICATION: chest pain EXAMINATION/TECHNIQUE: X-RAY - XR Chest 1 View COMPARISON: 03/24/2019. FINDINGS: LINES/DEVICES: None. LUNGS: No consolidation, edema or effusion. No pneumothorax. MEDIASTINUM AND CARDIOVASCULAR STRUCTURES: Cardiac silhouette not enlarged. Central airways and mediastinal contour are unremarkable. BONES AND SOFT TISSUES: Unremarkable. RAD/Chest 1 View (Portable) IMPRESSION: No radiographic evidence of acute cardiopulmonary disease. Electronically Signed: Bull Herndon MD at 11:44 EDT ,
--- NOTE | 2023-01-15 10:28 | ED.VIS.CHEST ---
HPI History of Present Illness Chief Complaint: Chest Pain Informant: patient Onset/Context/Timing Onset: Today Narrative Narrative: Patient presents with a 1 week history of intermittent palpitations. She states they will last anywhere from 10 to 30 seconds. Today she started getting chest heaviness and pressure. She does report a history of chest pain. She states she was following with a senior construction manager regularly and had multiple test done. She was told there was nothing wrong with her heart. She had been taking aspirin daily until about 2 or 3 months ago when she just got out of the habit. She has not had significant shortness of breath. [facility] Medical History Alcohol use Anemia Anxiety Arthritis Back pain Bipolar disorder Borderline personality disorder in adult CAD (coronary artery disease) Cardiology follow-up encounter Chest pain CPAP (continuous positive airway pressure) dependence Depression Diabetes Dietary restriction Fatty liver Former smoker Gastric reflux History of echocardiogram History of edema History of pain when walking History of stress test Hx of Hyperlipidemia Hypertension Marijuana use Mixed incontinence Post-menopausal Stroke TAMEKA (stress urinary incontinence, female) Syncope Tension headache, chronic Thyroid disorder Wears glasses Home Medications levothyroxine 125 mcg tablet 137 mcg PO DAILY 05/31/13 [History Last Taken 10/14/22] amlodipine 10 mg tablet 10 mg PO DAILY 01/20/17 [History Last Taken 10/14/22] losartan 50 mg tablet 100 mg PO DAILY 01/20/17 [History Last Taken 10/14/22] metformin 500 mg tablet 500 mg PO BID 04/26/18 [History Last Taken 05/29/18] gabapentin 300 mg capsule 300 mg PO TID 06/17/18 [History Last Taken 10/14/22] trazodone 100 mg tablet 200 mg PO QHS 06/17/18 [History Last Taken Unknown] atorvastatin 20 mg tablet (Lipitor) 20 mg PO DAILY 09/06/18 [History Last Taken Unknown] cholecalciferol (vitamin D3) 25 mcg (1,000 unit) tablet 5,000 unit PO DAILY 12/28/19 [History Last Taken Unknown] aspirin 81 mg tablet,delayed release 81 mg PO DAILY 10/07/22 [History Last Taken 10/12/22 06:00] bupropion HCl 150 mg 24 hr tablet, extended release (Wellbutrin XL) 150 mg PO DAILY 10/07/22 [History Last Taken 10/14/22] metoprolol succinate 25 mg tablet,extended release 24 hr 25 mg PO DAILY 10/07/22 [History Last Taken 10/14/22] omeprazole 20 mg tablet,delayed release 20 mg PO DAILY 10/07/22 [History Last Taken 10/14/22] sertraline 50 mg tablet (Zoloft) 50 mg PO BID 10/07/22 [History Last Taken 10/14/22] cephalexin 500 mg capsule 500 mg PO Q12 post-operative 3 days #6 CAPSULES 10/14/22 [Rx Last Taken Unknown] oxycodone-acetaminophen 5 mg-325 mg tablet (Percocet) 1 tab PO Q8H PRN pain 3 days #10 tabs 10/14/22 [Rx Last Taken Unknown] Allergy/AdvReac Type Severity Reaction Status Date / Time No Known Allergies Allergy Verified 01/15/23 10:18 Family History Mother Diabetes Father Heart disease Hypertension Sister Cancer endometrial Grandfather Hypertension Cancer prostate Brother Diabetes Surgical History History of endometrial ablation History of tonsillectomy Hx of cardiac catheterization Social History Smoking Status: Former smoker alcohol intake: current details: social substance use type: marijuana caffeine: Yes what type of physical activity do you participate in: none seatbelt use: always do you feel safe at home: Yes additional social history: - Unemployed ROS ROS ED Constitutional Constitutional ED: Denies chills or fever(s) Eyes Eyes: Denies discharge from eye(s) ENT ENT ED: Denies discharge from eye(s), rhinorrhea or sore throat Cardiovascular Cardiovascular: Reports chest pain and palpitations Respiratory/Chest Respiratory/Chest: Denies cough or dyspnea Gastrointestinal Gastrointestinal: Denies abdominal pain, nausea or vomiting Genitourinary Genitourinary ED: Denies dysuria Musculoskeletal Musculoskeletal: Denies back pain or extremity pain Integumentary Denies Abrasions or rash Neurologic Neurologic: Denies headache(s) or weakness Psychiatric Psychiatric: Denies anxiety or depression Allergic/Immunologic Allergic/Immunologic ED: Denies lip swelling or urticaria EXAM Physical Exam Const Vital Signs: 01/15/23 10:18 01/15/23 10:16 01/15/23 10:16 Temperature 97.6 F L Temperature Source Temporal Pulse Rate 67 Respiratory Rate 18 Respiratory Effort Normal Blood Pressure 138/82 H Blood Pressure Mean 100 Pulse Ox 97 Oxygen Delivery Method Room Air Room Air 01/15/23 10:27 01/15/23 12:16 Temperature Temperature Source Pulse Rate 76 Respiratory Rate 14 Respiratory Effort Blood Pressure 142/76 H Blood Pressure Mean 98 Pulse Ox 99 Oxygen Delivery Method Room Air Room Air Positive well nourished and well developed General Appearance ED: well developed HEENT Reports normocephalic and head/scalp atraumatic Eyes PERRL and EOMs intact bilaterally Neck supple Chest Wall inspection of chest normal and palpation of chest normal Resp normal respiratory effort and clear to auscultation bilaterally Cardio regular rate and regular rhythm GI non-tender Palpation: soft Extremity normal to inspection Neuro oriented x3 and no sensory deficits noted Sensorium / Orientation: alert Motor Exam: strength 5/5 throughout Psych mental status grossly normal Skin no rashes or lesions noted Heart Score History: Slightly/Non-Suspicious ECG: Nonspecific Repolarization Age: >45 - <65 years Risk Factors: >/= 3 Risk Factors or History of CAD Troponin: </= Normal Limit Score: 4 MDM MDM MDM Narrative Medical decision making narrative: Patient is given aspirin on arrival. Patient placed on diagnostic cardiac sonographer. Labwork obtained to evaluate for leukocytosis, anemia, and electrolyte derangement. Chest x-ray obtained to evaluate for acute lung pathology, cardiac size, or mediastinal abnormality. I was able to review the patient's prior records and [facility]. In October 2021 she had a coronary CTA that revealed normal anatomy. There was a mixed plaque noted in the mid LAD. In August 2020 she had a nuclear medicine stress test that was normal. 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 Labs: Laboratory Results - last 24 hr 01/15/23 01/15/23 01/15/23 10:48 10:48 11:15 WBC Cancelled 7.6 Corrected WBC Cancelled RBC Cancelled 4.92 Hgb Cancelled 14.4 Hct Cancelled 42.0 MCV Cancelled 85.4 MCH Cancelled 29.3 MCHC Cancelled 34.3 RDW Std Deviation Cancelled 39.1 RDW Coeff of Machelle Cancelled 12.6 Plt Count Cancelled 272 MPV Cancelled 8.7 Immature Gran % (Auto) Cancelled 0.400 Neut % (Auto) Cancelled 54.0 Lymph % (Auto) Cancelled 37.2 [place] % (Auto) Cancelled 5.9 Eos % (Auto) Cancelled 2.0 Baso % (Auto) Cancelled 0.5 Absolute Neuts (auto) Cancelled 4.1 Absolute Lymphs (auto) Cancelled 2.82 Total Counted Cancelled Neutrophils % (Manual) Cancelled Band Neutrophils % Cancelled Lymphocytes % (Manual) Cancelled Monocytes % (Manual) Cancelled Eosinophils % (Manual) Cancelled Basophils % (Manual) Cancelled Metamyelocytes % Cancelled Myelocytes % Cancelled Promyelocytes % Cancelled Blast Cells % Cancelled Plasma Cell % (Manual) Cancelled Other Cells % Cancelled Nucleated RBC % Cancelled 0 Nucleated RBCs/100 WBC Cancelled Differential Comment Cancelled Diff Path Review Cancelled Hypersegmented Neuts Cancelled Atypical Lymphocytes Cancelled Reactive Lymphocytes Cancelled Smudge Cells Cancelled Toxic Granulation Cancelled Toxic Vacuolation Cancelled Dohle Bodies Cancelled Xi Rods Cancelled Platelet Estimate Cancelled Plt Morphology Comment Cancelled RBC Morphology Cancelled Cancelled Polychromasia Cancelled Hypochromasia Cancelled Poikilocytosis Cancelled Basophilic Stippling Cancelled Anisocytosis Cancelled Microcytosis Cancelled Macrocytosis Cancelled Spherocytes Cancelled Sickle Cells Cancelled Target Cells Cancelled Tear Drop Cells Cancelled Ovalocytes Cancelled Stomatocytes Cancelled [place] Bodies Cancelled Rush Cells Cancelled Bite Cells Cancelled Crenated Cell Cancelled Acanthocytes (Spur) Cancelled Rouleaux Cancelled Schistocytes Cancelled Sodium 137 Potassium 4.4 Chloride 107 Carbon Dioxide 24.0 Anion Gap 6 BUN 13 Creatinine 0.81 Estim Creat Clear Calc 57.13 Est GFR (MDRD) Af Amer 93 Est GFR (MDRD) Non-Af 77 BUN/Creatinine Ratio 16.0 Glucose 120 H Calcium 8.8 Troponin I High Sens 6 01/15/23 13:10 WBC Corrected WBC RBC Hgb Hct MCV MCH MCHC RDW Std Deviation RDW Coeff of Machelle Plt Count MPV Immature Gran % (Auto) Neut % (Auto) Lymph % (Auto) [place] % (Auto) Eos % (Auto) Baso % (Auto) Absolute Neuts (auto) Absolute Lymphs (auto) Total Counted Neutrophils % (Manual) Band Neutrophils % Lymphocytes % (Manual) Monocytes % (Manual) Eosinophils % (Manual) Basophils % (Manual) Metamyelocytes % Myelocytes % Promyelocytes % Blast Cells % Plasma Cell % (Manual) Other Cells % Nucleated RBC % Nucleated RBCs/100 WBC Differential Comment Diff Path Review Hypersegmented Neuts Atypical Lymphocytes Reactive Lymphocytes Smudge Cells Toxic Granulation Toxic Vacuolation Dohle Bodies Xi Rods Platelet Estimate Plt Morphology Comment RBC Morphology Polychromasia Hypochromasia Poikilocytosis Basophilic Stippling Anisocytosis Microcytosis Macrocytosis Spherocytes Sickle Cells Target Cells Tear Drop Cells Ovalocytes Stomatocytes [place] Bodies Soila Cells Bite Cells Crenated Cell Acanthocytes (Spur) Rouleaux Schistocytes Sodium Potassium Chloride Carbon Dioxide Anion Gap BUN Creatinine Estim Creat Clear Calc Est GFR (MDRD) Af Amer Est GFR (MDRD) Non-Af BUN/Creatinine Ratio Glucose Calcium Troponin I High Sens 5 Radiography Chest X-Ray - ED: 1 View, Read by ED Physician, Chronic Changes and No Infiltrates Diagnostic Testing: Clinical Impression(s) from Imaging Studies Chest X-Ray 01/15/23 10:27 IMPRESSION: No radiographic evidence of acute cardiopulmonary disease. Electronically Signed: Bull Herndon MD at 11:44 EDT Reading Location ID and State: [facility] / [place] Tel , Service support , EKG Initial EKG: Attestation: I personally reviewed and interpreted this EKG as follows: Interpretation: Sinus Rhythm (Sinus at 69 with frequent PVCs. No acute ST change.) Treatment and Re-Evaluation :: CBC reveals normal white count at 7.6 with a hemoglobin of 14.4. No left shift noted. Chemistry studies are unremarkable. Glucose is 120. Initial troponin is 6 with a 2-hour repeat troponin of 5. EKG reveals no ischemia but patient does have frequent PVCs. She does have a prolonged QTc at 475 but this has been noted on prior studies as well. Chest x-ray per my interpretation was chronic changes with no acute findings. Radiology interpretation is reviewed and agrees. Given the patient has had ongoing palpitations for the last week with chest pressure for several hours today and a negative work-up I do feel she can follow-up safely as an outpatient. Return instructions were provided. Discharge Plan Triage Chief Complaint: Chest Pain ED Provider: Ann Marie Tracy Dx/Rx/DC Orders Clinical Impression: Chest pain Instructions: ED Chest Pain, Uncertain Cause Prescriptions: No Action atorvastatin [Lipitor] 20 mg tablet 20 mg PO DAILY levothyroxine 125 MCG tablet 137 mcg PO DAILY losartan 50 MG tablet 100 mg PO DAILY amlodipine 10 MG tablet 10 mg PO DAILY metformin 500 tablet 500 mg PO BID trazodone 100 MG tablet 200 mg PO QHS gabapentin 300 MG capsule 300 mg PO TID cholecalciferol (vitamin D3) 1,000 UNIT tablet 5,000 unit PO DAILY aspirin 81 mg Tablet,Delayed Release (Dr/Ec) 81 mg PO DAILY metoprolol succinate 25 mg Tablet Extended Release 24 Hr 25 mg PO DAILY sertraline [Zoloft] 50 mg Tablet 50 mg PO BID bupropion HCl [Wellbutrin XL] 150 mg Tablet Extended Release 24 Hr 150 mg PO DAILY omeprazole 20 mg Tablet,Delayed Release (Dr/Ec) 20 mg PO DAILY oxycodone-acetaminophen [Percocet] 5-325 mg tablet 1 tab PO Q8H PRN (Reason: pain) 3 Days Qty: 10 0RF cephalexin [cephalexin] 500 mg capsule 500 mg PO Q12 3 Days Qty: 6 0RF Primary Care Provider: Raymundo Singleton Referrals: Raymundo Singleton MD [Primary Care Provider] - 5-7 Days Disposition Disposition: Home, Self Care
[2023-01-15] MEDS: Aspirin 81 MG TAB.CHEW 324 MG PO (10:46)
--- NOTE | 2023-01-15 11:06 | NURSING ---
CBC CLOTTED, DRAW AND EXTRA GREEN TOP
[2023-01-15 11:20] LABS: Anion Gap 6 (5-15); BUN 13 mg/dL (7-18); Calcium,Total 8.8 mg/dL (8.5-10.1); Chloride 107 mmol/L (98-107); Creatinine, Serum 0.81 mg/dL (0.55-1.02); EST Glomerular Filtration Rate 77 mL/min (>60); Est Glom Filt Rate - Afr Amer 93 mL/min (>60); Estimated Creatinine Clearance 57.13 ml/min; Glucose 120 mg/dL (74-106); Potassium 4.4 mmol/L (3.5-5.1); Sodium Level 137 mmol/L (136-145); Troponin-I HS (w/2H Reflex) 6 pg/mL (3.0-54.0)
[2023-01-15 11:26] LABS: Absolute Lymphocyte Count 2.82 X10^3/uL (0.83-4.51); Absolute Neutrophil Count 4.1 X10^3/uL (2.0-7.7); Basophil# 0.04 X10^3/uL; Basophil% 0.5 % (0-1); Eosinophil# 0.15 X10^3/uL; Hemoglobin 14.4 g/dL (12.0-15.0); Lymphocyte # 2.82 X10^3/ul (0.83-4.51); Lymphocyte % 37.2 % (19-41); Mean Corp Hgb Conc 34.3 g/dL (32-36); Mean Corpuscular Hgb 29.3 pg (27.0-32.0); Mean Corpuscular Volume 85.4 fL (81-99); Mean Platelet Vol. 8.7 fl (6.2-12.0); Monocyte# 0.45 X10^3/uL; Monocyte% 5.9 % (0-10); NRBC Flagged by Analyzer 0 % (0-5); Platelet Count 272 K/mm3 (150-450); RBC Distribution Width CV 12.6 % (11.6-14.6); RBC Distribution Width SD 39.1 fl (35.1-43.9); Red Blood Count 4.92 M/mm3 (4.2-5.4); White Blood Count 7.6 K/mm3 (4.4-11.0)
--- NOTE | 2023-01-15 11:57 | ED.RN ---
this rn in room as pt is screaming. pt without a call light. this rn gives pt a call light. pt calls this rn a fucking bitch
[2023-01-15 12:16] VITALS: BP 142/76; PULSE 76; RESP 14; O2SAT 99
[2023-01-15 12:57] LABS: Reflex Troponin-HS? (from REC) Y
[2023-01-15 13:35] LABS: Troponin-I HS 5 pg/mL (3.0-54.0)
[2023-01-15 13:50] VITALS: BP 134/78; PULSE 78; RESP 16; TEMP 36.6; O2SAT 100
[2023-01-15 14:10] VITALS: PULSE 73; RESP 16
== END 2023-01-15 14:11 | disposition home or self-care (01) ==
PROVIDERS: Emergency Provider Emergency Medicine; PCP Family Medicine; Visit Provider Emergency Medicine
DX: R07.9 Chest pain, unspecified (principal); E11.9 Type 2 diabetes mellitus without complications; E78.5 Hyperlipidemia, unspecified; I25.10 Atherosclerotic heart disease of native coronary artery without angina pectoris; I10 Essential (primary) hypertension; Z87.891 Personal history of nicotine dependence; Z79.899 Other long term (current) drug therapy; Z79.84 Long term (current) use of oral hypoglycemic drugs; F32.A Depression, unspecified; Z86.73 Personal history of transient ischemic attack (TIA), and cerebral infarction without residual deficits; F41.9 Anxiety disorder, unspecified; K21.9 Gastro-esophageal reflux disease without esophagitis
CPT/HCPCS: 71045; 80048; 84484; 85025; 93005; 99285; A4216

== ENCOUNTER 2023-08-03 17:00 | Emergency (ER) | payer MEDICARE, MEDICAID, SELFPAY ==
[2023-08-03 17:01] VITALS: BP 146/106; PULSE 72; RESP 16; TEMP 35.8; O2SAT 96; BMI 36.8
--- OUTSIDE RECORDS SUMMARY | 2023-08-03 17:49 | XMS RPT_ITS | CCD ---
Author Name Unknown Address [address] [place] [address] Organization [facility] Care Team Providers Care Director [facility] Name Role Phone NO, DOCTOR ON Consulting Unavailable NO, DOCTOR ON Referring Unavailable KHOI SMITH MD Admitting Unavailable KHOI SMITH MD Attending Unavailable KHOI SMITH MD Primary Care Unavailable [facility], [place] Unavailable Jl Singleton MD Primary Care Provider [facility], [place] Unavailable Jl Singleton MD Primary Care Provider [facility], [place] Unavailable Jl Singleton MD Primary Care Provider [facility], [place] Unavailable Jl Singleton MD Primary Care Provider JL SINGLETON Primary Care Unavailab ANDREW Erwin Referring Unavailable PODLOGARMARGO Attending Unavailable JL SINGLETON Primary Care Unavailab le PODLOGAR, MARGO Referring Unavailable JL SINGLETON Primary Care Unavailab le PODLOGARMARGO Attending Unavailable JL SINGLETON Primary Care Unavailab le PODLOGAR, MARGO Referring Unavailable JL SINGLETON Primary Care Unavailab le PODLOGARMARGO Referring Unavailable JL SINGLETON Primary Care Unavailab le PODLOGAR, MARGO Referring Unavailable JL SINGLETON Primary Care Unavailab le JL SINGLETON Referring Unavailab le JL SINGLETON Primary Care Unavailab le BURSLEY, CHRISTOPHER B Primary Care Unavailab ANDREW Erwin Attending Unavailable JL SINGLETON Referring Unavailab JL Freeman Primary Care Unavailab kayden KNLEE SKINNER Referring Unavailable JL SINGLETON Primary Care Unavailab le YORDY, CELIA SIMS Attending Unavailab kayden YORDYCELIA ARMENTA Referring Unavailab le JL SINGLETON Primary Care Unavailab le PODLOGAR, MARGO Attending Unavailable JL SINGLETON Primary Care Unavailab le PODLOGAR, MARGO Attending Unavailable JL SINGLETON Primary Care Unavailab le PODLOGAR, MARGO Attending Unavailable JL SINGLETON Primary Care Unavailab JL Freeman Referring Unavailab JL Freeman Primary Care Unavailab ANDREW Erwin Attending Unavailable JL SINGLETON Primary Care Unavailab le PODLOGAR, MARGO Attending Unavailable JL SINGLETON Primary Care Unavailab le Allergies Allergy Classification Reported Allergen(s) Allergy Type Date of Onset Reaction(s) Facility (20 sources) Pollen; Translations: [POLLEN] Allergy to substance 3 Other: See Comments [facility] Medications Current Medications Medication Drug Class(es) Dates Sig (Normalized) Sig (Original) atorvastatin 10 mg oral tablet (20 sources) HMG-CoA Reductase Inhibitor Start: 08-11-2021 End: 08-06-2023 take 1 tablet by mouth once daily at bedtime for hyperlipidemia atorvastatin (LIPITOR) 10 mg tablet Take 1 tablet by mouth daily at bedtime. For cholesterol. 90 tablet 1 02/07/2023 08/06/2023 Active Completed/Discontinued Medications Medication Drug Class(es) Dates Sig (Normalized) Sig (Original) amLODIPine 5 mg oral tablet (20 sources) Dihydropyridine Calcium Channel Huong Start: 02-07-2023 take 1.5 tablets by mouth once daily amLODIPine (NORVASC) 5 mg tablet Indications: Essential hypertension Take 1.5 tablets by mouth once daily. 135 tablet 3 02/07/2023 Active Problems Active Problems Problem Classification Problem Date Documented Date Episodic/Chronic Abdominal pain (2 sources) Epigastric pain; Translations: [Epigastric pain] Episodic Anxiety disorders (20 sources) Anxiety; Translations: [Anxiety disorder, unspecified] Onset: 12-29-2013 12-29-2013 Chronic Cardiac dysrhythmias (20 sources) Ventricular premature beats; Translations: [Ventricular premature depolarization] Onset: 11-24-2021 Chronic Cardiac dysrhythmias (1 source) Palpitations; Translations: [Palpitations] Episodic Coronary atherosclerosis and other heart disease (20 sources) Calcification of coronary artery; Translations: [Atherosclerotic heart disease of [place] coronary artery without angina pectoris] Onset: 12-31-2021 Chronic Diabetes mellitus without complication (20 sources) Type 2 diabetes mellitus without complication; Translations: [Type 2 diabetes mellitus without complications] Onset: 07-22-2010 07-13-2021 Chronic Disorders of lipid metabolism (20 sources) Mixed hyperlipidemia; Translations: [Mixed hyperlipidemia] Onset: 07-22-2010 01-31-2020 Chronic Esophageal disorders (2 sources) Gastroesophageal reflux disease; Translations: [Gastro-esophageal reflux disease without esophagitis] Chronic Essential hypertension (20 sources) Hypertensive disorder; Translations: [Essential (primary) hypertension] Onset: 07-22-2010 07-22-2010 Chronic Genitourinary symptoms and ill-defined conditions (20 sources) Genuine stress incontinence; Translations: [Stress incontinence (female) (male)] Onset: 08-04-2016 08-04-2016 Chronic Immunizations and screening for infectious disease (2 sources) Vaccination needed; Translations: [Encounter for immunization] Onset: 05-19-2023 Episodic Mood disorders (20 sources) Depressive disorder; Translations: [Depression] Onset: 07-22-2010 07-22-2010 Chronic Nonspecific chest pain (4 sources) Chest discomfort; Translations: [Other chest pain] Episodic Other aftercare (1 source) Patient encounter status; Translations: [Other snf (current) drug therapy] Episodic Other non-traumatic joint disorders (1 source) Hip pain; Translations: [Pain in right hip] 02-28-2023 Episodic Other non-traumatic joint disorders (1 source) Pain in right hip; Translations: [Bilateral hip pain] Onset: 05-19-2023 Episodic Other non-traumatic joint disorders (1 source) Pain in left hip; Translations: [Bilateral hip pain] Onset: 05-19-2023 Episodic Other nutritional; endocrine; and metabolic disorders (20 sources) Obese class II; Translations: [Obesity, unspecified] Onset: 06-25-2020 06-25-2020 Chronic Other nutritional; endocrine; and metabolic disorders (12 sources) Obese class I; Translations: [Obesity, unspecified] Onset: 09-08-2022 Chronic Other nutritional; endocrine; and metabolic disorders (1 source) Obesity, unspecified; Translations: [Obesity, Class I, BMI 30-34.9] Onset: 09-08-2022 Chronic Other skin disorders (1 source) Mass of subcutaneous tissue of back; Translations: [Localized swelling, mass and lump, trunk] Episodic Other upper respiratory disease (20 sources) Allergic rhinitis; Translations: [Allergic rhinitis, unspecified] Onset: 07-22-2010 07-22-2010 Chronic Residual codes; unclassified (20 sources) Obstructive sleep apnea syndrome; Translations: [Obstructive sleep apnea (adult) (pediatric)] Onset: 10-01-2021 10-01-2021 Chronic Residual codes; unclassified (1 source) Obstructive sleep apnea (adult) (pediatric); Translations: [PARVIN on CPAP] Onset: 12-01-2021 Chronic Residual codes; unclassified (1 source) Dependence on other enabling machines and devices; Translations: [PARVIN on CPAP] Onset: 12-01-2021 Chronic Skin and subcutaneous tissue infections (1 source) Impetigo; Translations: [Impetigo, unspecified] Episodic Thyroid disorders (20 sources) Acquired hypothyroidism; Translations: [Hypothyroidism, unspecified] Onset: 07-22-2010 01-31-2020 Chronic Past or Other Problems Problem Classification Problem Date Documented Date Episodic/Chronic Genitourinary symptoms and ill-defined conditions (20 sources) Retention of urine; Translations: [Retention of urine, unspecified] Onset: 08-04-2016 08-04-2016 Episodic Nonmalignant breast conditions (2 sources) Mastodynia; Translations: [Mastodynia] Onset: 06-02-2022 Episodic Other aftercare (20 sources) Polypharmacy ; Translations: [Other long goods drier (current) drug therapy] Onset: 08-04-2016 08-04-2016 Episodic Other aftercare (1 source) Other snf (current) drug therapy; Translations: [Medication management] Onset: 08-28-2022 Episodic Other nutritional; endocrine; and metabolic disorders (1 source) Abnormal weight loss; Translations: [Weight loss] Onset: 08-26-2022 Episodic Other screening for suspected conditions (not mental disorders or infectious disease) (20 sources) Electrocardiogram abnormal; Translations: [Abnormal electrocardiogram [ECG] [EKG]] Onset: 11-24-2021 Episodic Spondylosis; intervertebral disc disorders; other back problems (20 sources) Low back pain; Translations: [Low back pain] Onset: 07-22-2010 07-22-2010 Episodic Results Test Name Value Interpretation Reference Range Facil ity Vital Signs Date Time Vital Sign Value Performing Clinician Garry mata 03-11-2023 11:10-0400 Body weight 88.54 kg Margo Podlogar APPLICATION PROGRAMMER ANALYST.OUTREACH PROFESSIONAL Work Phone: [facility] 03-11-2023 11:10-0400 Diastolic blood pressure 70 mm[Hg] Margo Podlogar APPLICATION PROGRAMMER ANALYST.OUTREACH PROFESSIONAL Work Phone: [facility] 03-11-2023 11:10-0400 Heart rate 68 /min Margo Podlogar APPLICATION PROGRAMMER ANALYST.OUTREACH PROFESSIONAL Work Phone: [facility] 03-11-2023 11:10-0400 Respiratory rate 18 /min Margo Podlogar APPLICATION PROGRAMMER ANALYST.OUTREACH PROFESSIONAL Work Phone: [facility] 03-11-2023 11:10-0400 SaO2% (BldA) [Mass fraction] 95 % Margo Podlogar APPLICATION PROGRAMMER ANALYST.OUTREACH PROFESSIONAL Work Phone: [facility] 03-11-2023 11:10-0400 Systolic blood pressure 112 mm[Hg] Margo Podlogar APPLICATION PROGRAMMER ANALYST.OUTREACH PROFESSIONAL Work Phone: [facility] 02-28-2023 10:18-0400 Body weight 90.72 kg Margo Podlogar APPLICATION PROGRAMMER ANALYST.OUTREACH PROFESSIONAL Work Phone: [facility] 02-28-2023 10:18-0400 Diastolic blood pressure 84 mm[Hg] Margo Podlogar APPLICATION PROGRAMMER ANALYST.OUTREACH PROFESSIONAL Work Phone: [facility] 02-28-2023 10:18-0400 Heart rate 58 /min Margo Podlogar APPLICATION PROGRAMMER ANALYST.OUTREACH PROFESSIONAL Work Phone: [facility] 02-28-2023 10:18-0400 Respiratory rate 18 /min Margo Podlogar APPLICATION PROGRAMMER ANALYST.OUTREACH PROFESSIONAL Work Phone: [facility] 02-28-2023 10:18-0400 SaO2% (BldA) [Mass fraction] 94 % Margo Podlogar APPLICATION PROGRAMMER ANALYST.OUTREACH PROFESSIONAL Work Phone: [facility] 02-28-2023 10:18-0400 Systolic blood pressure 122 mm[Hg] Margo Podlogar APPLICATION PROGRAMMER ANALYST.OUTREACH PROFESSIONAL Work Phone: [facility] 01-21-2023 11:37-0400 Body temperature 97.2 [degF] Margo Podlogar APPLICATION PROGRAMMER ANALYST.OUTREACH PROFESSIONAL Work Phone: [facility] 01-21-2023 11:37-0400 Body weight 88.63 kg Margo Podlogar APPLICATION PROGRAMMER ANALYST.OUTREACH PROFESSIONAL Work Phone: [facility] 01-21-2023 11:37-0400 Diastolic blood pressure 68 mm[Hg] Margo Podlogar APPLICATION PROGRAMMER ANALYST.OUTREACH PROFESSIONAL Work Phone: [facility] 01-21-2023 11:37-0400 Heart rate 55 /min Margo Podlogar APPLICATION PROGRAMMER ANALYST.OUTREACH PROFESSIONAL Work Phone: [facility] 01-21-2023 11:37-0400 Respiratory rate 16 /min Margo Podlogar APPLICATION PROGRAMMER ANALYST.OUTREACH PROFESSIONAL Work Phone: [facility] 01-21-2023 11:37-0400 SaO2% (BldA) [Mass fraction] 95 % Margo Podlogar APPLICATION PROGRAMMER ANALYST.OUTREACH PROFESSIONAL Work Phone: [facility] 01-21-2023 11:37-0400 Systolic blood pressure 104 mm[Hg] Margo Podlogar APPLICATION PROGRAMMER ANALYST.OUTREACH PROFESSIONAL Work Phone: [facility] 11-05-2022 14:02-0400 Body height 154.9 cm Celia Yordy DO Work Phone: [facility] 11-05-2022 14:02-0400 Body weight 88.45 kg Celia Esquivel DO Work Phone: [facility] 04-21-2023 14:02-0400 Diastolic blood pressure 76 mm[Hg] Celia Esquivel DO Work Phone: [facility] 11-05-2022 14:02-0400 Heart rate 53 /min Celia Esquivel DO Work Phone: [facility] 11-05-2022 14:02-0400 SaO2% (BldA) [Mass fraction] 96 % Celia Esquivel DO Work Phone: [facility] 11-05-2022 14:02-0400 Systolic blood pressure 106 mm[Hg] Celia Esquivel DO Work Phone: [facility] 09-08-2022 13:47-0500 Body weight 83.92 kg Margo Podlogar APPLICATION PROGRAMMER ANALYST.OUTREACH PROFESSIONAL Work Phone: [facility] 09-08-2022 13:47-0500 Diastolic blood pressure 78 mm[Hg] Margo Podlogar APPLICATION PROGRAMMER ANALYST.OUTREACH PROFESSIONAL Work Phone: [facility] 09-08-2022 13:47-0500 Heart rate 53 /min Margo Podlogar APPLICATION PROGRAMMER ANALYST.OUTREACH PROFESSIONAL Work Phone: [facility] 09-08-2022 13:47-0500 Respiratory rate 14 /min Margo Podlogar APPLICATION PROGRAMMER ANALYST.OUTREACH PROFESSIONAL Work Phone: [facility] 09-08-2022 13:47-0500 SaO2% (BldA) [Mass fraction] 97 % Margo Podlogar APPLICATION PROGRAMMER ANALYST.OUTREACH PROFESSIONAL Work Phone: [facility] 09-08-2022 13:47-0500 Systolic blood pressure 128 mm[Hg] Margo Podlogar APPLICATION PROGRAMMER ANALYST.OUTREACH PROFESSIONAL Work Phone: [facility] 08-12-2022 14:35-0500 Body temperature 97.11 [degF] Makayla Villareal APPLICATION PROGRAMMER ANALYST.OUTREACH PROFESSIONAL Work Phone: [facility] 08-12-2022 14:35-0500 Body weight 83.19 kg Makayla Villareal APPLICATION PROGRAMMER ANALYST.OUTREACH PROFESSIONAL Work Phone: [facility] 01-26-2023 14:35-0500 Diastolic blood pressure 70 mm[Hg] Makayla Villareal APRN.OUTREACH PROFESSIONAL Work Phone: [facility] 08-12-2022 14:35-0500 Heart rate 66 /min Makayla Villareal APRN.OUTREACH PROFESSIONAL Work Phone: [facility] 08-12-2022 14:35-0500 Respiratory rate 21 /min Makayla Villareal APRN.OUTREACH PROFESSIONAL Work Phone: [facility] 08-12-2022 14:35-0500 SaO2% (BldA) [Mass fraction] 94 % Makayla Villareal APRN.OUTREACH PROFESSIONAL Work Phone: [facility] 08-12-2022 14:35-0500 Systolic blood pressure 110 mm[Hg] Makayla Villareal APRN.OUTREACH PROFESSIONAL Work Phone: [facility] 06-07-2022 15:51-0500 Body height 154.9 cm Andrew Goodson MD Work Phone: [facility] 06-07-2022 15:51-0500 Body temperature 97.39 [degF] Andrew Goodson MD Work Phone: [facility] 06-07-2022 15:51-0500 Body weight 84.82 kg Andrew Goodson MD Work Phone: [facility] 06-07-2022 15:51-0500 Diastolic blood pressure 68 mm[Hg] Andrew Goodson MD Work Phone: [facility] 06-07-2022 15:51-0500 Heart rate 72 /min Andrew Goodson MD Work Phone: [facility] 06-07-2022 15:51-0500 SaO2% (BldA) [Mass fraction] 95 % Andrew Goodson MD Work Phone: [facility] 06-07-2022 15:51-0500 Systolic blood pressure 122 mm[Hg] Andrew Goodson MD Work Phone: [facility] 05-03-2022 13:48-0400 Body weight 87.64 kg Jl Singleton MD Work Phone: [facility] 05-03-2022 13:48-0400 Diastolic blood pressure 72 mm[Hg] Jl Singleton MD Work Phone: [facility] 05-03-2022 13:48-0400 Heart rate 55 /min Jl Singleton MD Work Phone: [facility] 05-03-2022 13:48-0400 Respiratory rate 16 /min Jl Singleton MD Work Phone: [facility] 05-03-2022 13:48-0400 SaO2% (BldA) [Mass fraction] 95 % Jl Singleton MD Work Phone: [facility] 05-03-2022 13:48-0400 Systolic blood pressure 136 mm[Hg] Jl Singleton MD Work Phone: [facility] 03-19-2022 14:05-0400 Body weight 87.27 kg Margo Podlogar APPLICATION PROGRAMMER ANALYST.OUTREACH PROFESSIONAL Work Phone: [facility] 03-19-2022 14:05-0400 Diastolic blood pressure 72 mm[Hg] Margo Podlogar APPLICATION PROGRAMMER ANALYST.OUTREACH PROFESSIONAL Work Phone: [facility] 03-19-2022 14:05-0400 Heart rate 58 /min Margo Podlogar APPLICATION PROGRAMMER ANALYST.OUTREACH PROFESSIONAL Work Phone: [facility] 03-19-2022 14:05-0400 Respiratory rate 16 /min Margo Podlogar APPLICATION PROGRAMMER ANALYST.OUTREACH PROFESSIONAL Work Phone: [facility] 03-19-2022 14:05-0400 SaO2% (BldA) [Mass fraction] 94 % Margo Podlogar APPLICATION PROGRAMMER ANALYST.OUTREACH PROFESSIONAL Work Phone: [facility] 03-19-2022 14:05-0400 Systolic blood pressure 104 mm[Hg] Margo Podlogar APPLICATION PROGRAMMER ANALYST.OUTREACH PROFESSIONAL Work Phone: [facility] 03-02-2022 13:21-0400 Body weight 89.54 kg Jl Singleton MD Work Phone: [facility] 03-02-2022 13:21-0400 Diastolic blood pressure 68 mm[Hg] Jl Singleton MD Work Phone: [facility] 03-02-2022 13:21-0400 Heart rate 60 /min Jl Singleton MD Work Phone: [facility] 03-02-2022 13:21-0400 Respiratory rate 16 /min Jl Singleton MD Work Phone: [facility] 03-02-2022 13:21-0400 SaO2% (BldA) [Mass fraction] 95 % Jl Singleton MD Work Phone: [facility] 03-02-2022 13:21-0400 Systolic blood pressure 108 mm[Hg] Jl Singleton MD Work Phone: [facility] 02-24-2022 14:17-0400 Body height 144.8 cm Eva Baker APPLICATION PROGRAMMER ANALYST.OUTREACH PROFESSIONAL Work Phone: [facility] 02-24-2022 14:17-0400 Body weight 89.4 kg Eva Baker APPLICATION PROGRAMMER ANALYST.OUTREACH PROFESSIONAL Work Phone: [facility] 02-24-2022 14:17-0400 Diastolic blood pressure 72 mm[Hg] Eva Baker APPLICATION PROGRAMMER ANALYST.OUTREACH PROFESSIONAL Work Phone: [facility] 02-24-2022 14:17-0400 Heart rate 60 /min Eva Baker APRN.OUTREACH PROFESSIONAL Work Phone: [facility] 02-24-2022 14:17-0400 SaO2% (BldA) [Mass fraction] 96 % Eva Baker APPLICATION PROGRAMMER ANALYST.OUTREACH PROFESSIONAL Work Phone: [facility] 02-24-2022 14:17-0400 Systolic blood pressure 114 mm[Hg] Eva Baker APRN.OUTREACH PROFESSIONAL Work Phone: [facility] 11-24-2021 14:10-0400 Body height 154.9 cm Anais Lynne APRN.OUTREACH PROFESSIONAL Work Phone: [facility] 11-24-2021 14:10-0400 Body weight 89.36 kg Anais Lynne APPLICATION PROGRAMMER ANALYST.OUTREACH PROFESSIONAL Work Phone: [facility] 11-24-2021 14:10-0400 Diastolic blood pressure 68 mm[Hg] Anais Lynne APPLICATION PROGRAMMER ANALYST.OUTREACH PROFESSIONAL Work Phone: [facility] 11-24-2021 14:10-0400 Heart rate 60 /min Anais Lynne APPLICATION PROGRAMMER ANALYST.OUTREACH PROFESSIONAL Work Phone: [facility] 11-24-2021 14:10-0400 SaO2% (BldA) [Mass fraction] 100 % Anais Lynne APPLICATION PROGRAMMER ANALYST.OUTREACH PROFESSIONAL Work Phone: [facility] 11-24-2021 14:10-0400 Systolic blood pressure 126 mm[Hg] Anais Lynne APPLICATION PROGRAMMER ANALYST.OUTREACH PROFESSIONAL Work Phone: [facility] 11-04-2021 13:56-0400 Diastolic blood pressure 58 mm[Hg] [facility] 11-04-2021 13:56-0400 Heart rate 55 /min [facility] 11-04-2021 13:56-0400 Respiratory rate 16 /min [facility] 11-04-2021 13:56-0400 SaO2% (BldA) [Mass fraction] 96 % [facility] 11-04-2021 13:56-0400 Systolic blood pressure 94 mm[Hg] [facility] 10-13-2021 13:21-0400 Body height 154.9 cm Celianitza Esquivel DO Work Phone: [facility] 10-13-2021 13:21-0400 Body weight 86.82 kg Celia Yordy DO Work Phone: [facility] 10-13-2021 13:21-0400 Diastolic blood pressure 86 mm[Hg] Celia Esquivel DO Work Phone: [facility] 10-13-2021 13:21-0400 Heart rate 57 /min Celia Esquivel DO Work Phone: [facility] 10-13-2021 13:210400 SaO2% (BldA) [Mass fraction] 96 % Celia Esquivel DO Work Phone: [facility] 10-13-2021 13:-040 Systolic blood pressure 134 mm[Hg] Celia Caraballoins DO Work Phone: [facility] Encounters Encounter Date Encounter Type Care Provider Facility Start: 05-19-2023 End: 05-19-2023 ambulatory MARGO PODLOGAR Facility:[facility] Start: 05-19-2023 End: 05-20-2023 ambulatory MARGO PODLOGAR Facility:[facility] Start: 04-12-2023 End: 04-13-2023 ambulatory MARGO PODLOGAR Facility:[facility] Start: 03-23-2023 ambulatory Celia mota Yordy DO Work Phone: Cardiology Procedures Date Procedure Procedure Detail Performing Clinician Start: 07-02-2022 Us breast uni real t marsha with image limited Andrew Goodson MD Work Phone: Start: 06-02-2022 Mammography Mammograph y Coordinator Start: 05-03-2022 INFLUENZA VACCINE QUADRIVALENT 6 MO - 64 YRS IM Jl Singleton MD Work Phone: Start: 03-19-2022 Mammography Margo Rodriguezl mikhail WATTOUTREACH PROFESSIONAL Work Phone: Start: 11-04-2021 Cta hrt cornry art/b ypass grfts contrst 3d post Celia Esquivel DO Work Phone: Start: 03-12-2021 Mammography Celia Caraballo rashida DO Work Phone: Start: 07-23-2016 Colonoscopy Celia Ilya armenta DO Work Phone: Plan of Treatment Date Care Activity Detail Author Start: 02-12-2031 Urine microalbumin profile DTAP,TDAP,TD (2 - Td or Tdap) [facility] Start: 07-23-2026 Colonoscopy COLONOSCOPY [facility] Start: 07-23-2026 COLORECTAL CANCER SCREENING COLORECTAL CANCER SCREENING [facility] Start: 03-11-2024 ANNUAL PCP TEAM CHRONIC DISEASE VISIT ANNUAL PCP TEAM CHRONIC DISEASE VISIT [facility] Start: 03-11-2024 BP CONTROLLED (<130/80) BP CONTROLLED (<130/80) [facility] Start: 02-29-2024 ANNUAL PCP TEAM CHRONIC DISEASE VISIT ANNUAL PCP TEAM CHRONIC DISEASE VISIT [facility] Start: 01-22-2024 ANNUAL PCP TEAM CHRONIC DISEASE VISIT ANNUAL PCP TEAM CHRONIC DISEASE VISIT [facility] Start: 01-22-2024 BP CONTROLLED (<130/80) BP CONTROLLED (<130/80) [facility] Start: 11-06-2023 BP CONTROLLED (<130/80) BP CONTROLLED (<130/80) [facility] Start: 09-08-2023 3 comp foot exam completed DIABETIC FOOT EXAM [facility] Start: 09-08-2023 ANNUAL PCP TEAM CHRONIC DISEASE VISIT ANNUAL PCP TEAM CHRONIC DISEASE VISIT [facility] Start: 09-08-2023 BP CONTROLLED (<130/80) BP CONTROLLED (<130/80) [facility] Start: 08-25-2023 ANNUAL PCP TEAM CHRONIC DISEASE VISIT ANNUAL PCP TEAM CHRONIC DISEASE VISIT [facility] Start: 08-25-2023 BP CONTROLLED (<130/80) BP CONTROLLED (<130/80) [facility] Start: 08-12-2023 BP CONTROLLED (<130/80) BP CONTROLLED (<130/80) [facility] Start: 06-07-2023 BP CONTROLLED (<130/80) BP CONTROLLED (<130/80) [facility] Start: 06-02-2023 Mammography MAMMOGRAM [facility] Start: 05-03-2023 ANNUAL PCP TEAM CHRONIC DISEASE VISIT ANNUAL PCP TEAM CHRONIC DISEASE VISIT [facility] Start: 03-19-2023 ANNUAL PCP TEAM CHRONIC DISEASE VISIT ANNUAL PCP TEAM CHRONIC DISEASE VISIT [facility] Start: 03-19-2023 BP CONTROLLED (<130/80) BP CONTROLLED (<130/80) [facility] Start: 03-19-2023 Mammography MAMMOGRAM [facility] Start: 03-18-2023 Influenza vaccination INFLUENZA (#1) [facility] Start: 03-17-2023 Hepatitis B screening URINE ALBUMIN:CREATININE RATIO [facility] Start: 03-11-2023 End: 05-11-2023 ALBUMIN/CREAT RATIO RND UR ALBUMIN/CREAT RATIO RND UR Lab Routine Controlled type 2 diabetes mellitus without complication, without long-term current use of insulin (HCC) Expected: 03/11/2023, Expires: 05/11/2023 [facility] Work Phone: Immunizations Immunization Date Immunization Notes Care Provider Catarina chatterjee 05-03-2022 pneumococcal Conjuga te, unspecified formulation Jl Singleton MD Work Phone: [facility] Work Phone: 05-03-2022 influenza, injectabl e, quadrivalent, contains preservative Jl Singleton MD Work Phone: [facility] 05-03-2022 pneumococcal (PCV20) vaccine, 20 valent (PREVNAR 20) Jl Singleton MD Work Phone: [facility] 02-12-2021 tetanus toxoid, redu itz diphtheria toxoid, and acellular pertussis vaccine, adsorbed Celia Esquivel DO Work Phone: [facility] 03-19-2020 influenza, injectabl e, quadrivalent, contains preservative Celia Esquivel DO Work Phone: [facility] 04-24-2012 influenza virus vaccine, unspecified formulation Celia Esquivel DO Work Phone: [facility] 04-24-2012 pneumococcal polysaccharide vaccine, 23 valent Celia Esquivel DO Work Phone: [facility] Payers Date Payer Category Payer Medicaid [employer] [id number] 2019-Present [phone] [address] [place] [address] Medicaid [id number] 2019 Medicare [id number] 2019 Medicare [employer] [id number] 2019-Present [phone] [address] [place] [address] Medicare [id number] 2019 Unknown [id number] 1965 Unknown [id number] Social History Date Type Detail Facility Start: 09-18-2012 End: 03-02-2022 Tobacco smoking status NHIS Occasional tobacco smoker [facility] Work Phone: End: 08-18-2022 History of tobacco use Cigarette Smoker [facility] Work Phone: Start: 09-18-2012 End: 08-08-2022 Cigarettes smoked current (pack per day) - Reported 0.3 [facility] Start: 09-18-2012 End: 09-08-2022 Tobacco use and exposure Smokeless tobacco non-user [facility] Work Phone: Start: 10-01-2021 End: 03-11-2023 Alcohol intake Current drinker of alcohol (finding) [facility] Start: 09-30-2020 End: 09-23-2021 History SDOH Alcohol Frequency 2 [facility] Start: 09-30-2020 End: 09-23-2021 History SDOH Alcohol Std Drinks 1 [facility] Start: 06-25-2020 History SDOH Alcohol Comment beer a month [facility] Start: 09-30-2020 History SDOH Social Connections Phone 3 [facility] Start: 09-30-2020 History SDOH Social Connections Get Together 98 [facility] Start: 09-30-2020 History SDOH Social Connections Living 5 [facility] Start: 09-30-2020 History SDOH Physical Activity MPS 4 [facility] Start: 09-30-2020 Education 21 [facility] Start: 11-15-2012 Tobacco Comment 6 cigs per day [facility] Start: 1965 Sex Assigned At Female [facility] Start: 09-21-2021 End: 06-07-2022 Exposure to SARS-CoV-2 (event) Not sure [facility] Start: 06-07-2022 Tobacco smoking status WAIS Smokes tobacco daily [facility] Start: 09-08-2022 Tobacco smoking status NHIS Ex-smoker [facility] Work Phone: End: 08-18-2022 History of tobacco use Current smoker [facility] Work Phone: Start: 08-08-2022 End: 01-21-2023 Tobacco use panel [facility] National Score (1-10 0), lower number is lower risk 70 [facility] Start: 07-31-2020 Gender identity Identifies as female gender (finding) [facility] Start: 07-31-2020 Sexual orientation Heterosexual (finding) [facility] Do you belong to any clubs or organizations such as evangelical groups, unions, [employer] or athletic groups, or school groups? No [facility] Are you now , , , , never or living with a partner? [facility] How often to you hav e a drink containing alcohol? Monthly or less [facility] How many standard dr inks containing alcohol do you have on a typical day? 1 or 2 [facility] How often do you hav e 6 or more drinks on 1 occasion? Never [facility] How hard is it for y ou to pay for the very basics like food, housing, medical care, and heating Not very hard [facility] Do you feel stress - tense, restless, nervous, or anxious, or unable to sleep at night because your mind is troubled all the time - these days [OSQ] Rather much [facility] (I/We) worried wheth er (my/our) food would run out before (I/we) got money to buy more. Never true [facility] Medical Equipment Procedure Code Equipment Code Equipment Origin al Text Equipment Identifier Dates Test blood sugar (s) 1 times daily. Dx: Type 2 DM - Controlled E11.9 Insulin: No Start: 03-11-2023 Clinical Notes 10-09-2021 to 05-19-2023 Telephone Encounter - Eriberto Broussard RN - 03/23/2023 11:47 AM EDTPatient Margo Ulloa APRN.CNP - 03/11/2023 11:26 AM EDTTelephone Encounter - Eriberto Broussard RN - 03/01/2023 10:08 AM EDT Note Date & Type Note Facility 05-19-2023 Note HNO ID: [id number] Author: Anjali Lopez RT(R) Service: Radiology Author Type: Technologist Type: Progress Notes Filed: 05/19/2023 12:58 PM Note Text: Radiology Service Progress Note PATIENT NAME: Bharati Paez DATE OF SERVICE: May 19, 2023 TIME: 12:40 PM PATIENT IDENTITY VERIFICATION COMPLETED USING TWO (2) IDENTIFIERS: Name and Date of confirmed by patient verbally. FALL SCREENING: Has the patient had 2 falls in the last year or 1 fall with injury or currently using an Ambulatory Assistive Device (Walker, Cane, Wheelchair, Crutches, etc.)? No PATIENT GENDER DATA: Female. status: : No status: NO. PATIENT RELEVANT IMPLANT DATA REVIEWED: Not Applicable RADIOLOGY DEPARTMENT: General X-ray: Exam(s) Completed: Spine X-Ray(s): Lumbar AP / LAT / L5-S1 Pelvis X-Ray: Pelvis with Hip Bilateral PERIPHERAL IV DATA: Not applicable SIGNED BY: RT Bridget(R) May 19, 2023 12:40 PM [facility] 05-19-2023 Note HNO ID: [id number] Author: PodMargo kraft APRN.OUTREACH PROFESSIONAL Service: ? Author Type: Nurse Practitioner Type: Progress Notes Filed: 05/19/2023 1:27 PM Note Text: 05/19/2023 Patient presents with: Pain: Bilateral hip pain x 3 years but has gotten really bad last 3 weeks SUBJECTIVE: This is a 57 year old that is here today for Above Complaints. ONSET: three years ago, worsened over the past three weeks LOCATION: bilateral hips DURATION: constant CHARACTERISTICS: sharp with movement and aching AGGRAVATING FEATURES: with movement ALLEVIATING FEATURES: tylenol and ibuprofen. Voltaren doesn't work on it RADIATION: around lower back around to hips Denies past/present hip/back injury or surgery, saddle anaesthesia, extremity numbness, tingling, weakness, urinary/bowel incontinence or inability PAST MEDICAL HISTORY Diagnosis Date Anxiety Bipolar disorder (HCC) Coronary artery disease [facility] 11/2020: mild diffuse disease to RCA, 30-40% stenosis to mid-LAD Degenerative disc disease Depression Diabetes (HCC) Environmental allergies Essential hypertension Fatty liver noted 2017 sonogram Heart abnormality High cholesterol Hypothyroidism PARVIN on CPAP Severe Suicide attempt (HCC) 06/2012 ALLERGIES Pollen MEDICATIONS Current Outpatient Medications Medication Sig levothyroxine (SYNTHROID) 137 mcg tablet TAKE 1 TABLET BY MOUTH ONCE DAILY ON AN EMPTY STOMACH FOR THYROID diclofenac (VOLTAREN ARTHRITIS PAIN) 1 % topical gel Apply 4 g to affected area four times daily. amLODIPine (NORVASC) 5 mg tablet Take 1.5 tablets by mouth once daily. metFORMIN (GLUCOPHAGE) 500 mg tablet Take 1 tablet by mouth twice daily. atorvastatin (LIPITOR) 10 mg tablet Take 1 tablet by mouth daily at bedtime. For cholesterol. losartan (COZAAR) 100 mg tablet Take 1 tablet by mouth once daily. omeprazole (PRILOSEC) 20 mg capsule Take 1 capsule by mouth daily before breakfast. 1/2 hr before meal. metoprolol succinate ER (TOPROL XL) 25 mg 24 hr tablet Take 1 tablet by mouth once daily. boric acid vaginal suppository 600 mg (CPD) Use 1 Suppository vaginally one time a week. Unwrap and insert as directed. Cholecalciferol, Vitamin D3, 125 mcg (5,000 unit) cap TAKE 1 CAPSULE BY MOUTH ONCE DAILY sertraline (ZOLOFT) 50 mg tablet Take 150 mg by mouth once daily. hydrOXYzine HCl (ATARAX) 50 mg tablet Take 1-2 tablets by mouth twice daily as needed for itching/rash or anxiety. (Patient taking differently: Take 50-100 mg by mouth two times a day as needed for anxiety (uses prn anxiety).) aspirin, enteric coated (ECOTRIN LOW STRENGTH) 81 mg EC tablet Take 1 tablet by mouth once daily. polyethylene glycol 3350 (MIRALAX) 17 gram/dose powder Take 17 g by mouth once daily. As needed for constipation traZODone (DESYREL) 100 mg tablet Take 2 tablets by mouth at bedtime as needed. buPROPion XL (WELLBUTRIN XL) 150 mg 24 hr tablet Take 1 tablet by mouth once daily. gabapentin (NEURONTIN) 600 mg tablet Take 600 mg by mouth three times daily. blood sugar diagnostic (BLOOD GLUCOSE TEST) test strip Test blood sugar(s) 1 times daily. Dx: Type 2 DM - Controlled E11.9 Insulin: No nicotine (NICODERM) 14 mg/24 hr Apply 1 Patch as directed every 24 hours. No smoking with patch. nicotine (NICODERM) 7 mg/24 hr Apply 1 Patch as directed every 24 hours for 14 days. CPAP Initiate CPAP @ 11 cm of water with humidification. Mask (per patient preference) optional chin strap (if indicated) , filters, tubing, humidifier and lifetime supplies. RING PESSARY VAGINAL Use vaginally as directed. No current facility-administered medications for this visit. Medications and allergies reviewed by this provider. SOCIAL HISTORY Social History Tobacco Use Smoking status: Former Packs/day: 1 Types: Cigarettes Quit date: 08/18/2022 Years since quittin.7 Smokeless tobacco: Never Vaping Use Vaping Use: current everyday user Substances: THC, CBD Substance Use Topics Alcohol use: Yes Comment: beer a month Drug use: Yes Comment: occasional marijuana- 1-2 times per month REVIEW OF SYSTEMS All other reviewed and negative other than HPI. OBJECTIVE: BP 126/72 Pulse (!) 54 Resp 18 Wt 90.1 kg (198 lb 9.6 oz) LMP 12/15/2013 SpO2 95% BMI 37.53 kg/m? . Vital signs reviewed by this provider. APPEARANCE Well appearing, alert, in no acute distress, well-hydrated, well nourished. Back: No obvious deformity, swelling, rashes, erythema or ecchymosis. FROM with pain HIPS: No obvious deformity, erythema, swelling or ecchymosis. FROM. Discomfort bilateral with internal rotation. No crepitus or clunking. Normal gait Shingrix Vaccine(1 of 2) Never done Pap Testing due on 09/10/2021 HPV Testing due on 09/10/2021 Dilated Retinal Exam due on 02/19/2022 Influenza Vaccine(1) due on 03/18/2023 Covid-19 Vaccine(3 - season) due on 03/18/2023 Mammogram Screening due on 06/02/2023 Diabetic Fo (more content not included)... [facility] 03-23-2023 Miscellaneous Notes Yes, she could take it sparingly. Maybe once or twice a week. Per Dr. Esquivel documented in this encounter [facility] 03-11-2023 Note HNO ID: [id number] Author: Margo Walker APRN.OUTREACH PROFESSIONAL Service: ? Author Type: Nurse Practitioner Type: Progress Notes Filed: 03/11/2023 2:27 PM Note Text: 03/11/2023 Patient presents with: F/U 6 months SUBJECTIVE: This is a 57 year old that is here today for Above Complaints.. DIABETES MELLITUS: Since our last visit she denies excessive thirst or increased frequency of urination, chest pain or dyspnea , numbness, tingling or pain in extremities, new or unusual visual symptoms, low sugar/hypoglycemic reactions, weight loss/gain, lightheadedness/dizziness, and bowel changes/loose stools Follows a diabetic diet most of the time. She is compliant with medication(s) and is tolerating med(s) without any side effects. She reports checking her glucose on a infrequent to not at all basis schedule . Patient's last HgA1C was Hemoglobin A1C (%) Date Value 08/28/2022 5.8 03/17/2022 6.4 02/12/2021 6.1 02/29/2020 5.9 ) Last Ophthalmology exam was per patient needs to schedule HTN: Patient is compliant with meds Yes Monitors bp at home: No. Denies side effects: Yes. Chest pain: No. Dyspnea: No. Edema: No. Palpitations: No. Syncope: No. Headache: No. Dizziness: No. HYPERLIPIDEMIA: Patient is taking medications: Yes. Patient is watching diet: Yes. Patient denies myalgias: Yes. Patient denies gi upset: Yes HYPOTHYROIDM: taking synthroid as prescribed without side effects PARVIN: uses nightly. Feel refreshed when she get up CAD: following with cardiology with last appointment on 11/05/2022. No medication changes at this time Bipolar: follows up with psychiatry at the counseling center every three months. No recent changes in medications. PAST MEDICAL HISTORY Diagnosis Date Anxiety Bipolar disorder (HCC) Coronary artery disease [facility] 11/2020: mild diffuse disease to RCA, 30-40% stenosis to mid-LAD Degenerative disc disease Depression Diabetes (HCC) Environmental allergies Essential hypertension Fatty liver noted 2017 sonogram Heart abnormality High cholesterol Hypothyroidism PARVIN on CPAP Severe Suicide attempt (HCC) 06/2012 ALLERGIES Pollen MEDICATIONS Current Outpatient Medications Medication Sig diclofenac (VOLTAREN ARTHRITIS PAIN) 1 % topical gel Apply 4 g to affected area four times daily. amLODIPine (NORVASC) 5 mg tablet Take 1.5 tablets by mouth once daily. metFORMIN (GLUCOPHAGE) 500 mg tablet Take 1 tablet by mouth twice daily. atorvastatin (LIPITOR) 10 mg tablet Take 1 tablet by mouth daily at bedtime. For cholesterol. losartan (COZAAR) 100 mg tablet Take 1 tablet by mouth once daily. omeprazole (PRILOSEC) 20 mg capsule Take 1 capsule by mouth daily before breakfast. 1/2 hr before meal. nicotine (NICODERM) 14 mg/24 hr Apply 1 Patch as directed every 24 hours. No smoking with patch. levothyroxine (SYNTHROID) 137 mcg tablet Take 1 tablet by mouth once daily. Take on empty stomach. For thyroid. nicotine (NICODERM) 7 mg/24 hr Apply 1 Patch as directed every 24 hours for 14 days. metoprolol succinate ER (TOPROL XL) 25 mg 24 hr tablet Take 1 tablet by mouth once daily. boric acid vaginal suppository 600 mg (CPD) Use 1 Suppository vaginally one time a week. Unwrap and insert as directed. CPAP Initiate CPAP @ 11 cm of water with humidification. Mask (per patient preference) optional chin strap (if indicated) , filters, tubing, humidifier and lifetime supplies. Cholecalciferol, Vitamin D3, 125 mcg (5,000 unit) cap TAKE 1 CAPSULE BY MOUTH ONCE DAILY sertraline (ZOLOFT) 50 mg tablet Take 150 mg by mouth once daily. hydrOXYzine HCl (ATARAX) 50 mg tablet Take 1-2 tablets by mouth twice daily as needed for itching/rash or anxiety. (Patient taking differently: Take 50-100 mg by mouth twice daily as needed for anxiety (uses prn anxiety).) RING PESSARY VAGINAL Use vaginally as directed. aspirin, enteric coated (ECOTRIN LOW STRENGTH) 81 mg EC tablet Take 1 tablet by mouth once daily. polyethylene glycol 3350 (MIRALAX) 17 gram/dose powder Take 17 g by mouth once daily. As needed for constipation traZODone (DESYREL) 100 mg tablet Take 2 tablets by mouth at bedtime as needed. buPROPion XL (WELLBUTRIN XL) 150 mg 24 hr tablet Take 1 tablet by mouth once daily. gabapentin (NEURONTIN) 600 mg tablet Take 600 mg by mouth three times daily. No current facility-administered medications for this visit. Medications and allergies reviewed by this provider. SOCIAL HISTORY Social History Tobacco Use Smoking status: Former Packs/day: 1 Types: Cigarettes Quit date: 08/18/2022 Years since quittin.5 Smokeless tobacco: Never Vaping Use Vaping Use: current everyday user Substances: THC, CBD Substance Use Topics Alcohol use: Yes Comment: beer a month Drug use: Yes Comment: occasional marijuana- 1-2 times per month REVIEW OF SYSTEMS All other reviewed and negative other than HPI. OBJECTIVE: BP 112/70 Puls (more content not included)... [facility] 03-11-2023 Instructions Margo Walker APRN.OUTREACH PROFESSIONAL - 03/11/2023 11:41 AM EDT Images from the original note were not included. To schedule a diabetic eye exam at the [facility] [place], please call: [phone] Online resources to learn more [email or web address] inopathy https://www.diabetes.org/diabete s/complications/eye-complication s https://www.aoa.org/healthy-eyes /jbx-exl-wonuxr-conditions/diabe tic-retinopathy?sso=y https://www.GTx.Crowdability References 1. National Diabetes Statistics Report 2020: Estimates of Diabetes and Its [place] in the [facility]. Center for Disease Control and Prevention; 2020. Available at: https://www.cdc.gov/diabetes/pdf s/data/statistics/national-diabe iwf-ypbvmhovhk-hjucst.pdf 2. Monika Aly, Claire Abad, Erasmo Salcido, Jemima Hodge, Ann Marie Toure, Juve Valadez, Compa Stafford, Eriberto Dahl; Diabetic Retinopathy: A Position Statement by the [place] [employer]. Diabetes Care 15 September 2016; 40 (3): 412-418 documented in this encounter [facility] 03-11-2023 History of Presen t illness Narrative 03/11/2023 Patient presents with: F/U 6 months SUBJECTIVE: This is a 57 year old that is here today for Above Complaints.. DIABETES MELLITUS: Since our last visit she denies excessive thirst or increased frequency of urination, chest pain or dyspnea , numbness, tingling or pain in extremities, new or unusual visual symptoms, low sugar/hypoglycemic reactions, weight loss/gain, lightheadedness/dizziness, and bowel changes/loose stools Follows a diabetic diet most of the time. She is compliant with medication(s) and is tolerating med(s) without any side effects. She reports checking her glucose on a infrequent to not at all basis schedule . Patient's last HgA1C was Hemoglobin A1C (%) Date Value 08/28/2022 5.8 03/17/2022 6.4 02/12/2021 6.1 02/29/2020 5.9 ) Last Ophthalmology exam was per patient needs to schedule HTN: Patient is compliant with meds Yes Monitors bp at home: No. Denies side effects: Yes. Chest pain: No. Dyspnea: No. Edema: No. Palpitations: No. Syncope: No. Headache: No. Dizziness: No. HYPERLIPIDEMIA: Patient is taking medications: Yes. Patient is watching diet: Yes. Patient denies myalgias: Yes. Patient denies gi upset: Yes HYPOTHYROIDM: taking synthroid as prescribed without side effects PARVIN: uses nightly. Feel refreshed when she get up CAD: following with cardiology with last appointment on 11/05/2022. No medication changes at this time Bipolar: follows up with psychiatry at the counseling center every three months. No recent changes in medications. PAST MEDICAL HISTORY Diagnosis Date Anxiety Bipolar disorder (HCC) Coronary artery disease [facility] 11/2020: mild diffuse disease to RCA, 30-40% stenosis to mid-LAD Degenerative disc disease Depression Diabetes (HCC) Environmental allergies Essential hypertension Fatty liver noted 2017 sonogram Heart abnormality High cholesterol Hypothyroidism PARVIN on CPAP Severe Suicide attempt (HCC) 06/2012 ALLERGIES Pollen MEDICATIONS Current Outpatient Medications Medication Sig diclofenac (VOLTAREN ARTHRITIS PAIN) 1 % topical gel Apply 4 g to affected area four times daily. amLODIPine (NORVASC) 5 mg tablet Take 1.5 tablets by mouth once daily. metFORMIN (GLUCOPHAGE) 500 mg tablet Take 1 tablet by mouth twice daily. atorvastatin (LIPITOR) 10 mg tablet Take 1 tablet by mouth daily at bedtime. For cholesterol. losartan (COZAAR) 100 mg tablet Take 1 tablet by mouth once daily. omeprazole (PRILOSEC) 20 mg capsule Take 1 capsule by mouth daily before breakfast. 1/2 hr before meal. nicotine (NICODERM) 14 mg/24 hr Apply 1 Patch as directed every 24 hours. No smoking with patch. levothyroxine (SYNTHROID) 137 mcg tablet Take 1 tablet by mouth once daily. Take on empty stomach. For thyroid. nicotine (NICODERM) 7 mg/24 hr Apply 1 Patch as directed every 24 hours for 14 days. metoprolol succinate ER (TOPROL XL) 25 mg 24 hr tablet Take 1 tablet by mouth once daily. boric acid vaginal suppository 600 mg (CPD) Use 1 Suppository vaginally one time a week. Unwrap and insert as directed. CPAP Initiate CPAP @ 11 cm of water with humidification. Mask (per patient preference) optional chin strap (if indicated) , filters, tubing, humidifier and lifetime supplies. Cholecalciferol, Vitamin D3, 125 mcg (5,000 unit) cap TAKE 1 CAPSULE BY MOUTH ONCE DAILY sertraline (ZOLOFT) 50 mg tablet Take 150 mg by mouth once daily. hydrOXYzine HCl (ATARAX) 50 mg tablet Take 1-2 tablets by mouth twice daily as needed for itching/rash or anxiety. (Patient taking differently: Take 50-100 mg by mouth twice daily as needed for anxiety (uses prn anxiety).) RING PESSARY VAGINAL Use vaginally as directed. aspirin, enteric coated (ECOTRIN LOW STRENGTH) 81 mg EC tablet Take 1 tablet by mouth once daily. polyethylene glycol 3350 (MIRALAX) 17 gram/dose powder Take 17 g by mouth once daily. As needed for constipation traZODone (DESYREL) 100 mg tablet Take 2 tablets by mouth at bedtime as needed. buPROPion XL (WELLBUTRIN XL) 150 mg 24 hr tablet Take 1 tablet by mouth once daily. gabapentin (NEURONTIN) 600 mg tablet Take 600 mg by mouth three times daily. No current facility-administered medications for this visit. Medications and allergies reviewed by this provider. SOCIAL HISTORY Social History Tobacco Use Smoking status: Former Packs/day: 1 Types: Cigarettes Quit date: 08/18/2022 Years since quittin.5 Smokeless tobacco: Never Vaping Use Vaping Use: current everyday user Substances: THC, CBD Substance Use Topics Alcohol use: Yes Comment: beer a month Drug use: Yes Comment: occasional marijuana- 1-2 times per month REVIEW OF SYSTEMS All other reviewed and negative other than HPI. OBJECTIVE: BP 112/70 Pulse 68 Resp 18 Wt 88.5 kg (195 lb 3.2 oz) LMP 12/15/2013 SpO2 95% BMI 36.88 kg/m . Vital signs reviewed by this provider. APPEARANCE Well appearing, alert, in no acute distress, well-hydrated, well nourished. EYES conjunctiva and sclera normal. HEART RRR with normal S1 and S2, no murmurs, no gallops, no JVD appreciated LUNG clear to auscultation. No wheezes, rhonchi or rales EXTREMITIES Extremities normal, No deformities, No skin discoloration, and No edema SKIN Skin color, texture, turgor normal, no suspicious rashes or lesions to exposed skin Component Latest Ref Rng & Units 08/28/2022 WBC 3.70 - 11.00 k/uL 7.87 RBC 3.90 - 5.20 m/uL 5.20 Hemoglobin 11.5 - 15.5 g/dL 15.0 Hematocrit 36.0 - 46.0 % 46.4 (H) MCV 80.0 - 100.0 fL 89.2 MCH 26.0 - 34.0 pg 28.8 MCHC 30.5 - 36.0 g/dL 32.3 RDW-CV 11.5 - 15.0 % 13.2 Platelet Count 150 - 400 k/uL 329 MPV 9.0 - 12.7 fL 9.3 Neut% % 55.6 Abs Neut (ANC) 1.45 - 7.50 k/uL 4.38 Lymph% % 33.7 Abs Lymph 1.00 - 4.00 k/uL 2.65 Osage% % 7.1 Abs [place] <0.87 k/uL 0.56 Eosin% % 2.5 Abs Eosin <0.46 k/uL 0.20 Baso% % 0.8 Abs Baso <0.11 k/uL 0.06 Immature Gran % % 0.3 IMMATURE GRANS (ABS) <0.10 k/uL <0.03 NRBC /100 WBC 0.0 Absolute nRBC <0.01 k/uL <0.01 DTYPE Auto Protein, Total 6.3 - 8.0 g/dL 7.6 Albumin 3.9 - 4.9 g/dL 4.5 Calcium 8.5 - 10.2 mg/dL 9.6 Bilirubin, Total 0.2 - 1.3 mg/dL 0.4 Alkaline Phosphatase 34 - 123 U/L 79 AST 13 - 35 U/L 14 ALT 7 - 38 U/L 17 Glucose 74 - 99 mg/dL 105 (H) BUN 7 - 21 mg/dL 12 Creatinine 0.58 - 0.96 mg/dL 0.76 Sodium 136 - 144 mmol/L 143 Potassium 3.7 - 5.1 mmol/L 4.4 Chloride 97 - 105 mmol/L 105 CO2 22 - 30 mmol/L 28 Anion Gap 9 - 18 mmol/L 10 eGFR >=60 mL/min/1.73m 92 Hemoglobin A1C 4.3 - 5.6 % 5.8 (H) Estimated Average Glucose mg/dL 120 TSH 0.270 - 4.200 mIU/L 0.388 SHINGRIX VACCINE(1 of 2) Never done COVID-19 VACCINE(3 - Pfizer series) due on 12/18/2020 PAP TESTING due on 09/10/2021 HPV TESTING due on 09/10/2021 DILATED RETINAL EXAM due on 02/19/2022 HBA1C due on 02/25/2023 LDL CHOLESTEROL due on 02/19/2023 URINE ALBUMIN:CREATININE RATIO due on 03/17/2023 MAMMOGRAM due on 06/02/2023 INFLUENZA(1) due on 03/18/2023 DIABETIC FOOT EXAM due on 09/08/2023 ANNUAL PCP TEAM CHRONIC DISEASE VISIT due on 03/11/2024 BP CONTROLLED (<130/80) due on 03/11/2024 COLORECTAL CANCER SCREENING due on 07/23/2026 DTAP,TDAP,TD(2 - Td or Tdap) due on 02/12/2031 HEPATITIS C SCREENING Completed HIV SCREENING Completed PNEUMOCOCCAL Completed ASSESSMENT/PLAN: 1. Controlled type 2 diabetes mellitus without complication, without long-term current use of insulin (HCC) - ICD9: 250.00, ICD10: E11.9 (primary diagnosis) - Controlled - Control undetermined, due for labs - Continue current medications - Blood glucose monitoring on a once daily schedule - Discussed need for and benefit of weight loss. BMI 36.88 kg/(m^2) - Follow up in 6 months, sooner should any other issues arise. - HGB A1C - ALBUMIN/CREAT RATIO RND UR 2. Encounter for screening mammogram for breast cancer - ICD9: V76.12, ICD10: Z12.31 - MEAGHAN SCREENING 3. Mixed hyperlipidemia - ICD9: 272.2, ICD10: E78.2 - Control undetermined, due for labs - Continue current medications - Counseled on healthy diet and regular exercise - Discussed need for and benefit of weight loss. BMI 36.88 kg/(m^2) - Follow up in 6 months, sooner should any other issues arise. - LIPID PANEL BASIC - COMP METABOLIC PANEL 4. Bipolar affective disorder, current episode mixed, current episode severity unspecified (HCC) - ICD9: 296.60, ICD10: F31.60 - stable on current regime 5. Acquired hypothyroidism - ICD9: 244.9, ICD10: E03.9 - Instructed patient on importance of taking on an empty stomach either first thing in the morning or at bedtime. - Follow up in 6 months - continue on current medications 6. Primary hypertension - ICD9: 401.9, ICD10: I10 - Controlled - Continue current medications - Recommend home blood pressure monitoring, to bring results to next visit - Encouraged sodium restriction, DASH or Mediterranean diet - Recommend regular aerobic exercise - Discussed need for and benefit of weight loss. BMI 36.88 kg/(m^2) - Follow up in 6 months for hypertension visit 7. PARVIN on CPAP - ICD9: 327.23, V46.8, ICD10: G47.33 - continue nightly use 8. Nonobstructive atherosclerosis of coronary artery - ICD9: 414.00, ICD10: I25.10 - continue current regime - follow-up with cardiology as scheduled Margo Podlogar, APPLICATION PROGRAMMER ANALYST.OUTREACH PROFESSIONAL Prescription instructions reviewed with patient as applicable. Patient advised if symptoms do not improve or if symptoms worsen sooner, to contact their primary care physician. Potential red flag symptoms discussed with the patient. Reviewed appropriate action plan to take if red flag symptoms occur. Patient agreeable to treatment plan. I spent a total of 30 minutes on the date of the service which included preparing to see the patient, [id number] patient care, completing clinical documentation, obtaining and/or reviewing separately obtained history, performing a medically appropriate examination, counseling and educating the patient/family/caregiver, and ordering medications, tests, or procedures. documented in this encounter [facility] 03-01-2023 Miscellaneous Notes Pt is asking if she could use NSAID sparingly for hip pain? Confirmed she is taking ASA 81 mg daily Spoke to pt about pain to back of legs and bilateral hips x1 week but has gotten worse the last 4 days. Her pain has been unrelieved by Tylenol. Saw family medicine on 02/28/23 recommend daily stretches and heat for 15 minutes at a time. 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 Discussed I would take only on days pain is the worst [facility] 11/05/22 Dr Yordy LOYOLA not scheduled documented in this encounter [facility] 02-28-2023 Note HNO ID: [id number] Author: Margo Walker APRN.OUTREACH PROFESSIONAL Service: ? Author Type: Nurse Practitioner Type: Progress Notes Filed: 02/28/2023 1:52 PM Note Text: 02/28/2023 Patient presents with: Pain: To back of legs and and bilateral hips x1 week but has gotten worse the last 4 days SUBJECTIVE: This is a 57 year old that is here today for Above Complaints.. ONSET: about a year ago LOCATION: back of thigh down to below knees. Inside of hips hurt as well DURATION: constant CHARACTERISTICS: aching in hips but can be sharp at times AGGRAVATING FEATURES: sitting for long periods of time ALLEVIATING FEATURES: tried tylenol about three times but does not help smuch Denies hx of leg, back or hip surgery/injury, extremity numbness, tingling, weakness, saddle anaesthesia, urinary/bowel incontinence or inability PAST MEDICAL HISTORY Diagnosis Date Anxiety Bipolar disorder (HCC) Coronary artery disease [facility] 11/2020: mild diffuse disease to RCA, 30-40% stenosis to mid-LAD Degenerative disc disease Depression Diabetes (HCC) Environmental allergies Essential hypertension Fatty liver noted 2016 sonogram Heart abnormality High cholesterol Hypothyroidism PARVIN on CPAP Severe Suicide attempt (HCC) 06/2012 ALLERGIES Pollen MEDICATIONS Current Outpatient Medications Medication Sig sertraline (ZOLOFT) 50 mg tablet Take 150 mg by mouth once daily. amLODIPine (NORVASC) 5 mg tablet Take 1.5 tablets by mouth once daily. metFORMIN (GLUCOPHAGE) 500 mg tablet Take 1 tablet by mouth twice daily. atorvastatin (LIPITOR) 10 mg tablet Take 1 tablet by mouth daily at bedtime. For cholesterol. losartan (COZAAR) 100 mg tablet Take 1 tablet by mouth once daily. omeprazole (PRILOSEC) 20 mg capsule Take 1 capsule by mouth daily before breakfast. 1/2 hr before meal. nicotine (NICODERM) 14 mg/24 hr Apply 1 Patch as directed every 24 hours. No smoking with patch. levothyroxine (SYNTHROID) 137 mcg tablet Take 1 tablet by mouth once daily. Take on empty stomach. For thyroid. nicotine (NICODERM) 7 mg/24 hr Apply 1 Patch as directed every 24 hours for 14 days. metoprolol succinate ER (TOPROL XL) 25 mg 24 hr tablet Take 1 tablet by mouth once daily. boric acid vaginal suppository 600 mg (CPD) Use 1 Suppository vaginally one time a week. Unwrap and insert as directed. CPAP Initiate CPAP @ 11 cm of water with humidification. Mask (per patient preference) optional chin strap (if indicated) , filters, tubing, humidifier and lifetime supplies. Cholecalciferol, Vitamin D3, 125 mcg (5,000 unit) cap TAKE 1 CAPSULE BY MOUTH ONCE DAILY hydrOXYzine HCl (ATARAX) 50 mg tablet Take 1-2 tablets by mouth twice daily as needed for itching/rash or anxiety. (Patient taking differently: Take 50-100 mg by mouth twice daily as needed for anxiety (uses prn anxiety).) oxyquinoline/sod.lauryl sulfat (TRIMO-BYRNE JELLY VAGINAL) Use vaginally as directed. Twice weekly at bedtime (Patient not taking: No sig reported) RING PESSARY VAGINAL Use vaginally as directed. aspirin, enteric coated (ECOTRIN LOW STRENGTH) 81 mg EC tablet Take 1 tablet by mouth once daily. polyethylene glycol 3350 (MIRALAX) 17 gram/dose powder Take 17 g by mouth once daily. As needed for constipation traZODone (DESYREL) 100 mg tablet Take 2 tablets by mouth at bedtime as needed. buPROPion XL (WELLBUTRIN XL) 150 mg 24 hr tablet Take 1 tablet by mouth once daily. gabapentin (NEURONTIN) 600 mg tablet Take 600 mg by mouth three times daily. No current facility-administered medications for this visit. Medications and allergies reviewed by this provider. SOCIAL HISTORY Social History Tobacco Use Smoking status: Former Packs/day: 1 Types: Cigarettes Quit date: 08/18/2022 Years since quittin.5 Smokeless tobacco: Never Vaping Use Vaping Use: current everyday user Substances: THC, CBD Substance Use Topics Alcohol use: Yes Comment: beer a month Drug use: Yes Comment: occasional marijuana- 1-2 times per month REVIEW OF SYSTEMS All other reviewed and negative other than HPI. OBJECTIVE: BP 122/84 Pulse (!) 58 Resp 18 Wt 90.7 kg (200 lb) LMP 12/15/2013 SpO2 94% BMI 37.79 kg/m? . Vital signs reviewed by this provider. APPEARANCE Well appearing, alert, in no acute distress, well-hydrated, well nourished. BACK: Normal exam, good flexion and extension, negative SLR test. No TTP EXTREMITIES Extremities normal, No deformities, No skin discoloration, and No edema NEURO Awake, alert and oriented x 3, Reflexes symmetrical, Normal gait, No involuntary motions., and negative findings: muscle tone normal, muscle strength normal SKIN Skin color, texture, turgor normal, no suspicious rashes or lesions to exposed skin HIPS: No obvious deformity, erythema, or swelling. No TTP. FROM. Reports discomfort with internal rotation and adduction. No clunking or crepitus SHINGRIX VACCINE(1 of 2) Never done (more content not included)... [facility] 02-28-2023 History of Presen t illness Narrative 02/28/2023 Patient presents with: Pain: To back of legs and and bilateral hips x1 week but has gotten worse the last 4 days SUBJECTIVE: This is a 57 year old that is here today for Above Complaints.. ONSET: about a year ago LOCATION: back of thigh down to below knees. Inside of hips hurt as well DURATION: constant CHARACTERISTICS: aching in hips but can be sharp at times AGGRAVATING FEATURES: sitting for long periods of time ALLEVIATING FEATURES: tried tylenol about three times but does not help smuch Denies hx of leg, back or hip surgery/injury, extremity numbness, tingling, weakness, saddle anaesthesia, urinary/bowel incontinence or inability PAST MEDICAL HISTORY Diagnosis Date Anxiety Bipolar disorder (HCC) Coronary artery disease [facility] 11/2020: mild diffuse disease to RCA, 30-40% stenosis to mid-LAD Degenerative disc disease Depression Diabetes (HCC) Environmental allergies Essential hypertension Fatty liver noted 2016 sonogram Heart abnormality High cholesterol Hypothyroidism PARVIN on CPAP Severe Suicide attempt (HCC) 06/2012 ALLERGIES Pollen MEDICATIONS Current Outpatient Medications Medication Sig sertraline (ZOLOFT) 50 mg tablet Take 150 mg by mouth once daily. amLODIPine (NORVASC) 5 mg tablet Take 1.5 tablets by mouth once daily. metFORMIN (GLUCOPHAGE) 500 mg tablet Take 1 tablet by mouth twice daily. atorvastatin (LIPITOR) 10 mg tablet Take 1 tablet by mouth daily at bedtime. For cholesterol. losartan (COZAAR) 100 mg tablet Take 1 tablet by mouth once daily. omeprazole (PRILOSEC) 20 mg capsule Take 1 capsule by mouth daily before breakfast. 1/2 hr before meal. nicotine (NICODERM) 14 mg/24 hr Apply 1 Patch as directed every 24 hours. No smoking with patch. levothyroxine (SYNTHROID) 137 mcg tablet Take 1 tablet by mouth once daily. Take on empty stomach. For thyroid. nicotine (NICODERM) 7 mg/24 hr Apply 1 Patch as directed every 24 hours for 14 days. metoprolol succinate ER (TOPROL XL) 25 mg 24 hr tablet Take 1 tablet by mouth once daily. boric acid vaginal suppository 600 mg (CPD) Use 1 Suppository vaginally one time a week. Unwrap and insert as directed. CPAP Initiate CPAP @ 11 cm of water with humidification. Mask (per patient preference) optional chin strap (if indicated) , filters, tubing, humidifier and lifetime supplies. Cholecalciferol, Vitamin D3, 125 mcg (5,000 unit) cap TAKE 1 CAPSULE BY MOUTH ONCE DAILY hydrOXYzine HCl (ATARAX) 50 mg tablet Take 1-2 tablets by mouth twice daily as needed for itching/rash or anxiety. (Patient taking differently: Take 50-100 mg by mouth twice daily as needed for anxiety (uses prn anxiety).) oxyquinoline/sod.lauryl sulfat (TRIMO-BYRNE JELLY VAGINAL) Use vaginally as directed. Twice weekly at bedtime (Patient not taking: No sig reported) RING PESSARY VAGINAL Use vaginally as directed. aspirin, enteric coated (ECOTRIN LOW STRENGTH) 81 mg EC tablet Take 1 tablet by mouth once daily. polyethylene glycol 3350 (MIRALAX) 17 gram/dose powder Take 17 g by mouth once daily. As needed for constipation traZODone (DESYREL) 100 mg tablet Take 2 tablets by mouth at bedtime as needed. buPROPion XL (WELLBUTRIN XL) 150 mg 24 hr tablet Take 1 tablet by mouth once daily. gabapentin (NEURONTIN) 600 mg tablet Take 600 mg by mouth three times daily. No current facility-administered medications for this visit. Medications and allergies reviewed by this provider. SOCIAL HISTORY Social History Tobacco Use Smoking status: Former Packs/day: 1 Types: Cigarettes Quit date: 08/18/2022 Years since quittin.5 Smokeless tobacco: Never Vaping Use Vaping Use: current everyday user Substances: THC, CBD Substance Use Topics Alcohol use: Yes Comment: beer a month Drug use: Yes Comment: occasional marijuana- 1-2 times per month REVIEW OF SYSTEMS All other reviewed and negative other than HPI. OBJECTIVE: BP 122/84 Pulse (!) 58 Resp 18 Wt 90.7 kg (200 lb) LMP 12/15/2013 SpO2 94% BMI 37.79 kg/m . Vital signs reviewed by this provider. APPEARANCE Well appearing, alert, in no acute distress, well-hydrated, well nourished. BACK: Normal exam, good flexion and extension, negative SLR test. No TTP EXTREMITIES Extremities normal, No deformities, No skin discoloration, and No edema NEURO Awake, alert and oriented x 3, Reflexes symmetrical, Normal gait, No involuntary motions., and negative findings: muscle tone normal, muscle strength normal SKIN Skin color, texture, turgor normal, no suspicious rashes or lesions to exposed skin HIPS: No obvious deformity, erythema, or swelling. No TTP. FROM. Reports discomfort with internal rotation and adduction. No clunking or crepitus SHINGRIX VACCINE(1 of 2) Never done COVID-19 VACCINE(3 - Pfizer series) due on 12/18/2020 PAP TESTING due on 09/10/2021 HPV TESTING due on 09/10/2021 DILATED RETINAL EXAM due on 02/19/2022 HBA1C due on 02/25/2023 LDL CHOLESTEROL due on 02/19/2023 URINE ALBUMIN:CREATININE RATIO due on 03/17/2023 INFLUENZA(1) due on 03/18/2023 MAMMOGRAM due on 06/02/2023 DIABETIC FOOT EXAM due on 09/08/2023 ANNUAL PCP TEAM CHRONIC DISEASE VISIT due on 01/22/2024 BP CONTROLLED (<130/80) due on 01/22/2024 COLORECTAL CANCER SCREENING due on 07/23/2026 DTAP,TDAP,TD(2 - Td or Tdap) due on 02/12/2031 HEPATITIS C SCREENING Completed HIV SCREENING Completed PNEUMOCOCCAL Completed ASSESSMENT/PLAN: 1. Bilateral hip pain - ICD9: 719.45, ICD10: M25.551, M25.552 - no red flag symptoms or exam findings - red flag symptoms discussed, verbalizes understanding - recommend daily stretches and heat for 15 minutes at a time. 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 Discussed I would take only on days pain is the worst - DICLOFENAC 1 % TOPICAL GEL - XR HIP BILATERAL 5V PEL/AP/LAT EACH HIP - XR LUMBAR GENERAL 3V AP/LAT/L5-S1 - if pain persists recommend PT to ER with red flag symptoms Margo Walker APRN.BRE Prescription instructions reviewed with patient as applicable. Patient advised if symptoms do not improve or if symptoms worsen sooner, to contact their primary care physician. Potential red flag symptoms discussed with the patient. Reviewed appropriate action plan to take if red flag symptoms occur. Patient agreeable to treatment plan. I spent a total of 25 minutes on the date of the service which included preparing to see the patient, [id number] patient care, completing clinical documentation, obtaining and/or reviewing separately obtained history, performing a medically appropriate examination, counseling and educating the patient/family/caregiver, and ordering medications, tests, or procedures. documented in this encounter [facility] 02-17-2023 Miscellaneous Notes Referral received via fax from Dr. Aline Brown. Records scanned into chart and printed as well. Printed records placed in the referral file folder at check in on side A at the [facility] office. Ilene Garner February 17, 2023 1:08 PM documented in this encounter [facility] 01-21-2023 Note HNO ID: [id number] Author: Margo Walker APRN.OUTREACH PROFESSIONAL Service: ? Author Type: Nurse Practitioner Type: Progress Notes Filed: 01/21/2023 1:15 PM Note Text: 01/21/2023 Patient presents with: ER F/U: [facility] 01/15/23; Intermittent heart palpitations with chest pressure SUBJECTIVE: This is a 57 year old that is here today for Above Complaints. HOSPITAL/ER FOLLOW UP: Reason for visit: chest pressure and intermittent heart palpitations Which facility: [facility] Date of visit: 01/15/2023 Diagnosis: chest pain Testing done: EKG and blood work Treatment given: ASA Current symptoms: none Since ER visit has been doing well. No more chest pressure or palpitations. Also denies lightheadedness, dizziness, SOB, dyspnea, or leg swelling ER records reviewed PAST MEDICAL HISTORY Diagnosis Date Anxiety Bipolar disorder (HCC) Coronary artery disease [facility] 11/2020: mild diffuse disease to RCA, 30-40% stenosis to mid-LAD Degenerative disc disease Depression Diabetes (HCC) Environmental allergies Essential hypertension Fatty liver noted 2017 sonogram Heart abnormality High cholesterol Hypothyroidism PARVIN on CPAP Severe Suicide attempt (HCC) 06/2012 ALLERGIES Pollen MEDICATIONS Current Outpatient Medications Medication Sig nicotine (NICODERM) 14 mg/24 hr Apply 1 Patch as directed every 24 hours. No smoking with patch. levothyroxine (SYNTHROID) 137 mcg tablet Take 1 tablet by mouth once daily. Take on empty stomach. For thyroid. metFORMIN (GLUCOPHAGE) 500 mg tablet Take 1 tablet by mouth twice daily. atorvastatin (LIPITOR) 10 mg tablet Take 1 tablet by mouth daily at bedtime. For cholesterol. losartan (COZAAR) 100 mg tablet Take 1 tablet by mouth once daily. metoprolol succinate ER (TOPROL XL) 25 mg 24 hr tablet Take 1 tablet by mouth once daily. boric acid vaginal suppository 600 mg (CPD) Use 1 Suppository vaginally one time a week. Unwrap and insert as directed. amLODIPine (NORVASC) 5 mg tablet Take 1.5 tablets by mouth once daily. CPAP Initiate CPAP @ 11 cm of water with humidification. Mask (per patient preference) optional chin strap (if indicated) , filters, tubing, humidifier and lifetime supplies. Cholecalciferol, Vitamin D3, 125 mcg (5,000 unit) cap TAKE 1 CAPSULE BY MOUTH ONCE DAILY sertraline (ZOLOFT) 50 mg tablet Take 50 mg by mouth three times daily. RING PESSARY VAGINAL Use vaginally as directed. aspirin, enteric coated (ECOTRIN LOW STRENGTH) 81 mg EC tablet Take 1 tablet by mouth once daily. polyethylene glycol 3350 (MIRALAX) 17 gram/dose powder Take 17 g by mouth once daily. As needed for constipation traZODone (DESYREL) 100 mg tablet Take 2 tablets by mouth at bedtime as needed. buPROPion XL (WELLBUTRIN XL) 150 mg 24 hr tablet Take 1 tablet by mouth once daily. gabapentin (NEURONTIN) 600 mg tablet Take 600 mg by mouth three times daily. nicotine (NICODERM) 7 mg/24 hr Apply 1 Patch as directed every 24 hours for 14 days. omeprazole (PRILOSEC) 20 mg capsule Take 1 capsule by mouth daily before breakfast. 1/2 hr before meal. hydrOXYzine HCl (ATARAX) 50 mg tablet Take 1-2 tablets by mouth twice daily as needed for itching/rash or anxiety. (Patient taking differently: Take 50-100 mg by mouth twice daily as needed for anxiety (uses prn anxiety).) oxyquinoline/sod.lauryl sulfat (TRIMO-BYRNE JELLY VAGINAL) Use vaginally as directed. Twice weekly at bedtime (Patient not taking: No sig reported) No current facility-administered medications for this visit. Medications and allergies reviewed by this provider. SOCIAL HISTORY Social History Tobacco Use Smoking status: Former Packs/day: 1.00 Types: Cigarettes Quit date: 08/18/2022 Years since quittin.4 Smokeless tobacco: Never Vaping Use Vaping Use: current everyday user Substances: THC, CBD Substance Use Topics Alcohol use: Yes Comment: beer a month Drug use: Yes Comment: occasional marijuana- 1-2 times per month REVIEW OF SYSTEMS All other reviewed and negative other than HPI. OBJECTIVE: BP 104/68 Pulse (!) 55 Temp 36.2 ?C (97.2 ?F) (Left Tympanic) Resp 16 Wt 88.6 kg (195 lb 6.4 oz) LMP 12/15/2013 SpO2 95% BMI 36.92 kg/m? . Vital signs reviewed by this provider. APPEARANCE Well appearing, alert, in no acute distress, well-hydrated, well nourished. HEART RRR with normal S1 and S2, no murmurs, no gallops, no JVD appreciated LUNG clear to auscultation. No wheezes, rhonchi or rales EXTREMITIES Extremities normal, No deformities, No skin discoloration, and No edema SKIN Skin color, texture, turgor normal, no suspicious rashes or lesions to exposed skin SHINGRIX VACCINE(1 of 2) Never done COVID-19 VACCINE(3 - Booster for Pfizer series) due on 12/18/2020 PAP TESTING due on 09/10/2021 HPV TESTING due on 09/10/2021 DILATED RETINAL EXAM due on 02/19/2022 LDL CHOLESTEROL due on 02/19/2023 HBA1C due on 02/25/2023 URINE ALBUMIN:CREATININE RATIO d (more content not included)... [facility] 01-21-2023 History of Presen t illness Narrative 01/21/2023 Patient presents with: ER F/U: [facility] 01/15/23; Intermittent heart palpitations with chest pressure SUBJECTIVE: This is a 57 year old that is here today for Above Complaints. HOSPITAL/ER FOLLOW UP: Reason for visit: chest pressure and intermittent heart palpitations Which facility: [facility] Date of visit: 01/15/2023 Diagnosis: chest pain Testing done: EKG and blood work Treatment given: ASA Current symptoms: none Since ER visit has been doing well. No more chest pressure or palpitations. Also denies lightheadedness, dizziness, SOB, dyspnea, or leg swelling ER records reviewed PAST MEDICAL HISTORY Diagnosis Date Anxiety Bipolar disorder (HCC) Coronary artery disease [facility] 11/2020: mild diffuse disease to RCA, 30-40% stenosis to mid-LAD Degenerative disc disease Depression Diabetes (HCC) Environmental allergies Essential hypertension Fatty liver noted 2017 sonogram Heart abnormality High cholesterol Hypothyroidism PARVIN on CPAP Severe Suicide attempt (HCC) 06/2012 ALLERGIES Pollen MEDICATIONS Current Outpatient Medications Medication Sig nicotine (NICODERM) 14 mg/24 hr Apply 1 Patch as directed every 24 hours. No smoking with patch. levothyroxine (SYNTHROID) 137 mcg tablet Take 1 tablet by mouth once daily. Take on empty stomach. For thyroid. metFORMIN (GLUCOPHAGE) 500 mg tablet Take 1 tablet by mouth twice daily. atorvastatin (LIPITOR) 10 mg tablet Take 1 tablet by mouth daily at bedtime. For cholesterol. losartan (COZAAR) 100 mg tablet Take 1 tablet by mouth once daily. metoprolol succinate ER (TOPROL XL) 25 mg 24 hr tablet Take 1 tablet by mouth once daily. boric acid vaginal suppository 600 mg (CPD) Use 1 Suppository vaginally one time a week. Unwrap and insert as directed. amLODIPine (NORVASC) 5 mg tablet Take 1.5 tablets by mouth once daily. CPAP Initiate CPAP @ 11 cm of water with humidification. Mask (per patient preference) optional chin strap (if indicated) , filters, tubing, humidifier and lifetime supplies. Cholecalciferol, Vitamin D3, 125 mcg (5,000 unit) cap TAKE 1 CAPSULE BY MOUTH ONCE DAILY sertraline (ZOLOFT) 50 mg tablet Take 50 mg by mouth three times daily. RING PESSARY VAGINAL Use vaginally as directed. aspirin, enteric coated (ECOTRIN LOW STRENGTH) 81 mg EC tablet Take 1 tablet by mouth once daily. polyethylene glycol 3350 (MIRALAX) 17 gram/dose powder Take 17 g by mouth once daily. As needed for constipation traZODone (DESYREL) 100 mg tablet Take 2 tablets by mouth at bedtime as needed. buPROPion XL (WELLBUTRIN XL) 150 mg 24 hr tablet Take 1 tablet by mouth once daily. gabapentin (NEURONTIN) 600 mg tablet Take 600 mg by mouth three times daily. nicotine (NICODERM) 7 mg/24 hr Apply 1 Patch as directed every 24 hours for 14 days. omeprazole (PRILOSEC) 20 mg capsule Take 1 capsule by mouth daily before breakfast. 1/2 hr before meal. hydrOXYzine HCl (ATARAX) 50 mg tablet Take 1-2 tablets by mouth twice daily as needed for itching/rash or anxiety. (Patient taking differently: Take 50-100 mg by mouth twice daily as needed for anxiety (uses prn anxiety).) oxyquinoline/sod.lauryl sulfat (TRIMO-BYRNE JELLY VAGINAL) Use vaginally as directed. Twice weekly at bedtime (Patient not taking: No sig reported) No current facility-administered medications for this visit. Medications and allergies reviewed by this provider. SOCIAL HISTORY Social History Tobacco Use Smoking status: Former Packs/day: 1.00 Types: Cigarettes Quit date: 08/18/2022 Years since quittin.4 Smokeless tobacco: Never Vaping Use Vaping Use: current everyday user Substances: THC, CBD Substance Use Topics Alcohol use: Yes Comment: beer a month Drug use: Yes Comment: occasional marijuana- 1-2 times per month REVIEW OF SYSTEMS All other reviewed and negative other than HPI. OBJECTIVE: BP 104/68 Pulse (!) 55 Temp 36.2 C (97.2 F) (Left Tympanic) Resp 16 Wt 88.6 kg (195 lb 6.4 oz) LMP 12/15/2013 SpO2 95% BMI 36.92 kg/m . Vital signs reviewed by this provider. APPEARANCE Well appearing, alert, in no acute distress, well-hydrated, well nourished. HEART RRR with normal S1 and S2, no murmurs, no gallops, no JVD appreciated LUNG clear to auscultation. No wheezes, rhonchi or rales EXTREMITIES Extremities normal, No deformities, No skin discoloration, and No edema SKIN Skin color, texture, turgor normal, no suspicious rashes or lesions to exposed skin SHINGRIX VACCINE(1 of 2) Never done COVID-19 VACCINE(3 - Booster for Pfizer series) due on 12/18/2020 PAP TESTING due on 09/10/2021 HPV TESTING due on 09/10/2021 DILATED RETINAL EXAM due on 02/19/2022 LDL CHOLESTEROL due on 02/19/2023 HBA1C due on 02/25/2023 URINE ALBUMIN:CREATININE RATIO due on 03/17/2023 INFLUENZA(1) due on 03/18/2023 MAMMOGRAM due on 06/02/2023 DIABETIC FOOT EXAM due on 09/08/2023 ANNUAL PCP TEAM CHRONIC DISEASE VISIT due on 09/08/2023 BP CONTROLLED (<130/80) due on 11/06/2023 COLORECTAL CANCER SCREENING due on 07/23/2026 DTAP,TDAP,TD(2 - Td or Tdap) due on 02/12/2031 HEPATITIS C SCREENING Completed HIV SCREENING Completed PNEUMOCOCCAL Completed ASSESSMENT/PLAN: 1. Palpitations - ICD9: 785.1, ICD10: R00.2 (primary diagnosis) - no more symptoms since ER visit - no red flag symptoms or exam findings - red flag symptoms discussed, verbalizes understanding - follow-up as needed to ER with red flag symptoms 2. Chest pressure - ICD9: 786.59, ICD10: R07.89 - plan as in #1 Margo Walker APRN.OUTREACH PROFESSIONAL Prescription instructions reviewed with patient as applicable. Patient advised if symptoms do not improve or if symptoms worsen sooner, to contact their primary care physician. Potential red flag symptoms discussed with the patient. Reviewed appropriate action plan to take if red flag symptoms occur. Patient agreeable to treatment plan. I spent a total of 25 minutes on the date of the service which included preparing to see the patient, [id number] patient care, completing clinical documentation, obtaining and/or reviewing separately obtained history, performing a medically appropriate examination, counseling and educating the patient/family/caregiver, and ordering medications, tests, or procedures. documented in this encounter [facility] 01-19-2023 Miscellaneous Notes Pt seen at [facility] ER on 01/15/23 for chest pain. Records reviewed by PCP and patient needs appt within 3-5 days. Pt scheduled with Margo on 01/21/23 Edith Douglas MA documented in this encounter [facility] 12-17-2022 Miscellaneous Notes Patient called stating that she restarted smoking 3 cigarettes daily and wants to quit Patient would like to restart the nicotine patches and needs refills. Patient has been identified by name and date of : Yes, Provider Mani Date 12/17/22 Time 2:54p Patient phones for refill(s): Requested Prescriptions Pending Prescriptions Disp Refills nicotine (NICODERM) 14 mg/24 hr 42 Patch 0 Sig: Apply 1 Patch as directed every 24 hours. No smoking with patch. Date of last office visit in primary care: 09/08/22 Last 2 Encounter Wt Readings: Date: Wt: 11/05/2022 88.5 kg (195 lb) 09/08/2022 83.9 kg (185 lb) Previous labs/tests for medication: Not applicable Please advise. Thank you. Rhonda Pavon LPN documented in this encounter [facility] 11-05-2022 Note HNO ID: [id number] Author: Celia Esquivel, DO Service: ? Author Type: Physician Type: Progress Notes Filed: 11/05/2022 2:28 PM Note Text: [facility] SECTION OF REGIONAL CARDIOLOGY [facility] OUTPATIENT VISIT DATE November 05, 2022 PRIMARY CARE PHYSICIAN: Jl Singleton [address] [place] [address] HISTORY OF PRESENT ILLNESS: Ms. Paez is a 57 year old female. The patient returns for follow-up second history of nonobstructive CAD with additional history of hypertension, hyperlipidemia, obstructive sleep apnea and previous PVCs. Currently she denies anginal sounding chest discomfort, dyspnea proportion usual, orthopnea, paroxysmal nocturnal dyspnea, palpitations, near-syncope or syncope. PLAN AND RECOMMENDATIONS: The patient remained stable without symptoms that would suggest angina or cardiac decompensation. Heart rate, blood pressure and recent cholesterol profile are favorable if not excellent. Dietary lifestyle modification was therefore reemphasized and no changes were made to her medical regimen. We will look forward to reevaluate her in 6 months time. Vitals: BP 106/76 Pulse (!) 53 Ht 154.9 cm (5' 1 ) Wt 88.5 kg (195 lb) LMP 12/15/2013 SpO2 96% BMI 36.84 kg/m? Physical Exam Vitals reviewed. Constitutional: Appearance: She is well-developed. HENT: Head: Normocephalic and atraumatic. Eyes: Pupils: Pupils are equal, round, and reactive to light. Neck: Thyroid: No thyromegaly. Vascular: No JVD. Cardiovascular: Rate and Rhythm: Normal rate and regular rhythm. Heart sounds: Normal heart sounds. No murmur heard. No friction rub. No gallop. Pulmonary: Effort: Pulmonary effort is normal. No respiratory distress. Breath sounds: Normal breath sounds. No wheezing or rales. Abdominal: General: Bowel sounds are normal. Palpations: Abdomen is soft. Musculoskeletal: General: Normal range of motion. Cervical back: Normal range of motion and neck supple. Skin: General: Skin is warm and dry. Coloration: Skin is not pale. Neurological: Mental Status: She is alert and oriented to person, place, and time. Cranial Nerves: No cranial nerve deficit. Psychiatric: Behavior: Behavior normal. Thought Content: Thought content normal. Judgment: Judgment normal. Review of Systems Constitutional: Negative for activity change and fatigue. HENT: Negative for ear pain and facial swelling. Eyes: Negative for pain and discharge. Respiratory: Positive for shortness of breath. Negative for chest tightness. Cardiovascular: Positive for chest pain. Negative for palpitations and leg swelling. Gastrointestinal: Negative for abdominal pain, blood in stool, nausea and vomiting. Endocrine: Negative for cold intolerance and heat intolerance. Genitourinary: Negative for frequency and hematuria. Musculoskeletal: Negative for arthralgias and gait problem. Skin: Negative for color change, pallor and rash. Allergic/Immunologic: Negative for immunocompromised state. Neurological: Negative for dizziness, syncope, light-headedness and headaches. Hematological: Negative for adenopathy. Does not bruise/bleed easily. Psychiatric/Behavioral: Negative for confusion. The patient is not nervous/anxious. PAST MEDICAL HISTORY Diagnosis Date Anxiety Bipolar disorder (HCC) Coronary artery disease [facility] 11/2020: mild diffuse disease to RCA, 30-40% stenosis to mid-LAD Degenerative disc disease Depression Diabetes (HCC) Environmental allergies Essential hypertension Fatty liver noted 2017 sonogram Heart abnormality High cholesterol Hypothyroidism PARVIN on CPAP Severe Suicide attempt (HCC) 06/2012 PAST SURGICAL HISTORY Procedure Laterality Date COLONOSCOPY 07/23/2016 9 yrs LAPAROSCOPIC UTERINE NERVE ABLATION 2013 PAST SURGICAL HISTORY OF age 15 TONSILLECTOMY PRIMARY/SECONDARY Tonsillectomy Social History Tobacco Use Smoking status: Former Packs/day: 1.00 Types: Cigarettes Quit date: 08/18/2022 Years since quittin.2 Smokeless tobacco: Never Vaping Use Vaping Use: current everyday user Substances: THC, CBD Substance Use Topics Alcohol use: Yes Comment: beer a month Drug use: Yes Comment: occasional marijuana- 1-2 times per month FAMILY HISTORY Problem Relation Age of Onset Diabetes Mother Hypertension Mother Psychiatry Mother Hypertension Father Cervical Cancer Sister Diabetes Brother Diabetes Brother Alzheimer's Disease Maternal Grandmother Diabetes Maternal Grandmother Prostate Cancer Maternal Grandfather Heart Maternal Grandfather ALLERGIES Allergen Reactions Pollen Other: See Comments sneezing CURRENT MEDICATIONS: nicotine (NICODERM) 14 mg/24 hr Apply 1 Patch as directed every 24 hours. No smoking with patch. metFORMIN (GLUCOPHAGE) 500 mg tablet Take 1 tablet by mouth twice adair (more content not included)... [facility] 11-05-2022 History of Presen t illness Narrative Images from the original note were not included. [facility] SECTION OF REGIONAL CARDIOLOGY [facility] OUTPATIENT VISIT DATE November 05, 2022 PRIMARY CARE PHYSICIAN: Jl Singleton [address] [place] [address] HISTORY OF PRESENT ILLNESS: Ms. Paez is a 57 year old female. The patient returns for follow-up second history of nonobstructive CAD with additional history of hypertension, hyperlipidemia, obstructive sleep apnea and previous PVCs. Currently she denies anginal sounding chest discomfort, dyspnea proportion usual, orthopnea, paroxysmal nocturnal dyspnea, palpitations, near-syncope or syncope. PLAN AND RECOMMENDATIONS: The patient remained stable without symptoms that would suggest angina or cardiac decompensation. Heart rate, blood pressure and recent cholesterol profile are favorable if not excellent. Dietary lifestyle modification was therefore reemphasized and no changes were made to her medical regimen. We will look forward to reevaluate her in 6 months time. Vitals: BP 106/76 Pulse (!) 53 Ht 154.9 cm (5' 1 ) Wt 88.5 kg (195 lb) LMP 12/15/2013 SpO2 96% BMI 36.84 kg/m Physical Exam Vitals reviewed. Constitutional: Appearance: She is well-developed. HENT: Head: Normocephalic and atraumatic. Eyes: Pupils: Pupils are equal, round, and reactive to light. Neck: Thyroid: No thyromegaly. Vascular: No JVD. Cardiovascular: Rate and Rhythm: Normal rate and regular rhythm. Heart sounds: Normal heart sounds. No murmur heard. No friction rub. No gallop. Pulmonary: Effort: Pulmonary effort is normal. No respiratory distress. Breath sounds: Normal breath sounds. No wheezing or rales. Abdominal: General: Bowel sounds are normal. Palpations: Abdomen is soft. Musculoskeletal: General: Normal range of motion. Cervical back: Normal range of motion and neck supple. Skin: General: Skin is warm and dry. Coloration: Skin is not pale. Neurological: Mental Status: She is alert and oriented to person, place, and time. Cranial Nerves: No cranial nerve deficit. Psychiatric: Behavior: Behavior normal. Thought Content: Thought content normal. Judgment: Judgment normal. Review of Systems Constitutional: Negative for activity change and fatigue. HENT: Negative for ear pain and facial swelling. Eyes: Negative for pain and discharge. Respiratory: Positive for shortness of breath. Negative for chest tightness. Cardiovascular: Positive for chest pain. Negative for palpitations and leg swelling. Gastrointestinal: Negative for abdominal pain, blood in stool, nausea and vomiting. Endocrine: Negative for cold intolerance and heat intolerance. Genitourinary: Negative for frequency and hematuria. Musculoskeletal: Negative for arthralgias and gait problem. Skin: Negative for color change, pallor and rash. Allergic/Immunologic: Negative for immunocompromised state. Neurological: Negative for dizziness, syncope, light-headedness and headaches. Hematological: Negative for adenopathy. Does not bruise/bleed easily. Psychiatric/Behavioral: Negative for confusion. The patient is not nervous/anxious. PAST MEDICAL HISTORY Diagnosis Date Anxiety Bipolar disorder (HCC) Coronary artery disease [facility] 11/2020: mild diffuse disease to RCA, 30-40% stenosis to mid-LAD Degenerative disc disease Depression Diabetes (HCC) Environmental allergies Essential hypertension Fatty liver noted 2017 sonogram Heart abnormality High cholesterol Hypothyroidism PARVIN on CPAP Severe Suicide attempt (HCC) 06/2012 PAST SURGICAL HISTORY Procedure Laterality Date COLONOSCOPY 07/23/2016 9 yrs LAPAROSCOPIC UTERINE NERVE ABLATION 2013 PAST SURGICAL HISTORY OF age 15 TONSILLECTOMY PRIMARY/SECONDARY <AGE 11 Tonsillectomy Social History Tobacco Use Smoking status: Former Packs/day: 1.00 Types: Cigarettes Quit date: 08/18/2022 Years since quittin.2 Smokeless tobacco: Never Vaping Use Vaping Use: current everyday user Substances: THC, CBD Substance Use Topics Alcohol use: Yes Comment: beer a month Drug use: Yes Comment: occasional marijuana- 1-2 times per month FAMILY HISTORY Problem Relation Age of Onset Diabetes Mother Hypertension Mother Psychiatry Mother Hypertension Father Cervical Cancer Sister Diabetes Brother Diabetes Brother Alzheimer's Disease Maternal Grandmother Diabetes Maternal Grandmother Prostate Cancer Maternal Grandfather Heart Maternal Grandfather ALLERGIES Allergen Reactions Pollen Other: See Comments sneezing CURRENT MEDICATIONS: nicotine (NICODERM) 14 mg/24 hr Apply 1 Patch as directed every 24 hours. No smoking with patch. metFORMIN (GLUCOPHAGE) 500 mg tablet Take 1 tablet by mouth twice daily. atorvastatin (LIPITOR) 10 mg tablet Take 1 tablet by mouth daily at bedtime. For cholesterol. losartan (COZAAR) 100 mg tablet Take 1 tablet by mouth once daily. metoprolol succinate ER (TOPROL XL) 25 mg 24 hr tablet Take 1 tablet by mouth once daily. omeprazole (PRILOSEC) 20 mg capsule Take 1 capsule by mouth daily before breakfast. 1/2 hr before meal. levothyroxine (SYNTHROID) 137 mcg tablet Take 1 tablet by mouth once daily. Take on empty stomach. For thyroid. boric acid vaginal suppository 600 mg (CPD) Use 1 Suppository vaginally one time a week. Unwrap and insert as directed. amLODIPine (NORVASC) 5 mg tablet Take 1.5 tablets by mouth once daily. CPAP Initiate CPAP @ 11 cm of water with humidification. Mask (per patient preference) optional chin strap (if indicated) , filters, tubing, humidifier and lifetime supplies. Cholecalciferol, Vitamin D3, 125 mcg (5,000 unit) cap TAKE 1 CAPSULE BY MOUTH ONCE DAILY sertraline (ZOLOFT) 25 mg tablet Take 50 mg by mouth twice daily. hydrOXYzine HCl (ATARAX) 50 mg tablet Take 1-2 tablets by mouth twice daily as needed for itching/rash or anxiety. (Patient taking differently: Take 50-100 mg by mouth twice daily as needed for anxiety (uses prn anxiety).) RING PESSARY VAGINAL Use vaginally as directed. aspirin, enteric coated (ECOTRIN LOW STRENGTH) 81 mg EC tablet Take 1 tablet by mouth once daily. polyethylene glycol 3350 (MIRALAX) 17 gram/dose powder Take 17 g by mouth once daily. As needed for constipation traZODone (DESYREL) 100 mg tablet Take 2 tablets by mouth at bedtime as needed. buPROPion XL (WELLBUTRIN XL) 150 mg 24 hr tablet Take 1 tablet by mouth once daily. gabapentin (NEURONTIN) 600 mg tablet Take 600 mg by mouth three times daily. nicotine (NICODERM) 7 mg/24 hr Apply 1 Patch as directed every 24 hours for 14 days. oxyquinoline/sod.lauryl sulfat (TRIMO-BYRNE JELLY VAGINAL) Use vaginally as directed. Twice weekly at bedtime (Patient not taking: No sig reported) Celia Esquivel DO, FACC, FACOI Clinical and Preventive Cardiology Department of Medicine and Division of Cardiology, [facility] Senior Software Test Engineerdispatch manager [facility] Senior Software Test Engineer of Congestive Heart Failure Clinic [facility] Cardiology Office Senior Software Test Engineer [facility] Staff Graduate Recruiter, Michael Carlton Department of Cardiovascular Medicine/Heart and Vascular [place], [facility] Clinical Grades 9 Through 12 Teacher Profressor of Medicine, [facility] Please note: This note has been produced using speech recognition software and may contain errors related to that system including olga, punctuation, spelling, words, gender and phrases that may be inappropriate. documented in this encounter [facility] 10-21-2022 Miscellaneous Notes Pt called and is notified of providers message and instructions. Pt voices understanding. Lina Clancy RN Good to hear she is doing well off the cigarettes. Will call in 6 weeks of step 2 patches and 2 weeks of step 3 to wean down on her dosage of nicotine. Let us know if she needs anything else. Pt called and she reports she stopped smoking 09/01/22. She had 2 months left of old patches 21 dose. Pt is almost thru what she had left and need further dosing patches sent to the pharmacy. Pt reports she had talked with Margo at her last visit on what she was doing.Please advise pt. Cary Martin LPN documented in this encounter [facility] 09-08-2022 Note HNO ID: [id number] Author: Margo Walker APRN.OUTREACH PROFESSIONAL Service: ? Author Type: Nurse Practitioner Type: Progress Notes Filed: 09/08/2022 3:18 PM Note Text: 09/08/2022 Patient presents with: Recheck: 6 months SUBJECTIVE: This is a 56 year old that is here today for Above Complaints.. DIABETES MELLITUS: Since our last visit she denies excessive thirst or increased frequency of urination, chest pain or dyspnea , numbness, tingling or pain in extremities, new or unusual visual symptoms, low sugar/hypoglycemic reactions, weight loss/gain, lightheadedness/dizziness, and bowel changes/loose stools. Follows a diabetic diet most of the time. She is compliant with medication(s) and is tolerating med(s) without any side effects. She reports checking her glucose on a infrequent to not at all basis schedule . Patient's last HgA1C was Hemoglobin A1C (%) Date Value 08/28/2022 5.8 03/17/2022 6.4 02/12/2021 6.1 02/29/2020 5.9 ) Last Ophthalmology exam was within the past 12 months per patient report HTN: Patient is compliant with meds Yes Monitors bp at home: No. Denies side effects: Yes. Chest pain: No. Dyspnea: No. Edema: No. Palpitations: No. Syncope: No. Headache: No. Dizziness: No. HYPERLIPIDEMIA: Patient is taking medications: Yes. Patient is watching diet: Yes. Patient denies myalgias: Yes. Patient denies gi upset: Yes HYPOTHYROIDISM: taking synthroid as prescribed without side effects PARVIN: has not been using as she reports water not working right CAD: Follow with cardiology. Has upcoming appointment in October. Denies SOB, dyspnea, orthopnea, chest pain, palpitations or leg edema Bipolar depression: follows up with psychiatry at the counseling center every three months. No recent changes in medications. Per patient she quit smoking earlier this month. Doing well. PAST MEDICAL HISTORY Diagnosis Date Anxiety Bipolar disorder (HCC) Coronary artery disease [facility] 11/2020: mild diffuse disease to RCA, 30-40% stenosis to mid-LAD Degenerative disc disease Depression Diabetes (HCC) Environmental allergies Essential hypertension Fatty liver noted 2017 sonogram Heart abnormality High cholesterol Hypothyroidism PARVIN on CPAP Severe Suicide attempt (HCC) 06/2012 ALLERGIES Pollen MEDICATIONS Current Outpatient Medications Medication Sig metFORMIN (GLUCOPHAGE) 500 mg tablet Take 1 tablet by mouth twice daily. atorvastatin (LIPITOR) 10 mg tablet Take 1 tablet by mouth daily at bedtime. For cholesterol. losartan (COZAAR) 100 mg tablet Take 1 tablet by mouth once daily. metoprolol succinate ER (TOPROL XL) 25 mg 24 hr tablet Take 1 tablet by mouth once daily. omeprazole (PRILOSEC) 20 mg capsule Take 1 capsule by mouth daily before breakfast. 1/2 hr before meal. levothyroxine (SYNTHROID) 137 mcg tablet Take 1 tablet by mouth once daily. Take on empty stomach. For thyroid. boric acid vaginal suppository 600 mg (CPD) Use 1 Suppository vaginally one time a week. Unwrap and insert as directed. amLODIPine (NORVASC) 5 mg tablet Take 1.5 tablets by mouth once daily. CPAP Initiate CPAP @ 11 cm of water with humidification. Mask (per patient preference) optional chin strap (if indicated) , filters, tubing, humidifier and lifetime supplies. Cholecalciferol, Vitamin D3, 125 mcg (5,000 unit) cap TAKE 1 CAPSULE BY MOUTH ONCE DAILY sertraline (ZOLOFT) 25 mg tablet Take 50 mg by mouth twice daily. hydrOXYzine HCl (ATARAX) 50 mg tablet Take 1-2 tablets by mouth twice daily as needed for itching/rash or anxiety. (Patient taking differently: Take 50-100 mg by mouth twice daily as needed for anxiety (uses prn anxiety).) aspirin, enteric coated (ECOTRIN LOW STRENGTH) 81 mg EC tablet Take 1 tablet by mouth once daily. polyethylene glycol 3350 (MIRALAX) 17 gram/dose powder Take 17 g by mouth once daily. As needed for constipation traZODone (DESYREL) 100 mg tablet Take 2 tablets by mouth at bedtime as needed. buPROPion XL (WELLBUTRIN XL) 150 mg 24 hr tablet Take 1 tablet by mouth once daily. gabapentin (NEURONTIN) 600 mg tablet Take 600 mg by mouth three times daily. oxyquinoline/sod.lauryl sulfat (TRIMO-BYRNE JELLY VAGINAL) Use vaginally as directed. Twice weekly at bedtime (Patient not taking: Reported on 05/03/2022) RING PESSARY VAGINAL Use vaginally as directed. No current facility-administered medications for this visit. Medications and allergies reviewed by this provider. SOCIAL HISTORY Social History Tobacco Use Smoking status: Every Day Packs/day: 1.00 Types: Cigarettes Smokeless tobacco: Never Vaping Use Vaping Use: current everyday user Substances: THC, CBD Substance Use Topics Alcohol use: Yes Comment: beer a month Drug use: Yes Comment: occasional marijuana- 1-2 times per month REVIEW OF SYSTEMS All other reviewed and negative other than HPI. OBJECTIVE: BP 128/78 Pulse (!) 53 Resp 14 Wt 83.9 kg (185 l (more content not included)... [facility] 09-08-2022 Instructions Margo Walker APRN.CNP - 09/08/2022 2:11 PM EST Images from the original note were not included. To schedule a diabetic eye exam at the [facility] [place], please call: [phone] Online resources to learn more [email or web address] ealth/diseases/4788-kandxlmo-eeq inopathy https://www.diabetes.org/diabete s/complications/eye-complication s https://www.aoa.org/healthy-eyes /vll-xxc-fxtzah-conditions/diabe tic-retinopathy?sso=y https://www.GTx.Crowdability References 1. National Diabetes Statistics Report 2020: Estimates of Diabetes and Its [place] in the [facility]. Center for Disease Control and Prevention; 2020. Available at: https://www.cdc.gov/diabetes/pdf s/data/statistics/national-diabe bwa-dcogdlhcba-ycqcou.pdf 2. Monika Aly, Claire Abad, Erasmo Salcido, Jemima Hodge, Ann Marie Toure, Juve Valadez, Compa Stafford, Eriberto Dahl; Diabetic Retinopathy: A Position Statement by the [place] [employer]. Diabetes Care 15 September 2016; 40 (3): 412-418 documented in this encounter [facility] 09-08-2022 History of Presen t illness Narrative 09/08/2022 Patient presents with: Recheck: 6 months SUBJECTIVE: This is a 56 year old that is here today for Above Complaints.. DIABETES MELLITUS: Since our last visit she denies excessive thirst or increased frequency of urination, chest pain or dyspnea , numbness, tingling or pain in extremities, new or unusual visual symptoms, low sugar/hypoglycemic reactions, weight loss/gain, lightheadedness/dizziness, and bowel changes/loose stools. Follows a diabetic diet most of the time. She is compliant with medication(s) and is tolerating med(s) without any side effects. She reports checking her glucose on a infrequent to not at all basis schedule . Patient's last HgA1C was Hemoglobin A1C (%) Date Value 08/28/2022 5.8 03/17/2022 6.4 02/12/2021 6.1 02/29/2020 5.9 ) Last Ophthalmology exam was within the past 12 months per patient report HTN: Patient is compliant with meds Yes Monitors bp at home: No. Denies side effects: Yes. Chest pain: No. Dyspnea: No. Edema: No. Palpitations: No. Syncope: No. Headache: No. Dizziness: No. HYPERLIPIDEMIA: Patient is taking medications: Yes. Patient is watching diet: Yes. Patient denies myalgias: Yes. Patient denies gi upset: Yes HYPOTHYROIDISM: taking synthroid as prescribed without side effects PARVIN: has not been using as she reports water not working right CAD: Follow with cardiology. Has upcoming appointment in October. Denies SOB, dyspnea, orthopnea, chest pain, palpitations or leg edema Bipolar depression: follows up with psychiatry at the counseling center every three months. No recent changes in medications. Per patient she quit smoking earlier this month. Doing well. PAST MEDICAL HISTORY Diagnosis Date Anxiety Bipolar disorder (HCC) Coronary artery disease [facility] 11/2020: mild diffuse disease to RCA, 30-40% stenosis to mid-LAD Degenerative disc disease Depression Diabetes (HCC) Environmental allergies Essential hypertension Fatty liver noted 2017 sonogram Heart abnormality High cholesterol Hypothyroidism PARVIN on CPAP Severe Suicide attempt (HCC) 06/2012 ALLERGIES Pollen MEDICATIONS Current Outpatient Medications Medication Sig metFORMIN (GLUCOPHAGE) 500 mg tablet Take 1 tablet by mouth twice daily. atorvastatin (LIPITOR) 10 mg tablet Take 1 tablet by mouth daily at bedtime. For cholesterol. losartan (COZAAR) 100 mg tablet Take 1 tablet by mouth once daily. metoprolol succinate ER (TOPROL XL) 25 mg 24 hr tablet Take 1 tablet by mouth once daily. omeprazole (PRILOSEC) 20 mg capsule Take 1 capsule by mouth daily before breakfast. 1/2 hr before meal. levothyroxine (SYNTHROID) 137 mcg tablet Take 1 tablet by mouth once daily. Take on empty stomach. For thyroid. boric acid vaginal suppository 600 mg (CPD) Use 1 Suppository vaginally one time a week. Unwrap and insert as directed. amLODIPine (NORVASC) 5 mg tablet Take 1.5 tablets by mouth once daily. CPAP Initiate CPAP @ 11 cm of water with humidification. Mask (per patient preference) optional chin strap (if indicated) , filters, tubing, humidifier and lifetime supplies. Cholecalciferol, Vitamin D3, 125 mcg (5,000 unit) cap TAKE 1 CAPSULE BY MOUTH ONCE DAILY sertraline (ZOLOFT) 25 mg tablet Take 50 mg by mouth twice daily. hydrOXYzine HCl (ATARAX) 50 mg tablet Take 1-2 tablets by mouth twice daily as needed for itching/rash or anxiety. (Patient taking differently: Take 50-100 mg by mouth twice daily as needed for anxiety (uses prn anxiety).) aspirin, enteric coated (ECOTRIN LOW STRENGTH) 81 mg EC tablet Take 1 tablet by mouth once daily. polyethylene glycol 3350 (MIRALAX) 17 gram/dose powder Take 17 g by mouth once daily. As needed for constipation traZODone (DESYREL) 100 mg tablet Take 2 tablets by mouth at bedtime as needed. buPROPion XL (WELLBUTRIN XL) 150 mg 24 hr tablet Take 1 tablet by mouth once daily. gabapentin (NEURONTIN) 600 mg tablet Take 600 mg by mouth three times daily. oxyquinoline/sod.lauryl sulfat (TRIMO-BYRNE JELLY VAGINAL) Use vaginally as directed. Twice weekly at bedtime (Patient not taking: Reported on 05/03/2022) RING PESSARY VAGINAL Use vaginally as directed. No current facility-administered medications for this visit. Medications and allergies reviewed by this provider. SOCIAL HISTORY Social History Tobacco Use Smoking status: Every Day Packs/day: 1.00 Types: Cigarettes Smokeless tobacco: Never Vaping Use Vaping Use: current everyday user Substances: THC, CBD Substance Use Topics Alcohol use: Yes Comment: beer a month Drug use: Yes Comment: occasional marijuana- 1-2 times per month REVIEW OF SYSTEMS All other reviewed and negative other than HPI. OBJECTIVE: BP 128/78 Pulse (!) 53 Resp 14 Wt 83.9 kg (185 lb) LMP 12/15/2013 SpO2 97% BMI 34.96 kg/m . Vital signs reviewed by this provider. APPEARANCE Well appearing, alert, in no acute distress, well-hydrated, well nourished. EYES PERRLA, conjunctiva and sclera normal. HEART RRR with normal S1 and S2, no murmurs, no gallops, no JVD appreciated LUNG clear to auscultation EXTREMITIES Extremities normal, No deformities, No skin discoloration, and No edema SKIN Skin color, texture, turgor normal, no suspicious rashes or lesions to exposed skin DM foot exam: shoes and socks removed, No deformities, ulcers, calluses, normal distal pulses, sensitive to 10 gm monofilament, and nails notable for Hypertrophic or Yellowish Component Latest Ref Rng & Units 08/28/2022 WBC 3.70 - 11.00 k/uL 7.87 RBC 3.90 - 5.20 m/uL 5.20 Hemoglobin 11.5 - 15.5 g/dL 15.0 Hematocrit 36.0 - 46.0 % 46.4 (H) MCV 80.0 - 100.0 fL 89.2 MCH 26.0 - 34.0 pg 28.8 MCHC 30.5 - 36.0 g/dL 32.3 RDW-CV 11.5 - 15.0 % 13.2 Platelet Count 150 - 400 k/uL 329 MPV 9.0 - 12.7 fL 9.3 Neut% % 55.6 Abs Neut (ANC) 1.45 - 7.50 k/uL 4.38 Lymph% % 33.7 Abs Lymph 1.00 - 4.00 k/uL 2.65 Osage% % 7.1 Abs Osage <0.87 k/uL 0.56 Eosin% % 2.5 Abs Eosin <0.46 k/uL 0.20 Baso% % 0.8 Abs Baso <0.11 k/uL 0.06 Immature Gran % % 0.3 IMMATURE GRANS (ABS) <0.10 k/uL <0.03 NRBC /100 WBC 0.0 Absolute nRBC <0.01 k/uL <0.01 DTYPE Auto Protein, Total 6.3 - 8.0 g/dL 7.6 Albumin 3.9 - 4.9 g/dL 4.5 Calcium 8.5 - 10.2 mg/dL 9.6 Bilirubin, Total 0.2 - 1.3 mg/dL 0.4 Alkaline Phosphatase 34 - 123 U/L 79 AST 13 - 35 U/L 14 ALT 7 - 38 U/L 17 Glucose 74 - 99 mg/dL 105 (H) BUN 7 - 21 mg/dL 12 Creatinine 0.58 - 0.96 mg/dL 0.76 Sodium 136 - 144 mmol/L 143 Potassium 3.7 - 5.1 mmol/L 4.4 Chloride 97 - 105 mmol/L 105 CO2 22 - 30 mmol/L 28 Anion Gap 9 - 18 mmol/L 10 eGFR >=60 mL/min/1.73m 92 Hemoglobin A1C 4.3 - 5.6 % 5.8 (H) Estimated Average Glucose mg/dL 120 TSH 0.270 - 4.200 mIU/L 0.388 SHINGRIX VACCINE(1 of 2) Never done COVID-19 VACCINE(3 - Booster for Pfizer series) due on 12/18/2020 PAP TESTING due on 09/10/2021 HPV TESTING due on 09/10/2021 DILATED RETINAL EXAM due on 02/19/2022 LDL CHOLESTEROL due on 02/19/2023 HBA1C due on 02/25/2023 URINE ALBUMIN:CREATININE RATIO due on 03/17/2023 MAMMOGRAM due on 06/02/2023 DIABETIC FOOT EXAM due on 09/08/2023 ANNUAL PCP TEAM CHRONIC DISEASE VISIT due on 09/08/2023 BP CONTROLLED (<130/80) due on 09/08/2023 COLORECTAL CANCER SCREENING due on 07/23/2026 DTAP,TDAP,TD(2 - Td or Tdap) due on 02/12/2031 INFLUENZA Completed HEPATITIS C SCREENING Completed HIV SCREENING Completed PNEUMOCOCCAL Completed ASSESSMENT/PLAN: 1. Controlled type 2 diabetes mellitus without complication, without long-term current use of insulin (HCC) - ICD9: 250.00, ICD10: E11.9 (primary diagnosis) Controlled. - Continue current medications - Ophthalmology referral for eval/management of diabetic eye changes - Encouraged regular aerobic exercise and weight loss - BP goal of <130/80 - LDL goal of <100 - congratulated for smoking cessation - follow-up in 6 months, sooner if needed 2. Bipolar affective disorder, current episode mixed, current episode severity unspecified (HCC) - ICD9: 296.60, ICD10: F31.60 - stable - continue current medications - follow-up with psychiatry as scheduled 3. Mixed hyperlipidemia - ICD9: 272.2, ICD10: E78.2 - good control - Continue current medication. - Encouraged following a low fat, low cholesterol diet. - Discussed the benefits of regular aerobic exercise and weight loss. - Follow up in 6 months. - Encouraged following a low carbohydrate, healthy oil intake diet. 4. PARVIN on CPAP - ICD9: 327.23, V46.8, ICD10: G47.33, Z99.89 - discussed she needs to call [employer] to discuss replacement 5. Essential hypertension - ICD9: 401.9, ICD10: I10 - good control - Continue current medication(s) - Encouraged dietary sodium restriction/DASH diet - Recommended regular aerobic exercise. - Recommend home blood pressure monitoring, to bring results in on next visit - Discussed need and benefit for weight loss. - Recheck in 6 months, sooner should new symptoms or problems arise. - Goal of BP <130/80 - Recommended no refined sugar, low refined starch, healthy oil intake (olive oil), healthy protein (fish) along the lines of the Mediterranean diet. 6. Obesity, Class I, BMI 30-34.9 - ICD9: 278.00, ICD10: E66.9 Weight increasing - Behavioral intervention - Lengthy discussion in office today regarding diet and exercise. Discussed use of small plate to eat meals from, drink 1 glass of water 10-15 minutes prior to eating meal, drink 8 glasses of water daily, eat fresh fruit and vegetable during meal first then lean protein such as grilled/baked chicken breast or fish, limit carbohydrate intake (less pasta, breads, rice and snack foods) as well as limiting sugars (desserts etc). Important to count / track your calories and exercise as well. 7. Nonobstructive atherosclerosis of coronary artery - ICD9: 414.00, ICD10: I25.10 - stable on current regime - follow-up with cardiology as scheduled Margo Rodriguezlogar, APPLICATION PROGRAMMER ANALYST.OUTREACH PROFESSIONAL Prescription instructions reviewed with patient as applicable. Patient advised if symptoms do not improve or if symptoms worsen sooner, to contact their primary care physician. Potential red flag symptoms discussed with the patient. Reviewed appropriate action plan to take if red flag symptoms occur. Patient agreeable to treatment plan. I spent a total of 30 minutes on the date of the service which included preparing to see the patient, [id number] patient care, completing clinical documentation, obtaining and/or reviewing separately obtained history, performing a medically appropriate examination, and counseling and educating the patient/family/caregiver. documented in this encounter [facility] 08-30-2022 Miscellaneous Notes Patient notified and verbalized understanding Aleisha Velasquez Cma Please let patient know that her Hemoglobin a1c has improved from previous lab draw. Patients other labs are within normal limits. documented in this encounter [facility] 08-27-2022 Miscellaneous Notes Patient was notified Cathi Herrera Ma Please let patient know that her labs are in. Pt came to get lab work done. Orders were pulled for an appointment that she did not complete. Please add the orders back and call patient to let her know. Thank you. documented in this encounter [facility] 08-26-2022 Note HNO ID: [id number] Author: RT Emani(R) Service: ? Author Type: Human Service Technician Type: Progress Notes Filed: 08/26/2022 4:39 PM Note Text: Radiology Service Progress Note PATIENT NAME: Bharati Paez DATE OF SERVICE: August 26, 2022 TIME: 4:25 PM PATIENT IDENTITY VERIFICATION COMPLETED USING TWO (2) IDENTIFIERS: Name and Date of confirmed by patient verbally. FALL SCREENING: Has the patient had 2 falls in the last year or 1 fall with injury or currently using an Ambulatory Assistive Device (Walker, Cane, Wheelchair, Crutches, etc.)? No PATIENT GENDER DATA: Female. status: : No status: NO. PATIENT RELEVANT IMPLANT DATA REVIEWED: Yes RADIOLOGY DEPARTMENT: General X-ray: Exam(s) Completed: Chest X-Ray PERIPHERAL IV DATA: Not applicable SIGNED BY: RT Emani(R) August 26, 2022 4:25 PM [facility] 08-25-2022 Note HNO ID: [id number] Author: Margo Walker APRN.OUTREACH PROFESSIONAL Service: ? Author Type: Nurse Practitioner Type: Progress Notes Filed: 08/25/2022 4:00 PM Note Text: 08/25/2022 Patient presents with: Anorexia: No appetite; x7 months SUBJECTIVE: This is a 56 year old that is here today for Above Complaints.. Reports weight down. No appetite. Gets food delivery an half the food is not good. Gets [employer] and [employer] through her insurance. Reports she is too tired to cook for herself. Want to stop smoking. Is on Wellbutrin. Has nicotine patches she wants to restart. Asking for coping techniques to quit. Brought home BP cuff . Report she readings at home are 100-134/70-93. Home BP cuff says 168/74 and our manual reading is 108/68. PAST MEDICAL HISTORY Diagnosis Date Anxiety Bipolar disorder (HCC) Coronary artery disease [facility] 11/2020: mild diffuse disease to RCA, 30-40% stenosis to mid-LAD Degenerative disc disease Depression Diabetes (HCC) Environmental allergies Essential hypertension Fatty liver noted 2017 sonogram Heart abnormality High cholesterol Hypothyroidism PARVIN on CPAP Severe Suicide attempt (HCC) 06/2012 ALLERGIES Pollen MEDICATIONS Current Outpatient Medications Medication Sig metFORMIN (GLUCOPHAGE) 500 mg tablet Take 1 tablet by mouth twice daily. atorvastatin (LIPITOR) 10 mg tablet Take 1 tablet by mouth daily at bedtime. For cholesterol. losartan (COZAAR) 100 mg tablet Take 1 tablet by mouth once daily. metoprolol succinate ER (TOPROL XL) 25 mg 24 hr tablet Take 1 tablet by mouth once daily. omeprazole (PRILOSEC) 20 mg capsule Take 1 capsule by mouth daily before breakfast. 1/2 hr before meal. levothyroxine (SYNTHROID) 137 mcg tablet Take 1 tablet by mouth once daily. Take on empty stomach. For thyroid. boric acid vaginal suppository 600 mg (CPD) Use 1 Suppository vaginally one time a week. Unwrap and insert as directed. amLODIPine (NORVASC) 5 mg tablet Take 1.5 tablets by mouth once daily. CPAP Initiate CPAP @ 11 cm of water with humidification. Mask (per patient preference) optional chin strap (if indicated) , filters, tubing, humidifier and lifetime supplies. Cholecalciferol, Vitamin D3, 125 mcg (5,000 unit) cap TAKE 1 CAPSULE BY MOUTH ONCE DAILY sertraline (ZOLOFT) 25 mg tablet Take 50 mg by mouth twice daily. hydrOXYzine HCl (ATARAX) 50 mg tablet Take 1-2 tablets by mouth twice daily as needed for itching/rash or anxiety. (Patient taking differently: Take 50-100 mg by mouth twice daily as needed for anxiety (uses prn anxiety).) melatonin 2.5 mg chew Take 2.5 mg by mouth as needed. (Patient not taking: Reported on 06/07/2022) oxyquinoline/sod.lauryl sulfat (TRIMO-BYRNE JELLY VAGINAL) Use vaginally as directed. Twice weekly at bedtime (Patient not taking: Reported on 05/03/2022) RING PESSARY VAGINAL Use vaginally as directed. aspirin, enteric coated (ECOTRIN LOW STRENGTH) 81 mg EC tablet Take 1 tablet by mouth once daily. polyethylene glycol 3350 (MIRALAX) 17 gram/dose powder Take 17 g by mouth once daily. As needed for constipation traZODone (DESYREL) 100 mg tablet Take 2 tablets by mouth at bedtime as needed. buPROPion XL (WELLBUTRIN XL) 150 mg 24 hr tablet Take 1 tablet by mouth once daily. gabapentin (NEURONTIN) 600 mg tablet Take 600 mg by mouth three times daily. No current facility-administered medications for this visit. Medications and allergies reviewed by this provider. SOCIAL HISTORY Social History Tobacco Use Smoking status: Every Day Packs/day: 1.00 Types: Cigarettes Smokeless tobacco: Never Vaping Use Vaping Use: current everyday user Substances: THC, CBD Substance Use Topics Alcohol use: Yes Comment: beer a month Drug use: Yes Comment: occasional marijuana- 1-2 times per month REVIEW OF SYSTEMS All other reviewed and negative other than HPI. OBJECTIVE: BP 108/68 Pulse 60 Resp 18 Wt 83.2 kg (183 lb 6.4 oz) LMP 12/15/2013 SpO2 96% BMI 34.65 kg/m? . Vital signs reviewed by this provider. APPEARANCE Well appearing, alert, in no acute distress, well-hydrated, well nourished. EYES PERRLA, conjunctiva and sclera normal. HEART RRR with normal S1 and S2, no murmurs, no gallops, no JVD appreciated LUNG clear to auscultation. No wheezes, rhonchi or rales SKIN Skin color, texture, turgor normal, no suspicious rashes or lesions to exposed skin Patient asked me if a person could ask a dumb question. My response was there is no dumb question. When I asked patient why she asked this she says because she perceived I thought she was asking dumb questions. Apologized to patient if I made her feel this way as I did not think any of her questions were dumb SHINGRIX VACCINE(1 of 2) Never done COVID-19 VACCINE(3 - Booster for Pfizer series) due on 12/18/2020 PAP TESTING due on 09/10/2021 HPV TESTING due on 09/10/2021 DILATED RETINAL EXAM due on 02/19/2022 HBA1 (more content not included)... [facility] 08-12-2022 Note HNO ID: [id number] Author: Makayla Villareal APRN.OUTREACH PROFESSIONAL Service: ? Author Type: Nurse Practitioner Type: Progress Notes Filed: 08/12/2022 2:59 PM Note Text: Subjective Patient came in with complaints of rash on right side of face. Patient says she has 3 spots of the rash and its been there for 2 days. Patient denies any severe pain or itching. Patient has cats at home but no other pets. Patient denies any other symptoms at this time. The history is provided by the patient. No pediatric speech language pathologist was used. Rash Review of Systems Constitutional: Negative. Skin: Positive for rash. Objective Physical Exam Constitutional: Appearance: Normal appearance. HENT: Head: Comments: Patient has small open wounds in area marked above consistent with impetigo. Starting to crust over with honey colored crust. Pulmonary: Effort: Pulmonary effort is normal. Neurological: Mental Status: She is alert. PAST MEDICAL HISTORY Diagnosis Date Anxiety Bipolar disorder (HCC) Coronary artery disease [facility] 11/2020: mild diffuse disease to RCA, 30-40% stenosis to mid-LAD Degenerative disc disease Depression Diabetes (HCC) Environmental allergies Essential hypertension Fatty liver noted 2017 sonogram Heart abnormality High cholesterol Hypothyroidism PARVIN on CPAP Severe Suicide attempt (HCC) 06/2012 PAST SURGICAL HISTORY Procedure Laterality Date COLONOSCOPY 07/23/2016 9 yrs LAPAROSCOPIC UTERINE NERVE ABLATION 2013 PAST SURGICAL HISTORY OF age 15 TONSILLECTOMY PRIMARY/SECONDARY Tonsillectomy ALLERGIES Pollen MEDICATIONS metoprolol succinate ER (TOPROL XL) 25 mg 24 hr tablet Take 1 tablet by mouth once daily. omeprazole (PRILOSEC) 20 mg capsule Take 1 capsule by mouth daily before breakfast. 1/2 hr before meal. levothyroxine (SYNTHROID) 137 mcg tablet Take 1 tablet by mouth once daily. Take on empty stomach. For thyroid. boric acid vaginal suppository 600 mg (CPD) Use 1 Suppository vaginally one time a week. Unwrap and insert as directed. metFORMIN (GLUCOPHAGE) 500 mg tablet Take 1 tablet by mouth twice daily. amLODIPine (NORVASC) 5 mg tablet Take 1.5 tablets by mouth once daily. atorvastatin (LIPITOR) 10 mg tablet Take 1 tablet by mouth daily at bedtime. For cholesterol. CPAP Initiate CPAP @ 11 cm of water with humidification. Mask (per patient preference) optional chin strap (if indicated) , filters, tubing, humidifier and lifetime supplies. losartan (COZAAR) 100 mg tablet Take 1 tablet by mouth once daily. Cholecalciferol, Vitamin D3, 125 mcg (5,000 unit) cap TAKE 1 CAPSULE BY MOUTH ONCE DAILY sertraline (ZOLOFT) 25 mg tablet Take 50 mg by mouth twice daily. hydrOXYzine HCl (ATARAX) 50 mg tablet Take 1-2 tablets by mouth twice daily as needed for itching/rash or anxiety. (Patient taking differently: Take 50-100 mg by mouth twice daily as needed for anxiety (uses prn anxiety).) RING PESSARY VAGINAL Use vaginally as directed. aspirin, enteric coated (ECOTRIN LOW STRENGTH) 81 mg EC tablet Take 1 tablet by mouth once daily. polyethylene glycol 3350 (MIRALAX) 17 gram/dose powder Take 17 g by mouth once daily. As needed for constipation traZODone (DESYREL) 100 mg tablet Take 2 tablets by mouth at bedtime as needed. buPROPion XL (WELLBUTRIN XL) 150 mg 24 hr tablet Take 1 tablet by mouth once daily. gabapentin (NEURONTIN) 600 mg tablet Take 600 mg by mouth three times daily. mupirocin (BACTROBAN) 2 % ointment Apply to affected area three times daily for 10 days. melatonin 2.5 mg chew Take 2.5 mg by mouth as needed. (Patient not taking: Reported on 06/07/2022) oxyquinoline/sod.lauryl sulfat (TRIMO-BYRNE JELLY VAGINAL) Use vaginally as directed. Twice weekly at bedtime (Patient not taking: Reported on 05/03/2022) FAMILY HISTORY Problem Relation Age of Onset Diabetes Mother Hypertension Mother Psychiatry Mother Hypertension Father Cervical Cancer Sister Diabetes Brother Diabetes Brother Alzheimer's Disease Maternal Grandmother Diabetes Maternal Grandmother Prostate Cancer Maternal Grandfather Heart Maternal Grandfather Social History Tobacco Use Smoking status: Every Day Packs/day: 1.00 Types: Cigarettes Smokeless tobacco: Never Vaping Use Vaping Use: current everyday user Substances: THC, CBD Substance Use Topics Alcohol use: Yes Comment: beer a month Drug use: Yes Comment: occasional marijuana- 1-2 times per month ASSESSMENT/PLAN: 1. Impetigo - ICD9: 684, ICD10: L01.00 - MUPIROCIN 2 % TOPICAL OINTMENT - MUPIROCIN 2 % TOPICAL OINTMENT Patient was educated about proper use of medication and supportive therapies. Patient was educated about proper procedures to keep house disinfected. Patient was also educated that signs and symptoms do not seem to be getting better she should follow-up with dermatology. Patient was okay with this care plan. Makayla Villareal APRN.[facility] 08-12-2022 History of Presen t illness Narrative Images from the original note were not included. Subjective Patient came in with complaints of rash on right side of face. Patient says she has 3 spots of the rash and its been there for 2 days. Patient denies any severe pain or itching. Patient has cats at home but no other pets. Patient denies any other symptoms at this time. The history is provided by the patient. No pediatric speech language pathologist was used. Rash Review of Systems Constitutional: Negative. Skin: Positive for rash. Objective Physical Exam Constitutional: Appearance: Normal appearance. HENT: Head: Comments: Patient has small open wounds in area marked above consistent with impetigo. Starting to crust over with honey colored crust. Pulmonary: Effort: Pulmonary effort is normal. Neurological: Mental Status: She is alert. PAST MEDICAL HISTORY Diagnosis Date Anxiety Bipolar disorder (HCC) Coronary artery disease [facility] 11/2020: mild diffuse disease to RCA, 30-40% stenosis to mid-LAD Degenerative disc disease Depression Diabetes (HCC) Environmental allergies Essential hypertension Fatty liver noted 2016 sonogram Heart abnormality High cholesterol Hypothyroidism PARVIN on CPAP Severe Suicide attempt (HCC) 06/2012 PAST SURGICAL HISTORY Procedure Laterality Date COLONOSCOPY 07/23/2016 9 yrs LAPAROSCOPIC UTERINE NERVE ABLATION 2013 PAST SURGICAL HISTORY OF age 15 TONSILLECTOMY PRIMARY/SECONDARY <AGE 11 Tonsillectomy ALLERGIES Pollen MEDICATIONS metoprolol succinate ER (TOPROL XL) 25 mg 24 hr tablet Take 1 tablet by mouth once daily. omeprazole (PRILOSEC) 20 mg capsule Take 1 capsule by mouth daily before breakfast. 1/2 hr before meal. levothyroxine (SYNTHROID) 137 mcg tablet Take 1 tablet by mouth once daily. Take on empty stomach. For thyroid. boric acid vaginal suppository 600 mg (CPD) Use 1 Suppository vaginally one time a week. Unwrap and insert as directed. metFORMIN (GLUCOPHAGE) 500 mg tablet Take 1 tablet by mouth twice daily. amLODIPine (NORVASC) 5 mg tablet Take 1.5 tablets by mouth once daily. atorvastatin (LIPITOR) 10 mg tablet Take 1 tablet by mouth daily at bedtime. For cholesterol. CPAP Initiate CPAP @ 11 cm of water with humidification. Mask (per patient preference) optional chin strap (if indicated) , filters, tubing, humidifier and lifetime supplies. losartan (COZAAR) 100 mg tablet Take 1 tablet by mouth once daily. Cholecalciferol, Vitamin D3, 125 mcg (5,000 unit) cap TAKE 1 CAPSULE BY MOUTH ONCE DAILY sertraline (ZOLOFT) 25 mg tablet Take 50 mg by mouth twice daily. hydrOXYzine HCl (ATARAX) 50 mg tablet Take 1-2 tablets by mouth twice daily as needed for itching/rash or anxiety. (Patient taking differently: Take 50-100 mg by mouth twice daily as needed for anxiety (uses prn anxiety).) RING PESSARY VAGINAL Use vaginally as directed. aspirin, enteric coated (ECOTRIN LOW STRENGTH) 81 mg EC tablet Take 1 tablet by mouth once daily. polyethylene glycol 3350 (MIRALAX) 17 gram/dose powder Take 17 g by mouth once daily. As needed for constipation traZODone (DESYREL) 100 mg tablet Take 2 tablets by mouth at bedtime as needed. buPROPion XL (WELLBUTRIN XL) 150 mg 24 hr tablet Take 1 tablet by mouth once daily. gabapentin (NEURONTIN) 600 mg tablet Take 600 mg by mouth three times daily. mupirocin (BACTROBAN) 2 % ointment Apply to affected area three times daily for 10 days. melatonin 2.5 mg chew Take 2.5 mg by mouth as needed. (Patient not taking: Reported on 06/07/2022) oxyquinoline/sod.lauryl sulfat (TRIMO-BYRNE JELLY VAGINAL) Use vaginally as directed. Twice weekly at bedtime (Patient not taking: Reported on 05/03/2022) FAMILY HISTORY Problem Relation Age of Onset Diabetes Mother Hypertension Mother Psychiatry Mother Hypertension Father Cervical Cancer Sister Diabetes Brother Diabetes Brother Alzheimer's Disease Maternal Grandmother Diabetes Maternal Grandmother Prostate Cancer Maternal Grandfather Heart Maternal Grandfather Social History Tobacco Use Smoking status: Every Day Packs/day: 1.00 Types: Cigarettes Smokeless tobacco: Never Vaping Use Vaping Use: current everyday user Substances: THC, CBD Substance Use Topics Alcohol use: Yes Comment: beer a month Drug use: Yes Comment: occasional marijuana- 1-2 times per month ASSESSMENT/PLAN: 1. Impetigo - ICD9: 684, ICD10: L01.00 - MUPIROCIN 2 % TOPICAL OINTMENT - MUPIROCIN 2 % TOPICAL OINTMENT Patient was educated about proper use of medication and supportive therapies. Patient was educated about proper procedures to keep house disinfected. Patient was also educated that signs and symptoms do not seem to be getting better she should follow-up with dermatology. Patient was okay with this care plan. Makayla Villareal APRN.BRE documented in this encounter [facility] 08-12-2022 Miscellaneous Notes Patient notified and will call to schedule certified pesticide applicator appointment Cathi Herrera Ma Message left for patient to call back and ask for triage nurse for update. Kassie Olguin LPN I rarely due pap smears. I will place referral to [facility]. Please call and assist in scheduling. Have her bring her home BP cuff to upcoming office visit. Margo Walker APRN.BRE Patient scheduled appt with Contact Lens Cutter to discuss her recent weight loss. Reports she has lost 20-25 # since Mar, and doesn't know why. Reports she has no appetite and gets meal delivery thru her insurance. Reports she only eats half of the meals. Reports BP readings: 100/70 to 134/93. Asking if Contact L[facility] Cutter can refer her to [facility] for pap test or do you do those? If not, please place referral and ask office to phone her to schedule appt. documented in this encounter [facility] 08-08-2022 Miscellaneous Notes Reason for call: patient calling in regarding symptoms of unsure if she took her morning BP meds. She didn't take any of her medications yesterday as she was feeling queasy. She normally takes metoprolol ER 25mg, amlodipine 7.5mg, and losartan 100mg daily in morning. She denies any symptoms currently. She checked her BP a couple hours apart this morning and got 138/93, and then 140/96, HR 63. Outcome: Spoke with with who advised- Take metoprolol succinate ER 25mg PO x 1 dose now as long as HR > 60 currently This evening around dinner time-check BP again and if higher than 140/90-take amlodipine 2.5mg (half tab) one time. Tomorrow-resume normal dosing and schedule of medications. Encourage pill box if she doesn't already have. Call back with any other questions or concerns. Patient agreeable to plan. Reason for Disposition [1] Systolic BP >= 130 OR Diastolic >= 80 AND [2] [1] Caller has URGENT medicine question about med that PCP or specialist prescribed AND [2] triager unable to answer question Answer Assessment - Initial Assessment Questions 1. BLOOD PRESSURE: 138/93, 140/96, HR 63 3. HOW: home machine 4. HISTORY: yes 5. MEDICATIONS:yes-missed yesterday dosing and now unsure if she took her morning doses. 6. OTHER SYMPTOMS:no Answer Assessment - Initial Assessment Questions 1. NAME of MEDICATION: toprol XL, amlodipine, and losartan 2. QUESTION: cannot remember if she took her morning bp medications. 3. PRESCRIBING HCP pcp 4. SYMPTOMS: Do you have any symptoms? No Protocols used: Medication Question [id number], Blood Pressure - [id number] documented in this encounter [facility] 07-02-2022 Note HNO ID: [id number] Author: RT Aime(R) Service: ? Author Type: Technologist Type: Progress Notes Filed: 07/02/2022 9:51 AM Note Text: Radiology Service Progress Note PATIENT NAME: Bharati Paez DATE OF SERVICE: July 02, 2022 TIME: 9:51 AM PATIENT IDENTITY VERIFICATION COMPLETED USING TWO (2) IDENTIFIERS: Name and Date of confirmed by patient verbally. FALL SCREENING: Has the patient had 2 falls in the last year or 1 fall with injury or currently using an Ambulatory Assistive Device (Walker, Cane, Wheelchair, Crutches, etc.)? No PATIENT GENDER DATA: Female. status: : No status: NO. PATIENT RELEVANT IMPLANT DATA REVIEWED: Not Applicable RADIOLOGY DEPARTMENT: Ultrasound PERIPHERAL IV DATA: Not applicable SIGNED BY: RT Aime(R) July 02, 2022 9:51 AM [facility] 07-02-2022 History of Presen t illness Narrative Radiology Service Progress Note PATIENT NAME: Bharati Paez DATE OF SERVICE: July 02, 2022 TIME: 9:51 AM PATIENT IDENTITY VERIFICATION COMPLETED USING TWO (2) IDENTIFIERS: Name and Date of confirmed by patient verbally. FALL SCREENING: Has the patient had 2 falls in the last year or 1 fall with injury or currently using an Ambulatory Assistive Device (Walker, Cane, Wheelchair, Crutches, etc.)? No PATIENT GENDER DATA: Female. status: : No status: NO. PATIENT RELEVANT IMPLANT DATA REVIEWED: Not Applicable RADIOLOGY DEPARTMENT: Ultrasound PERIPHERAL IV DATA: Not applicable SIGNED BY: RT Aime(R) July 02, 2022 9:51 AM documented in this encounter [facility] 06-17-2022 Miscellaneous Notes Patient scheduled for 07/02/2022. Shanita Mclaughlin RN Email sent to Jannet Johnson and Janelle Quinn for an US guided left breast biopsy at [facility]. Shanita Mclaughlin RN documented in this encounter [facility] 06-08-2022 Note HNO ID: [id number] Author: Andrew Goodson MD Service: ? Author Type: Physician Type: Progress Notes Filed: 06/08/2022 10:30 AM Note Text: I was unable to see the area and her left breast. I am going to get her scheduled to have this done either in [place] or [place] No charge for today's visit [facility] 06-08-2022 History of Presen t illness Narrative I was unable to see the area and her left breast. I am going to get her scheduled to have this done either in [place] or [place] No charge for today's visit documented in this encounter [facility] 06-07-2022 Note HNO ID: [id number] Author: Andrew Goodson MD Service: ? Author Type: Physician Type: Progress Notes Filed: 06/15/2022 9:04 AM Note Text: HISTORY AND PHYSICAL - BREAST COMPLAINT Bharati Philippe 1965 REFERRING PHYSICIAN: Jl Singleton,* CHIEF COMPLAINT: Abnormal mammogram (primary encounter diagnosis) HPI: The patient is a 56 year old female with a complaint of an abnormal mammogram. The patient had a mammogram with ultrasound on 06/02/22 which demonstrated birads 4: The patient denies a history of breast masses. She does perform a self breast exam routinely. She notes no skin changes. She denies nipple discharge. She notes no axillary masses. She notes no family history of breast problems. She notes no significant breast trauma or breast difficulties in the past. The patient is being seen by me today at the request of Dr. Jl Singleton MD for my opinion and advice regarding Abnormal mammogram (primary encounter diagnosis). PAST MEDICAL HISTORY Diagnosis Date Anxiety Bipolar disorder (HCC) Coronary artery disease [facility] 11/2020: mild diffuse disease to RCA, 30-40% stenosis to mid-LAD Degenerative disc disease Depression Diabetes (HCC) Environmental allergies Essential hypertension Fatty liver noted 2017 sonogram Heart abnormality High cholesterol Hypothyroidism PARVIN on CPAP Severe Suicide attempt (HCC) 06/2012 PAST SURGICAL HISTORY Procedure Laterality Date COLONOSCOPY 07/23/2016 9 yrs LAPAROSCOPIC UTERINE NERVE ABLATION 2013 PAST SURGICAL HISTORY OF age 15 TONSILLECTOMY PRIMARY/SECONDARY Tonsillectomy Current Outpatient Medications Medication Sig Dispense Refill omeprazole (PRILOSEC) 20 mg capsule Take 1 capsule by mouth daily before breakfast. 1/2 hr before meal. 90 capsule 1 levothyroxine (SYNTHROID) 137 mcg tablet Take 1 tablet by mouth once daily. Take on empty stomach. For thyroid. 90 tablet 1 boric acid vaginal suppository 600 mg (CPD) Use 1 Suppository vaginally one time a week. Unwrap and insert as directed. metFORMIN (GLUCOPHAGE) 500 mg tablet Take 1 tablet by mouth twice daily. 180 tablet 1 amLODIPine (NORVASC) 5 mg tablet Take 1.5 tablets by mouth once daily. 135 tablet 3 atorvastatin (LIPITOR) 10 mg tablet Take 1 tablet by mouth daily at bedtime. For cholesterol. 30 tablet 5 CPAP Initiate CPAP @ 11 cm of water with humidification. Mask (per patient preference) optional chin strap (if indicated) , filters, tubing, humidifier and lifetime supplies. metoprolol succinate ER (TOPROL XL) 25 mg 24 hr tablet Take 1 tablet by mouth once daily. 90 tablet 3 losartan (COZAAR) 100 mg tablet Take 1 tablet by mouth once daily. 90 tablet 3 Cholecalciferol, Vitamin D3, 125 mcg (5,000 unit) cap TAKE 1 CAPSULE BY MOUTH ONCE DAILY 30 capsule 11 sertraline (ZOLOFT) 25 mg tablet Take 50 mg by mouth twice daily. hydrOXYzine HCl (ATARAX) 50 mg tablet Take 1-2 tablets by mouth twice daily as needed for itching/rash or anxiety. (Patient taking differently: Take 50-100 mg by mouth twice daily as needed for anxiety (uses prn anxiety).) 60 tablet 1 RING PESSARY VAGINAL Use vaginally as directed. aspirin, enteric coated (ECOTRIN LOW STRENGTH) 81 mg EC tablet Take 1 tablet by mouth once daily. polyethylene glycol 3350 (MIRALAX) 17 gram/dose powder Take 17 g by mouth once daily. As needed for constipation 289 g 5 traZODone (DESYREL) 100 mg tablet Take 2 tablets by mouth at bedtime as needed. 30 tablet 5 buPROPion XL (WELLBUTRIN XL) 150 mg 24 hr tablet Take 1 tablet by mouth once daily. 30 tablet 5 gabapentin (NEURONTIN) 600 mg tablet Take 600 mg by mouth three times daily. melatonin 2.5 mg chew Take 2.5 mg by mouth as needed. (Patient not taking: Reported on 06/07/2022) oxyquinoline/sod.lauryl sulfat (TRIMO-BYRNE JELLY VAGINAL) Use vaginally as directed. Twice weekly at bedtime (Patient not taking: Reported on 05/03/2022) No current facility-administered medications for this visit. ALLERGIES: Pollen PERSONAL HISTORY: Social History Tobacco Use Smoking status: Every Day Packs/day: 1.00 Types: Cigarettes Smokeless tobacco: Never Vaping Use Vaping Use: current everyday user Substances: THC, CBD Substance Use Topics Alcohol use: Yes Comment: beer a month Drug use: Yes Comment: occasional marijuana- 1-2 times per month FAMILY HISTORY: FAMILY HISTORY Problem Relation Age of Onset Diabetes Mother Hypertension Mother Psychiatry Mother Hypertension Father Cervical Cancer Sister Diabetes Brother Diabetes Brother Alzheimer's Disease Maternal Grandmother Diabetes Maternal Grandmother Prostate Cancer Maternal Grandfather Heart Maternal Grandfather REVIEW OF SYMPTOMS: The review of systems data was entered by the nurse and reviewed by me Nursing Notes: Bell HollisKATY 06/07/2022 3:54 PM Signed REVIEW OF SYSTEMS: General: The patient notes fatigue, denies weig (more content not included)... [facility] 06-07-2022 History of Presen t illness Narrative HISTORY AND PHYSICAL - BREAST COMPLAINT Bharati Paez 1965 REFERRING PHYSICIAN: Jl Singleton,* CHIEF COMPLAINT: Abnormal mammogram (primary encounter diagnosis) HPI: The patient is a 56 year old female with a complaint of an abnormal mammogram. The patient had a mammogram with ultrasound on 06/02/22 which demonstrated birads 4: The patient denies a history of breast masses. She does perform a self breast exam routinely. She notes no skin changes. She denies nipple discharge. She notes no axillary masses. She notes no family history of breast problems. She notes no significant breast trauma or breast difficulties in the past. The patient is being seen by me today at the request of Dr. Jl Singleton MD for my opinion and advice regarding Abnormal mammogram (primary encounter diagnosis). PAST MEDICAL HISTORY Diagnosis Date Anxiety Bipolar disorder (HCC) Coronary artery disease [facility] 11/2020: mild diffuse disease to RCA, 30-40% stenosis to mid-LAD Degenerative disc disease Depression Diabetes (HCC) Environmental allergies Essential hypertension Fatty liver noted 2017 sonogram Heart abnormality High cholesterol Hypothyroidism PARVIN on CPAP Severe Suicide attempt (HCC) 06/2012 PAST SURGICAL HISTORY Procedure Laterality Date COLONOSCOPY 07/23/2016 9 yrs LAPAROSCOPIC UTERINE NERVE ABLATION 2013 PAST SURGICAL HISTORY OF age 15 TONSILLECTOMY PRIMARY/SECONDARY <AGE 11 Tonsillectomy Current Outpatient Medications Medication Sig Dispense Refill omeprazole (PRILOSEC) 20 mg capsule Take 1 capsule by mouth daily before breakfast. 1/2 hr before meal. 90 capsule 1 levothyroxine (SYNTHROID) 137 mcg tablet Take 1 tablet by mouth once daily. Take on empty stomach. For thyroid. 90 tablet 1 boric acid vaginal suppository 600 mg (CPD) Use 1 Suppository vaginally one time a week. Unwrap and insert as directed. metFORMIN (GLUCOPHAGE) 500 mg tablet Take 1 tablet by mouth twice daily. 180 tablet 1 amLODIPine (NORVASC) 5 mg tablet Take 1.5 tablets by mouth once daily. 135 tablet 3 atorvastatin (LIPITOR) 10 mg tablet Take 1 tablet by mouth daily at bedtime. For cholesterol. 30 tablet 5 CPAP Initiate CPAP @ 11 cm of water with humidification. Mask (per patient preference) optional chin strap (if indicated) , filters, tubing, humidifier and lifetime supplies. metoprolol succinate ER (TOPROL XL) 25 mg 24 hr tablet Take 1 tablet by mouth once daily. 90 tablet 3 losartan (COZAAR) 100 mg tablet Take 1 tablet by mouth once daily. 90 tablet 3 Cholecalciferol, Vitamin D3, 125 mcg (5,000 unit) cap TAKE 1 CAPSULE BY MOUTH ONCE DAILY 30 capsule 11 sertraline (ZOLOFT) 25 mg tablet Take 50 mg by mouth twice daily. hydrOXYzine HCl (ATARAX) 50 mg tablet Take 1-2 tablets by mouth twice daily as needed for itching/rash or anxiety. (Patient taking differently: Take 50-100 mg by mouth twice daily as needed for anxiety (uses prn anxiety).) 60 tablet 1 RING PESSARY VAGINAL Use vaginally as directed. aspirin, enteric coated (ECOTRIN LOW STRENGTH) 81 mg EC tablet Take 1 tablet by mouth once daily. polyethylene glycol 3350 (MIRALAX) 17 gram/dose powder Take 17 g by mouth once daily. As needed for constipation 289 g 5 traZODone (DESYREL) 100 mg tablet Take 2 tablets by mouth at bedtime as needed. 30 tablet 5 buPROPion XL (WELLBUTRIN XL) 150 mg 24 hr tablet Take 1 tablet by mouth once daily. 30 tablet 5 gabapentin (NEURONTIN) 600 mg tablet Take 600 mg by mouth three times daily. melatonin 2.5 mg chew Take 2.5 mg by mouth as needed. (Patient not taking: Reported on 06/07/2022) oxyquinoline/sod.lauryl sulfat (TRIMO-BYRNE JELLY VAGINAL) Use vaginally as directed. Twice weekly at bedtime (Patient not taking: Reported on 05/03/2022) No current facility-administered medications for this visit. ALLERGIES: Pollen PERSONAL HISTORY: Social History Tobacco Use Smoking status: Every Day Packs/day: 1.00 Types: Cigarettes Smokeless tobacco: Never Vaping Use Vaping Use: current everyday user Substances: THC, CBD Substance Use Topics Alcohol use: Yes Comment: beer a month Drug use: Yes Comment: occasional marijuana- 1-2 times per month FAMILY HISTORY: FAMILY HISTORY Problem Relation Age of Onset Diabetes Mother Hypertension Mother Psychiatry Mother Hypertension Father Cervical Cancer Sister Diabetes Brother Diabetes Brother Alzheimer's Disease Maternal Grandmother Diabetes Maternal Grandmother Prostate Cancer Maternal Grandfather Heart Maternal Grandfather REVIEW OF SYMPTOMS: The review of systems data was entered by the nurse and reviewed by me Nursing Notes: Bell Shafer LPN 06/07/2022 3:54 PM Signed REVIEW OF SYSTEMS: General: The patient notes fatigue, denies weight loss, denies weight gain, denies feeling hot, and denies feelings of cold. Eyes: The patient denies glaucoma, denies eye injury/surgery, wears glasses or contacts. Ear/Nose/Throat: The patient notes allergies, denies hayfever, denies ear infections, and denies bloody noses. Cardiovascular: The patient notes chest pain, denies heart disease, notes high blood pressure,denies cardiac stent, denies prior heart attack, denies irregular heart beat, denies high cholesterol, denies poor circulation, denies heart failure, other cardiac issues, denies claudication, denies cold feet, denies peripheral arterial stent. Respiratory: The patient denies tuberculosis, denies pneumonia, notes frequent cough, denies pulmonary embolism, denies shortness of breath, and denies coughing up blood. Gastrointestinal: The patient denies difficulty swallowing, denies acid reflux, denies ulcers, denies vomiting, denies jaundice/hepatitis, denies gallbladder problems, denies black or tarry stools, notes hemorrhoids, denies bleeding from rectum, denies diverticulitis, notes constipation, denies diarrhea, denies loss of stool control, and denies hernias. Kidney/Bladder: The patient denies kidney stones, denies urine infections, and denies bloody urine. Skin: The patient denies a history of skin cancer, denies bleeding/changing moles, and denies a history of skin rash. Neurologic: The patient denies a history of epilepsy/convulsions, denies headaches, denies head/spinal injuries, and denies stroke/TIA. Psychiatric: The patient notes psychiatric medications, notes depression, and denies voices, denies substance abuse. Endocrine: The patient notes thyroid disorders, notes diabetes, and denies hormonal problems. Hematologic: The patient denies a history of bruising, denies bleeding, and denies anemia, denies blood clots. Infections: The patient denies a history of measles and mumps, denies rheumatic fever, and denies sexually transmitted diseases. Musculoskeletal: The patient notes back pain/injury, denies back problems, denies sciatica, denies knee/foot trouble, notes arthritis, or denies gout. When was patient's last Mammogram screening? 05/2022 Last Colonoscopy: 2016 Bell Shafer LPN PHYSICAL EXAMINATION: General: The patient is 56 year old female, well nourished, well hydrated in no acute distress. The patient is oriented to time, place, and person. VITALS: Blood pressure 122/68, pulse 72, temperature 36.3 C (97.4 F), height 154.9 cm (5' 1 ), weight 84.8 kg (187 lb), last menstrual period 12/15/2013, SpO2 95 %. Body mass index is 35.33 kg/m . HEENT: Normal cephalic, ataumatic, pupils are equally round, sclera are anicteric, mucous membranes are moist, oropharynx is clear. Neck has no masses, asymmetry or lymphadenopathy. Thyroid is unremarkable. Respiratory: Clear to auscultation and percussion. Normal respiratory excursion and pattern. Cardiac: Examination is regular rate and rhythm. Abdominal exam: Soft, nontender, with no palpable masses. No hepatosplenomegaly. No palpable hernias. Rectal exam: exam deferred Extremities: no clubbing, cyanosis or edema. No adenopathy. Breast: Visual inspection reveals no retractions, nipple inversion, or skin changes. Palpation of the right breast reveals no dominant or suspicious masses, but multiple benign-feeling nodules. Palpation of the left breast reveals no dominant or suspicious masses, but multiple benign-feeling nodules. Axillary exam demonstrates no suspicious masses in either the left or right axilla. There is no nipple discharge expressed from either the left or right breast. LABORATORY VALUES: As Noted RADIOLOGIC STUDIES: As Noted Assessment IMPRESSION: Abnormal mammogram (primary encounter diagnosis) PLAN: I plan to perform a ultrasound guided core biopsy of the left breast. The planned surgical procedure was discussed extensively with the patient. The risks, benefits, anticipated outcomes and possible complications were mentioned. My staff has also explained the procedure in understandable terms and the patient was given the option to take printed material concerning the planned procedure. The patient had the opportunity to ask questions concerning the planned procedure. The patient freely consents to the planned procedure. Diagnoses: (R92.8) Abnormal mammogram (primary encounter diagnosis) My findings have been communicated to Dr. Jl Singleton MD via shared medical record. This note will be forwarded to Dr. Jl Singleton MD. Return to Clinic: The patient is instructed to follow-up with me 1 week post operatively. Andrew Goodson III, MD documented in this encounter [facility] 06-07-2022 Nurse Note REVIEW OF SYSTEMS: General: The patient notes fatigue, denies weight loss, denies weight gain, denies feeling hot, and denies feelings of cold. Eyes: The patient denies glaucoma, denies eye injury/surgery, wears glasses or contacts. Ear/Nose/Throat: The patient notes allergies, denies hayfever, denies ear infections, and denies bloody noses. Cardiovascular: The patient notes chest pain, denies heart disease, notes high blood pressure,denies cardiac stent, denies prior heart attack, denies irregular heart beat, denies high cholesterol, denies poor circulation, denies heart failure, other cardiac issues, denies claudication, denies cold feet, denies peripheral arterial stent. Respiratory: The patient denies tuberculosis, denies pneumonia, notes frequent cough, denies pulmonary embolism, denies shortness of breath, and denies coughing up blood. Gastrointestinal: The patient denies difficulty swallowing, denies acid reflux, denies ulcers, denies vomiting, denies jaundice/hepatitis, denies gallbladder problems, denies black or tarry stools, notes hemorrhoids, denies bleeding from rectum, denies diverticulitis, notes constipation, denies diarrhea, denies loss of stool control, and denies hernias. Kidney/Bladder: The patient denies kidney stones, denies urine infections, and denies bloody urine. Skin: The patient denies a history of skin cancer, denies bleeding/changing moles, and denies a history of skin rash. Neurologic: The patient denies a history of epilepsy/convulsions, denies headaches, denies head/spinal injuries, and denies stroke/TIA. Psychiatric: The patient notes psychiatric medications, notes depression, and denies voices, denies substance abuse. Endocrine: The patient notes thyroid disorders, notes diabetes, and denies hormonal problems. Hematologic: The patient denies a history of bruising, denies bleeding, and denies anemia, denies blood clots. Infections: The patient denies a history of measles and mumps, denies rheumatic fever, and denies sexually transmitted diseases. Musculoskeletal: The patient notes back pain/injury, denies back problems, denies sciatica, denies knee/foot trouble, notes arthritis, or denies gout. When was patient's last Mammogram screening? 05/2022 Last Colonoscopy: 2016 Bell Shafer LPN documented in this encounter [facility] 06-02-2022 Note HNO ID: [id number] Author: Eva Crisostomo RDMS Service: ? Author Type: Solution Engineer Type: Progress Notes Filed: 06/02/2022 4:00 PM Note Text: Radiology Service Progress Note PATIENT NAME: Bharati Paez DATE OF SERVICE: June 02, 2022 TIME: 4:00 PM PATIENT IDENTITY VERIFICATION COMPLETED USING TWO (2) IDENTIFIERS: Name and Date of confirmed by patient verbally. FALL SCREENING: Has the patient had 2 falls in the last year or 1 fall with injury or currently using an Ambulatory Assistive Device (Walker, Cane, Wheelchair, Crutches, etc.)? No PATIENT GENDER DATA: Female. status: : No status: NO. PATIENT RELEVANT IMPLANT DATA REVIEWED: Not Applicable RADIOLOGY DEPARTMENT: Ultrasound PERIPHERAL IV DATA: Not applicable SIGNED BY: Eva Crisostomo RDMS RVT June 02, 2022 4:00 PM [facility] 06-02-2022 Note HNO ID: [id number] Author: RT Roman(R) Service: ? Author Type: Technologist Type: Progress Notes Filed: 06/02/2022 1:51 PM Note Text: Radiology Service Progress Note PATIENT NAME: Bharati Paez DATE OF SERVICE: June 02, 2022 TIME: 1:51 PM PATIENT IDENTITY VERIFICATION COMPLETED USING TWO (2) IDENTIFIERS: Name and Date of confirmed by patient verbally. FALL SCREENING: Has the patient had 2 falls in the last year or 1 fall with injury or currently using an Ambulatory Assistive Device (Walker, Cane, Wheelchair, Crutches, etc.)? No PATIENT GENDER DATA: Female. status: : No status: NO. PATIENT RELEVANT IMPLANT DATA REVIEWED: Not Applicable RADIOLOGY DEPARTMENT: Mammography PERIPHERAL IV DATA: Not applicable SIGNED BY: RT Roman(R) June 02, 2022 1:51 PM [facility] 06-02-2022 Miscellaneous Notes June 02, 2022 PID: [id number] Bharati Paez [address] [place] [address] Dear Ms. Paez, Your recent breast imaging exam on 06/02/2022 showed an abnormal area. At this time we recommend further evaluation, which may include biopsy. This does not necessarily mean there is a serious problem in your breast, but it should not be ignored. Please contact your physician as soon as possible to discuss the results of this exam and decide what the next steps in your medical care should be. If you have already been notified of these findings, please disregard this letter. Your imaging studies and report will be kept on file at [facility] as part of your permanent medical record and are available for your continuing care. Thank you for allowing us to help in meeting your health care needs. Sincerely, Dr. Clancy Interpreting Radiologist [facility] (Abnormal) June 02, 2022 PID: [id number] Bharati Paez [address] [place] [address] Dear Ms. Paez, Your recent breast imaging exam on 06/02/2022 showed an abnormal area. At this time we recommend further evaluation, which may include biopsy. This does not necessarily mean there is a serious problem in your breast, but it should not be ignored. Please contact your physician as soon as possible to discuss the results of this exam and decide what the next steps in your medical care should be. If you have already been notified of these findings, please disregard this letter. Your imaging studies and report will be kept on file at [facility] as part of your permanent medical record and are available for your continuing care. Thank you for allowing us to help in meeting your health care needs. Sincerely, Dr. Clancy Interpreting Radiologist [facility] (Abnormal) documented in this encounter [facility] 05-13-2022 Miscellaneous Notes Spoke with pt and information listed below given. Pt verbalizes understanding. Cary Martin LPN Refill not appropriate. Would have her take 1,000 units daily OTC instead. Pharmacy verified in [facility]. Patient has been identified by name and date of : Yes Patient aware RX will be sent to pharmacy. No need to notify patient. Patient phones for refill(s): Requested Prescriptions Pending Prescriptions Disp Refills Cholecalciferol, Vitamin D3, 125 mcg (5,000 unit) cap 30 capsule 11 Sig: Take 1 capsule by mouth once daily. Date of last office visit : 04/21/2020 Date of next office visit : Visit date not found Last 2 Encounter Wt Readings: Date: Wt: 05/03/2022 87.6 kg (193 lb 3.2 oz) 03/19/2022 87.3 kg (192 lb 6.4 oz) Not applicable Please advise. Shobha Cordero MA ' documented in this encounter [facility] 05-04-2022 Miscellaneous Notes See other TE 05/04/22 Kassie Olguin LPN Please call patient and let her know her thyroid level is back in normal range. Continue current dose of synthroid. Margo Walker APRN.BRE documented in this encounter [facility] 05-03-2022 History of Presen t illness Narrative Chief Complaint Patient presents with: Breast Problem: Left breast thinks she had a cyst she ruptured. No pain currently Pain: Right sided abdominal area -states things are pooching out HPI Bharati Paez is a 56 year old female who presents here today for Above Complaints.. Patient states that about a week ago she woke up and her breast was sore, so she lifted her breast up and felt a large lump under the breast. Laid down and went back to sleep and when she awoke again the lump was gone. For the next couple of days had some TTP over the underside of the breast, but this has resolved. Worried she could have had a cyst that ruptured. Denies erythema, drainage, lymphadenopathy, fever, night sweats, weight loss. Overdue for mammogram. Also complaining of pain in her RLQ and right flank which started yesterday. Described as intermittent aching pain, up to 3/10. Occurs when lying down watching TV and can last about 10-15 minutes. Exacerbated with lying on her right side. Not taking anything OTC for pain. Admits to GERD. Denies fever/chills, nausea, vomiting, diarrhea, constipation, hematochezia, melena, urinary symptoms, vaginal bleeding/discharge. Past medical history, appointments, medications, allergies reviewed. Previous Medical History PAST MEDICAL HISTORY Diagnosis Date Anxiety Bipolar disorder (HCC) Coronary artery disease [facility] 11/2020: mild diffuse disease to RCA, 30-40% stenosis to mid-LAD Degenerative disc disease Depression Diabetes (HCC) Environmental allergies Essential hypertension Fatty liver noted 2016 sonogram Heart abnormality High cholesterol Hypothyroidism PARVIN on CPAP Severe Suicide attempt (HCC) 06/2012 Previous Surgical History PAST SURGICAL HISTORY Procedure Laterality Date COLONOSCOPY 07/23/2016 9 yrs LAPAROSCOPIC UTERINE NERVE ABLATION 2013 PAST SURGICAL HISTORY OF age 15 TONSILLECTOMY PRIMARY/SECONDARY <AGE 11 Tonsillectomy Family History FAMILY HISTORY Problem Relation Age of Onset Diabetes Mother Hypertension Mother Psychiatry Mother Hypertension Father Cervical Cancer Sister Diabetes Brother Diabetes Brother Alzheimer's Disease Maternal Grandmother Diabetes Maternal Grandmother Prostate Cancer Maternal Grandfather Heart Maternal Grandfather Patient Allergies ALLERGIES Allergen Reactions Pollen Other: See Comments sneezing Current Medications Current Outpatient Medications on File Prior to Visit Medication Sig boric acid vaginal suppository 600 mg (CPD) Use 1 Suppository vaginally one time a week. Unwrap and insert as directed. levothyroxine (SYNTHROID) 137 mcg tablet Take 1 tablet by mouth once daily. Take on empty stomach. For thyroid. metFORMIN (GLUCOPHAGE) 500 mg tablet Take 1 tablet by mouth twice daily. amLODIPine (NORVASC) 5 mg tablet Take 1.5 tablets by mouth once daily. atorvastatin (LIPITOR) 10 mg tablet Take 1 tablet by mouth daily at bedtime. For cholesterol. metoprolol succinate ER (TOPROL XL) 25 mg 24 hr tablet Take 1 tablet by mouth once daily. losartan (COZAAR) 100 mg tablet Take 1 tablet by mouth once daily. Cholecalciferol, Vitamin D3, 125 mcg (5,000 unit) cap TAKE 1 CAPSULE BY MOUTH ONCE DAILY sertraline (ZOLOFT) 25 mg tablet Take 25 mg by mouth twice daily. hydrOXYzine HCl (ATARAX) 50 mg tablet Take 1-2 tablets by mouth twice daily as needed for itching/rash or anxiety. (Patient taking differently: Take 50-100 mg by mouth twice daily as needed for anxiety (uses prn anxiety).) melatonin 2.5 mg chew Take 2.5 mg by mouth as needed. RING PESSARY VAGINAL Use vaginally as directed. aspirin, enteric coated (ECOTRIN LOW STRENGTH) 81 mg EC tablet Take 1 tablet by mouth once daily. polyethylene glycol 3350 (MIRALAX) 17 gram/dose powder Take 17 g by mouth once daily. As needed for constipation traZODone (DESYREL) 100 mg tablet Take 2 tablets by mouth at bedtime as needed. buPROPion XL (WELLBUTRIN XL) 150 mg 24 hr tablet Take 1 tablet by mouth once daily. gabapentin (NEURONTIN) 600 mg tablet Take 600 mg by mouth three times daily. omeprazole (PRILOSEC) 20 mg capsule Take 1 capsule by mouth daily before breakfast. 1/2 hr before meal. (Patient not taking: Reported on 05/03/2022) CPAP Initiate CPAP @ 11 cm of water with humidification. Mask (per patient preference) optional chin strap (if indicated) , filters, tubing, humidifier and lifetime supplies. oxyquinoline/sod.lauryl sulfat (TRIMO-BYRNE JELLY VAGINAL) Use vaginally as directed. Twice weekly at bedtime (Patient not taking: Reported on 05/03/2022) No current facility-administered medications on file prior to visit. Social History Social History Tobacco Use Smoking status: Some Days Packs/day: 1.00 Types: Cigarettes Smokeless tobacco: Never Vaping Use Vaping Use: Never used Substance Use Topics Alcohol use: Yes Comment: beer a month Drug use: Yes Comment: occasional marijuana- 1-2 times per month Review of Symptoms REVIEW OF SYSTEMS See HPI EXAM: BP 136/72 Pulse (!) 55 Resp 16 Wt 87.6 kg (193 lb 3.2 oz) LMP 12/15/2013 SpO2 95% BMI 41.81 kg/m General Appearance: Well appearing, alert, in no acute distress, well-hydrated, well nourished.. Skin: Skin color, texture, turgor normal, no suspicious rashes or lesions. Breast: Inspection negative. No nipple discharge or bleeding. No palpable mass and No skin changes or dimpling. Abdomen: Normal abdominal exam, Abdomen soft, non-tender. Bowel sounds normal. No masses, organomegaly, Negative CVA tenderness. Health Maintenance List PNEUMOCOCCAL(2 - PCV) due on 04/24/2013 SHINGRIX VACCINE(1 of 2) Never done COVID-19 VACCINE(3 - Booster for Pfizer series) due on 12/18/2020 PAP TESTING due on 09/10/2021 HPV TESTING due on 09/10/2021 DILATED RETINAL EXAM due on 02/19/2022 INFLUENZA(1) due on 03/18/2022 HBA1C due on 09/14/2022 DIABETIC FOOT EXAM due on 10/01/2022 LDL CHOLESTEROL due on 02/19/2023 URINE ALBUMIN:CREATININE RATIO due on 03/17/2023 MAMMOGRAM due on 03/19/2023 ANNUAL PCP TEAM CHRONIC DISEASE VISIT due on 03/19/2023 BP CONTROLLED (<130/80) due on 03/19/2023 COLORECTAL CANCER SCREENING due on 07/23/2026 DTAP,TDAP,TD(2 - Td or Tdap) due on 02/12/2031 HEPATITIS C SCREENING Completed HIV SCREENING Completed ASSESSMENT/PLAN: 1. RLQ abdominal pain - ICD9: 789.03, ICD10: R10.31 (primary diagnosis) Normal exam today. Check labs as listed. Restart PPI. Call if not improving. - CBC + DIFF - COMP METABOLIC PANEL - LIPASE BLD - SED RATE WESTERGREN - C-REACTIVE PROTEIN (CRP) - URINALYSIS, WITH MICROSCOPIC 2. Breast pain, left - ICD9: 611.71, ICD10: N64.4 Normal exam today. Obtain diagnostic mammogram and US. - US BREAST LTD LT - [facility] DIAGNOSTIC BILAT 3. Need for vaccination - ICD9: V05.9, ICD10: Z23 - INFLUENZA VACCINE QUADRIVALENT 6 MO - 64 YRS IM Jl Singleton MD documented in this encounter [facility] 03-19-2022 History of Presen t illness Narrative 03/19/2022 Patient presents with: F/U 6 months SUBJECTIVE: This is a 56 year old that is here today for Above Complaints. Since last office visit has been in good health without ER visits or hospitalizations. DIABETES MELLITUS: Since our last visit she denies excessive thirst or increased frequency of urination, chest pain or dyspnea , numbness, tingling or pain in extremities, new or unusual visual symptoms, low sugar/hypoglycemic reactions, weight loss/gain, lightheadedness/dizziness, and bowel changes/loose stools. Follows a diabetic diet some of the time. She is compliant with medication(s) and is tolerating med(s) without any side effects. She reports checking her glucose on a infrequent to not at all basis schedule Patient's last HgA1C was Hemoglobin A1C (%) Date Value 03/17/2022 6.4 09/23/2021 6.4 02/12/2021 6.1 02/29/2020 5.9 ) Last Ophthalmology exam was a year ago PARVIN: Did not follow-up with sleep medicine as advised at last appointment. Still using pap nightly but doesn't;t feel it helps much Bipolar/Depression: follows up with psychiatry at the counseling center every three months. Has upcoming appointment but unsure of date. No medications at last appointment HTN: Patient is compliant with meds Yes Monitors bp at home: No. Denies side effects: Yes. Chest pain: No. Dyspnea: No. Edema: No. Palpitations: No. Syncope: No. Headache: No. Dizziness: No. HYPERLIPIDEMIA: Patient is taking medications: Yes. Patient is watching diet: somewhat. Patient denies myalgias: Yes. Patient denies gi upset: Yes GERD: taking omeprazole as prescribed without side effects. Reports symptoms have resolved. HYPOTHYROIDISM: taking synthroid as prescribed without side effects. Follows with cardiology for hx of CAD. Last appointment 02/24/2022. No medications at that time. PAST MEDICAL HISTORY Diagnosis Date Anxiety Bipolar disorder (HCC) Coronary artery disease [facility] 11/2020: mild diffuse disease to RCA, 30-40% stenosis to mid-LAD Degenerative disc disease Depression Diabetes (HCC) Environmental allergies Essential hypertension Fatty liver noted 2016 sonogram Heart abnormality High cholesterol Hypothyroidism PARVIN on CPAP Severe Suicide attempt (HCC) 06/2012 ALLERGIES Pollen MEDICATIONS Current Outpatient Medications Medication Sig levothyroxine (SYNTHROID) 150 mcg tablet Take 1 tablet by mouth once daily. omeprazole (PRILOSEC) 20 mg capsule Take 1 capsule by mouth daily before breakfast. 1/2 hr before meal. metFORMIN (GLUCOPHAGE) 500 mg tablet Take 1 tablet by mouth twice daily. amLODIPine (NORVASC) 5 mg tablet Take 1.5 tablets by mouth once daily. atorvastatin (LIPITOR) 10 mg tablet Take 1 tablet by mouth daily at bedtime. For cholesterol. CPAP Initiate CPAP @ 11 cm of water with humidification. Mask (per patient preference) optional chin strap (if indicated) , filters, tubing, humidifier and lifetime supplies. metoprolol succinate ER (TOPROL XL) 25 mg 24 hr tablet Take 1 tablet by mouth once daily. losartan (COZAAR) 100 mg tablet Take 1 tablet by mouth once daily. Cholecalciferol, Vitamin D3, 125 mcg (5,000 unit) cap TAKE 1 CAPSULE BY MOUTH ONCE DAILY sertraline (ZOLOFT) 25 mg tablet Take 25 mg by mouth once daily. hydrOXYzine HCl (ATARAX) 50 mg tablet Take 1-2 tablets by mouth twice daily as needed for itching/rash or anxiety. (Patient taking differently: Take 50-100 mg by mouth twice daily as needed for anxiety (uses prn anxiety).) oxyquinoline/sod.lauryl sulfat (TRIMO-BYRNE JELLY VAGINAL) Use vaginally as directed. Twice weekly at bedtime RING PESSARY VAGINAL Use vaginally as directed. aspirin, enteric coated (ECOTRIN LOW STRENGTH) 81 mg EC tablet Take 1 tablet by mouth once daily. polyethylene glycol 3350 (MIRALAX) 17 gram/dose powder Take 17 g by mouth once daily. As needed for constipation traZODone (DESYREL) 100 mg tablet Take 2 tablets by mouth at bedtime as needed. buPROPion XL (WELLBUTRIN XL) 150 mg 24 hr tablet Take 1 tablet by mouth once daily. gabapentin (NEURONTIN) 600 mg tablet Take 600 mg by mouth three times daily. melatonin 2.5 mg chew Take by mouth as directed. No current facility-administered medications for this visit. Medications and allergies reviewed by this provider. SOCIAL HISTORY Social History Tobacco Use Smoking status: Some Days Packs/day: 1.00 Types: Cigarettes Smokeless tobacco: Never Vaping Use Vaping Use: Never used Substance Use Topics Alcohol use: Yes Comment: beer a month Drug use: Yes Comment: occasional marijuana- 1-2 times per month REVIEW OF SYSTEMS All other reviewed and negative other than HPI. OBJECTIVE: BP 104/72 Pulse (!) 58 Resp 16 Wt 87.3 kg (192 lb 6.4 oz) LMP 12/15/2013 SpO2 94% BMI 41.63 kg/m . Vital signs reviewed by this provider. APPEARANCE Well appearing, alert, in no acute distress, well-hydrated, well nourished. EYES PERRLA, conjunctiva and sclera normal. HEART RRR with normal S1 and S2, no murmurs, no gallops, no JVD appreciated LUNG clear to auscultation EXTREMITIES Extremities normal, No deformities, No skin discoloration, and No edema SKIN Skin color, texture, turgor normal, no suspicious rashes or lesions to exposed skin Component Latest Ref Rng & Units 02/19/2022 03/17/2022 Cholesterol, Total <200 mg/dL 153 Triglyceride <150 mg/dL 290 (H) HDL Cholesterol >39 mg/dL 42 Non HDL Cholesterol <130 mg/dL 111 Fasting Time hrs 12 VLDL Cholesterol <30 mg/dL 58 (H) TC:HDL Ratio <5.10 3.64 LDL Cholesterol <100 mg/dL 53 LDL:HDL Ratio <2.54 1.26 Creatinine, Ur Random (UCRR) 20.0 - 300.0 mg/dL 119.5 Albumin, Urine Random mg/L <12.0 Albumin/Creat Ratio <30 mg/g <10 Hemoglobin A1C 4.3 - 5.6 % 6.4 (H) Estimated Average Glucose mg/dL 137 Magnesium 1.7 - 2.3 mg/dL 2.0 TSH 0.270 - 4.200 mIU/L 0.247 (L) PNEUMOCOCCAL(2 - PCV) due on 04/24/2013 SHINGRIX VACCINE(1 of 2) Never done COVID-19 VACCINE(3 - Booster for Pfizer series) due on 03/25/2021 PAP TESTING due on 09/10/2021 HPV TESTING due on 09/10/2021 DILATED RETINAL EXAM due on 02/19/2022 INFLUENZA(1) due on 03/18/2022 HBA1C due on 09/14/2022 DIABETIC FOOT EXAM due on 10/01/2022 LDL CHOLESTEROL due on 02/19/2023 ANNUAL PCP TEAM CHRONIC DISEASE VISIT due on 03/02/2023 BP CONTROLLED (<130/80) due on 03/02/2023 URINE ALBUMIN:CREATININE RATIO due on 03/17/2023 MAMMOGRAM due on 03/19/2023 COLORECTAL CANCER SCREENING due on 07/23/2026 DTAP,TDAP,TD(2 - Td or Tdap) due on 02/12/2031 HEPATITIS C SCREENING Completed HIV SCREENING Completed ASSESSMENT/PLAN: 1. Controlled type 2 diabetes mellitus without complication, without long-term current use of insulin (HCC) - ICD9: 250.00, ICD10: E11.9 (primary diagnosis) Controlled. - Continue current medications - Encouraged regular aerobic exercise and weight loss - Follow up in 6 months, sooner should any other issues arise. - BP goal of <130/80 - LDL goal of <100 - Patient urged to quit smoking. - needs to make appointment with opthomology 2. Acquired hypothyroidism - ICD9: 244.9, ICD10: E03.9 - Instructed patient on importance of taking on an empty stomach either first thing in the morning or at bedtime. - Decrease Synthroid dose to 0.137 mg - Recheck level in 6-8 weeks - LEVOTHYROXINE 137 MCG TABLET - TSH BLD 3. Mixed hyperlipidemia - ICD9: 272.2, ICD10: E78.2 - suboptimal control - Continue current medication. - Encouraged following a low fat, low cholesterol diet. - Discussed the benefits of regular aerobic exercise and weight loss. - Follow up in 6 months. - Encouraged following a low carbohydrate, healthy oil intake diet. 4. Essential hypertension - ICD9: 401.9, ICD10: I10 - good control - Continue current medication(s) - Encouraged dietary sodium restriction/DASH diet - Recommended regular aerobic exercise. - Recommend home blood pressure monitoring, to bring results in on next visit - Discussed need and benefit for weight loss. - Recheck in 6 months, sooner should new symptoms or problems arise. - Goal of BP <130/80 - Patient counselled on smoking cessation. - Recommended no refined sugar, low refined starch, healthy oil intake (olive oil), healthy protein (fish) along the lines of the Mediterranean diet. 5. Bipolar affective disorder, current episode mixed, current episode severity unspecified (HCC) - ICD9: 296.60, ICD10: F31.60 - stable on current regime - follow-up with psychiatry as scheduled 6. PARVIN on CPAP - ICD9: 327.23, V46.8, ICD10: G47.33, Z99.89 - recommend she make appointment to follow-up with sleep medicine as recommended 7. Gastroesophageal reflux disease, unspecified whether esophagitis present - ICD9: 530.81, ICD10: K21.9 - Continue treatment with Prilosec 20 mg QD - Follow up in 6months 8. Nonobstructive atherosclerosis of coronary artery - ICD9: 414.00, ICD10: I25.10 - stable on current regime - follow-up with cardiology as scheduled Margo Walker APRN.CNP Prescription instructions reviewed with patient as applicable. Patient advised if symptoms do not improve or if symptoms worsen sooner, to contact their primary care physician. Potential red flag symptoms discussed with the patient. Reviewed appropriate action plan to take if red flag symptoms occur. Patient agreeable to treatment plan. I spent a total of 34 minutes on the date of the service which included preparing to see the patient, [id number] patient care, completing clinical documentation, obtaining and/or reviewing separately obtained history, performing a medically appropriate examination, counseling and educating the patient/family/caregiver, and ordering medications, tests, or procedures. documented in this encounter [facility] 03-17-2022 Miscellaneous Notes Patient has been identified by name and date of : Yes Pharmacy phones for refill(s): Requested Prescriptions Pending Prescriptions Disp Refills levothyroxine (SYNTHROID) 150 mcg tablet 30 tablet 5 Sig: Take 1 tablet by mouth once daily. Date of last office visit in primary care: 03/02/22, NOV: 03/19/22 Last 2 Encounter Wt Readings: Date: Wt: 03/02/2022 89.5 kg (197 lb 6.4 oz) 02/24/2022 89.4 kg (197 lb 1.6 oz) Previous labs/tests for medication: Thyroid: TSH (uU/mL) Date Value 02/12/2021 0.909 Thank you. Roselyn Dhillon RN documented in this encounter [facility] 03-02-2022 History of Presen t illness Narrative Chief Complaint Patient presents with: ER F/U: Liver is swollen per patient. Has been having some stomach issues last few months. More acidic. HPI Bharati Paez is a 56 year old female who presents here today for Above Complaints.. Patient evaluated at [facility] ED on 02/26 for complaint of abdominal pain x 3 days with swelling. Workup in the ED was negative including: CBC, CMP, Lipase, UA, CT abdomen/pelvis. Given IV fluids, morphine and zofran and symptoms improved. Discharged home with recommendation to follow up in our office in 5-7 days. Today, patient states that she feels really good except for burning sensation in her stomach which is improving. Currently 08/27, without radiation. Not taking anything OTC for her symptoms. Admits to heartburn in the last 2 weeks. Denies fever, chills, nausea, vomiting, diarrhea, constipation. Past medical history, appointments, medications, allergies reviewed. Previous Medical History PAST MEDICAL HISTORY Diagnosis Date Anxiety Bipolar disorder (HCC) Coronary artery disease [facility] 11/2020: mild diffuse disease to RCA, 30-40% stenosis to mid-LAD Degenerative disc disease Depression Diabetes (HCC) Environmental allergies Essential hypertension Fatty liver noted 2017 sonogram Heart abnormality High cholesterol Hypothyroidism PARVIN on CPAP Severe Suicide attempt (HCC) 06/2012 Previous Surgical History PAST SURGICAL HISTORY Procedure Laterality Date COLONOSCOPY 07/23/2016 9 yrs LAPAROSCOPIC UTERINE NERVE ABLATION 2013 PAST SURGICAL HISTORY OF age 15 TONSILLECTOMY PRIMARY/SECONDARY <AGE 11 Tonsillectomy Family History FAMILY HISTORY Problem Relation Age of Onset Diabetes Mother Hypertension Mother Psychiatry Mother Hypertension Father Cervical Cancer Sister Diabetes Brother Diabetes Brother Alzheimer's Disease Maternal Grandmother Diabetes Maternal Grandmother Prostate Cancer Maternal Grandfather Heart Maternal Grandfather Patient Allergies ALLERGIES Allergen Reactions Pollen Other: See Comments sneezing Current Medications Current Outpatient Medications on File Prior to Visit Medication Sig metFORMIN (GLUCOPHAGE) 500 mg tablet Take 1 tablet by mouth twice daily. amLODIPine (NORVASC) 5 mg tablet Take 1.5 tablets by mouth once daily. atorvastatin (LIPITOR) 10 mg tablet Take 1 tablet by mouth daily at bedtime. For cholesterol. CPAP Initiate CPAP @ 11 cm of water with humidification. Mask (per patient preference) optional chin strap (if indicated) , filters, tubing, humidifier and lifetime supplies. levothyroxine (SYNTHROID) 150 mcg tablet Take 1 tablet by mouth once daily. metoprolol succinate ER (TOPROL XL) 25 mg 24 hr tablet Take 1 tablet by mouth once daily. losartan (COZAAR) 100 mg tablet Take 1 tablet by mouth once daily. Cholecalciferol, Vitamin D3, 125 mcg (5,000 unit) cap TAKE 1 CAPSULE BY MOUTH ONCE DAILY sertraline (ZOLOFT) 25 mg tablet Take 25 mg by mouth once daily. hydrOXYzine HCl (ATARAX) 50 mg tablet Take 1-2 tablets by mouth twice daily as needed for itching/rash or anxiety. (Patient taking differently: Take 50-100 mg by mouth twice daily as needed for anxiety (uses prn anxiety).) oxyquinoline/sod.lauryl sulfat (TRIMO-BYRNE JELLY VAGINAL) Use vaginally as directed. Twice weekly at bedtime RING PESSARY VAGINAL Use vaginally as directed. aspirin, enteric coated (ECOTRIN LOW STRENGTH) 81 mg EC tablet Take 1 tablet by mouth once daily. polyethylene glycol 3350 (MIRALAX) 17 gram/dose powder Take 17 g by mouth once daily. As needed for constipation traZODone (DESYREL) 100 mg tablet Take 2 tablets by mouth at bedtime as needed. buPROPion XL (WELLBUTRIN XL) 150 mg 24 hr tablet Take 1 tablet by mouth once daily. gabapentin (NEURONTIN) 600 mg tablet Take 600 mg by mouth three times daily. melatonin 2.5 mg chew Take by mouth as directed. (Patient not taking: Reported on 03/02/2022) No current facility-administered medications on file prior to visit. Social History Social History Tobacco Use Smoking status: Some Days Packs/day: 1.00 Types: Cigarettes Last attempt to quit: 08/18/2012 Years since quittin.5 Smokeless tobacco: Never Vaping Use Vaping Use: Never used Substance Use Topics Alcohol use: Yes Comment: beer a month Drug use: Yes Comment: occasional marijuana- 1-2 times per month Review of Symptoms REVIEW OF SYSTEMS See HPI EXAM: BP 108/68 Pulse 60 Resp 16 Wt 89.5 kg (197 lb 6.4 oz) LMP 12/15/2013 SpO2 95% BMI 42.72 kg/m General Appearance: Well appearing, alert, in no acute distress, well-hydrated, well nourished.. Skin: Skin color, texture, turgor normal, no suspicious rashes or lesions. Lungs: Lungs clear to auscultation. No wheezing, rhonchi, rales.. Heart: RRR without murmur, gallop, or rubs. No ectopy. Abdomen: Normal abdominal exam, Abdomen soft, non-tender. Bowel sounds normal. No masses, organomegaly. Health Maintenance List PNEUMOCOCCAL(2 - PCV) due on 04/24/2013 SHINGRIX VACCINE(1 of 2) Never done COVID-19 VACCINE(3 - Booster for Pfizer series) due on 03/25/2021 PAP TESTING due on 09/10/2021 HPV TESTING due on 09/10/2021 URINE ALBUMIN:CREATININE RATIO due on 02/12/2022 DILATED RETINAL EXAM due on 02/19/2022 MAMMOGRAM due on 03/12/2022 INFLUENZA(1) due on 03/18/2022 HBA1C due on 03/26/2022 DIABETIC FOOT EXAM due on 10/01/2022 ANNUAL PCP TEAM CHRONIC DISEASE VISIT due on 10/01/2022 LDL CHOLESTEROL due on 02/19/2023 BP CONTROLLED (<130/80) due on 02/24/2023 COLORECTAL CANCER SCREENING due on 07/23/2026 DTAP,TDAP,TD(2 - Td or Tdap) due on 02/12/2031 HEPATITIS C SCREENING Completed HIV SCREENING Completed ASSESSMENT/PLAN: 1. Epigastric pain - ICD9: 789.06, ICD10: R10.13 (primary diagnosis) Negative workup in the ED. Suspect may be 2/2 GERD vs gastritis. Start PPI daily and avoid trigger foods. Will recheck symptoms at follow up appointment in 2-3 weeks. 2. Gastroesophageal reflux disease, unspecified whether esophagitis present - ICD9: 530.81, ICD10: K21.9 - Discussed lifestyle modifications including losing weight, limiting caffeine, and no meals three hours before sleep - Begin treatment with Prilosec 20 mg every day 3. Acquired hypothyroidism - ICD9: 244.9, ICD10: E03.9 Labs pended for upcoming OV. - TSH BLD 4. Controlled type 2 diabetes mellitus without complication, without long-term current use of insulin (HCC) - ICD9: 250.00, ICD10: E11.9 Labs pended for upcoming OV. - HGB A1C - ALBUMIN/CREAT RATIO RND UR Jl Singleton MD documented in this encounter [facility] 02-24-2022 Instructions Eva Baker APRN.OUTREACH PROFESSIONAL - 02/24/2022 2:43 PM EDT Blood pressure and heart rate are under favorable control Continue current doses of Toprol, Amlodipine and Losartan - these are considered standard therapy for medical management. Cholesterol looks GREAT!! LDL is at goal - continue Atorvastatin at the current dose. Increase activity as your are able Consider a visit with Endocrine to discuss diabetes care. documented in this encounter [facility] 02-24-2022 History of Presen t illness Narrative Images from the original note were not included. Heart and Vascular [place] [facility] Department of Cardiovascular Medicine SECTION OF CLINICAL CARDIOLOGY OUTPATIENT VISIT DATE February 24, 2022 OUTPATIENT VISIT TYPE ESTABLISHED Patient Name: Bharati Paez : 1965 PRIMARY CARE PHYSICIAN: Jl Singleton MD REFERRING PHYSICIAN: Celia Esquivel [address] [facility] [address] CHIEF COMPLAINT: Patient presents with: Follow Up: 3 months Interval Hx: Ms. Paez comes for a follow up visit for CAD. The last visit with Anais Lynne was 01/28/2022. At time of last OV her Amlodipine was increased to 7.5 mg daily for concerns for vasospasm. Chest pain has improved since last OV. Taking all meds as ordered. BP at home is not being checked. Has discomfort under her ribs at home - this is not new. Feels better when she lays down on the floor. Will occur with certain positions (specifically with bending over). Sx are left of the sternum. It happens off and on for years. More frequently since the first of the year. Weight is up 6 lbs since last OV - denies sx of fluid overload She reports low activity levels She is getting meals from a delivery service. Wearing CPAP at - consistently. Feels it is helpful. LDL 53 ---> at goal TG were high (history of DM) TC 153 REVIEW OF SYSTEMS: CONSTITUTIONAL: No fevers, chills, nightsweats, unintended weight loss, + fatigue HEENT: Denies frequent or severe heaches, nasal congestion/sinus symptoms, problematic allergy problems. EYES: No diplopia or blurry vision. CARDIOVASCULAR: No chest pain, + dyspnea, palpitations, orthopnea, PND, ankle edema. PULM: No dyspnea, unexplained cough. GI: No dysphagia/odynophagia, problematic reflux, constipation, diarrhea, changes in stool habits, hematochezia, melena. : No new urinary complaints, including dysuria, gross hematuria or pyuria. NEURO: No new balance problems, peripheral weakness/paresthesias or numbness of concern. MUSC-SKEL: No new joint pain, swelling, or erythema. PSY: No concerns regarding depression, ? anxiety or panic. INTEGUMENTARY: No new skin changes (rash, new or changing mole, new growth) SOB: yes - baseline, with exertion Fatigue: yes Orthopnea: no PND: no Edema: no Chest Pain: no Palpitations: no Dizziness/Lightheadedness: no Syncope: no Dietary restrictions: yes Fluid Restriction: no Regular Exercise/ Activity: no Performs daily weights: no ALLERGIES: Pollen PAST MEDICAL HISTORY: PAST MEDICAL HISTORY Diagnosis Date Anxiety Bipolar disorder (HCC) Coronary artery disease [facility] 11/2020: mild diffuse disease to RCA, 30-40% stenosis to mid-LAD Degenerative disc disease Depression Diabetes (HCC) Environmental allergies Essential hypertension Fatty liver noted 2017 sonogram Heart abnormality High cholesterol Hypothyroidism PARVIN on CPAP Severe Suicide attempt (HCC) 06/2012 SOCIAL HISTORY: Social History Tobacco Use Smoking status: Some Days Packs/day: 1.00 Types: Cigarettes Last attempt to quit: 08/18/2012 Years since quittin.5 Smokeless tobacco: Never Vaping Use Vaping Use: Never used Substance Use Topics Alcohol use: Yes Comment: beer a month Drug use: Yes Comment: occasional marijuana- 1-2 times per month FAMILY HISTORY: FAMILY HISTORY Problem Relation Age of Onset Diabetes Mother Hypertension Mother Psychiatry Mother Hypertension Father Cervical Cancer Sister Diabetes Brother Diabetes Brother Alzheimer's Disease Maternal Grandmother Diabetes Maternal Grandmother Prostate Cancer Maternal Grandfather Heart Maternal Grandfather I have confirmed and edited as necessary, the PFSH and ROS obtained by others. Eva Baker APRN.OUTREACH PROFESSIONAL CURRENT MEDICATIONS: Current Outpatient Medications Medication Sig metFORMIN (GLUCOPHAGE) 500 mg tablet Take 1 tablet by mouth twice daily. amLODIPine (NORVASC) 5 mg tablet Take 1.5 tablets by mouth once daily. atorvastatin (LIPITOR) 10 mg tablet Take 1 tablet by mouth daily at bedtime. For cholesterol. iv contrast (will be provided with radiology test) CTA Coronary. No IV access, insert saline lock prior to the sedation, infusion, injection for imaging exam. Discontinue saline lock post exam. If Pt. has a central line or IVAD, may access for administration according to line specific nursing protocol. Once exam is complete flush line and de-access according to line specific nursing protocol in the CT contrast administration guidelines link. CPAP Initiate CPAP @ 11 cm of water with humidification. Mask (per patient preference) optional chin strap (if indicated) , filters, tubing, humidifier and lifetime supplies. levothyroxine (SYNTHROID) 150 mcg tablet Take 1 tablet by mouth once daily. metoprolol succinate ER (TOPROL XL) 25 mg 24 hr tablet Take 1 tablet by mouth once daily. losartan (COZAAR) 100 mg tablet Take 1 tablet by mouth once daily. Cholecalciferol, Vitamin D3, 125 mcg (5,000 unit) cap TAKE 1 CAPSULE BY MOUTH ONCE DAILY sertraline (ZOLOFT) 25 mg tablet Take 25 mg by mouth once daily. hydrOXYzine HCl (ATARAX) 50 mg tablet Take 1-2 tablets by mouth twice daily as needed for itching/rash or anxiety. (Patient taking differently: Take 50-100 mg by mouth twice daily as needed for anxiety (uses prn anxiety). ) melatonin 2.5 mg chew Take by mouth as directed. boric acid vaginal suppository 600 mg (CPD) Use 1 Suppository vaginally one time a week. Unwrap and insert as directed. Patient uses weekly at bedtime oxyquinoline/sod.lauryl sulfat (TRIMO-BYRNE JELLY VAGINAL) Use vaginally as directed. Twice weekly at bedtime RING PESSARY VAGINAL Use vaginally as directed. aspirin, enteric coated (ECOTRIN LOW STRENGTH) 81 mg EC tablet Take 1 tablet by mouth once daily. polyethylene glycol 3350 (MIRALAX) 17 gram/dose powder Take 17 g by mouth once daily. As needed for constipation traZODone (DESYREL) 100 mg tablet Take 2 tablets by mouth at bedtime as needed. buPROPion XL (WELLBUTRIN XL) 150 mg 24 hr tablet Take 1 tablet by mouth once daily. gabapentin (NEURONTIN) 600 mg tablet Take 600 mg by mouth three times daily. No current facility-administered medications for this visit. Last Labs: CMP: Glucose (mg/dL) Date Value 12/15/2021 112 02/12/2021 123 Potassium (mmol/L) Date Value 12/15/2021 4.0 02/12/2021 4.1 Sodium (mmol/L) Date Value 12/15/2021 139 02/12/2021 139 Chloride (mmol/L) Date Value 12/15/2021 103 02/12/2021 103 CO2 (mmol/L) Date Value 12/15/2021 27 02/12/2021 21 Creatinine (mg/dL) Date Value 12/15/2021 0.74 02/12/2021 0.71 BUN (mg/dL) Date Value 12/15/2021 11 02/12/2021 11 Anion Gap (mmol/L) Date Value 12/15/2021 9 02/12/2021 15 Calcium (mg/dL) Date Value 02/12/2021 10.0 Calcium, Total (mg/dL) Date Value 12/15/2021 9.4 Protein, Total (g/dL) Date Value 09/23/2021 7.3 02/12/2021 8.2 Albumin (g/dL) Date Value 09/23/2021 4.5 02/12/2021 5.0 Bilirubin, Total (mg/dL) Date Value 09/23/2021 0.3 02/12/2021 0.7 Alkaline Phosphatase (U/L) Date Value 09/23/2021 74 02/12/2021 87 AST (U/L) Date Value 09/23/2021 25 02/12/2021 32 ALT (U/L) Date Value 09/23/2021 34 02/12/2021 53 HGB: No results found for: HGB HCT: Hematocrit Date Value Ref Range Status 12/15/2021 48.4 (H) 36.0 - 46.0 % Final Ferritin: No results found for: FERRITIN TSAT%: No components found for: TSAT% CARDIAC STUDIES: - EK12/31/2021 Diagnosis: SINUS BRADYCARDIA ST & ANTEROLATERAL T WAVE ABNORMALITY ABNORMAL ECG UNCHANGED FROM PRIOR 10/13/21 - ECHO: NONE - NM Stress Test: 08/19/2020 CONCLUSIONS: 1. SPECT Perfusion Study: Normal. 2. There is no scintigraphic evidence for inducible ischemia. 3. No evidence of scarred myocardium. 4. Left ventricle is normal in size. The left ventricle systolic function is normal. 5. Right ventricle is normal in size. 6. This is a low risk scan. LVEF % 66 - Diagnostic [facility]: 12/15/2021 Coronary Anatomy: Right Dominant Injection Site(s): Coronary Artery LMT: _ The LMT is normal. LAD: _ The mid LAD is narrowed 30 % - focal disease. LCX: _ The Circumflex is normal. RAMUS: _ Ramus Status: Not Applicable. RCA: _ The RCA has mild diffuse disease. Impression:No significant coronary artery disease Recommended Treatment: Medical Therapy. Plan: medical therapy. There were no tests performed for review. PHYSICAL EXAMINATION: Vitals: BP 114/72 Pulse 60 Ht 144.8 cm (4' 9 ) Wt 89.4 kg (197 lb 1.6 oz) LMP 12/15/2013 SpO2 96% BMI 42.65 kg/m General appearance: No acute distress, conversant Neurologic/Psychiatric: Alert and oriented to time, place and person; mood pleasant. Gait steady with no assistive device Neck: Trachea midline, full range of motion Heart: Rate and rhythm regular. S1, S2 present. No gallop. No Rub. No murmur. Lungs: Clear at bases bilaterally. Normal work of breathing, speaking in full sentences without difficulty. Abdomen: Round, non-distended, non-tender, normal bowel sounds, no organomegaly noted Extremities: Nails no clubbing or cyanosis. Warm, peripheral pulses palpable, No BLE edema, No Changes of chronic venous insufficieny to BLE Skin: Warm and dry. No rash or ulcers IMPRESSION/PLAN: Some documentation from previous visit of 01/28/2022 was copied and pasted, documentation has been reviewed and edited as necessary for today's visit. 1. Nonobstructive atherosclerosis of coronary artery - [facility] 11/2021: mild diffuse disease to RCA, 30-40% stenosis to mid-LAD - Continue ASA, statin, and BB - LDL at goal 2. Abnormal EKG - Chronic - ST depression with T-wave inversion in precordial leads, III, and AVF - [facility] 08/2020: no ischemia or infarction, LVEF 66% - recent [facility] showed no significant disease. 3. PVCs (premature ventricular contractions) - Treadmill EST 06/2020: multifocal PVCs, Isolated ventricular couplets/ triplets after stress and frequency of VEs increased with stress 4. Essential hypertension - Good control on amlodipine, metoprolol, and losartan - Encouraged dietary sodium restriction/DASH diet - Reviewed risks of HTN and principles of treatment - Goal of BP <130/80 6. Mixed hyperlipidemia - Currently on atorvastatin 10mg daily (started 01/2021) - lipid panel 01/2021 with LDL 130, TG 220, HDL 39 - repeat lipid panel 02/19/2022 shows LDL 58, TG 290 (hx of DM) and HDL 42 7. Type 2 diabetes mellitus 8. PARVIN (obstructive sleep apnea) - Compliant on CPAP 8. Tobacco abuse - Current everyday smoker, 1ppd - Cessation advised Conclusion: Patient here for follow-up after titration of amlodipine to 7.5 mg daily. She continues to have occasional episodes of left-sided chest pain that appears improved since the increase of her amlodipine. The pain does not sound cardiac/ischemic in nature. Additionally her blood pressure readings appear to be well controlled. We reviewed her recent lipid profile which was favorable and she was advised to continue all her current medications and follow-up in 6 months or sooner if needed. I spent a total of 38 minutes on the date of the service which included preparing to see the patient, [id number] patient care, completing clinical documentation, performing a medically appropriate examination, counseling and educating the patient/family/caregiver, ordering medications, tests, or procedures, and communicating results to the patient/family/caregiver. Thank you very much for allowing me to assist in the care of Bharati Paez. Please do not hesitate to contact me if you have questions or concerns. CONTACT INFORMATION: Eva Baker APRN.CNP Cardiology Nurse Practitioner Section of Regional Cardiology [facility] Dept of Cardiovascular Medicine [facility] Heart and Vascular [place] [address] [place] [address] Office Office February 24, 2022 8:35 AM documented in this encounter [facility] 02-18-2022 Miscellaneous Notes Patient phones requesting refills as follows: Pending Prescriptions Disp Refills METFORMIN 500 MG TABLET 180 tablet 1 Sig: Take 1 tablet by mouth twice daily. OTILIO: No CARYN 10/01/21 NOV 03/18/22 Please review and advise. Sushma Saez LPN documented in this encounter [facility] 01-14-2022 Miscellaneous Notes Patient has been identified by name and date of : Yes Pharmacy phones for refill(s): Pending Prescriptions Disp Refills ATORVASTATIN 10 MG TABLET 30 tablet 5 Sig: Take 1 tablet by mouth daily at bedtime. For cholesterol. OTILIO: No Date of last office visit with pcp: 10/01/2021 Future appt: 03/18/2022 Last 2 Encounter Wt Readings: Date: Wt: 12/31/2021 89.9 kg (198 lb 4.8 oz) 11/26/2021 87.9 kg (193 lb 12.8 oz) Previous labs/tests for medication: Blood Pressure: BUN (mg/dL) Date Value 12/15/2021 11 02/12/2021 11 Sodium (mmol/L) Date Value 12/15/2021 139 02/12/2021 139 Last 1 Encounter BP Readings: Date: BP: 12/31/2021 100/60 Liver Function: ALT (U/L) Date Value 09/23/2021 34 02/12/2021 53 AST (U/L) Date Value 09/23/2021 25 02/12/2021 32 Please advise. Thank you. Georgia Hull RN documented in this encounter [facility] 12-17-2021 Miscellaneous Notes Last ordered: 3 weeks ago by Anais Lynne APRN.OUTREACH PROFESSIONAL documented in this encounter [facility] 12-11-2021 Miscellaneous Notes Patient called into the Cardiology Department at [facility] to follow up and advised of her disappointment with not receiving written information for patients upcoming 12/15/21 procedure time at [facility]. Patient has to arrange transportation with her insurance carrier that needs a 48 hour notification. Patient stated that she did have full address and contact number for that facility and advised of CC protocol of procedure information but stated she would appreciate in the future if procedure time could be provided in advance to assist her transportation needs. Thank you. Sarahi Thornton Pss documented in this encounter [facility] 11-27-2021 Miscellaneous Notes Message left on voicemail to call office with name of DME company for OV on 11/30/2021. Nury Owen LPN Message left on MyChart concerning needing to know the DME company patient uses for PAP and supplies. Nury Owen LPN documented in this encounter [facility] 11-26-2021 Miscellaneous Notes Called PT and put in her my chart reviewed [facility] instructions and medications CARDIAC CATHETERIZATION INSTRUCTIONS Your doctor has recommended that you have a heart catheterization performed at [facility] on 12/15/[address] Bear . A nurse from the [employer] will call you prior to your procedure to answer any questions and review these instructions. If we are unable to reach you, please return our phone call PRE-PROCEDURE Do not eat or drink anything after midnight the night before your scheduled procedure. Do not take your water pill or a medication to remove extra fluid the morning your procedure. Take all of your blood pressure and cardiac medications the morning of your procedure with a small sip of water. If you are taking aspirin or Plavix, please continue to take. If you are taking Coumadin stop it 5 days prior to your procedure. o Your INR will be checked the morning of your procedure. If you are taking Eliquis or Xarelto stop it 3 days prior to your procedure. If you are taking Metformin do not take it the morning of your procedure and for 48 hours after your procedure. ARRIVAL You will receive a phone call the day before your procedure to confirm your arrival time. You will be instructed not to drive for 24 hours after your procedure and will need someone to drive you home. POST-PROCEDURE Resume all anticoagulants the day after your procedure unless instructed otherwise. Resume metformin 48 hours after your procedure. Do not drive or make any important decisions for 24 hours due to the anesthetic. Rest with bathroom privileges the day of your procedure. Only light duties and easy activities for the next 5 days if procedure was done from the groin and 2 days if done from the wrist. Ask for help with chores and errands while you recover. Drink 6-8 glasses of water a day unless you are on a fluid restriction. This helps flush the contrast dye out of your body. Take your temperature for 7 days. If you feel cold and clammy or start sweating, take your temperature right away and call your healthcare team. Check your procedure site frequently on the day of the procedure and if any bleeding or enlargement of the site, apply pressure immediately and call your doctor. Check every day for signs of infection. These include redness, swelling, and drainage. It's normal to have a small bruise or bump where the catheter was inserted. Go to the emergency department if you have uncontrolled bleeding from the artery site. This is especially true if you take medicines that make it hard for your blood to clot. Examples are aspirin, clopidogrel, Brillinta, Effient, warfarin, Eliquis or Xarelto. Don't swim or take baths until your healthcare team says it's OK. You can shower the day after the procedure. Keep the site clean and dry. This keeps the incision from getting wet and infected until the skin and artery can heal. Make a follow-up appointment as advised by your physician. Don't wait for a follow-up appointment if your medicines aren't working or you are having heart-related symptoms. WHEN TO SEEK MEDICAL CARE Call your healthcare provider right away if you have any of the following: Constant or increasing pain or numbness in your leg if procedure done from your groin. Fever of 100.4 F ( 38.0 C) or higher, or as directed by your healthcare provider. Symptoms of infection. These include redness, swelling, drainage, or warmth at the incision site. Shortness of breath. A leg that feels cold or appears blue. Bleeding, bruising, or a lot of swelling where the catheter was inserted. Black or tarry stools. Schedule C on 12/15/[address] Bear. Please instruct patient on what medications to take or stop. I will day before to go over instructions. Gabe Alba documented in this encounter [facility] 11-24-2021 Instructions Anais Lynne APRN.BRE - 11/24/2021 2:53 PM EDT 1. Start isosorbide (Imdur) 15mg (1/2 tablet) once a day. This is the long-acting nitroglycerin to help with the chest discomfort. 2. Get fasting blood work done in the next couple of days. 3. The scheduling department at [facility] will be contacting you via phone to pick a date and time for your heart catheterization. documented in this encounter [facility] 11-24-2021 History of Presen t illness Narrative Images from the original note were not included. [facility] Heart and Vascular [place] [facility] Department of Cardiovascular Medicine SECTION OF REGIONAL CARDIOLOGY Bharati Paez is a 56 year old female with a history of chronically abnormal EKG, coronary artery calcification seen on CT scan, PVCs, HTN, HLD, T2DM, PARVIN, tobacco use, and hypothyroidism who is here today for a 6 week follow up. HPI: The patient was most recently seen by Dr. Esquivel on 10/13/21 where she continued to endorse intermittent chest discomfort. The decision was made to proceed with a coronary CTA to screen for significant epicardial coronary artery disease. Results of her coronary CTA on 11/04/2021 demonstrated normal coronary anatomy, no significant stenosis in the LCx or RCA, and a complex mixed plaque in the mid LAD. Unable to exclude significant stenosis in the segment due to calcium blooming artifact. Today she reports ongoing and persistent left parasternal dullness and sharp chest pain without radiation. Symptoms occur with exertion and keanu with rest. The first time she developed the chest discomfort she was grocery shopping for 2 hours and then came home. When she carried all her groceries upstairs she developed the chest pain and had to go lie down. Episodes can last up to 1 hour on and off. Associated minor dyspnea and fast heart rates at times. Occasional lightheadedness with quick postural changes. She does admit to increased caffeine over the past week which may be contributing. She denies near-syncope, syncope, orthopnea (1 pillow), PND, or edema. Home blood pressure is done sporadically. PAST MEDICAL HISTORY Diagnosis Date Anxiety Bipolar disorder (HCC) Degenerative disc disease Depression Diabetes (HCC) Environmental allergies Essential hypertension Fatty liver noted 2016 sonogram Heart abnormality High cholesterol Hypothyroidism PARVIN on CPAP Severe Suicide attempt (HCC) 06/2012 PAST SURGICAL HISTORY Procedure Laterality Date COLONOSCOPY 07/23/2016 9 yrs LAPAROSCOPIC UTERINE NERVE ABLATION 2013 PAST SURGICAL HISTORY OF age 15 TONSILLECTOMY PRIMARY/SECONDARY <AGE 11 Tonsillectomy FAMILY HISTORY Problem Relation Age of Onset Diabetes Mother Hypertension Mother Psychiatry Mother Hypertension Father Cervical Cancer Sister Diabetes Brother Diabetes Brother Alzheimer's Disease Maternal Grandmother Diabetes Maternal Grandmother Prostate Cancer Maternal Grandfather Heart Maternal Grandfather SOCIAL HISTORY: Social History Tobacco Use Smoking status: Current Some Day Smoker Packs/day: 0.30 Types: Cigarettes Last attempt to quit: 08/18/2012 Years since quittin.2 Smokeless tobacco: Never Used Tobacco comment: 6 cigs per day Vaping Use Vaping Use: Never used Substance Use Topics Alcohol use: Yes Comment: beer a month Drug use: Yes Comment: occasional marijuana- 1-2 times per month ALLERGIES: Pollen CURRENT MEDICATIONS: Current Outpatient Medications Medication Sig iv contrast (will be provided with radiology test) CTA Coronary. No IV access, insert saline lock prior to the sedation, infusion, injection for imaging exam. Discontinue saline lock post exam. If Pt. has a central line or IVAD, may access for administration according to line specific nursing protocol. Once exam is complete flush line and de-access according to line specific nursing protocol in the CT contrast administration guidelines link. CPAP Initiate CPAP @ 11 cm of water with humidification. Mask (per patient preference) optional chin strap (if indicated) , filters, tubing, humidifier and lifetime supplies. amLODIPine (NORVASC) 10 mg tablet Take 1 tablet by mouth once daily. levothyroxine (SYNTHROID) 150 mcg tablet Take 1 tablet by mouth once daily. metoprolol succinate ER (TOPROL XL) 25 mg 24 hr tablet Take 1 tablet by mouth once daily. losartan (COZAAR) 100 mg tablet Take 1 tablet by mouth once daily. metFORMIN (GLUCOPHAGE) 500 mg tablet Take 1 tablet by mouth twice daily. atorvastatin (LIPITOR) 10 mg tablet Take 1 tablet by mouth daily at bedtime. For cholesterol. Cholecalciferol, Vitamin D3, 125 mcg (5,000 unit) cap TAKE 1 CAPSULE BY MOUTH ONCE DAILY sertraline (ZOLOFT) 25 mg tablet Take 25 mg by mouth once daily. hydrOXYzine HCl (ATARAX) 50 mg tablet Take 1-2 tablets by mouth twice daily as needed for itching/rash or anxiety. (Patient taking differently: Take 50-100 mg by mouth twice daily as needed for anxiety (uses prn anxiety). ) melatonin 2.5 mg chew Take by mouth as directed. boric acid vaginal suppository 600 mg (CPD) Use 1 Suppository vaginally one time a week. Unwrap and insert as directed. Patient uses weekly at bedtime oxyquinoline/sod.lauryl sulfat (TRIMO-YBRNE JELLY VAGINAL) Use vaginally as directed. Twice weekly at bedtime RING PESSARY VAGINAL Use vaginally as directed. aspirin, enteric coated (ECOTRIN LOW STRENGTH) 81 mg EC tablet Take 1 tablet by mouth once daily. polyethylene glycol 3350 (MIRALAX) 17 gram/dose powder Take 17 g by mouth once daily. As needed for constipation traZODone (DESYREL) 100 mg tablet Take 2 tablets by mouth at bedtime as needed. buPROPion XL (WELLBUTRIN XL) 150 mg 24 hr tablet Take 1 tablet by mouth once daily. gabapentin (NEURONTIN) 600 mg tablet Take 600 mg by mouth three times daily. isosorbide mononitrate ER (IMDUR) 30 mg 24 hr tablet Take 0.5 tablets by mouth once daily. metoprolol tartrate, short acting, (LOPRESSOR) 50 mg tablet Take one 50 mg tablet the evening prior to the CTA examination, take another 50 mg tablet the morning of the CTA examination. nitroglycerin sublingual (NITROQUICK) 0.3 mg SL tablet Dissolve 1 tablet under the tongue one time only for 1 dose. To be administered in Radiology for CTA exam No current facility-administered medications for this visit. ROS: Card: See present history. Pulm: See present history. Gastro: No nausea, vomiting, or diarrhea GenUr: No history of dysuria, frequency or incontinence Endo: Negative for cold or heat intolerance, polyuria or polydipsia. Neuro: no recent stroke or TIA Musculoskeletal: + chronic back pain Infect: Negative for fevers or chills. Skin: Negative for lesions, rash, and itching. Heme: Negative for prolonged bleeding or bruising easily. The remainder of the review of systems is negative. PHYSICAL EXAMINATION: BP 126/68 Pulse 60 Ht 154.9 cm (5' 1 ) Wt 89.4 kg (197 lb) LMP 12/15/2013 SpO2 100% BMI 37.22 kg/m Last 3 Encounter BP Readings: Date: BP: 11/04/2021 94/58 10/13/2021 134/86 10/01/2021 124/68 Last 3 Encounter Pulse Readings: Date: Pulse: 11/04/2021 55 10/13/2021 57 10/01/2021 66 Last 3 Encounter Wt Readings: Date: Wt: 10/13/2021 86.8 kg (191 lb 6.4 oz) 10/01/2021 88.1 kg (194 lb 3.2 oz) 08/14/2021 88.9 kg (196 lb) GENERAL: alert and in no acute distress SKIN: warm, dry, no rash. NECK: no JVD, no bruits. CARD: RRR, no murmurs, gallops, or rubs. RESP: Normal respiratory efforts, lungs clear to auscultation bilaterally. ABDOMEN: Soft, nontender, + BS NEURO: A+Ox3, SANTANA EXTREMITIES: No cyanosis, clubbing, or edema. Peripheral pulses well felt. LABS: Glucose (mg/dL) Date Value 09/23/2021 128 02/12/2021 123 Potassium (mmol/L) Date Value 09/23/2021 4.0 02/12/2021 4.1 Sodium (mmol/L) Date Value 09/23/2021 139 02/12/2021 139 Chloride (mmol/L) Date Value 09/23/2021 104 02/12/2021 103 CO2 (mmol/L) Date Value 09/23/2021 25 02/12/2021 21 Creatinine (mg/dL) Date Value 09/23/2021 0.72 02/12/2021 0.71 BUN (mg/dL) Date Value 09/23/2021 12 02/12/2021 11 Anion Gap (mmol/L) Date Value 09/23/2021 10 02/12/2021 15 Calcium (mg/dL) Date Value 02/12/2021 10.0 Calcium, Total (mg/dL) Date Value 09/23/2021 9.1 Protein, Total (g/dL) Date Value 09/23/2021 7.3 02/12/2021 8.2 Albumin (g/dL) Date Value 09/23/2021 4.5 02/12/2021 5.0 Bilirubin, Total (mg/dL) Date Value 09/23/2021 0.3 02/12/2021 0.7 Alkaline Phosphatase (U/L) Date Value 09/23/2021 74 02/12/2021 87 AST (U/L) Date Value 09/23/2021 25 02/12/2021 32 ALT (U/L) Date Value 09/23/2021 34 02/12/2021 53 Hemoglobin (g/dL) Date Value 09/23/2021 15.3 02/19/2021 16.8 Hematocrit (%) Date Value 09/23/2021 47.7 02/19/2021 47.7 WBC (k/uL) Date Value 09/23/2021 8.68 02/19/2021 10.78 Cholesterol, Total (mg/dL) Date Value 02/29/2020 169 Total Cholesterol, Nonfasting (mg/dL) Date Value 02/12/2021 213 HDL Cholesterol (mg/dL) Date Value 02/29/2020 53 HDL Cholesterol, Nonfasting (mg/dL) Date Value 02/12/2021 39 LDL Cholesterol (mg/dL) Date Value 02/29/2020 80 LDL Cholesterol, Nonfasting (mg/dL) Date Value 02/12/2021 130 Triglyceride (mg/dL) Date Value 02/29/2020 180 Triglycerides, Nonfasting (mg/dL) Date Value 02/12/2021 220 CARDIAC TESTING: Pharmacologic MPI stress test (08/19/2020): CONCLUSIONS: 1. SPECT Perfusion Study: Normal. 2. There is no scintigraphic evidence for inducible ischemia. 3. No evidence of scarred myocardium. 4. Left ventricle is normal in size. The left ventricle systolic function is normal. 5. Right ventricle is normal in size. 6. This is a low risk scan. 1 LVEF % 66 ASSESSMENT/PLAN: 1. Chest pain - Exertional left parasternal dullness/sharp chest pain - Abates with rest, episodes can last up to 1hr on and off - Associated minor dyspnea and palpitations - Proceed with [facility] at [facility] - Add Imdur 15mg daily 2. Coronary artery calcification seen on CT scan - Coronary CTA 10/2021: no significant stenosis in the LCx or RCA. Complex mixed plaque in the mid-LAD, unable to exclude significant stenosis in this segment due to calcium blooming artifact - Continue ASA and statin - See #1 3. Abnormal EKG - Chronic - ST depression with T-wave inversion in precordial leads, III, and AVF - Pharm MPI 08/2020: no ischemia or infarction, LVEF 66% - See #1 4. PVCs (premature ventricular contractions) - Treadmill EST 06/2020: multifocal PVCs, Isolated ventricular couplets/ triplets after stress and frequency of VEs increased with stress 5. Essential hypertension - Good control on amlodipine, losartan, and metoprolol - Encouraged dietary sodium restriction/DASH diet - Reviewed risks of HTN and principles of treatment - Goal of BP <130/80 6. Mixed hyperlipidemia - Currently on atorvastatin 10mg daily (started 01/2021) - Last lipid panel 01/2021 with LDL 130, TG 220, HDL 39 - Recheck lipid panel 7. Type 2 diabetes mellitus 8. PARVIN (obstructive sleep apnea) - Compliant on CPAP 8. Tobacco abuse - Current everyday smoker, 6 cigs/day - Cessation advised Conclusion: Patient here following recent coronary CTA demonstrating a complex mixed plaque in the mid LAD with an inability to exclude significant stenosis due to calcium blooming artifact. She continues to endorse symptoms concerning for angina and has multiple cardiovascular risk factors - including continued smoking. We reviewed options in great detail and she prefers to proceed with invasive cardiac work-up to further define her coronary anatomy. We will proceed with a left heart catheterization at [facility]. Lab work to be performed prior to the procedure, including a fasting lipid profile now that she has been initiated on statin therapy. Blood pressure and heart rate appear under favorable control. I will start low-dose Imdur 15 mg daily in the interim. She should continue to actively engage in cardiovascular risk factor modification and follow up with me after her cardiac catheterization, or sooner should need arise. CONTACT INFORMATION: Anais Lynne APRN.BRE Cardiology Nurse Practitioner Section of [facility] Cardiology [facility] Dept of Cardiovascular Medicine [facility] Heart and Vascular [place] [address] Office Office This note was partially generated using [employer] voice recognition system, and there may be some incorrect words, spellings, and punctuation that were not noted in checking the note before saving. documented in this encounter [facility] 11-09-2021 Instructions Latoya Rowley - 11/09/2021 4:12 PM EDT Observe the mass for any changes, such as: - an increase in size - discomfort or pain - inflammation (red, hot, swollen). *If the mass becomes inflamed, contact your primary care provider or the plastic surgery office. You may contact the office via Priceline or by phone at [phone] and ask to speak to a plastic surgery nurse if you have any other questions or concerns. documented in this encounter [facility] 11-09-2021 History of Presen t illness Narrative PLASTIC SURGERY PROGRESS NOTE SERVICE DATE: 11/09/2021 REASON FOR VISIT: Follow up (Localized subcutaneous soft tissue mass of the mid-back, at midline) On 08/07/21: The mass measured 1.7 cm diameter. Referring Doctor: Sameera Hi APRN.OUTREACH PROFESSIONAL Subjective: Patient has no complaints Denies pain or discomfort at the current time Patient currently smokes, has not tried to stop since initial office visit. She states she quit smoking previously, did not smoke for 5 years. She resumed smoking when she began drinking alcohol. She lives by herself. Patient enjoys the outdoors and watching shows. Review of Systems: Patient had a cat scan on chest with recommendation for a heart catherization PFSH: No change since previous visit. The patient is seen and examined by Dr. Richard Funes and the following reflects his/her service. Scribed by Danae Romero CT Exam: GENERAL: Alert, no distress, cooperative SKIN: Midline of mid-back: A localized subcutaneous soft tissue mass is noted. The mass measures 0.9 cm x 1.1 cm. Visible punctum with eschar is noted. DATA: Diagnostic tests reviewed for today's visit: No new labs Medical Decision Making: Problems: Low: Stable chronic illness Data: Unique source(s) for external note(s) reviewed: 1 Risk: Low: Low risk from testing/treatment Medical Decision Making Level: 3 - Low Impression/Plan: Patient presents with a subcutaneous localized soft tissue mass of the mid-back. The mass has clinical characteristics of a sebaceous cyst. Since her initial visit on 08/07/21, the mass has decreased in size. Surgery to excise the mass is not recommended at this time. Per patient, she has not tried to stop smoking. Encouraged her to reach out to others for emotional support. Per patient, she is seeing a counselor (Brianna) to explore her passions. Recommended she meet with her PCP for discussion on ways she can quit smoking. The patient will contact the plastic surgery office should any new problems develop. Photographs of the affected area are on file or were taken today, with the patient's permission. The purpose of the photo(s) is to optimize the patient's medical care and allow a visual aid for their future evaluation and progress. Patient will be discharged from Plastic Surgery Service. The patient was encouraged to continue medical care with the Family Physician. Scribe Attestation: --- By signing my name below, I, Latoya Rowley, attest that this documentation has been prepared under the direction and in the presence of Dr. Richard Funes MD. Electronically signed, Tanner Madrigal November 09, 2021 I, Dr. Richard Funes MD. , personally performed the services described in this documentation. All medical record entries made by the scribe were at my direction and in my presence. I have reviewed the chart and discharge instructions (if applicable) and agree that the record reflects my personal performance and is accurate and complete. Dr. Richard Funes, 11/10/2021 5:17 PM documented in this encounter [facility] 11-05-2021 Miscellaneous Notes Called PT left VM to call back to set up appt. With OUTREACH PROFESSIONAL to go over CTA CORONARY W IVCON documented in this encounter [facility] 11-04-2021 Nurse Note Pt states feeling so much better, pt sitting bp 113/62 hr 63 standing bp 110/63 hr 64, pt was able to ambulate from chair to bathroom, denied symptoms. All belongings with patient. IV d/c. aware of vitals. Finished coronary CTA pt states dizziness with laying to sitting position. Laying bp 98/65 hr 53, Sitting 85/60 hr 63, . Pt taken over to nursing office for evaluation, bolus fluid given to patient. 1415 Pt currently eating and drinking. States feeling much better. Radiology Service Progress Note PATIENT NAME: Bharati Paez DATE OF SERVICE: November 04, 2021 TIME: 2:12 PM PATIENT IDENTITY VERIFICATION COMPLETED USING TWO (2) STANDARD IDENTIFIERS: Name and Date of confirmed by patient verbally. PATIENT GENDER DATA: Female. status: : No status: NO. PATIENT RELEVANT IMPLANT DATA REVIEWED: Not Applicable ALLERGIES: Reviewed and unchanged MEDICATIONS REVIEWED: YES PROCEDURE TYPE: NM: PET/CT Cardiac PATIENT SCREENING: n./a n/a IV SITE: Ambulatory: A peripheral IV was started in the Left antecubital site with a Angio cath: 18 gauge. PERIPHERAL IV ACCESS: Discontinued CARDIAC MEDICATIONS: Nitroglycerin 0.3 mg SL given at 1358 PATIENT DISCHARGED TO: Home/Self Care SIGNED BY: Cassie Mann RN November 04, 2021 2:12 PM Pt sbp <100. Spoke to both the reading radiologist and laboratory animal care veterinarian ok with bp will proceed with study. documented in this encounter [facility] 10-13-2021 History of Presen t illness Narrative Images from the original note were not included. [facility] SECTION OF [facility] OUTPATIENT VISIT DATE October 13, 2021 PRIMARY CARE PHYSICIAN: Jl Singleton [address] [place] [address] HISTORY OF PRESENT ILLNESS: Ms. Paez is a 56 year old female. The patient returns for follow-up second history of a chronically abnormal EKG with chronic intermittent chest discomfort and previous abnormal travel and will stress test with follow-up nuclear imaging to be normal. She has multiple cardiovascular risk factors including hypertension, hyperlipidemia and prediabetes. Her chest discomfort is hit or miss. She denies dyspnea, orthopnea, paroxysmal nocturnal dyspnea, palpitations, near-syncope or syncope. She additionally states she has a mental health disorder preventing her at times from getting outside and exercising. PLAN AND RECOMMENDATIONS: The patient continues have chest discomfort with multiple cardiovascular risk factors for which she is concerned. We discussed therapeutic options to further elicit as to whether or not she has significant coronary artery disease. At this point time we will further screen her for significant epicardial coronary artery disease with coronary CTA. Informed consent was given. She appears understanding, excepting and willing to proceed. In the absence of significant findings, we would look to other causes of her chest discomfort and consider potentially noncardiac. Diet and lifestyle modification was reemphasized to facilitate risk factor reduction and weight loss. We will look forward to following up with her in 6 months time regardless. Vitals: BP 134/86 Pulse (!) 57 Ht 154.9 cm (5' 1 ) Wt 86.8 kg (191 lb 6.4 oz) LMP 12/15/2013 SpO2 96% BMI 36.16 kg/m Physical Exam Vitals reviewed. Constitutional: Appearance: She is well-developed. HENT: Head: Normocephalic and atraumatic. Eyes: Pupils: Pupils are equal, round, and reactive to light. Neck: Thyroid: No thyromegaly. Vascular: No JVD. Cardiovascular: Rate and Rhythm: Normal rate and regular rhythm. Heart sounds: Normal heart sounds. No murmur heard. No friction rub. No gallop. Pulmonary: Effort: Pulmonary effort is normal. No respiratory distress. Breath sounds: Normal breath sounds. No wheezing or rales. Abdominal: General: Bowel sounds are normal. Palpations: Abdomen is soft. Musculoskeletal: General: Normal range of motion. Cervical back: Normal range of motion and neck supple. Skin: General: Skin is warm and dry. Coloration: Skin is not pale. Neurological: Mental Status: She is alert and oriented to person, place, and time. Cranial Nerves: No cranial nerve deficit. Psychiatric: Behavior: Behavior normal. Thought Content: Thought content normal. Judgment: Judgment normal. Review of Systems Constitutional: Negative for activity change and fatigue. HENT: Negative for ear pain and facial swelling. Eyes: Negative for pain and discharge. Respiratory: Positive for shortness of breath. Negative for chest tightness. Cardiovascular: Positive for chest pain. Negative for palpitations and leg swelling. Gastrointestinal: Negative for abdominal pain, blood in stool, nausea and vomiting. Endocrine: Negative for cold intolerance and heat intolerance. Genitourinary: Negative for frequency and hematuria. Musculoskeletal: Negative for arthralgias and gait problem. Skin: Negative for color change, pallor and rash. Allergic/Immunologic: Negative for immunocompromised state. Neurological: Negative for dizziness, syncope, light-headedness and headaches. Hematological: Negative for adenopathy. Does not bruise/bleed easily. Psychiatric/Behavioral: Negative for confusion. The patient is not nervous/anxious. PAST MEDICAL HISTORY Diagnosis Date Anxiety Bipolar disorder (HCC) Degenerative disc disease Depression Diabetes (HCC) Environmental allergies Essential hypertension Fatty liver noted 2016 sonogram Heart abnormality High cholesterol Hypothyroidism PARVIN on CPAP Severe Suicide attempt (HCC) 06/2012 PAST SURGICAL HISTORY Procedure Laterality Date COLONOSCOPY 07/23/2016 9 yrs LAPAROSCOPIC UTERINE NERVE ABLATION 2013 PAST SURGICAL HISTORY OF age 15 TONSILLECTOMY PRIMARY/SECONDARY <AGE 11 Tonsillectomy Social History Tobacco Use Smoking status: Current Some Day Smoker Packs/day: 0.30 Types: Cigarettes Last attempt to quit: 08/18/2012 Years since quittin.1 Smokeless tobacco: Never Used Tobacco comment: 6 cigs per day Vaping Use Vaping Use: Never used Substance Use Topics Alcohol use: Yes Comment: beer a month Drug use: Yes Comment: occasional marijuana- 1-2 times per month FAMILY HISTORY Problem Relation Age of Onset Diabetes Mother Hypertension Mother Psychiatry Mother Hypertension Father Cervical Cancer Sister Diabetes Brother Diabetes Brother Alzheimer's Disease Maternal Grandmother Diabetes Maternal Grandmother Prostate Cancer Maternal Grandfather Heart Maternal Grandfather ALLERGIES Allergen Reactions Pollen Other: See Comments sneezing CURRENT MEDICATIONS: CPAP Initiate CPAP @ 11 cm of water with humidification. Mask (per patient preference) optional chin strap (if indicated) , filters, tubing, humidifier and lifetime supplies. amLODIPine (NORVASC) 10 mg tablet Take 1 tablet by mouth once daily. levothyroxine (SYNTHROID) 150 mcg tablet Take 1 tablet by mouth once daily. metoprolol succinate ER (TOPROL XL) 25 mg 24 hr tablet Take 1 tablet by mouth once daily. losartan (COZAAR) 100 mg tablet Take 1 tablet by mouth once daily. metFORMIN (GLUCOPHAGE) 500 mg tablet Take 1 tablet by mouth twice daily. atorvastatin (LIPITOR) 10 mg tablet Take 1 tablet by mouth daily at bedtime. For cholesterol. Cholecalciferol, Vitamin D3, 125 mcg (5,000 unit) cap TAKE 1 CAPSULE BY MOUTH ONCE DAILY sertraline (ZOLOFT) 25 mg tablet Take 25 mg by mouth once daily. hydrOXYzine HCl (ATARAX) 50 mg tablet Take 1-2 tablets by mouth twice daily as needed for itching/rash or anxiety. melatonin 2.5 mg chew Take by mouth as directed. boric acid vaginal suppository 600 mg (CPD) Use 1 Suppository vaginally one time a week. Unwrap and insert as directed. Patient uses weekly at bedtime oxyquinoline/sod.lauryl sulfat (TRIMO-BYRNE JELLY VAGINAL) Use vaginally as directed. Twice weekly at bedtime RING PESSARY VAGINAL Use vaginally as directed. aspirin, enteric coated (ECOTRIN LOW STRENGTH) 81 mg EC tablet Take 1 tablet by mouth once daily. polyethylene glycol 3350 (MIRALAX) 17 gram/dose powder Take 17 g by mouth once daily. As needed for constipation traZODone (DESYREL) 100 mg tablet Take 2 tablets by mouth at bedtime as needed. buPROPion XL (WELLBUTRIN XL) 150 mg 24 hr tablet Take 1 tablet by mouth once daily. gabapentin (NEURONTIN) 600 mg tablet Take 600 mg by mouth three times daily. EKG performed today demonstrates sinus bradycardia with anterior lateral T wave abnormality. Celia Esquivel DO, FACC, FACOI Clinical and Preventive Cardiology Department of Medicine and Division of Cardiology, [facility] Senior Software Test Engineerdispatch manager [facility] Senior Software Test Engineer of Congestive Heart Failure Clinic [facility] Cardiology Office Senior Software Test Engineer [facility] Staff Graduate Recruiter, [employer] and Brittany Carlton Department of Cardiovascular Medicine/Heart and Vascular [place], [facility] Clinical Grades 9 Through 12 Teacher Profressor of Medicine, [facility] of Medicine [facility] Please note: This note has been produced using speech recognition software and may contain errors related to that system including olga, punctuation, spelling, words, gender and phrases that may be inappropriate. documented in this encounter [facility] 10-09-2021 Miscellaneous Notes Called Pt. She does not have a fever today feeling much better. Advised her she can do a self covid test if she felt more symtoms. She is keeping her appt. For now, and will call if anything changes. Patient reports she had an elavated temperature on 10/06 and 10/07 and she believes it was due to a combination of caffeine and medication. No other symptoms. Patient does not have an elevated temp today. She has an appt with Dr. Esquivel on 10/13/21 and asking if she is able to keep appt despite having an elevated temperature on those dates due to certain restrictions and covid question and screening on arrival. Please advise patient. PH: [phone]. Thank you. documented in this encounter [facility] Chest discomfort Other chest pain Essential hypertension Unspecified essential hypertension Mixed hyperlipidemia Abnormal ECG Nonspecific abnormal electrocardiogram (ECG) (EKG) Encounter for preprocedural cardiovascular examination Pre-operative cardiovascular examination [facility]* Diagnosis Subcutaneous mass of back- Primary [facility]* Diagnosis Chest pain, unspecified type- Primary Coronary artery calcification seen on CAT scan Coronary atherosclerosis of unspecified type of vessel, [place] or graft Abnormal EKG Nonspecific abnormal electrocardiogram (ECG) (EKG) PVC (premature ventricular contraction) Other premature beats Essential hypertension Unspecified essential hypertension Mixed hyperlipidemia [facility]* Diagnosis Controlled type 2 diabetes mellitus without complication, without long-term current use of insulin ([facility])- Primary [facility] Diagnosis Epigastric pain- Primary Abdominal pain, epigastric Gastroesophageal reflux disease, unspecified whether esophagitis present Acquired hypothyroidism Unspecified hypothyroidism Controlled type 2 diabetes mellitus without complication, without long-term current use of insulin (HCC) [facility] Diagnosis Acquired hypothyroidism Unspecified hypothyroidism [facility] Diagnosis Controlled type 2 diabetes mellitus without complication, without long-term current use of insulin (HCC)- Primary Acquired hypothyroidism Unspecified hypothyroidism Mixed hyperlipidemia Essential hypertension Unspecified essential hypertension Bipolar affective disorder, current episode mixed, current episode severity unspecified (HCC) PARVIN on CPAP Obstructive sleep apnea (adult) (pediatric) Gastroesophageal reflux disease, unspecified whether esophagitis present Nonobstructive atherosclerosis of coronary artery [facility]* Diagnosis RLQ abdominal pain- Primary Abdominal pain, right lower quadrant Breast pain, left Mastodynia Need for vaccination Need for prophylactic vaccination and inoculation against unspecified single disease [facility]* Diagnosis Acquired hypothyroidism Unspecified hypothyroidism documented in this encounter [facility] note* Diagnosis Abnormal mammogram- Primary Abnormal mammogram, unspecified documented in this encounter [facility] note* Diagnosis Abnormal mammogram- Primary Abnormal mammogram, unspecified documented in this encounter [facility] note* Diagnosis Abnormal mammogram Abnormal mammogram, unspecified [facility]* Diagnosis Screening for cervical cancer- Primary Screening for malignant neoplasm of the cervix documented in this encounter [facility] note* Diagnosis Impetigo- Primary [facility]* Diagnosis Controlled type 2 diabetes mellitus without complication, without long-term current use of insulin (HCC)- Primary Acquired hypothyroidism Unspecified hypothyroidism Medication management Encounter for long-term (current) use of other medications documented in this encounter [facility] note* Diagnosis Controlled type 2 diabetes mellitus without complication, without long-term current use of insulin (HCC)- Primary Bipolar affective disorder, current episode mixed, current episode severity unspecified (HCC) Mixed hyperlipidemia PARVIN on CPAP Obstructive sleep apnea (adult) (pediatric) Essential hypertension Unspecified essential hypertension Obesity, Class I, BMI 30-34.9 Obesity, unspecified Nonobstructive atherosclerosis of coronary artery documented [facility]* Diagnosis Nonobstructive atherosclerosis of coronary artery- Primary Essential hypertension Unspecified essential hypertension Mixed hyperlipidemia PVC (premature ventricular contraction) Other premature beats documented in this encounter [facility]* Diagnosis Palpitations- Primary Chest pressure Other chest pain [facility] Diagnosis Bilateral hip pain- Primary Pain in joint, pelvic region and thigh [facility]* Diagnosis Controlled type 2 diabetes mellitus without complication, without long-term current use of insulin ([facility])- Primary Encounter for screening mammogram for breast cancer Mixed hyperlipidemia Bipolar affective disorder, current episode mixed, current episode severity unspecified (HCC) Acquired hypothyroidism Unspecified hypothyroidism Primary hypertension Unspecified essential hypertension PARVIN on CPAP Obstructive sleep apnea (adult) (pediatric) Nonobstructive atherosclerosis of coronary artery documented in this encounter [facility] for referral (narrative)* Diagnostic Procedure Only (Routine) - Authorized Specialty Diagnoses / Procedures Referred By Contac t Referred To Contact BR IMAGING Diagnoses Breast pain, left Procedures MEAGHAN DIAGNOSTIC BILAT DIAGNOSTIC MAMMOGRAPHY COMPUTER-AIDED DETCJ BI Jl Singleton MD [address] [place] [address] Br Imaging [address] [place] [address] Referral ID Status Reason Start Date Expiration Date Visits Requested Visits Authorized [id number] Authorized Auto-Generat ed Referral 2 06/02/2023 1 1 * Diagnostic Procedure Only (Routine) - Authorized Specialty Diagnoses / Procedures Referred By Bryon t Referred To Contact BR IMAGING Diagnoses Breast pain, left Procedures US BREAST LTD LT US BREAST UNI REAL TIME WITH IMAGE LIMITED Jl Singleton MD [address] [place] [address] Br Imaging [address] [place] [address] Referral ID Status Reason Start Date Expiration Date Visits Requested Visits Authorized [id number] Authorized Auto-Generat ed Referral 2 06/02/2023 1 1 [facility] for referral (narrative)* Diagnostic Procedure Only (Routine) - Pending Review Specialty Diagnoses / Procedures [facility] Ref[facility] To Contact BR [facility] Diagnoses Abnormal mammogram Procedures US BIOPSY BREAST LT BX BREAST W/DEVICE 1ST LESION ULTRASOUND GUID Andrew Goodson MD [address] [place] [address] Br Imaging [address] [place] [address] Referral ID Status Reason Start Date Expiration Date Visits Requested Visits Authorized [id number] Pending Review Auto-Generat ed Referral 2 07/08/2023 1 1 [facility] for referral (narrative)* Diagnostic Procedure Only (Routine) - Pending Review Specialty Diagnoses / Procedures Referred By Contac t Referred To Contact XR IMAGING Diagnoses Bilateral hip pain Procedures XR LUMBAR GENERAL 3V AP/LAT/L5-S1 RADEX SPINE LUMBOSACRAL 2/3 VIEWS Margo Walker APRN.CNP [address] [place] [address] Xr Imaging Referral ID Status Reason Start Date Expiration Date Visits Requested Visits Authorized [id number] Pending Review Auto-Generat ed Referral 02/28/2023 03/29/2024 1 1 * Diagnostic Procedure Only (Routine) - Pending Review Specialty Diagnoses / Procedures Referred By Contac t Referred To Contact XR IMAGING Diagnoses Bilateral hip pain Procedures XR HIP BILATERAL 5V PEL/AP/LAT EACH HIP RADEX HIPS BILATERAL WITH PELVIS MINIMUM 5 VIEWS Margo Walker APRN.OUTREACH PROFESSIONAL [address] [place] [address] Xr Imaging Referral ID Status Reason Start Date Expiration Date Visits Requested Visits Authorized [id number] Pending Review Auto-Generat ed Referral 02/28/2023 03/29/2024 1 1 [facility] for referral (narrative)* Diagnostic Procedure Only (Routine) - Authorized Specialty Diagnoses / Procedures Referred By Contac t Referred To Contact BR IMAGING Diagnoses Encounter for screening mammogram for breast cancer Procedures MEAGHAN SCREENING SCREENING MAMMOGRAPHY BI 2-VIEW BREAST INC CAD PodlogMargo rodriguez APRN.OUTREACH PROFESSIONAL [address] [place] [address] Br Imaging [address] [place] [address] Referral ID Status Reason Start Date Expiration Date Visits Requested Visits Authorized [id number] Authorized Auto-Generat ed Referral 03/11/2023 04/09/2024 1 1 [facility] for visit Narrative* Diagnostic Procedure Only (Routine) - Closed Specialty Diagnoses / Procedures Referred By Contac t Referred To Contact BR IMAGING Diagnoses Abnormal mammogram Procedures US BIOPSY BREAST LT BX BREAST W/DEVICE 1ST LESION ULTRASOUND GUID Andrew Goodson MD [address] [place] [address] Br Imaging [address] [place] [address] Referral ID Status Reason Start Date Expiration Date V isits Requested Visits Authorized [id number] Closed Auto-Generate d Referral 06/11/2022 07/17/2022 1 1 [facility] Summary Purpose Family History No Family History Records FoundNo Family History Records FoundNo Family History Records FoundNo Family History Records FoundNo Family History Records FoundNo Family History Records FoundNo Family History Records Found Advance Directives No Advanced Directives Records FoundDocuments on File Type Date Recorded 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 Advance Directive(s) 02/23/2021 10:34 AM Advance Directive(s) 07/23/2016 7:57 AM Advance Directive(s) 07/13/2016 3:03 PM Documents on File Type Date Recorded 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 Advance Directive(s) 02/23/2021 10:34 AM Advance Directive(s) 07/23/2016 7:57 AM Advance Directive(s) 07/13/2016 3:03 PM Documents on File Type Date Recorded 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 RECORD# NUMBER DATE DATE TYPE BHARATI PAEZ [id number] F 53 04/16/19 04/17/19 2 [id number] ROOM: [id number] DATE OF : 1965 DICTATING PHYSICIAN: Cassie Torres This is a shared split visit with Dr. Smith who also rounded on and examined the patient today. DISCHARGE DIAGNOSIS: Chest pain with normal echo stress and normal cardiac enzymes. DIAGNOSTIC DATA: Initial WBC was 6600, hemoglobin 14.1, hematocrit 40.9, platelets 347,000, troponin series 0.01 times 3, sodium 131, potassium 3.4, chloride 98, CO2 23.9, BUN 15, creatinine 0.6, glucose 100, AST 14, ALT 20, alk phos 57, albumin 4.4, total bilirubin 0.4. Chest x-ray reveals no acute cardiopulmonary process. EKG shows sinus bradycardia with first degree AV block with ventricular rate of 50. QTC 441 msec. No acute injury. Stress echo with dobutamine protocol revealed negative for inducible ischemia, normal augmentation of left ventricular stress. Baseline ech (more content not included)... Reason for Referral Specialty Diagnoses / Procedures [facility] Referred To Contact CT IMAGING Diagnoses Chest discomfort Essential hypertension Mixed hyperlipidemia Abnormal ECG Encounter for preprocedural cardiovascular examination Procedures CTA CORONARY W IVCON CTA HRT CORNRY ART/BYPASS GRFTS CONTRST 3D POST Celia Esquivel, [id number] Imaging Referral ID Status Reason Start Date Expiration Date Visits Requested Visits Authorized [id number] Authorized Auto-Generat ed Referral 10/13/2021 11/12/2022 1 1 Specialty Diagnoses / Procedures [facility] Diagnoses Chest discomfort Essential hypertension Mixed hyperlipidemia Procedures ECG COMPLETE ECG ROUTINE ECG W/LEAST 12 LDS W/I&R Celia Esquivel, [address] [place] [address] [facility] [place] [address] [place] [address] Referral ID Status Reason Start Date Expiration Date V isits Requested Visits Authorized [id number] Closed Auto-Generate d Referral 10/13/2021 10/13/2022 1 1 Referral ID Status Reason Start Date Expiration Date V isits Requested Visits Authorized [id number] Closed Auto-Generate d Referral 10/13/2021 11/12/2022 1 1 Specialty Diagnoses / Procedures [facility] Referred To Contact Endocrinology Diagnoses Controlled type 2 diabetes mellitus without complication, without long-term current use of insulin (HCC) Procedures CONSULT TO ENDOCRINOLOGY OFFICE/OUTPATIENT NEW HIGH MDM 60-74 MINUTES Eva Baker APRN.OUTREACH PROFESSIONAL [address] [address] Referral ID Status Reason Start Date Expiration Date Visits Requested Visits Authorized [id number] Authorized PCP Requested Referral 02/24/2022 02/24/2023 1 1 Specialty Diagnoses / Procedures Referred By Contkurtis t Referred To Contact Gynecology Diagnoses Screening for cervical cancer Procedures CONSULT TO GYNECOLOGY OFFICE/OUTPATIENT [facility] MDM 60-74 MINUTES Margo Walker APRN.OUTREACH PROFESSIONAL [address] [place] [address] Referral ID Status Reason Start Date Expiration Date Visits Requested Visits Authorized [id number] Authorized PCP Requested Referral Auto-Generate d Referral 08/11/2022 08/11/2023 1 1 Medications Administered Section Inactive Administered Medications - up to 3 most recent administrations Medication Order MAR Action Action Date Dose Rate Site NaCl 0.9% iv infusion 250 mL/hr, INTRAVENOUS, Administer over 2 Hours, ONCE, 1 dose, On Tue11/04/21 at 1430, Iv 250 ml bolus. New Bag/Syringe/Bottle 11/04/2021 2:03 PM EDT 250 mL/hr 250 mL/hr Additional Source Comments INFORMATION SOURCE (unrecogn ized section and content) DATE CREATED AUTHOR AUTHOR'S ORGANIZ ATION 06/26/2018 [facility] DATE CREATED AUTHOR AUTHOR'S ORGANIZ ATION [facility] DATE CREATED AUTHOR AUTHOR'S ORGANIZ ATION 12/26/2019 [facility] DATE CREATED AUTHOR AUTHOR'S ORGANIZ ATION 11/06/2021 [facility] DATE CREATED AUTHOR AUTHOR'S ORGANIZ ATION 02/18/2023 [facility] DATE CREATED AUTHOR AUTHOR'S ORGANIZ ATION 05/28/2023 [facility] Source Comments (unrecognize d section and content) In the event this informatio n is protected by the Federal Confidentiality of Alcohol and Drug Abuse Patient Records regulations: The Federal rules restrict any use of the information to criminally investigate or prosecute any alcohol or drug abuse patient.[facility] event this information is protected by the Federal Confidentiality of Alcohol and Drug Abuse Patient Records regulations: The Federal rules restrict any use of the information to criminally investigate or prosecute any alcohol or drug abuse patient.[facility] the event this information is protected by the Federal Confidentiality of Alcohol and Drug Abuse Patient Records regulations: The Federal rules restrict any use of the information to criminally investigate or prosecute any alcohol or drug abuse patient.[facility] the event this information is protected by the Federal Confidentiality of Alcohol and Drug Abuse Patient Records regulations: The Federal rules restrict any use of the information to criminally investigate or prosecute any alcohol or drug abuse patient.[facility] the event this information is protected by the Federal Confidentiality of Alcohol and Drug Abuse Patient Records regulations: The Federal rules restrict any use of the information to criminally investigate or prosecute any alcohol or drug abuse patient.[facility] the event this information is protected by the Federal Confidentiality of Alcohol and Drug Abuse Patient Records regulations: The Federal rules restrict any use of the information to criminally investigate or prosecute any alcohol or drug abuse patient.[facility] the event this information is protected by the Federal Confidentiality of Alcohol and Drug Abuse Patient Records regulations: The Federal rules restrict any use of the information to criminally investigate or prosecute any alcohol or drug abuse patient.[facility] the event this information is protected by the Federal Confidentiality of Alcohol and Drug Abuse Patient Records regulations: The Federal rules restrict any use of the information to criminally investigate or prosecute any alcohol or drug abuse patient.[facility] the event this information is protected by the Federal Confidentiality of Alcohol and Drug Abuse Patient Records regulations: The Federal rules restrict any use of the information to criminally investigate or prosecute any alcohol or drug abuse patient.[facility] the event this information is protected by the Federal Confidentiality of Alcohol and Drug Abuse Patient Records regulations: The Federal rules restrict any use of the information to criminally investigate or prosecute any alcohol or drug abuse patient.[facility] the event this information is protected by the Federal Confidentiality of Alcohol and Drug Abuse Patient Records regulations: The Federal rules restrict any use of the information to criminally investigate or prosecute any alcohol or drug abuse patient.[facility] the event this information is protected by the Federal Confidentiality of Alcohol and Drug Abuse Patient Records regulations: The Federal rules restrict any use of the information to criminally investigate or prosecute any alcohol or drug abuse patient.[facility] the event this information is protected by the Federal Confidentiality of Alcohol and Drug Abuse Patient Records regulations: The Federal rules restrict any use of the information to criminally investigate or prosecute any alcohol or drug abuse patient.[facility] the event this information is protected by the Federal Confidentiality of Alcohol and Drug Abuse Patient Records regulations: The Federal rules restrict any use of the information to criminally investigate or prosecute any alcohol or drug abuse patient.[facility] Hospital[facility] the event this information is protected by the Federal Confidentiality of Alcohol and Drug Abuse Patient Records regulations: The Federal rules restrict any use of the information to criminally investigate or prosecute any alcohol or drug abuse patient.[facility] the event this information is protected by the Federal Confidentiality of Alcohol and Drug Abuse Patient Records regulations: The Federal rules restrict any use of the information to criminally investigate or prosecute any alcohol or drug abuse patient.[facility] the event this information is protected by the Federal Confidentiality of Alcohol and Drug Abuse Patient Records regulations: The Federal rules restrict any use of the information to criminally investigate or prosecute any alcohol or drug abuse patient.[facility] the event this information is protected by the Federal Confidentiality of Alcohol and Drug Abuse Patient Records regulations: The Federal rules restrict any use of the information to criminally investigate or prosecute any alcohol or drug abuse patient.[facility] the event this information is protected by the Federal Confidentiality of Alcohol and Drug Abuse Patient Records regulations: The Federal rules restrict any use of the information to criminally investigate or prosecute any alcohol or drug abuse patient.[facility] the event this information is protected by the Federal Confidentiality of Alcohol and Drug Abuse Patient Records regulations: The Federal rules restrict any use of the information to criminally investigate or prosecute any alcohol or drug abuse patient.[facility] HospitalIn the event this information is protected by the Federal Confidentiality of Alcohol and Drug Abuse Patient Records regulations: The Federal rules restrict any use of the information to criminally investigate or prosecute any alcohol or drug abuse patient.[facility] the event this information is protected by the Federal Confidentiality of Alcohol and Drug Abuse Patient Records regulations: The Federal rules restrict any use of the information to criminally investigate or prosecute any alcohol or drug abuse patient.[facility] HospitalIn the event this information is protected by the Federal Confidentiality of Alcohol and Drug Abuse Patient Records regulations: The Federal rules restrict any use of the information to criminally investigate or prosecute any alcohol or drug abuse patient.[facility] the event this information is protected by the Federal Confidentiality of Alcohol and Drug Abuse Patient Records regulations: The Federal rules restrict any use of the information to criminally investigate or prosecute any alcohol or drug abuse patient.[facility] the event this information is protected by the Federal Confidentiality of Alcohol and Drug Abuse Patient Records regulations: The Federal rules restrict any use of the information to criminally investigate or prosecute any alcohol or drug abuse patient.[facility] the event this information is protected by the Federal Confidentiality of Alcohol and Drug Abuse Patient Records regulations: The Federal rules restrict any use of the information to criminally investigate or prosecute any alcohol or drug abuse patient.[facility] the event this information is protected by the Federal Confidentiality of Alcohol and Drug Abuse Patient Records regulations: The Federal rules restrict any use of the information to criminally investigate or prosecute any alcohol or drug abuse patient.[facility] the event this information is protected by the Federal Confidentiality of Alcohol and Drug Abuse Patient Records regulations: The Federal rules restrict any use of the information to criminally investigate or prosecute any alcohol or drug abuse patient.[facility] the event this information is protected by the Federal Confidentiality of Alcohol and Drug Abuse Patient Records regulations: The Federal rules restrict any use of the information to criminally investigate or prosecute any alcohol or drug abuse patient.[facility] the event this information is protected by the Federal Confidentiality of Alcohol and Drug Abuse Patient Records regulations: The Federal rules restrict any use of the information to criminally investigate or prosecute any alcohol or drug abuse patient.[facility] the event this information is protected by the Federal Confidentiality of Alcohol and Drug Abuse Patient Records regulations: The Federal rules restrict any use of the information to criminally investigate or prosecute any alcohol or drug abuse patient.[facility] the event this information is protected by the Federal Confidentiality of Alcohol and Drug Abuse Patient Records regulations: The Federal rules restrict any use of the information to criminally investigate or prosecute any alcohol or drug abuse patient.[facility] the event this information is protected by the Federal Confidentiality of Alcohol and Drug Abuse Patient Records regulations: The Federal rules restrict any use of the information to criminally investigate or prosecute any alcohol or drug abuse patient.[facility] the event this information is protected by the Federal Confidentiality of Alcohol and Drug Abuse Patient Records regulations: The Federal rules restrict any use of the information to criminally investigate or prosecute any alcohol or drug abuse patient.[facility] the event this information is protected by the Federal Confidentiality of Alcohol and Drug Abuse Patient Records regulations: The Federal rules restrict any use of the information to criminally investigate or prosecute any alcohol or drug abuse patient.[facility] the event this information is protected by the Federal Confidentiality of Alcohol and Drug Abuse Patient Records regulations: The Federal rules restrict any use of the information to criminally investigate or prosecute any alcohol or drug abuse patient.[facility]In the event this information is protected by the Federal Confidentiality of Alcohol and Drug Abuse Patient Records regulations: The Federal rules restrict any use of the information to criminally investigate or prosecute any alcohol or drug abuse patient.[facility] HospitalIn the event this information is protected by the Federal Confidentiality of Alcohol and Drug Abuse Patient Records regulations: The Federal rules restrict any use of the information to criminally investigate or prosecute any alcohol or drug abuse patient.[facility] HospitalIn the event this information is protected by the Federal Confidentiality of Alcohol and Drug Abuse Patient Records regulations: The Federal rules restrict any use of the information to criminally investigate or prosecute any alcohol or drug abuse patient.[facility] HospitalIn the event this information is protected by the Federal Confidentiality of Alcohol and Drug Abuse Patient Records regulations: The Federal rules restrict any use of the information to criminally investigate or prosecute any alcohol or drug abuse patient.[facility] HospitalIn the event this information is protected by the Federal Confidentiality of Alcohol and Drug Abuse Patient Records regulations: The Federal rules restrict any use of the information to criminally investigate or prosecute any alcohol or drug abuse patient.[facility] HospitalIn the event this information is protected by the Federal Confidentiality of Alcohol and Drug Abuse Patient Records regulations: The Federal rules restrict any use of the information to criminally investigate or prosecute any alcohol or drug abuse patient.[facility] Reason for Visit (unrecogniz ed section and content) Reason Comments Cardiology Follow Up chest pain on and o ff - none in last two months Specialty Diagnoses / Procedures Referred By Contac t Referred To Contact CT IMAGING Diagnoses Chest discomfort Essential hypertension Mixed hyperlipidemia Abnormal ECG Encounter for preprocedural cardiovascular examination Procedures CTA CORONARY W IVCON CTA HRT CORNRY ART/BYPASS GRFTS CONTRST 3D POST Yordy, Celia Compa, DO [address] [place] [address] Ct Imaging Referral ID Status Reason Start Date Expiration Date V isits Requested Visits Authorized [id number] Closed Auto-Generate d Referral 10/13/2021 11/12/2022 1 1 Reason Comments Results Reason Comments Follow Up Epidermal cyst on ba ck Reason Comments Refill Request Reason Comments Cardiology Follow Up CTA Reason Comments Procedure Verified With Patient Reason Onset Date Comments Refill Request 01/14/2022 Reason Onset Date Comments Refill Request 02/18/2022 Reason Comments Follow Up 3 months Reason Comments ER F/U Liver is swollen per patient. Has been having some stomach issues last few months. More acidic. Reason Comments Appointment Reason Onset Date Comments Refill Request 03/17/2022 Reason Comments F/U 6 months Reason Comments Opened In Error Reason Comments Breast Problem Left breast thinks s he had a cyst she ruptured. No pain currently Pain Right sided abdomina l area -states things are pooching out Reason Onset Date Comments Refill Request 05/13/2022 Reason Comments Procedure Left Breast Biopsy Reason Comments Consult Left breast biopsy Reason Comments Appointment US guided left breas t biopsy Reason Comments Medication Problem Reason Comments Appointment Reason Comments Rash Sores on face, think s it might be impetigo x 2 days Reason Comments Orders Reason Comments Recheck 6 months Reason Comments requesting medication Reason Comments Established Patient Follow-Up Chest pain episodes over the last 3 months. Pt states that its when she gets stressed/upsetLasts 20-30 mins Reason Comments ER F/U Reason Comments ER F/U [facility] 01/15/23; Intermit tent heart palpitations with chest pressure Reason Comments Received Outside Medical Records Reason Comments Pain To back of legs and and bilateral hips x1 week but has gotten worse the last 4 days Reason Comments Patient Question Hip pain Reason Comments F/U 6 months Care Teams (unrecognized sec tion and content) Director [employer] Relationship Specialty Start Date End Date Jl Singleton MD [address] [place] [address] PCP - General Family Practice 08/12/20 Anna Smith, [facility] [address] [place] [address] Pharmacist Pharmacy 02/22/20 Director [employer] Relationship Specialty Start Date End Date Jl Singleton MD [address] [facility] [place] [address] PCP - General Family Practice 08/12/20 [facility] [address] [facility] [address] Pharmacist Pharmacy 02/22/20 Director [employer] Relationship Specialty Start Date End Date Jl Singleton MD [address] [facility] [place] [address] PCP - General Family Practice 08/12/20 [facility] [address] [facility] [address] Pharmacist Pharmacy 02/22/20 Director [employer] Relationship Specialty Start Date End Date Jl Singleton MD [address] [facility] [place] [address] PCP - General Family Practice 08/12/20 [facility] [address] [facility] [address] Pharmacist Pharmacy 02/22/20 Director [employer] Relationship Specialty Start Date End Date Jl Singleton MD [address] [facility] [address] PCP - General Family Practice 08/12/20 [facility] [address] [facility] [address] Pharmacist Pharmacy 02/22/20 Director [employer] Relationship Specialty Start Date End Date Jl Singleton MD [address] [facility] [address] PCP - General Family Practice 08/12/20 Anna Smith, [facility] [address] [facility] [address] Pharmacist Pharmacy 02/22/20 Director [employer] Relationship Specialty Start Date End Date Jl Singleton MD [address] [place] [address] PCP - General Family Practice 08/12/20 [facility] [address] [facility] [address] Pharmacist Pharmacy 02/22/20 Director [employer] Relationship Specialty Start Date End Date Jl Singleton MD [address] [place] [address] PCP - General Family Practice 08/12/20 [facility] [address] [place] [address] Pharmacist Pharmacy 02/22/20 Director [employer] Relationship Specialty Start Date End Date Jl Singleton MD [address] [place] [address] PCP - General Family Practice 08/12/20 [facility] [address] [facility] [address] Pharmacist Pharmacy 02/22/20 Director [employer] Relationship Specialty Start Date End Date Jl Singleton MD [address] [place] [address] PCP - General Family Practice 08/12/20 Anna Smith, [facility] [address] [place] [address] Pharmacist Pharmacy 02/22/20 Director [employer] Relationship Specialty Start Date End Date Jl Singleton MD [address] [place] [address] PCP - General Family Practice 08/12/20 Anna Smith, [facility] [address] [facility] [address] Pharmacist Pharmacy 02/22/20 Director [employer] Relationship Specialty Start Date End Date Jl Singleton MD [address] [place] [address] PCP - General Family Practice 08/12/20 Anna Smith, [facility] [address] [facility] [address] Pharmacist Pharmacy 02/22/20 Director [employer] Relationship Specialty Start Date End Date Jl Singleton MD [address] [place] [address] PCP - General Family Medicine 08/12/20 [facility] [address] [place] [address] Pharmacist Pharmacy 02/22/20 Director [employer] Relationship Specialty Start Date End Date Jl Singleton MD [address] [place] [address] PCP - General Family Medicine 08/12/20 Anna Smith, [facility] [address] [facility] [address] Pharmacist Pharmacy 02/22/20 Director [employer] Relationship Specialty Start Date End Date Jl Singleton MD [address] [place] [address] PCP - General Family Medicine 08/12/20 Anna Smith, [facility] [address] [facility] [address] Pharmacist Pharmacy 02/22/20 Director [employer] Relationship Specialty Start Date End Date Jl Singleton MD [address] [place] [address] PCP - General Family Medicine 08/12/20 Foreignjamia Anna, [facility] [address] [facility] [address] Pharmacist Pharmacy 02/22/20 Director [employer] Relationship Specialty Start Date End Date Jl Singleton MD [address] [place] [address] PCP - General Family Medicine 08/12/20 Anna Smith, [facility] [address] [facility] [address] Pharmacist Pharmacy 02/22/20 Director [employer] Relationship Specialty Start Date End Date Jl Singleton MD [address] [place] [address] PCP - General Family Medicine 08/12/20 Anna Smith, [facility] [address] [place] [address] Pharmacist Pharmacy 02/22/20 Director [employer] Relationship Specialty Start Date End Date Jl Singleton MD [address] [place] [address] PCP - General Family Medicine 08/12/20 Anna Smith, [facility] [address] [facility] [address] Pharmacist Pharmacy 02/22/20 Director [employer] Relationship Specialty Start Date End Date Jl Singleton MD [address] [place] [address] PCP - General Family Medicine 08/12/20 Anna Smith, [facility] [address] [facility] [address] Pharmacist Pharmacy 02/22/20 Director [employer] Relationship Specialty Start Date End Date Jl Singleton MD [address] [facility] [address] PCP - General Family Medicine 08/12/20 Anna Smith, [facility] [address] [facility] [address] Pharmacist Pharmacy 02/22/20 Director [employer] Relationship Specialty Start Date End Date Jl Singleton MD [address] [facility] [address] PCP - General Family Medicine 08/12/20 Anna Smith, [facility] [address] [facility] [place] [address] Pharmacist Pharmacy 02/22/20 Director [employer] Relationship Specialty Start Date End Date Jl Singleton MD [address] [place] [address] PCP - General Family Medicine 08/12/20 Anna Smith, [facility] [address] [facility] [place] [address] Pharmacist Pharmacy 02/22/20 Director [employer] Relationship Specialty Start Date End Date Jl Singleton MD [address] [facility] [place] [address] PCP - General Family Medicine 08/12/20 Anna Smith, [facility] [address] [facility] [place] [address] Pharmacist Pharmacy 02/22/20 Director [employer] Relationship Specialty Start Date End Date Jl Singleton MD [address] [facility] [place] [address] PCP - General Family Medicine 08/12/20 Anna Smith, [facility] [address] [facility] [place] [address] Pharmacist Pharmacy 02/22/20 Director [employer] Relationship Specialty Start Date End Date Jl Singleton MD [address] [facility] [address] PCP - General Family Medicine 08/12/20 [facility] [address] [facility] [address] Pharmacist Pharmacy 02/22/20 Director [employer] Relationship Specialty Start Date End Date Jl Singleton MD [address] [facility] [address] PCP - General Family Medicine 08/12/20 [facility] [address] [facility] [address] Pharmacist Pharmacy 02/22/20 Director [employer] Relationship Specialty Start Date End Date Jl Singleton MD [address] [facility] [address] PCP - General Family Medicine 08/12/20 Anna Smith, [facility] [address] [facility] [address] Pharmacist Pharmacy 02/22/20 Director [employer] Relationship Specialty Start Date End Date Jl Singleton MD [address] [facility] [place] [address] PCP - General Family Medicine 08/12/20 Anna Smith, [facility] [address] [facility] [place] [address] Pharmacist Pharmacy 02/22/20 FOR RECORDS PERTAINING TO PATIENTS WHO ARE OR HAVE BEEN ENROLLED IN A CHEMICAL DEPENDENCY/SUBSTANCEABUSE PROGRAM, SOME INFORMATION MAY BE OMITTED. This clinical summary was aggregated from multiple sources. Caution should be exercised in using it in the provision of clinical care. This summary normalizes information from multiple sources, and as a consequence, information in this document may materially change the coding, format and clinical context of patient data. In addition, data may be omitted in some cases. CLINICAL DECISIONS SHOULD BE BASED ON THE PRIMARY CLINICAL RECORDS. [facility] [employer] [facility] provides no warranty or guarantee of the accuracy or completeness of information in this document.
--- NOTE | 2023-08-03 17:52 | ED.RN ---
Pt. checked in for pain near her right should that she has had for years and my primary care doctor did nothing about it . This RN checked pt. in and told her she would need to wait in the waiting area for a room. Pt. came up to triage desk while I was triaging another pt and attempted to enter triage room to ask a question, I told pt. that I would be able to answer her questions in a few minutes but right now I was with another patient. Bharati went to sit back down and came up to desk for a couple minutes later to ensure she was being fast tracked due to the nature of her pain . I told Bharati that shortly I would hope to be able to get some things started in triage such as blood work and an EKG, and also that I had other people with similar pain who have been waiting quite a while to be seen. Bharati then stated that people in the waiting room were being fucking rude and taking people's chairs and I decided I did not need to be seen . Pt. was marked LWBS.
== END 2023-08-03 17:24 | disposition left against medical advice (07) ==
LOC: ED 17:27
PROVIDERS: PCP Family Medicine
DX: Z00.00 Encounter for general adult medical examination without abnormal findings (principal)

== ENCOUNTER 2024-07-20 13:33 | Emergency (ER) | payer MEDICARE, MEDICAID, SELFPAY ==
[2024-07-20 13:56] VITALS: BP 165/111; PULSE 56; RESP 20; TEMP 36.6; O2SAT 100; BMI 34.1
[2024-07-20 14:23] LABS: Bedside Glucose 137 mg/dL (74-106)
== END 2024-07-20 16:20 | disposition left against medical advice (07) ==
LOC: ED 16:20
PROVIDERS: PCP Family Medicine
DX: R07.9 Chest pain, unspecified (principal)
CPT/HCPCS: 82962; 99281

== ENCOUNTER → 2024-11-19 | Outpatient (CLI) | payer MEDICARE, MEDICAID, SELFPAY ==
[2024-11-19 16:13] LABS: Absolute Lymphocyte Count 3.67 X10^3/uL (0.83-4.51); Absolute Neutrophil Count 6.1 X10^3/uL (2.0-7.7); Basophil# 0.08 X10^3/uL; Basophil% 0.7 % (0-1); Eosinophils% 2.8 % (0-5); Hematocrit 44.5 % (37-47); Lymphocyte # 3.67 X10^3/ul (0.83-4.51); Lymphocyte % 33.8 % (19-41); Mean Corp Hgb Conc 33.7 g/dL (32-36); Mean Corpuscular Hgb 29.2 pg (27.0-32.0); Mean Corpuscular Volume 86.6 fL (81-99); Mean Platelet Vol. 9.5 fl (6.2-12.0); Monocyte# 0.66 X10^3/uL; Monocyte% 6.1 % (0-10); NRBC Flagged by Analyzer 0 % (0-5); Neutrophil # 6.13 X10^3/uL (2.7-7.7); Neutrophil % 56.3 % (47-70); Platelet Count 320 K/mm3 (150-450); RBC Distribution Width CV 13.5 % (11.6-14.6); RBC Distribution Width SD 42.7 fl (35.1-43.9); Red Blood Count 5.14 M/mm3 (4.2-5.4); White Blood Count 10.9 K/mm3 (4.4-11.0)
[2024-11-19 16:37] LABS: Microalbumin,Random Urine 13.1 mg/L (NO RANGE EST.); Microalbumin:Creatinine Ratio 59.8 mg/g CRE
[2024-11-19 16:43] LABS: Hemoglobin A1c 5.8 % (<=5.6)
[2024-11-19 16:51] LABS: ALB/GLOB Ratio 1.4 RATIO (0.9-2.4); AST(SGOT) 19 U/L (<=31); Alanine Aminotransfer ALT/SGPT 19 U/L (<=34); Albumin, Serum 4.2 g/dL (3.4-4.8); Alkaline Phosphatase 71 U/L (35-104); Anion Gap 10 (5-15); BUN 14 mg/dL (4-19); BUN/Creat Ratio 17.3 RATIO (10-20); Calcium,Total 9.3 mg/dL (7.6-11.0); Carbon Dioxide 25.2 mmol/L (21.0-32.0); Chloride 103 mmol/L (98-108); Cholesterol 156 mg/dL (<=200); Creatinine, Serum 0.83 mg/dL (0.70-1.20); EST Glomerular Filtration Rate 81 (>60); Globulin 3.1 g/dL (2.2-4.2); Glucose 87 mg/dL (70-99); High Density Lipoprotein 47 mg/dL; Low Density Lipoprotein Calc. 81 mg/dL; Potassium 4.5 mmol/L (3.3-5.1); Protein, Total 7.3 g/dL (5.9-8.4); Sodium Level 138 mmol/L (133-145); Thyroid Stim Hormone (TSH) 0.534 uIU/mL (0.300-4.200); Total Bilirubin 0.35 mg/dL (0.00-1.30); Triglycerides 139 mg/dL; Very Low Density Lipoprotein 28 mg/dL (5-40); cholesterol:hdl ratio screen 3.33
== END | disposition home or self-care (01) ==
LOC: BIMLAB 14:04
PROVIDERS: PCP Internal Medicine; Referring Provider Internal Medicine; Visit Provider Internal Medicine
DX: E11.9 Type 2 diabetes mellitus without complications (principal); E03.9 Hypothyroidism, unspecified; E78.5 Hyperlipidemia, unspecified
CPT/HCPCS: 36415; 80053; 80061; 82043; 82570; 83036; 84443; 85025

== ENCOUNTER → 2025-05-30 | Outpatient (CLI) | payer MEDICARE, MEDICAID, SELFPAY ==
[2025-05-30 16:00] LABS: AST(SGOT) 22 U/L (<=31); Alanine Aminotransfer ALT/SGPT 28 U/L (<=34); Albumin, Serum 4.4 g/dL (3.4-4.8); Alkaline Phosphatase 75 U/L (35-104); Anion Gap 14 (5-15); BUN 11 mg/dL (4-19); BUN/Creat Ratio 14.1 RATIO (10-20); Calcium,Total 9.6 mg/dL (7.6-11.0); Carbon Dioxide 20.5 mmol/L (21.0-32.0); Chloride 107 mmol/L (98-108); Globulin 3.0 g/dL (2.2-4.2); Glucose 97 mg/dL (70-99); Potassium 3.7 mmol/L (3.3-5.1)
== END | disposition home or self-care (01) ==
LOC: LAB 13:50
PROVIDERS: PCP Internal Medicine; Referring Provider Nurse Practitioner Family; Visit Provider Nurse Practitioner Family
DX: I10 Essential (primary) hypertension (principal)
CPT/HCPCS: 36415; 80053